=== PATIENT | female | born 1980 | race Hispanic/Latino ===

== ENCOUNTER 2020-05-28 16:22 | Emergency (ER) | payer SELFPAY ==
--- OUTSIDE RECORDS SUMMARY | 2020-05-28 16:25 | XMS REPORT | Continuity of Care Document ---
:1980 Author Organization [facility] t Address [address] [place] [address] Dr. Hugo [address] [place] [address] Care Team Providers Name Role Phone Unavailable Unavailable Unavailable Problems This patient has no known problems. Allergies, Adverse Reactions, Alerts This patient has no known allergies or adverse reactions. Medications This patient has no known medications. Procedures This patient has no known procedures. Results This patient has no known results.
[2020-05-28] MEDS ORDERED: METHYLPREDNISOLONE 125 MG INJ ONE (17:01)
[2020-05-28] MEDS ORDERED: MORPHINE 4 MG/ML SYR ONE (17:02)
[2020-05-28] MEDS ORDERED: ONDANSETRON 4 MG/2 ML VIAL ONE ×2 (17:02→18:42)
[2020-05-28 17:32] LABS: ALT/SGPT 27 U/L (12-78); AST/SGOT 22 U/L (15-37); Albumin 3.1 g/dL (3.4-5.0); Alkaline Phosphatase 95 U/L (45-117); BUN Blood Urea Nitrogen 8 mg/dL (7-18); Bicarbonate 23 mmol/L (21-32); Bilirubin Direct 0.1 mg/dL (0-0.2); Bilirubin Total 0.4 mg/dL (0.2-1.0); Ferritin 96.2 ng/mL (8-388); Glucose Level 246 mg/dL (74-106); Potassium 3.7 mmol/L (3.5-5.1); Protein, Total 7.5 g/dL (6.4-8.2); Sodium Level 137 mmol/L (136-145)
[2020-05-28 17:38] LABS: Absolute Lymphocytes (CBC) 1.6 K/uL (0.7-4.9); Basophils % 0.2 % (0-1.3); Hematocrit 41.3 % (36.0-45.0); Lymphocytes % 25.1 % (15.3-44.8); MPV 7.8 fL (7.6-11.3); RBC Red Blood Cell Count 4.98 M/uL (3.86-4.86)
--- NOTE | 2020-05-28 18:40 | RAD REPORT ---
EXAM DESCRIPTION: Luis Alberto Single View05/28/2020 6:01 pm CLINICAL HISTORY: Cough COMPARISON: 2013 FINDINGS: Mild to moderate right and mild left pulmonary opacities. Chronic elevation right hemidiaphragm IMPRESSION: Mild to moderate right and mild left pulmonary opacities likely pneumonia
--- NOTE | 2020-05-28 18:40 | RAD REPORT ---
EXAM DESCRIPTION: CT - Chest For Pe Angio - 05/28/2020 6:22 pm CLINICAL HISTORY: cough COMPARISON: None. TECHNIQUE: Dynamically enhanced axial 3 mm thick images of the chest were obtained during administra tion of <100> mL Isovue 370 IV contrast. Coronal and oblique reconstruction images were generated and reviewed. Exam utilizes a protocol for optimal evaluation of pulmonary arterial tree. Maximum intensity projections 3D imaging was utilized All CT scans are performed using dose optimization technique as appropriate and may include automated exposure control or mA/KV adjustment according to patient size. FINDINGS: A pulmonary embolus is not seen. A thoracic aortic aneurysm is not noted. A pleural effusion is not seen. A pericardial effusion is not seen. Mild left and mild to moderate right bibasilar opacities within the lungs IMPRESSION: Negative for a pulmonary embolism. Mild left and mild to moderate right bibasilar opacities within the lungs can be seen Covid pneumonia
--- NOTE | 2020-05-28 18:48 | EDPHYS ---
Physician Documentation [facility] Name: Gem Espinoza Age: 40 yrs Sex: Female : 1980 Arrival Date: 05/28/2020 Time: 16:25 Bed 6 Private MD: ED Physician Thomas Avery HPI: 05/28 17:43 This 40 yrs old Female presents to ER via EMS with complaints of Shortness Of rn Breath. 17:43 The patient has shortness of breath at rest, with light activity. Onset: The rn symptoms/episode began/occurred 4 day(s) ago. Duration: The symptoms are continuous, and are steadily getting worse. The patient's shortness of breath is aggravated by coughing, light activity. Associated signs and symptoms: Pertinent positives: productive cough, fever, Pertinent negatives: hemoptysis, vomiting. Severity of symptoms: At their worst the symptoms were moderate in the emergency department the symptoms are unchanged. The patient has not experienced similar symptoms in the past. The patient has not recently seen a physician. Reports got sick 4 days ago, tested + for COVID, steadily getting worse, today called 911 for increased sob, per EMS was breathing 40x/min, O2 94%, given nebulizer and improved, patient feels better, no chronic lung problems. . Historical: - Allergies: 16:30 No Known Allergies; bp - Home Meds: 16:30 None [Active]; bp - PMHx: 16:30 None; bp - Immunization history:: Adult Immunizations up to date. - Social history:: Smoking status: Patient denies any tobacco usage or history of. - Family history:: not pertinent. - Hospitalizations: : No recent hospitalization is reported. ROS: 17:43 Constitutional: + fever and chills Eyes: Negative for injury, pain, redness, and rn tele, Neck: Negative for injury, pain, and swelling, Cardiovascular: Negative for chest pain, palpitations, and edema, Respiratory: + cough and sob Abdomen/GI: Negative for abdominal pain, nausea, vomiting, diarrhea, and constipation, MS/Extremity: Negative for injury and deformity, Skin: Negative for injury, rash, and discoloration, Neuro: Negative for headache, numbness, tingling, and seizure. 17:43 All other systems are negative. rn Exam: 17:43 Constitutional: This is a well developed, well nourished patient who is awake, alert, rn + mild tachypnea Head/Face: Normocephalic, atraumatic. Eyes: Pupils equal round and reactive to light, extra-ocular motions intact. Lids and lashes normal. Conjunctiva and sclera are non-icteric and not injected. Cornea within normal limits. Periorbital areas with no swelling, redness, or edema. ENT: Mucous membranes moist. No stridor Cardiovascular: Tachycardic. No pulse deficits. Respiratory: + mild tachypnea Abdomen/GI: soft, non-tender Skin: Warm, dry with normal turgor. Normal color with no rashes, no lesions, and no evidence of cellulitis. MS/ Extremity: Pulses equal, no cyanosis. Neurovascular intact. Full, normal range of motion. Equal circumference. Neuro: Awake and alert, GCS 15, oriented to person, place, time, and situation. Vital Signs: 17:07 BP 129 / 89; Pulse 121; Resp 25 S; Temp 100.6(O); Pulse Ox 97% on 3 lpm NC; jd3 17:39 BP 120 / 78; Pulse 108; Resp 17; Pulse Ox 97% ; bp 18:15 BP 124 / 73; Pulse 102; Resp 16; Temp 98.9; Pulse Ox 97% ; bp 19:00 BP 120 / 70; Pulse 100; Resp 19; Temp 98.7; Pulse Ox 95% ; ea MDM: 16:28 Patient medically screened. rn 18:46 Differential diagnosis: pneumonia, Pneumothorax pulmonary edema, Pulmonary Embolism. rn Data reviewed: vital signs, nurses notes, lab test result(s), radiologic studies, CT scan, plain films, and as a result, I will discharge patient. Counseling: I had a detailed discussion with the patient and/or guardian regarding: the historical points, exam findings, and any diagnostic results supporting the discharge/admit diagnosis, lab results, radiology results, the need for outpatient follow up, to return to the emergency department if symptoms worsen or persist or if there are any questions or concerns that arise at home. Response to treatment: the patient's symptoms have markedly improved after treatment, and as a result, I will discharge patient. Special discussion: I discussed with the patient/guardian in detail that at this point there is no indication for admission to the hospital. It is understood, however, that if the symptoms persist or worsen the patient needs to return immediately for re-evaluation. Based on the history and exam findings, there is no indication for further emergent testing or inpatient evaluation. I discussed with the patient/guardian the need to see the retirement actuary for further evaluation of the symptoms. ED course: No oxygen requirement, mild to moderate COVID pneumonia, will dc home with steroids and zithromax with prn inhaler.. 05/28 16:29 Order name: Blood Culture Adult (2) rn 05/28 16:29 Order name: BMP rn 05/28 16:29 Order name: C-Reactive Protein rn 05/28 16:29 Order name: CBC with Diff rn 05/28 16:29 Order name: D-Dimer rn 05/28 16:29 Order name: Ferritin rn 05/28 16:29 Order name: Lactate rn 05/28 16:29 Order name: LFT's rn 05/28 16:29 Order name: Procalcitonin rn 05/28 17:25 Order name: Lactate; Complete Time: 17:42 EDMS 05/28 17:33 Order name: Basic Metabolic Panel; Complete Time: 17:42 EDMS 05/28 17:33 Order name: Liver (Hepatic) Function; Complete Time: 17:42 EDMS 05/28 17:33 Order name: C-Reactive Protein; Complete Time: 17:42 EDMS 05/28 17:33 Order name: Ferritin; Complete Time: 17:42 EDMS 05/28 16:29 Order name: CXR XRAY rn 05/28 16:29 Order name: EKG; Complete Time: 16:31 rn 05/28 16:29 Order name: Cardiac monitoring; Complete Time: 16:40 rn 05/28 16:29 Order name: Droplet/Contact Precautions; Complete Time: 16:40 rn 05/28 16:29 Order name: EKG - Nurse/Tech; Complete Time: 16:41 rn 05/28 16:29 Order name: IV Start; Complete Time: 17:06 rn 05/28 17:41 Order name: CBC with Automated Diff; Complete Time: 17:42 EDMS 05/28 17:46 Order name: D-Dimer; Complete Time: 17:54 EDMS 05/28 17:54 Order name: CT Chest For PE Angio rn 05/28 18:10 Order name: Procalcitonin EDPA 05/28 18:41 Order name: CT EDPA 05/28 18:41 Order name: RAD EDPA 05/28 16:29 Order name: Labs collected and sent; Complete Time: 17:06 rn 05/28 16:29 Order name: O2 Per Protocol; Complete Time: 16:41 rn 05/28 16:29 Order name: O2 Sat Monitoring; Complete Time: 16:41 rn Administered Medications: 17:06 Drug: SOLU-Medrol 125 mg Route: IVP; Site: right antecubital; jd3 19:00 Follow up: Response: No adverse reaction ea 17:06 Drug: morphine 4 mg Route: IVP; Site: right antecubital; jd3 18:06 Follow up: Response: No adverse reaction; Pain is decreased bp 17:06 Drug: Zofran (Ondansetron) 4 mg Route: IVP; Site: right antecubital; jd3 18:05 Follow up: Response: No adverse reaction; Pain is decreased bp 18:10 Drug: Zofran (Ondansetron) 4 mg Route: IVP; Site: right antecubital; bp 19:20 Follow up: Response: No adverse reaction bp Disposition: 05/28/20 18:47 Discharged to Home. Impression: Coronavirus infection, unspecified, Viral pneumonia, unspecified. - Condition is Stable. - Discharge Instructions: COVID-19. - Prescriptions for Zithromax Z- Surendra 250 mg Oral Tablet - take 1 tablet by ORAL route as directed for 5 days Day 1 - take two (2) tablets one time. Day 2, 3, 4 , 5 take one (1) tablet once daily.; 6 tablet. Prednisone 20 mg Oral Tablet - take 1 tablet by ORAL route as directed for 14 days Take 2 tablets by mouth daily for 7 days, then 1 tablet by mouth daily for 7 days.; 21 tablet. Albuterol Sulfate 90 mcg/actuation - inhale 1-2 puff by INHALATION route every 4-6 hours; 1 Inhaler. - Medication Reconciliation Form, Thank You Letter, Antibiotic Education, Prescription Opioid Use form. - Follow up: Hermilo Veliz MD; When: 2 - 3 days; Reason: Recheck today's complaints, Re-evaluation by your physician. - Problem is new. - Symptoms have improved. Signatures: Dispatcher [employer] EDThomas Jenkins MD MD rn Antunez, Elena RN RN Michael Dorsey RN RN jVijay Mederos RN RN bp Corrections: (The following items were deleted from the chart) 19:28 18:47 05/28/2020 18:47 Discharged to Home. Impression: Coronavirus infection, ea unspecified; Viral pneumonia, unspecified. Condition is Stable. Forms are Medication Reconciliation Form, Thank You Letter, Antibiotic Education, Prescription Opioid Use. Follow up: Hermilo Veliz; When: 2 - 3 days; Reason: Recheck today's complaints, Re-evaluation by your physician. Problem is new. Symptoms have improved. rn
--- NOTE | 2020-05-28 18:48 | ER ---
Nurse's Notes [facility] Name: Gem Espinoza Age: 40 yrs Sex: Female : 1980 Arrival Date: 05/28/2020 Time: 16:25 Bed 6 Private MD: Diagnosis: Coronavirus infection, unspecified;Viral pneumonia, unspecified Presentation: 05/28 16:30 Chief complaint: EMS states: INCREASE SOB AND FEVER TODAY, DX WITH +COV 4 DAYS AGO. bp Coronavirus screen: Client reports previous positive COVID test result. Date of collection: May 24, 2020. Ebola Screen: No symptoms or risks identified at this time. Initial Sepsis Screen: Does the patient meet any 2 criteria? RR > 20 per min. HR > 90 bpm. Yes Does the patient have a suspected source of infection? Yes: Productive cough/pneumonia. Risk Assessment: Do you want to hurt yourself or someone else? Patient reports no desire to harm self or others. Onset of symptoms was May 28, 2020. 16:30 Method Of Arrival: EMS: [facility] bp 16:30 Acuity: ELIZABETH 2 bp Triage Assessment: 16:30 General: Appears distressed, uncomfortable, obese, Behavior is cooperative, appropriate bp for age, anxious. Pain: Denies pain. EENT: Reports nasal congestion. Neuro: No deficits noted. Cardiovascular: Rhythm is sinus tachycardia. Respiratory: Airway is patent Respiratory effort is labored, Respiratory pattern is symmetrical, tachypnea Breath sounds with crackles bilaterally. GI: No signs and/or symptoms were reported involving the gastrointestinal system. : No signs and/or symptoms were reported regarding the genitourinary system. Derm: No deficits noted. Musculoskeletal: No deficits noted. Historical: - Allergies: 16:30 No Known Allergies; bp - Home Meds: 16:30 None [Active]; bp - PMHx: 16:30 None; bp - Immunization history:: Adult Immunizations up to date. - Social history:: Smoking status: Patient denies any tobacco usage or history of. - Family history:: not pertinent. - Hospitalizations: : No recent hospitalization is reported. Screenin:30 Abuse screen: Denies threats or abuse. Denies injuries from another. Nutritional bp screening: No deficits noted. Tuberculosis screening: No symptoms or risk factors identified. Fall Risk None identified. Assessment: 16:30 General: SEE TRIAGE NOTE. bp 17:39 Reassessment: No changes from previously documented assessment. Patient and/or family bp updated on plan of care and expected duration. Pain level reassessed. Patient is alert, oriented x 3, equal unlabored respirations, skin warm/dry/pink. RESULTS PENDING. 18:15 Reassessment: No changes from previously documented assessment. Patient and/or family bp updated on plan of care and expected duration. Pain level reassessed. PT RETURNED FROM RAD. 19:27 Reassessment: Patient and/or family updated on plan of care and expected duration. Pain ea level reassessed. Patient is alert and oriented x 3. Respirations equal and unlabored at this time. Discharge instruction given to patient verbalized the understanding of instruction. Pt left ED via wheelchair, pt tolerating well. Vital Signs: 17:07 BP 129 / 89; Pulse 121; Resp 25 S; Temp 100.6(O); Pulse Ox 97% on 3 lpm NC; jd3 17:39 BP 120 / 78; Pulse 108; Resp 17; Pulse Ox 97% ; bp 18:15 BP 124 / 73; Pulse 102; Resp 16; Temp 98.9; Pulse Ox 97% ; bp 19:00 BP 120 / 70; Pulse 100; Resp 19; Temp 98.7; Pulse Ox 95% ; ea ED Course: 16:25 Patient arrived in ED. jd3 16:27 Vijay Neves, RN is Primary Nurse. bp 16:28 Thomas Avery MD is Attending Physician. rn 16:39 EKG done, by ED staff, reviewed by Thomas Avery MD. Maintain EMS IV. Dressing intact. jd3 Good blood return noted. Site clean \T\ dry. Gauge \T\ site: 20 G right AC. 16:57 Initial lab(s) drawn, by sc, sent to lab. First set of blood cultures drawn by me. 5 17:04 Inserted saline lock: 20 gauge in left antecubital area, using aseptic technique. Blood 5 collected. 17:05 Patient has correct armband on for positive identification. Bed in low position. Call [facility] light in reach. Side rails up X 1. Pillow given. scanning clerk on. Pulse ox on. NIBP on. 17:06 Blood Culture Adult (2) Sent. 5 17:06 BMP Sent. 5 17:06 C-Reactive Protein Sent. 5 17:06 CBC with Diff Sent. 5 17:06 D-Dimer Sent. [facility] 17:06 Ferritin Sent. [facility] 17:07 Lactate Sent. [facility] 17:07 LFT's Sent. [facility] 17:07 Procalcitonin Sent. [facility] 17:11 Triage completed. bp 18:47 Hermilo Veliz MD is Referral Physician. rn 19:08 Arm band placed on. jd3 19:25 No provider procedures requiring assistance completed. IV discontinued, intact, ea bleeding controlled, No redness/swelling at site. Pressure dressing applied. Administered Medications: 17:06 Drug: SOLU-Medrol 125 mg Route: IVP; Site: right antecubital; jd3 19:00 Follow up: Response: No adverse reaction ea 17:06 Drug: morphine 4 mg Route: IVP; Site: right antecubital; jd3 18:06 Follow up: Response: No adverse reaction; Pain is decreased bp 17:06 Drug: Zofran (Ondansetron) 4 mg Route: IVP; Site: right antecubital; jd3 18:05 Follow up: Response: No adverse reaction; Pain is decreased bp 18:10 Drug: Zofran (Ondansetron) 4 mg Route: IVP; Site: right antecubital; bp 19:20 Follow up: Response: No adverse reaction bp Outcome: 18:47 Discharge ordered by MD. rn 19:26 Discharged to home via wheelchair, with family. ea 19:26 Condition: stable 19:26 Discharge instructions given to patient, Instructed on discharge instructions, follow up and referral plans. medication usage. 19:28 Patient left the ED. ea Signatures: Thomas Avery MD MD rn Martinez, Maria Mabel Esparza RN RN ea Davies, Jonathon, RN RN jd3 Peltier, Brian, RN RN bp
[2020-05-28 23:17] VITALS: BP 120/70; TEMP 98.7; O2SAT 95
--- NOTE | 2020-05-29 05:12 | EKG ---
Test Date: 2020-05-28 Test Time: 16:33:20 Shingle Catcher: JONATHON MEASUREMENT RESULTS: Intervals: Rate: 108 RI: 158 QRSD: 84 QT: 314 QTc: 420 [place]: P: 46 RI: 158 QRS: 59 T: 56 INTERPRETIVE STATEMENTS: Sinus tachycardia Possible Inferior infarct, age undetermined Anterior infarct, age undetermined Abnormal ECG No previous ECG available for comparison Electronically Signed On 05-29-20 05:11:11 CANCER REGISTRY MANAGER by Dov Osborn
== END 2020-05-28 19:28 | disposition home or self-care (01) ==
LOC: ER 16:22
DX: U07.1 COVID-19 (principal); J12.82 Pneumonia due to coronavirus disease 2019
CPT/HCPCS: 36415; 71045; 71275; 80048; 80076; 82728; 83605; 84145; 85025; 85379; 86140; 87040; 93005; 96374; 96375; 99284; J2405; J2930; Q9967

== ENCOUNTER 2020-05-31 14:34 | Inpatient (IN) | payer SELFPAY ==
--- OUTSIDE RECORDS SUMMARY | 2020-05-31 14:37 | XMS REPORT | Continuity of Care Document ---
:1980 Author Organization [facility] t Address [address] [place] [address] Dr. [address] [place] [address] Care Team Providers Name Role Phone Unavailable Unavailable Unavailable Problems This patient has no known problems. Allergies, Adverse Reactions, Alerts This patient has no known allergies or adverse reactions. Medications This patient has no known medications. Procedures This patient has no known procedures. Results This patient has no known results.
[2020-05-31] MEDS ORDERED: METHYLPREDNISOLONE 125 MG INJ ONE (15:29)
[2020-05-31 15:32] LABS: Arterial Blood Carboxyhemoglob 1.9 % (0-1.5); Blood Gas Oxyhemoglobin 88.5 % (94-97); Blood O2 Saturation 91.1 % (92-98.5)
--- NOTE | 2020-05-31 15:41 | RAD REPORT ---
EXAM DESCRIPTION: RAD - Chest Single View - 05/31/2020 3:30 pm CLINICAL HISTORY: Cough;Chest pain Chest pain. COMPARISON: Chest Single View dated 05/28/2020; CHEST PA AND LAT 2 VIEW dated 02/04/2014 FINDINGS: Portable technique limits examination quality. Mild bilateral pulmonary opacities are seen, appearing mildly progressive involving the left lung. Th e heart is normal in size. No displaced fractures. IMPRESSION: Mild worsening in lung aeration since the comparative study.
[2020-05-31] MEDS ORDERED: MORPHINE 2 MG/ML SYR ONE ×2 (15:52→17:01)
[2020-05-31] MEDS ORDERED: ONDANSETRON 4 MG/2 ML VIAL ONE (15:52)
[2020-05-31 15:56] LABS: Absolute Lymphocytes (CBC) 1.4 K/uL (0.7-4.9); Basophils % 0.3 % (0-1.3); Hematocrit 41.3 % (36.0-45.0); Lymphocytes % 8.8 % (15.3-44.8); MPV 7.6 fL (7.6-11.3); RBC Red Blood Cell Count 4.96 M/uL (3.86-4.86)
[2020-05-31 15:59] LABS: Protime INR 1.05
[2020-05-31 16:14] LABS: ALT/SGPT 18 U/L (12-78); AST/SGOT 13 U/L (15-37); Albumin 2.8 g/dL (3.4-5.0); Alkaline Phosphatase 82 U/L (45-117); BUN Blood Urea Nitrogen 12 mg/dL (7-18); Bicarbonate 23 mmol/L (21-32); Bilirubin Direct 0.2 mg/dL (0-0.2); Bilirubin Total 0.5 mg/dL (0.2-1.0); Ferritin 163.9 ng/mL (8-388); Glucose Level 284 mg/dL (74-106); Magnesium 2.3 mg/dL (1.8-2.4); NT PRO-BNP 183 pg/mL (<125); Potassium 3.8 mmol/L (3.5-5.1); Protein, Total 7.5 g/dL (6.4-8.2); Sodium Level 136 mmol/L (136-145); Troponin (Emerg Dept Use Only) < 0.02 ng/mL (0.0-0.045)
--- NOTE | 2020-05-31 17:11 | ER ---
Nurse's Notes [facility] Name: Gem Espinoza Age: 40 yrs Sex: Female : 1980 Arrival Date: 05/31/2020 Time: 14:36 Bed 30 Private MD: Diagnosis: Pneumonia due to other specified infectious organisms;Coronavirus infection, unspecified;Respiratory failure, unspecified with hypoxia Presentation: 05/31 14:50 Onset of symptoms was May 18, 2020. ll1 14:50 Acuity: ELIZABETH 2 ll1 14:54 Chief complaint: Patient states: Covid + for 2 weeks. SOB for 4-5 days. Constant SOB ll1 now. O2 sat. 73-86% RA during triage. Coronavirus screen: Client denies travel out of the [place] in the last 14 days. congestion, cough unrelated to allergies, difficulty breathing, fatigue, shortness of breath, Client presents with at least one sign or symptom that may indicate coronavirus-19. Standard/surgical mask placed on the client. Ebola Screen: Patient denies travel to an Ebola-affected area in the 21 days before illness onset. Initial Sepsis Screen: Does the patient meet any 2 criteria? RR > 20 per min. HR > 90 bpm. Yes Does the patient have a suspected source of infection? Yes: Productive cough/pneumonia. Risk Assessment: Do you want to hurt yourself or someone else? Patient reports no desire to harm self or others. 14:54 Method Of Arrival: Ambulatory ll1 Historical: - Allergies: 14:45 No Known Allergies; ll1 - PMHx: 14:45 Diabetes - NIDDM; Hypertension; ll1 - PSHx: 14:45 ; ll1 - Immunization history:: Flu vaccine is not up to date. - Social history:: Smoking status: Patient denies any tobacco usage or history of. Screenin:40 Abuse screen: Denies threats or abuse. Denies injuries from another. Nutritional hb screening: No deficits noted. Tuberculosis screening: No symptoms or risk factors identified. Fall Risk None identified. Assessment: 15:42 General: Appears distressed, Behavior is cooperative. Pain: Pain currently is 6 out of hb 10 on a pain scale. Neuro: Level of Consciousness is awake, alert, obeys commands, Oriented to. Cardiovascular: Capillary refill < 3 seconds Patient's skin is warm and dry. Respiratory: Airway Respiratory effort is labored, Respiratory pattern is tachypnea. 15:42 GI: Reports nausea. : No signs and/or symptoms were reported regarding the hb genitourinary system. EENT: No signs and/or symptoms were reported regarding the EENT system. Derm: Skin is pink, warm \T\ dry. Musculoskeletal: No signs and/or symptoms reported regarding the musculoskeletal system. 16:26 Reassessment: Dr. Love at bedside. hb 17:10 Reassessment: Patient and/or family updated on plan of care and expected duration. Pain hb level reassessed. Breathing labored, SpO2>92% on HFNC. 17:41 Reassessment: Pt placed on NRB, to CT via stretcher . hb 17:56 Reassessment: Pt returned from CT, placed back on HFNC. Admission ordered, awaiting hb room assignment at this time. 18:35 Reassessment: No changes from previously documented assessment. VSS. hb Vital Signs: 14:54 BP 136 / 88; Pulse 110; Resp 26; Temp 98.0; Pulse Ox 80% ; ll1 14:57 Resp 22; Pulse Ox 91% on 4 lpm NC; ll1 15:43 Pulse Ox 96% 60% ; hb 16:27 BP 138 / 76; Pulse 98; Resp 20; Pulse Ox 94% 60% ; hb 17:30 BP 142 / 78; Pulse 100; Resp 22; Pulse Ox 92% 65% ; hb 15:43 30L HFNC hb 16:27 30L HFNC hb 17:30 25L HFNC hb ED Course: 14:36 Patient arrived in ED. mr 14:45 Arm band placed on Patient placed in an exam room, on a stretcher. ll1 14:50 Triage completed. ll1 14:51 Dayday Villagomez PA is PHCP. cp 14:51 Dung Sarkar MD is Attending Physician. cp 15:10 Yeimi Capellan, RN is Primary Nurse. hb 15:30 XRAY Chest (1 view) In Process Unspecified. EDMS 15:44 Patient has correct armband on for positive identification. Bed in low position. Call hb light in reach. Side rails up X 1. 15:44 Initial lab(s) drawn, by me, sent to lab. EKG done, by ED staff, reviewed by Dayday Villagomez jp3 BUDDY COVPAULA swab sent to lab. Inserted saline lock: 22 gauge in left antecubital area, using aseptic technique. Blood collected. 16:51 Radiology exam delayed due to test not completed at this time. mw3 17:10 Tayo Love is Hospitalizing Provider. cp 17:44 Urine --Ancillary (enter results) Sent. hb 17:44 Urine Dipstick--Ancillary (enter results) Sent. hb 21:22 No provider procedures requiring assistance completed. IV is patent, with fluids rv infusing freely, Patient admitted, IV remains in place. Administered Medications: 15:38 Drug: morphine 2 mg Route: IVP; Site: left antecubital; hb 16:12 Follow up: Response: No adverse reaction hb 15:39 Drug: SOLU-Medrol 125 mg Route: IVP; Site: left antecubital; hb 16:12 Follow up: Response: No adverse reaction hb 15:41 Drug: Zofran (Ondansetron) 4 mg Route: IVP; Site: left antecubital; hb 16:12 Follow up: Response: No adverse reaction hb 16:46 Drug: morphine 2 mg Route: IVP; Site: left antecubital; hb 17:44 Follow up: Response: No adverse reaction hb 17:46 Drug: Rocephin - (cefTRIAXone) 1 grams Route: IVPB; Infused Over: 30 mins; Site: left hb antecubital; 17:46 Follow up: IV Status: Completed infusion; IV Intake: 10ml hb 17:48 Drug: Zithromax (azithromycin) 500 mg Route: IVPB; Infused Over: 1 hrs; Site: left hb antecubital; 20:00 Follow up: IV Status: Completed infusion; IV Intake: 250ml rv Intake: 17:46 IV: 10ml; Total: 10ml. hb 20:00 IV: 250ml; Total: 260ml. rv Outcome: 17:11 Decision to Hospitalize by Provider. cp 21:23 Admitted to ER Hold. [facility]. rv 21:23 Condition: good 21:23 Instructed on the need for admit. 06/01 13:52 Patient left the ED. dm5 Signatures: [facility] Eva Mckay RN RN dm5 Lilli Ragland, Dayday, Yeimi Alexander cp, LINDA RN hb Cleopatra Barrera mw3 Acosta Muir RN RN rv Clement Simms jp3 Edelmira Quevedo RN RN ll1 Corrections: (The following items were deleted from the chart) 05/31 15:44 15:42 Respiratory: Airway hb hb
--- NOTE | 2020-05-31 17:11 | EDPHYS ---
Physician Documentation [facility] Name: Gem Espinoza Age: 40 yrs Sex: Female : 1980 Arrival Date: 05/31/2020 Time: 14:36 Bed 30 Private MD: ED Physician Dung Sarkar HPI: 05/31 15:10 This 40 yrs old Female presents to ER via Ambulatory with complaints of cp Breathing Difficulty, COVID+. 15:10 The patient has shortness of breath at rest. cp 15:10 Onset: The symptoms/episode began/occurred 5 day(s) ago. Duration: The symptoms are cp continuous, and are steadily getting worse. Associated signs and symptoms: Pertinent positives: chest pain, non-productive cough, Pertinent negatives: diaphoresis, fever, hemoptysis, vomiting. Severity of symptoms: in the emergency department the symptoms are unchanged despite home interventions. Patient reports testing positive for COVID-19 approximately 2 weeks ago with symptoms starting several days prior. Patient reports she was seen recently in [facility] ED and sent home with oral steroids and antibiotic. Historical: - Allergies: 14:45 No Known Allergies; ll1 - PMHx: 14:45 Diabetes - NIDDM; Hypertension; ll1 - PSHx: 14:45 ; ll1 - Immunization history:: Flu vaccine is not up to date. - Social history:: Smoking status: Patient denies any tobacco usage or history of. ROS: 15:15 Constitutional: Negative for body aches, chills, fever, poor PO intake. cp 15:15 Eyes: Negative for injury, pain, redness, and discharge. cp 15:15 ENT: Negative for ear pain, sore throat, difficulty swallowing, difficulty handling secretions. 15:15 Cardiovascular: Positive for chest pain, with cough, Negative for edema, palpitations. 15:15 Respiratory: Positive for cough, with no reported sputum, shortness of breath, at rest. Negative for wheezing. 15:15 Abdomen/GI: Negative for abdominal pain, nausea, vomiting, and diarrhea. 15:15 Back: Negative for pain at rest, pain with movement. 15:15 Neuro: Negative for altered mental status, dizziness, headache, syncope, weakness. 15:15 All other systems are negative. Exam: 15:20 Constitutional: The patient appears alert, awake, non-diaphoretic, non-toxic, well cp developed, well nourished, in obvious distress, moderately distressed. 15:20 Head/Face: Normocephalic, atraumatic. cp 15:20 Eyes: Periorbital structures: appear normal, Conjunctiva: normal, no exudate, no injection, Sclera: no appreciated abnormality, Lids and lashes: appear normal, bilaterally. 15:20 ENT: External ear(s): are unremarkable, Nose: is normal, Mouth: Lips: moist, Oral mucosa: moist, Posterior pharynx: Airway: no evidence of obstruction, patent. 15:20 Neck: ROM/movement: is normal, is supple, without pain, no range of motions limitations, no meningismus. 15:20 Chest/axilla: Inspection: normal, Palpation: is normal, no crepitus, no tenderness. 15:20 Cardiovascular: Rate: tachycardic, Rhythm: regular, Edema: is not appreciated, JVD: is not appreciated. 15:20 Respiratory: moderate respiratory distress is noted, Respirations: labored breathing, that is moderate, shallow respirations, that is moderate, Breath sounds: bronchial sounds, that are moderate, are heard diffusely, stridor, is not appreciated, wheezing: is not appreciated. 15:20 Abdomen/GI: Inspection: abdomen appears normal, Palpation: abdomen is soft and non-tender, in all quadrants. 15:20 Back: CVA tenderness, is absent. 15:20 Skin: no rash present. 15:20 Neuro: Orientation: to person, place \T\ time. Mentation: is normal, Cerebellar function: is grossly normal, Motor: moves all fours, strength is normal, Sensation: is normal. 15:35 ECG was reviewed by the Attending Physician. cp Vital Signs: 14:54 BP 136 / 88; Pulse 110; Resp 26; Temp 98.0; Pulse Ox 80% ; ll1 14:57 Resp 22; Pulse Ox 91% on 4 lpm NC; ll1 15:43 Pulse Ox 96% 60% ; hb 16:27 BP 138 / 76; Pulse 98; Resp 20; Pulse Ox 94% 60% ; hb 17:30 BP 142 / 78; Pulse 100; Resp 22; Pulse Ox 92% 65% ; hb 15:43 30L HFNC hb 16:27 30L HFNC hb 17:30 25L HFNC hb MDM: 14:53 Patient medically screened. cp 17:15 Physician consultation: Tayo Love was contacted at 17:10, regarding admission, to cp the medical/surgical unit. patient's condition, and will see patient in ED. 17:15 Counseling: I had a detailed discussion with the patient and/or guardian regarding: the cp historical points, exam findings, and any diagnostic results supporting the discharge/admit diagnosis, lab results, radiology results, the need for further work-up and treatment in the hospital. Response to treatment: the patient's symptoms have markedly improved after treatment. 18:15 Data reviewed: vital signs, nurses notes, lab test result(s), EKG, radiologic studies, cp CT scan, plain films. 18:15 Test interpretation: by ED physician or midlevel provider: ECG, plain radiologic cp studies. 05/31 15:06 Order name: CBC with Diff; Complete Time: 17:38 cp 05/31 16:17 Interpretation: Normal except: WBC 15.40; RBC 4.96; PLT 261; GABBY% 86.7; LYM% 8.8; NEUT cp A 13.4. 05/31 15:06 Order name: LFT's; Complete Time: 16:17 cp 05/31 17:06 Interpretation: Normal except: ALB 2.8; GLOB 4.7; A/G 0.6. cp 05/31 15:06 Order name: Magnesium; Complete Time: 16:17 cp 05/31 15:06 Order name: NT PRO-BNP; Complete Time: 16:17 cp 05/31 15:06 Order name: PT-INR; Complete Time: 16:17 cp 05/31 15:06 Order name: Troponin (emerg Dept Use Only); Complete Time: 16:17 cp 05/31 15:07 Order name: Basic Metabolic Panel; Complete Time: 16:17 EDMS 05/31 16:19 Interpretation: Normal except: GLUC 284. cp 05/31 15:08 Order name: CRP; Complete Time: 16:17 cp 05/31 15:08 Order name: Ferritin; Complete Time: 16:17 cp 05/31 15:09 Order name: ABG; Complete Time: 16:17 cp 05/31 16:17 Interpretation: Normal except: ABGPCO2 29.3; ABGPO2 60.3; ABGHCO3 20.3; ABGSO2 91.1; cp QYIN2WS 88.5; ABGCOHB 1.9. 05/31 15:53 Order name: D-Dimer; Complete Time: 16:17 EDMS 05/31 17:06 Interpretation: Abnormal: D-DIMER 938. 05/31 16:56 Order name: SARS-COV-2 RT PCR; Complete Time: 17:05 EDMS 05/31 17:05 Interpretation: Results reviewed. 05/31 17:17 Order name: CBC Smear Scan; Complete Time: 17:38 EDMS 05/31 17:34 Order name: Urine Dipstick--Ancillary (enter results) nj 05/31 17:34 Order name: Urine --Ancillary (enter results) nj 05/31 17:38 Order name: Urine --Ancillary; Complete Time: 17:38 EDMS 05/31 17:38 Order name: Urine Dipstick-Ancillary; Complete Time: 17:38 EDMS 05/31 22:43 Order name: Glucose, Ancillary Testing EDMN 06/01 00:07 Order name: Blood Culture EDMN 06/01 06:21 Order name: CBC with Automated Diff EDMS 06/01 06:45 Order name: D-Dimer EDMS 06/01 07:12 Order name: Phosphorus EDMS 06/01 07:12 Order name: Lipid Profile EDMS 06/01 07:12 Order name: C-Reactive Protein EDMS 06/01 07:12 Order name: Magnesium EDMS 06/01 07:12 Order name: Ferritin EDMS 06/01 08:45 Order name: Glucose, Ancillary Testing EDMN 05/31 15:06 Order name: XRAY Chest (1 view); Complete Time: 16:17 05/31 15:06 Order name: EKG; Complete Time: 15:07 05/31 15:06 Order name: Cardiac monitoring; Complete Time: 15:39 05/31 15:06 Order name: EKG - Nurse/Tech; Complete Time: 15:39 05/31 15:06 Order name: IV Saline Lock; Complete Time: 15:39 05/31 15:06 Order name: Labs collected and sent; Complete Time: 15:39 05/31 15:06 Order name: O2 Per Protocol; Complete Time: 15:39 03/13 15:06 Order name: O2 Sat Monitoring; Complete Time: 15:39 cp 05/31 15:06 Order name: Urine Dipstick-Ancillary (obtain specimen); Complete Time: 18:10 cp 05/31 15:06 Order name: Urine Test (obtain specimen); Complete Time: 18:10 cp 05/31 16:19 Order name: CT Chest For PE Angio cp 05/31 18:08 Order name: CT; Complete Time: 18:11 EDMS 06/01 12:05 Order name: Creatinine EDMS 06/01 12:05 Order name: AST/SGOT EDMS 06/01 12:05 Order name: ALT/SGPT EDMS 06/01 12:35 Order name: Glucose, Ancillary Testing EDMS EC:35 Rate is 94 beats/min. Rhythm is regular. MA interval is normal. QRS interval is normal. cp QT interval is normal. T waves are Inverted in leads V2, V3. Interpreted by me. Reviewed by me. Administered Medications: 15:38 Drug: morphine 2 mg Route: IVP; Site: left antecubital; hb 16:12 Follow up: Response: No adverse reaction hb 15:39 Drug: SOLU-Medrol 125 mg Route: IVP; Site: left antecubital; hb 16:12 Follow up: Response: No adverse reaction hb 15:41 Drug: Zofran (Ondansetron) 4 mg Route: IVP; Site: left antecubital; hb 16:12 Follow up: Response: No adverse reaction hb 16:46 Drug: morphine 2 mg Route: IVP; Site: left antecubital; hb 17:44 Follow up: Response: No adverse reaction hb 17:46 Drug: Rocephin - (cefTRIAXone) 1 grams Route: IVPB; Infused Over: 30 mins; Site: left hb antecubital; 17:46 Follow up: IV Status: Completed infusion; IV Intake: 10ml hb 17:48 Drug: Zithromax (azithromycin) 500 mg Route: IVPB; Infused Over: 1 hrs; Site: left hb antecubital; 20:00 Follow up: IV Status: Completed infusion; IV Intake: 250ml rv Disposition: 06/02 05:10 Co-signature as Attending Physician, Dung Sarkar MD I agree with the assessment and tw4 plan of care. Disposition: 05/31/20 17:11 Hospitalization ordered by Tayo Lvoe for Inpatient Admission. Preliminary diagnosis are Pneumonia due to other specified infectious organisms, Coronavirus infection, unspecified, Respiratory failure, unspecified with hypoxia. - Bed requested for Telemetry/MedSurg (Inpatient). - Status is Inpatient Admission. dm5 - Condition is Fair. - Problem is new. - Symptoms have improved. Signatures: Dispatcher [employer] EDMN Alise Blas Eva Barron, RN LINDA dm5 Gem Siddiqui RN RN dw Page, Corey, PA PA cp Baxter, Heather, RN RN Dung Sarkar MD MD tw4 Edelmira Quevedo RN RN ll1 Acosta Muir RN rv Corrections: (The following items were deleted from the chart) 05/31 15:49 15:07 BASIC METABOLIC PANEL+C.LAB.BRZ ordered. EDMN EDMS 15:53 15:08 D-DIMER+COAG.LAB.BRZ ordered. EDMN EDMS 19:25 17:11 Hospitalization Ordered by Tayo Love for Inpatient Admission. Preliminary dw diagnosis is Pneumonia due to other specified infectious organisms; Coronavirus infection, unspecified; Respiratory failure, unspecified with hypoxia. Bed requested for Telemetry/MedSurg (Inpatient). Status is Inpatient Admission. Condition is Fair. Problem is new. Symptoms have improved. cp 06/01 12:47 05/31 19:25 05/31/2020 17:11 Hospitalization Ordered by Tayo Love for Inpatient bd Admission. Preliminary diagnosis is Pneumonia due to other specified infectious organisms; Coronavirus infection, unspecified; Respiratory failure, unspecified with hypoxia. Bed requested for [facility] ER HOLD. Status is Inpatient Admission. Condition is Fair. Problem is new. Symptoms have improved. dw 06/01 13:52 12:47 05/31/2020 17:11 Hospitalization Ordered by Tayo Love for Inpatient dm5 Admission. Preliminary diagnosis is Pneumonia due to other specified infectious organisms; Coronavirus infection, unspecified; Respiratory failure, unspecified with hypoxia. Bed requested for Telemetry/MedSurg (Inpatient). Status is Inpatient Admission. Condition is Fair. Problem is new. Symptoms have improved. bd
[2020-05-31 17:17] LABS: Blood Morphology Comment NOT SEEN (NOT SEEN); Platelet Estimate ADEQ; White Blood Cell Scan OK (OK)
--- NOTE | 2020-05-31 17:32 | P.HP ---
Certification for Inpatient Patient admitted to: Inpatient With expected LOS: >2 Midnights Practitioner: I am a practitioner with admitting privileges, knowledge of patient current condition, hospital course, and medical plan of care. Services: Services provided to patient in accordance with Admission requirements found in Title 42 Section 412.3 of the Code of Federal Regulations Patient History Date of Service: 05/31/20 Reason for admission: Shortness of breath History of Present Illness: 40-year-old woman with a history of non insulin dependent diabetes mellitus presented to the emergency department with a complaint of progressive shortness of breath. Patient stated she was diagnosed with COVID 19 two weeks ago. Chest x-ray done in the emergency department demonstrated bilateral pulmonary infiltrates consistent with COVID pneumonia. Patient was on high-flow oxygen when I saw her in the ED. The ED staff report hypoxia with SaO2 was 70-80 on room air on arrival. Her D-dimer is elevated. She has leukocytosis and meet criteria for sepsis. Patient is admitted for further management. Allergies No Known Allergies Allergy (Unverified 09/30/15 21:14) - Past Medical/Surgical History -: Diabetes mellitus type 2 - Family History Mother -: Diabetes - Social History Smoking Status: Never smoker Alcohol use: No CD- Drugs: No Place of Residence: Home Review of Systems Other: Except as documented, all other systems reviewed and negative. Physical Examination - Physical Exam General: Alert, In no apparent distress, Oriented x3, Mild distress HEENT: Atraumatic, PERRLA, Sclerae nonicteric Neck: Supple, JVD not distended Respiratory: Normal air movement, Crackles/rales Cardiovascular: No edema, Normal S1 S2, Other (Tachycardia) Gastrointestinal: Normal bowel sounds, Soft and benign, Non-distended, No tenderness Musculoskeletal: No swelling, No tenderness Integumentary: No rashes, No erythema Neurological: Normal speech, Normal strength at 5/5 x4 extr, Cranial nerves 3-12 intact - Studies Laboratory Data (last 24 hrs) 05/31/20 15:35: PT 12.1, INR 1.05 05/31/20 15:35: WBC 15.40 H D, Hgb 14.1, Hct 41.3, Plt Count 261 D 05/31/20 15:35: Sodium 136, Potassium 3.8, BUN 12, Creatinine 0.59, Glucose 284 H, Magnesium 2.3, Total Bilirubin 0.5, AST 13 L, ALT 18, Alkaline Phosphatase 82 Assessment and Plan - Problems (Diagnosis) (1) Pneumonia due to COVID-19 virus Current Visit: Yes Status: Acute (2) Acute respiratory failure with hypoxia Current Visit: Yes Status: Acute (3) Diabetes mellitus type 2 in obese Current Visit: Yes Status: Acute (4) Sepsis Current Visit: Yes Status: Acute - Plan Admit to the medical floor. Start IV Solu Medrol, vitamin C and D supplementation, zinc supplementation. Give Ivermectin. Thromboembolism prophylaxis with Eliquis. Consult to pulmonary. Titrate oxygen. BiPAP p.r.n. Insulin sliding scale for glucose management. - Advance Directives Does patient have a Living Will: No Does patient have a Durable POA for Healthcare: No
[2020-05-31 17:38] LABS: Urine Blood NEGATIVE (NEG); Urine Glucose 2+ (NEG); Urine Protein 3+ (NEG); Urine pH 5.5 (5.0-7.0)
[2020-05-31] MEDS ORDERED: AZITHROMYCIN 500 MG INJ IVPB ONE (18:05)
[2020-05-31] MEDS ORDERED: NA CHLORIDE 0.9% 250 ML ONE (18:05)
[2020-05-31] MEDS ORDERED: CEFTRIAXONE/SWI 1gm 1 GM/10 ML SYR ONE (18:05)
--- NOTE | 2020-05-31 18:08 | RAD REPORT ---
EXAM DESCRIPTION: CT - Chest For Pe Angio - 05/31/2020 5:47 pm CLINICAL HISTORY: Chest pain. Cough;Chest pain COMPARISON: Chest For Pe Angio dated 05/28/2020 TECHNIQUE: CT angiogram of the pulmonary arteries was performed with MIP. All CT scans are performed using dose optimization technique as appropriate and may include automated exposure control or mA/KV adjustment according to patient size. FINDINGS: No evidence of pulmonary thromboembolism. No acute aortic finding demonstrated. Extensive moderately severe bilateral alveolar lung opacities are present. No significant pericardial or pleural fluid. No concerning bony finding. IMPRESSION: No evidence of pulmonary thromboembolism. Extensive moderately severe alveolar lung infiltrates are present, moderately progressive since prior 05/28/20 study, and compatible with COVID-19 infection.
[2020-05-31] MEDS ORDERED: D50W 25 GM/50 ML SYRINGE IV PRN (19:15)
[2020-05-31] MEDS ORDERED: IVERMECTIN 3 MG TABLET PO ONE (19:15)
[2020-05-31] MEDS ORDERED: GLUCAGON 1 MG/VIAL IM PRN (19:15)
[2020-05-31] MEDS ORDERED: METHYLPREDNISOLONE 40 MG INJ ONE (19:51)
[2020-05-31] MEDS ORDERED: APIXABAN 5 MG TABLET ONE (19:51)
[2020-05-31] MEDS ORDERED: ASCORBIC ACID 500 MG TABLET ONE (19:51)
[2020-05-31] MEDS: INSULIN -REGULAR HUMAN 50 UNIT/0.5 ML ML SQ SCH (21:00)
[2020-05-31] MEDS: ASCORBIC ACID 500 MG TABLET PO SCH (21:00)
[2020-05-31] MEDS: METHYLPREDNISOLONE 40 MG INJ IV SCH (21:00)
[2020-05-31 22:49] VITALS: BMI 29.0
[2020-05-31] MEDS ORDERED: INSULIN -REGULAR HUMAN 50 UNIT/0.5 ML ML ONE (22:56)
[2020-06-01] MEDS: FAMOTIDINE 20 MG/2 ML VIAL IV SCH ×3 (01:00→20:21)
[2020-06-01] MEDS: APIXABAN 5 MG TABLET PO SCH ×3 (01:00→20:21)
[2020-06-01] MEDS ORDERED: APIXABAN 5 MG TABLET ONE ×2 (01:37→09:07)
[2020-06-01] MEDS ORDERED: FAMOTIDINE 20 MG/2 ML VIAL IV ONE ×3 (01:45→09:07)
[2020-06-01 06:15] LABS: Absolute Lymphocytes (CBC) 0.9 K/uL (0.7-4.9); Basophils % 0.1 % (0-1.3); Hematocrit 39.4 % (36.0-45.0); Lymphocytes % 8.2 % (15.3-44.8); MPV 7.5 fL (7.6-11.3)
[2020-06-01 07:11] LABS: Ferritin 182.4 ng/mL (8-388); Magnesium 2.8 mg/dL (1.8-2.4); Phosphorus 4.1 mg/dL (2.5-4.9)
[2020-06-01] MEDS: INSULIN -REGULAR HUMAN 50 UNIT/0.5 ML ML SQ SCH ×4 (07:30→20:27)
[2020-06-01] MEDS: METHYLPREDNISOLONE 40 MG INJ IV SCH ×2 (09:00→20:24)
[2020-06-01] MEDS: ASCORBIC ACID 500 MG TABLET PO SCH ×3 (09:00→20:21)
[2020-06-01] MEDS: ZINC SULFATE 220 MG CAP PO SCH (09:00)
[2020-06-01] MEDS: VITAMIN D 5,000 UNIT CAP PO SCH (09:00)
[2020-06-01] MEDS ORDERED: INSULIN -REGULAR HUMAN 50 UNIT/0.5 ML ML ONE ×2 (09:05→12:51)
[2020-06-01] MEDS ORDERED: METHYLPREDNISOLONE 125 MG INJ ONE (09:06)
[2020-06-01] MEDS ORDERED: ZINC SULFATE 220 MG CAP ONE (09:06)
[2020-06-01] MEDS ORDERED: ASCORBIC ACID 500 MG TABLET ONE (09:07)
[2020-06-01] MEDS ORDERED: VITAMIN D 1000 UNIT TAB ONE (09:07)
--- NOTE | 2020-06-01 10:23 | EKG ---
Test Date: 2020-05-31 Test Time: 15:29:02 Fittings Tightener: HB MEASUREMENT RESULTS: Intervals: Rate: 94 NJ: 156 QRSD: 92 QT: 360 QTc: 450 Anderson: P: 38 NJ: 156 QRS: -6 T: 45 INTERPRETIVE STATEMENTS: Normal sinus rhythm Nonspecific T wave abnormality Abnormal ECG Compared to ECG 05/28/2020 16:33:20 T-wave abnormality now present Sinus tachycardia no longer present Myocardial infarct finding no longer present Electronically Signed On 06-01-20 10:21:57 CDT by Dov Osborn
[2020-06-01 12:04] LABS: ALT/SGPT 18 U/L (12-78); AST/SGOT 12 U/L (15-37)
[2020-06-01] MEDS ORDERED: BENZONATATE 100 MG CAP PO ONE (12:51)
[2020-06-01] MEDS: BENZONATATE 100 MG CAP PO PRN (13:03)
--- NOTE | 2020-06-01 13:21 | P.PN ---
Subjective Date of Service: 06/01/20 Chief Complaint: Shortness of breath Patient maintained on high-flow oxygen. She states she feels better than yesterday. Physical Examination - Vital Signs Temperature: 97.8 F Blood Pressure: 136/83 Pulse: 88 Respirations: 24 Pulse Ox (%): 95 - Physical Exam General: Alert, In no apparent distress, Oriented x3 HEENT: Other (High-flow oxygen) Neck: JVD not distended Respiratory: Other (Nonlabored breathing) Cardiovascular: No edema, Regular rate/rhythm Gastrointestinal: Soft and benign, Non-distended Musculoskeletal: No swelling Integumentary: No rashes Neurological: Normal strength at 5/5 x4 extr - Studies Laboratory Data (last 24 hrs) 05/31/20 15:35: PT 12.1, INR 1.05 05/31/20 15:35: WBC 15.40 H D, Hgb 14.1, Hct 41.3, Plt Count 261 D 05/31/20 15:35: Sodium 136, Potassium 3.8, BUN 12, Creatinine 0.59, Glucose 284 H, Magnesium 2.3, Total Bilirubin 0.5, AST 13 L, ALT 18, Alkaline Phosphatase 82 Assessment And Plan - Current Problems (Diagnosis) (1) Pneumonia due to COVID-19 virus Current Visit: Yes Status: Acute (2) Acute respiratory failure with hypoxia Current Visit: Yes Status: Acute (3) Diabetes mellitus type 2 in obese Current Visit: Yes Status: Acute (4) Sepsis Current Visit: Yes Status: Acute - Plan Continue IV Solu Medrol, vitamin C and D supplementation, zinc supplementation. S/p Ivermectin. Gave convalescent plasma. Thromboembolism prophylaxis with Eliquis. Titrate oxygen. BiPAP p.r.n. Insulin sliding scale for glucose management.
[2020-06-01] MEDS ORDERED: GLUCAGON 1 MG/VIAL IM PRN (13:23)
[2020-06-01] MEDS ORDERED: D50W 25 GM/50 ML SYRINGE IV PRN (13:23)
[2020-06-01] MEDS ORDERED: MORPHINE 2 MG/ML SYR IV ONE (14:38)
[2020-06-01] MEDS ORDERED: MORPHINE 2 MG/ML SYR ONE (15:10)
[2020-06-01] MEDS ORDERED: IVERMECTIN 3 MG TABLET PO ONE (16:00)
[2020-06-01] MEDS: ALBUTEROL 2.5 MG/3 ML NEB SOL NEB PRN (16:38)
[2020-06-01] MEDS: IPRATROPIUM BROM 0.5MG/2.5ML NEB PRN (16:38)
[2020-06-01] MEDS ORDERED: NA CHLORIDE 0.9% 50 ML ONE (20:11)
[2020-06-01] MEDS: INSULIN GLARGINE 100 UNITS/ML SQ SCH (20:21)
[2020-06-01] MEDS: ACETAMINOPHEN 325 MG TABLET PO PRN (21:47)
[2020-06-02 04:04] LABS: Absolute Lymphocytes (CBC) 0.9 K/uL (0.7-4.9); Basophils % 0.2 % (0-1.3); Hematocrit 38.1 % (36.0-45.0); Lymphocytes % 9.1 % (15.3-44.8); MPV 7.6 fL (7.6-11.3); RBC Red Blood Cell Count 4.49 M/uL (3.86-4.86)
[2020-06-02 04:36] LABS: BUN Blood Urea Nitrogen 25 mg/dL (7-18); Bicarbonate 24 mmol/L (21-32); Glucose Level 318 mg/dL (74-106); Potassium 4.1 mmol/L (3.5-5.1); Sodium Level 137 mmol/L (136-145)
[2020-06-02] MEDS: ASCORBIC ACID 500 MG TABLET PO SCH ×3 (08:17→20:47)
[2020-06-02] MEDS: METHYLPREDNISOLONE 40 MG INJ IV SCH (08:17)
[2020-06-02] MEDS: ZINC SULFATE 220 MG CAP PO SCH (08:17)
[2020-06-02] MEDS: BENZONATATE 100 MG CAP PO PRN ×2 (08:17→16:40)
[2020-06-02] MEDS: INSULIN -REGULAR HUMAN 50 UNIT/0.5 ML ML SQ SCH ×4 (08:18→20:48)
[2020-06-02] MEDS: APIXABAN 5 MG TABLET PO SCH ×2 (08:18→20:46)
[2020-06-02] MEDS: VITAMIN D 5,000 UNIT CAP PO SCH (08:24)
[2020-06-02] MEDS: FAMOTIDINE 20 MG/2 ML VIAL IV SCH ×2 (08:24→20:47)
--- NOTE | 2020-06-02 08:28 | P.CNS ---
Date of Consult: 06/02/20 Reason for Consult: Pneumonia from plasencia virus Chief Complaint: Shortness of breath History of Present Illness: Patient is 40 years of age with a history of [id number] diabetes admitted with respiratory failure from coronal wire S he is doing better function requirements have been declining Allergies No Known Allergies Allergy (Unverified 09/30/15 21:14) Home Medications: Glipizide [Glipizide ER] 3 tab PO DAILY 06/01/20 Lisinopril [Zestril] 5 mg PO DAILY 06/01/20 Lovastatin [Altoprev] 40 mg PO BEDTIME 06/01/20 Metformin ER [Glucophage ER*] 1,000 mg PO BID 06/01/20 Sitagliptin Phosphate [Januvia*] 06/01/20 - Past Medical/Surgical History -: Diabetes mellitus type 2 - Family History Mother Medical History: Diabetes - Social History Smoking Status: Never smoker Alcohol use: No CD- Drugs: No Place of Residence: Home Review of Systems General: Weakness Respiratory: Shortness of Breath Physical Examination Temp Pulse Resp BP Pulse Ox 97.0 F 54 20 136/83 98 06/02/20 04:00 06/02/20 04:00 06/02/20 04:00 06/02/20 04:00 06/02/20 04:00 - Problems (1) Pneumonia due to COVID-19 virus Current Visit: Yes Status: Acute Plan: Patient is 40 years of age admitted with pneumonia you to coronal wire she is currently on 70% FiO2 white count is declining continue with steroids patient does not qualify forRmdesmir. Continue with steroid chest x-ray reviewed venous significant progression since May
[2020-06-02] MEDS: METHYLPREDNISOLONE 125 MG INJ IV SCH ×3 (09:00→20:47)
[2020-06-02] MEDS: ACETAMINOPHEN 325 MG TABLET PO PRN ×2 (09:42→16:41)
[2020-06-02] MEDS: ONDANSETRON 4 MG/2 ML VIAL IV PRN ×2 (12:06→20:15)
[2020-06-02] MEDS: IPRATROPIUM BROM 0.5MG/2.5ML NEB PRN (16:32)
[2020-06-02] MEDS: ALBUTEROL 2.5 MG/3 ML NEB SOL NEB PRN (16:32)
--- NOTE | 2020-06-02 17:57 | P.PN ---
Subjective Date of Service: 06/02/20 Chief Complaint: Shortness of breath Patient maintained on high-flow oxygen. Status post convalescent plasma last night. Physical Examination - Vital Signs Temperature: 97.9 F Blood Pressure: 139/83 Pulse: 53 Respirations: 24 Pulse Ox (%): 98 - Physical Exam General: Alert, In no apparent distress Neck: JVD not distended Respiratory: Other (Nonlabored breathing.) Cardiovascular: No edema, Regular rate/rhythm Gastrointestinal: Soft and benign, Non-distended Musculoskeletal: No swelling Integumentary: No rashes Neurological: Normal strength at 5/5 x4 extr Assessment And Plan - Current Problems (Diagnosis) (1) Pneumonia due to COVID-19 virus Current Visit: Yes Status: Acute (2) Acute respiratory failure with hypoxia Current Visit: Yes Status: Acute (3) Diabetes mellitus type 2 in obese Current Visit: Yes Status: Acute (4) Sepsis Current Visit: Yes Status: Acute - Plan Continue IV Solu Medrol, vitamin C and D supplementation, zinc supplementation. S/p Ivermectin. Status post convalescent plasma Patient is out of window for Remdesivir. Thromboembolism prophylaxis with Eliquis. Titrate oxygen. Continue high-flow oxygen and wean as tolerated. BiPAP p.r.n. Insulin sliding scale for glucose management. Resume home dose glipizide and metformin.
[2020-06-02 20:40] LABS: Urine Appearance CLEAR; Urine Bilirubin NEGATIVE (NEG); Urine Blood 3+ (NEG); Urine Color YELLOW; Urine Glucose 3+ (NEG); Urine Protein TRACE (NEG); Urine Specific Gravity >=1.030 (1.005-1.030); Urine Urobilinogen 0.2 mg/dL (0.2-1.0)
[2020-06-02 20:44] LABS: Urine Microscopic Reflex ORDER UMIC
[2020-06-02] MEDS: METFORMIN ER 500 MG TAB PO SCH (20:46)
[2020-06-02] MEDS: ATORVASTATIN 10 MG TAB PO SCH (20:46)
[2020-06-02] MEDS: INSULIN GLARGINE 100 UNITS/ML SQ SCH (20:47)
[2020-06-02] MEDS: HYDROCODONE/APAP 5/325 MG TAB PO PRN (20:49)
[2020-06-02 20:52] LABS: Urine Bacteria <20 /HPF (<20); Urine RBC >50 /HPF (NONE SEEN)
[2020-06-03 04:11] LABS: Absolute Lymphocytes (CBC) 0.9 K/uL (0.7-4.9); Basophils % 0.1 % (0-1.3); Hematocrit 38.7 % (36.0-45.0); Lymphocytes % 11.3 % (15.3-44.8); MPV 7.3 fL (7.6-11.3); RBC Red Blood Cell Count 4.65 M/uL (3.86-4.86)
[2020-06-03] MEDS: HYDROCODONE/APAP 5/325 MG TAB PO PRN ×3 (04:15→16:54)
[2020-06-03] MEDS: ONDANSETRON 4 MG/2 ML VIAL IV PRN ×3 (04:16→18:42)
[2020-06-03 04:42] LABS: BUN Blood Urea Nitrogen 23 mg/dL (7-18); Bicarbonate 27 mmol/L (21-32); Ferritin 214.4 ng/mL (8-388); Glucose Level 320 mg/dL (74-106); Potassium 4.4 mmol/L (3.5-5.1); Sodium Level 138 mmol/L (136-145)
[2020-06-03] MEDS: ACETAMINOPHEN 325 MG TABLET PO PRN (08:41)
[2020-06-03] MEDS: VITAMIN D 5,000 UNIT CAP PO SCH (08:42)
[2020-06-03] MEDS: METFORMIN ER 500 MG TAB PO SCH ×2 (08:42→21:06)
[2020-06-03] MEDS: ASCORBIC ACID 500 MG TABLET PO SCH ×3 (08:42→21:05)
[2020-06-03] MEDS: GLIPIZIDE S.A. 5 MG TAB PO SCH (08:42)
[2020-06-03] MEDS: APIXABAN 5 MG TABLET PO SCH ×2 (08:42→21:06)
[2020-06-03] MEDS: lisinopriL 10 MG TAB PO SCH (08:42)
[2020-06-03] MEDS: ZINC SULFATE 220 MG CAP PO SCH (08:42)
[2020-06-03] MEDS: FAMOTIDINE 20 MG/2 ML VIAL IV SCH ×2 (08:43→21:07)
[2020-06-03] MEDS: METHYLPREDNISOLONE 125 MG INJ IV SCH ×3 (08:43→21:07)
[2020-06-03] MEDS: INSULIN -REGULAR HUMAN 50 UNIT/0.5 ML ML SQ SCH ×4 (08:45→21:05)
[2020-06-03] MEDS ORDERED: INFLUENZA VACCINE (for 3y+) 0.5 ML DOSE IMVAC ONE (09:00)
--- NOTE | 2020-06-03 13:08 | P.PN ---
Subjective Date of Service: 06/03/20 Chief Complaint: Shortness of breath Subjective: Improving (slowly improving. ferritin/CRP downtrending. pt still feels SOB, on HFNC, +headache.) Review of Systems 10-point ROS is otherwise unremarkable Physical Examination - Vital Signs Temperature: 97.3 F Blood Pressure: 138/38 Pulse: 53 Respirations: 18 Pulse Ox (%): 92 Assessment & Plan Physician Review Additional Text: Physical Exam General: Alert, NAD Pulm: non-labored respirations on HFNC CV: No edema, Regular rate/rhythm Abd: Soft and benign, Non-distended Musculoskeletal: No swelling Integumentary: No rashes Problem List: Sepsis secondary to Pneumonia due to COVID-19 virus Acute respiratory failure with hypoxia Diabetes mellitus type 2 in obese, non-insulin dependent Continue IV Solu Medrol, vitamin C and D supplementation, zinc supplementation. S/p Ivermectin, convalescent plasma. Patient is out of window for Remdesivir. Eliquis for VTE prophylaxis Wean O2 as tolerated. Insulin sliding scale for glucose management. Resume home dose glipizide and metformin. Glc remains elevated, increase long-acting insulin VTE: eliquis Code: full dispo: anticipate hospitalization >2 days, dc home with O2 once tolerating 4L NC Time Spent Managing Pts Care (In Minutes): 40
[2020-06-03] MEDS: INSULIN 70/30 100 UNITS/ML SQ SCH (16:49)
[2020-06-03] MEDS: ATORVASTATIN 10 MG TAB PO SCH (21:05)
[2020-06-04 04:24] LABS: BUN Blood Urea Nitrogen 19 mg/dL (7-18); Bicarbonate 28 mmol/L (21-32); Ferritin 176.4 ng/mL (8-388); Glucose Level 270 mg/dL (74-106); Magnesium 2.5 mg/dL (1.8-2.4); Potassium 4.3 mmol/L (3.5-5.1); Sodium Level 138 mmol/L (136-145)
[2020-06-04] MEDS: ONDANSETRON 4 MG/2 ML VIAL IV PRN ×2 (08:31→19:31)
[2020-06-04] MEDS: INSULIN -REGULAR HUMAN 50 UNIT/0.5 ML ML SQ SCH ×4 (08:31→20:00)
[2020-06-04] MEDS: VITAMIN D 5,000 UNIT CAP PO SCH (08:35)
[2020-06-04] MEDS: GLIPIZIDE S.A. 5 MG TAB PO SCH (08:35)
[2020-06-04] MEDS: INSULIN 70/30 100 UNITS/ML SQ SCH ×2 (08:35→16:42)
[2020-06-04] MEDS: lisinopriL 10 MG TAB PO SCH (08:36)
[2020-06-04] MEDS: METFORMIN ER 500 MG TAB PO SCH ×2 (08:36→20:01)
[2020-06-04] MEDS: ASCORBIC ACID 500 MG TABLET PO SCH ×3 (08:36→20:01)
[2020-06-04] MEDS: ZINC SULFATE 220 MG CAP PO SCH (08:37)
[2020-06-04] MEDS: METHYLPREDNISOLONE 125 MG INJ IV SCH ×3 (08:37→20:00)
[2020-06-04] MEDS: FAMOTIDINE 20 MG/2 ML VIAL IV SCH ×2 (08:37→20:01)
[2020-06-04] MEDS: APIXABAN 5 MG TABLET PO SCH (08:46)
[2020-06-04] MEDS ORDERED: ONDANSETRON 4 MG/2 ML VIAL IV ONE (12:17)
[2020-06-04] MEDS ORDERED: D50W 25 GM/50 ML VIAL IV PRN (13:00)
--- NOTE | 2020-06-04 14:35 | P.PN ---
Subjective Date of Service: 06/04/20 Chief Complaint: Shortness of breath Subjective: Improving (breathing improved, reports some nausea, continues with some hematuria as well - started after admission a few days ago. no prior hematuria, denies any history of urological issues) Review of Systems 10-point ROS is otherwise unremarkable Physical Examination - Vital Signs Temperature: 96.5 F Blood Pressure: 132/79 Pulse: 63 Respirations: 20 Pulse Ox (%): 94 Assessment & Plan Physician Review Additional Text: Physical Exam General: Alert, NAD Pulm: non-labored respirations on HFNC 55% CV: No edema, Regular rate/rhythm Abd: Soft and benign, Non-distended Musculoskeletal: No swelling Integumentary: No rashes Problem List: Sepsis secondary to Pneumonia due to COVID-19 virus Acute respiratory failure with hypoxia Diabetes mellitus type 2 in obese, non-insulin dependent Hematuria Continue IV Solu Medrol, vitamin C and D supplementation, zinc supplementation. S/p Ivermectin, convalescent plasma. Patient is out of window for Remdesivir. will discontinue eliquis, switch to lovenox due to hematuria, CT abd/pelvis ordered to eval renal system. pt denies UTI symptoms Wean O2 as tolerated. Insulin sliding scale for glucose management. Resume home dose glipizide and metformin. continue 70/30 as well, adjust as needed VTE: lovenox Code: full dispo: anticipate hospitalization >2 days, dc home with O2 once tolerating 4L NC Time Spent Managing Pts Care (In Minutes): 35
--- NOTE | 2020-06-04 14:59 | RAD REPORT ---
EXAM DESCRIPTION: CT - Abdomen Pelvis W Contrast - 06/04/2020 2:17 pm CLINICAL HISTORY: hematuria COMPARISON: Chest For Pe Angio dated 05/31/2020 TECHNIQUE: Biphasic, helical CT imaging of the abdomen and pelvis was performed following 100 ml non -ionic IV contrast. No oral contrast present. All CT scans are performed using dose optimization technique as appropriate and may include automated exposure control or mA/KV adjustment according to patient size. FINDINGS: Bilateral ground-glass opacities are present in the lung bases. Lung findings were recentl y evaluated on the May 31 CT chest. This COVID-19 pneumonia pattern has improved in the lung base r egion since May 31. No cardiomegaly or pericardial effusion. Elevated right hemidiaphragm again not ed. Liver attenuation supports a mild diffuse fatty infiltration. No focal liver lesions seen. Portal vei n is normal. Pancreas, biliary tree, gallbladder and spleen show no suspicious findings. Symmetric renal function is seen with no hydronephrosis or suspicious renal mass. No obstructing or n onobstructing calculi. No pyelonephritis or acute parenchymal process. No bladder abnormalities. No a drenal abnormalities. Uterus and ovaries show no suspicious findings. There is a 3 centimeter left ov mateusz cyst with no suspicious characteristics. No dilated bowel loops or bowel wall thickening. Moderate stool volume is seen throughout the colon. No appendicitis findings. No active GI process seen. No free air, free fluid or inflammatory stranding. No mass or bulky lymphadenopathy. A cluster of s mall periumbilical fat only hernia is present. No suspicious bony findings. IMPRESSION: No abnormality of the system seen to explain hematuria. Fatty infiltration of the liver. COVID-19 pneumonia findings are evident in the lung bases showing improvement since May 31.
[2020-06-04] MEDS: ATORVASTATIN 10 MG TAB PO SCH (20:01)
[2020-06-05] MEDS: ACETAMINOPHEN 325 MG TABLET PO PRN ×2 (01:08→16:10)
[2020-06-05 05:34] LABS: ALT/SGPT 14 U/L (12-78); AST/SGOT 9 U/L (15-37); Albumin 2.2 g/dL (3.4-5.0); BUN Blood Urea Nitrogen 18 mg/dL (7-18); Bicarbonate 26 mmol/L (21-32); Bilirubin Total 0.4 mg/dL (0.2-1.0); Glucose Level 245 mg/dL (74-106); Magnesium 2.5 mg/dL (1.8-2.4); Potassium 4.6 mmol/L (3.5-5.1); Protein, Total 5.8 g/dL (6.4-8.2); Sodium Level 137 mmol/L (136-145)
[2020-06-05 05:38] LABS: Alkaline Phosphatase ND U/L (45-117)
[2020-06-05 06:49] LABS: Absolute Lymphocytes (CBC) 0.9 K/uL (0.7-4.9); Basophils % 0.2 % (0-1.3); Hematocrit 40.8 % (36.0-45.0); Lymphocytes % 12.5 % (15.3-44.8); MPV 8.5 fL (7.6-11.3); RBC Red Blood Cell Count 4.92 M/uL (3.86-4.86)
[2020-06-05] MEDS: INSULIN 70/30 100 UNITS/ML SQ SCH ×2 (07:30→17:36)
[2020-06-05] MEDS: INSULIN -REGULAR HUMAN 50 UNIT/0.5 ML ML SQ SCH ×4 (07:30→20:28)
[2020-06-05] MEDS: FAMOTIDINE 20 MG/2 ML VIAL IV SCH ×2 (09:00→20:28)
[2020-06-05] MEDS: ENOXAPARIN 40 MG/0.4 ML SQ SCH (09:00)
[2020-06-05] MEDS: METHYLPREDNISOLONE 125 MG INJ IV SCH ×2 (09:00→20:28)
[2020-06-05] MEDS: GLIPIZIDE S.A. 5 MG TAB PO SCH (09:00)
[2020-06-05] MEDS: ZINC SULFATE 220 MG CAP PO SCH (09:00)
[2020-06-05] MEDS: ASCORBIC ACID 500 MG TABLET PO SCH ×3 (09:00→20:27)
[2020-06-05] MEDS: METFORMIN ER 500 MG TAB PO SCH ×2 (09:00→20:27)
[2020-06-05] MEDS: lisinopriL 10 MG TAB PO SCH (09:00)
[2020-06-05] MEDS: VITAMIN D 5,000 UNIT CAP PO SCH (09:00)
[2020-06-05 09:35] LABS: Blood Morphology Comment NOT SEEN (NOT SEEN); Platelet Estimate ADEQ
[2020-06-05] MEDS: ONDANSETRON 4 MG/2 ML VIAL IV PRN ×2 (11:15→19:30)
[2020-06-05] MEDS ORDERED: BISACODYL 10 MG RECTAL SUPP PR ONE (12:12)
--- NOTE | 2020-06-05 12:15 | P.PN ---
Subjective Date of Service: 06/05/20 Chief Complaint: Shortness of breath Subjective: Improving (breathing more comfortably, on 4L NC. with [place]. reports some intermittent [place]/vomiting, not tolerating PO. constipated) Review of Systems 10-point ROS is otherwise unremarkable Physical Examination - Vital Signs Temperature: 96.9 F Blood Pressure: 159/86 Pulse: 63 Respirations: 20 Pulse Ox (%): 98 Assessment & Plan Physician Review Additional Text: Physical Exam General: Alert, NAD Pulm: non-labored respirations on 4L NC CV: Regular rate/rhythm. no edema Abd: Soft, nontender, non-distended Musculoskeletal: No swelling Integumentary: No rashes Problem List: Sepsis secondary to Pneumonia due to COVID-19 virus Acute respiratory failure with hypoxia Diabetes mellitus type 2 in obese, non-insulin dependent Hematuria Continue IV Solu Medrol (decreased to BiD), vitamin C and D supplementation, zinc supplementation. S/p Ivermectin, convalescent plasma. Patient is out of window for Remdesivir. hematuria - dc eliquis, switched to lovenox for DVT prophylaxis, can use aspirin on discharge -CT done on 06/04 - no acute process to eplain hematuria. pt denies UTI symptoms; no clemens / cath used or placed recently. pt to f/u with Urology within 3 weeks of discharge Wean O2 as tolerated. Insulin sliding scale for glucose management. continue home dose glipizide and metformin. continue 70/30 as well, adjust as needed VTE: lovenox Code: full dispo: improving, anticipate dc home in ~24hrs, needs home O2 set up, needs to be tolerating diet Time Spent Managing Pts Care (In Minutes): 40
[2020-06-05] MEDS: ATORVASTATIN 10 MG TAB PO SCH (20:27)
[2020-06-06 05:22] LABS: BUN Blood Urea Nitrogen 12 mg/dL (7-18); Bicarbonate 29 mmol/L (21-32); Ferritin 199.7 ng/mL (8-388); Glucose Level 191 mg/dL (74-106); Magnesium 2.3 mg/dL (1.8-2.4); Potassium 4.1 mmol/L (3.5-5.1); Sodium Level 136 mmol/L (136-145)
[2020-06-06] MEDS: ENOXAPARIN 40 MG/0.4 ML SQ SCH (08:43)
[2020-06-06] MEDS: METHYLPREDNISOLONE 125 MG INJ IV SCH (08:43)
[2020-06-06] MEDS: FAMOTIDINE 20 MG/2 ML VIAL IV SCH (08:44)
[2020-06-06] MEDS: lisinopriL 10 MG TAB PO SCH (08:44)
[2020-06-06] MEDS: VITAMIN D 5,000 UNIT CAP PO SCH (08:44)
[2020-06-06] MEDS: GLIPIZIDE S.A. 5 MG TAB PO SCH (08:44)
[2020-06-06] MEDS: ZINC SULFATE 220 MG CAP PO SCH (08:44)
[2020-06-06] MEDS: ASCORBIC ACID 500 MG TABLET PO SCH (08:44)
[2020-06-06] MEDS: ONDANSETRON 4 MG/2 ML VIAL IV PRN (08:44)
[2020-06-06] MEDS: METFORMIN ER 500 MG TAB PO SCH (08:44)
[2020-06-06] MEDS: INSULIN -REGULAR HUMAN 50 UNIT/0.5 ML ML SQ SCH ×2 (09:18→12:21)
[2020-06-06] MEDS: INSULIN 70/30 100 UNITS/ML SQ SCH (09:20)
[2020-06-06 13:20] VITALS: BP 118/72; TEMP 96.8
[2020-06-06 13:24] VITALS: O2SAT 94
--- NOTE | 2020-06-06 21:41 | P.DS ---
Admission Date: 05/31/20 Discharge Date: 06/06/20 Disposition: ROUTINE DISCHARGE Discharge Condition: GOOD Reason for Admission: Shortness of breath, COVID-19 pneumonia Consultations: Pulm - Dr. Veliz Procedures: CXR (05/31): Mild worsening in lung aeration since the comparative study. CTA chest (05/31): No evidence of pulmonary thromboembolism. Extensive moderately severe alveolar lung infiltrates are present, moderately progressive since prior 05/28/20 study, and compatible with COVID-[address] Abd/pelvis (06/04): No abnormality of the system seen to explain hematuria. Fatty infiltration of the liver. COVID-19 pneumonia findings are evident in the lung bases showing improvement since May 31. Problem List: Sepsis secondary to Pneumonia due to COVID-19 virus Acute respiratory failure with hypoxia Diabetes mellitus type 2 in obese, non-insulin dependent Hematuria Brief History of Present Illness: 40yo F, PMH: NIDDM2, presented to ED due to worsening SOB after diagnosed with COVID-19 2 weeks ago. She was hypoxic to 70s on room air on arrival. Hospital Course: She was treated with high dose steroids, vitamin supplementation, ivermectin, and convalescent plasma. She improved and on day of discharge she was stable without hypoxia on room air for nearly 24 hrs. She is to f/u with Dr. Veliz in 1 week. Hospitalization was complicated by gross hematuria. She denied any prior history or recent instrumentation. She was receiving eliquis for VTE prophylaxis in setting of COVID-19. Eliquis was discontinued and patient was advised to take aspirin instead. She had near resolution of the lightly blood tinged urine on day of discharge. She is to follow up with urology in ~2-3 weeks. Vital Signs/Physical Exam: Physical Exam General: Alert, NAD Pulm: non-labored respirations on RA CV: Regular rate/rhythm. no edema Abd: Soft, nontender, non-distended Musculoskeletal: No swelling Integumentary: No rashes Temp Pulse Resp BP Pulse Ox 96.8 F 76 18 118/72 94 06/06/20 12:00 06/06/20 12:00 06/06/20 12:00 06/06/20 12:00 06/06/20 12:00 Laboratory Data at Discharge: WBC 7.10 K/uL (4.3-10.9) 06/05/20 04:41 Hgb 13.9 g/dL (12.0-15.0) 06/05/20 04:41 Hct 40.8 % (36.0-45.0) 06/05/20 04:41 Plt Count 263 K/uL (152-406) D 06/05/20 04:41 PT 12.1 SECONDS (9.5-12.5) 05/31/20 15:35 INR 1.05 05/31/20 15:35 Sodium 136 mmol/L (136-145) 06/06/20 03:40 Potassium 4.1 mmol/L (3.5-5.1) 06/06/20 03:40 BUN 12 mg/dL (7-18) 06/06/20 03:40 Creatinine 0.44 mg/dL (0.55-1.3) L 06/06/20 03:40 Glucose 191 mg/dL (74-106) H 06/06/20 03:40 Phosphorus 4.1 mg/dL (2.5-4.9) 06/01/20 05:42 Magnesium 2.3 mg/dL (1.8-2.4) 06/06/20 03:40 Total Bilirubin 0.4 mg/dL (0.2-1.0) 06/05/20 04:41 AST 9 U/L (15-37) L 06/05/20 04:41 ALT 14 U/L (12-78) 06/05/20 04:41 Alkaline Phosphatase ND 06/05/20 04:41 Triglycerides 187 mg/dL (<150) H 06/01/20 05:42 Cholesterol 172 mg/dL (<200) 06/01/20 05:42 HDL Cholesterol 34 mg/dL (40-60) L 06/01/20 05:42 Cholesterol/HDL Ratio 5.06 06/01/20 05:42 Home Medications: Glipizide [Glipizide ER] 1 tab PO TID 06/01/20 Lisinopril [Zestril] 10 mg PO DAILY 06/01/20 Lovastatin [Altoprev] 40 mg PO BEDTIME 06/01/20 Metformin ER [Glucophage ER*] 1,000 mg PO BID 06/01/20 Sitagliptin Phosphate [Januvia*] 50 mg PO DAILY 06/01/20 Ascorbic Acid 500 mg PO TID 30 Days #90 tablet 06/06/20 Cholecalciferol (Vitamin D3) [Vitamin D 5,000 IU Cap*] 5,000 unit PO DAILY 30 Days #30 cap 06/06/20 Famotidine [Pepcid] 40 mg PO BID 30 Days #60 tablet 06/06/20 Insulin 70/30 NPH/Reg Human [Novolin 70/30*] 10 unit SQ BIDAC 30 Days #8 ml 06/06/20 Zinc Sulfate [Zinc Sulfate*] 220 mg PO DAILY #30 cap 06/06/20 predniSONE [Deltasone] 20 mg PO SEECOM 14 Days #21 tab 06/06/20 New Medications: Ascorbic Acid 500 mg PO TID 30 Days #90 tablet Insulin 70/30 NPH/Reg Human [Novolin 70/30*] 10 unit SQ BIDAC 30 Days #8 ml Famotidine [Pepcid] 40 mg PO BID 30 Days #60 tablet predniSONE [Deltasone] 20 mg PO SEECOM 14 Days #21 tab Cholecalciferol (Vitamin D3) [Vitamin D 5,000 IU Cap*] 5,000 unit PO DAILY 30 Days #30 cap Zinc Sulfate [Zinc Sulfate*] 220 mg PO DAILY #30 cap Physician Discharge Instructions: You were found to have COVID-19 pneumonia. You improved with steroids and vitamins. You are discharged with prednisone (steroids) and continue vitamins and 81mg aspirin. Please follow up with Dr. Veliz in 1 week. Your glucose will be higher than normal due to the steroids and you are discharged with insulin, please monitor your glucose twice a day. You had some blood in your urine, due to the blood thinner during your hospitalization. This should continue to improve. Follow up with Urology, Dr. Thierno Guardado, in ~2-3 weeks. 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
== END 2020-06-06 13:59 | disposition home or self-care (01) | DRG 871 ==
LOC: ER 14:34 → ERHOLD 17:16 → 4TH 06-01 13:25
PROVIDERS: ADMIT Internal Medicine; ATTEND Hospitalist
PROC: 5A09557 Assistance with Respiratory Ventilation, Greater than 96 Consecutive Hours, Continuous Positive Airway Pressure (ICD-10-PCS; principal; 2020-05-31)
PROC: XW13325 Transfusion of Convalescent Plasma (Nonautologous) into Peripheral Vein, Percutaneous Approach, New Technology Group 5 (ICD-10-PCS; 2020-06-01)
DX: A41.89 Other specified sepsis (principal); U07.1 COVID-19; J12.82 Pneumonia due to coronavirus disease 2019; J96.01 Acute respiratory failure with hypoxia; E11.9 Type 2 diabetes mellitus without complications; I10 Essential (primary) hypertension; E66.9 Obesity, unspecified; R31.9 Hematuria, unspecified; Z68.29 Body mass index [BMI] 29.0-29.9, adult; Z79.899 Other long term (current) drug therapy; Z79.4 Long term (current) use of insulin; Z79.52 Long term (current) use of systemic steroids
CPT/HCPCS: 36415; 71045; 71275; 74177; 80048; 80053; 80061; 80076; 81003; 81015; 81025; 82565; 82728; 82805; 82947; 83036; 83735; 83880; 84100; 84450; 84460; 84484; 85025; 85379; 85610; 86140; 86900; 86901; 86927; 93005; 94002; 94003; 94640; 94760; 96365; 96366; 96375; 99285; J0456; J0696; J1650; J1815; J2270; J2405; J2920; J2930; J7050; Q9967; U0003

== ENCOUNTER 2024-01-31 23:03 | Observation (INO) | payer SELFPAY ==
--- OUTSIDE RECORDS SUMMARY | 2024-01-31 23:10 | XMS REPORT | Continuity of Care Document ---
Author Name Unknown Address [address] [facility]. [address] [place] [address] [facility] thconnect Address [address] [facility] [address] [place] [address] Care Team Providers Care Tariff Compiling Clerk Name Role Phone Lawrence MARSHALL, [facility] Primary Care Physician [phone] VICENTA URBANO Attending Clinician Unavailab VICENTA Mendez Attending Clinician Unavailab Vicenta Mendez DO Attending Clinician [phone] ASHLEY PATEL Attending Clinician Unavailable Doctor Unassigned, [place] Attending Clinician U TONI Fletcher Attending Clinician Unavailable Toni John MD Attending Clinician [phone] Tita Redding Attending Clinician [phone] Tita PEACOCK Attending Clinician Unavailable JAMES AKHTAR Attending Clinician Unavailable JAMES AKHTAR Attending Clinician Unavailable [employer] Attending Clinician Unavailable Es Vargas NP Attending Clinician [phone] ES VARGAS Attending Clinician Unavailable ES VARGAS Admitting Clinician Unavailable TONI JOHN Admitting Clinician Unavailable Payers Payer Name Policy Type Policy Number Effective Date Expirati on Date Source [facility] [id number] 2022 00:00:00 Problems Condition Name Condition Details Condition Category Status Onset Date Resolution Date Last Treatment Date Treating Clinician Comments Source Surveillan ce of previously prescribed contracept lianna pill Surveillan ce of previously prescribed contracept lianna pill Disease Active 2014-03 00:00: 00 [facility] Genital warts Genital warts Disease Active 2014-03 00:00: 00 [facility] Morbid obesity Morbid obesity Disease Active 2014-03 00:00: 00 [facility] Generalize d anxiety disorder Generalize d anxiety disorder Disease Active 2014-03 00:00: 00 [facility] Depression Depression Disease Active 2014-03 00:00: 00 [facility] H/O tubal ligation H/O tubal ligation Disease Active 2014-03 00:00: 00 [facility] Irregular menstrual cycle Irregular menstrual cycle Disease Active 2014-03 00:00: 00 [facility] Papanicola ou smear of cervix with atypical squamous cells of undetermin ed significan ce (ASC-US) Papanicola ou smear of cervix with atypical squamous cells of undetermin ed significan ce (ASC-US) Disease Active 06-28 00:00: 00 [facility] BCP ( control pills) initiation BCP ( control pills) initiation Disease Resolve d 2014-03 00:00: 00 2015-03-19 00:00:00 2015-03-19 13:14:26 [facility] Elevated blood pressure reading without diagnosis of hypertensi on Elevated blood pressure reading without diagnosis of hypertensi on Disease Resolve d 2014-03 00:00: 00 2015-03-19 00:00:00 2015-03-19 13:14:42 [facility] Obesity Obesity Disease Resolve d 07-12 00:00: 00 2015-03-09 00:00:00 2021-10-04 00:24:11 [facility] delivery delivered delivery delivered Disease Resolve d 805 00:00: 00 2015-03-09 00:00:00 2021-10-04 00:15:29 [facility] Allergies, Adverse Reactions, Alerts Allergy Name Allergy Type Status Severity Reaction(s) Onset Date Inactive Date Treating Clinician Comments Source n Propensi ty to adverse reaction to drug Active 2022-0 7-06 00:00: 00 Laurent Garcia zil - Oral Propensi ty to adverse reaction to drug Active 4-20 00:00: 00 Laurent Malhotrabro zil Propensi ty to adverse reaction to drug Inactiv e 5-09 00:00: 00 Laurent Branch NO KNOWN ALLERGIE S Drug Class Active [facility] Social History Social Habit Start Date Stop Date Quantity Comments [facility] 2024-01-31 00:00:00 2024-01-31 00:00:00 [facility] Alcoholic beverage intake 2024-01-31 00:00:00 2024-01-31 00:00:00 Current non-drinker of alcohol (finding) [facility] Exposure to SARS-CoV-2 (event) 2022-04-08 00:00:00 2022-04-18 18:44:00 Unable to assess [facility] Alcohol intake 2015-07-22 00:00:00 2015-07-22 00:00:00 Current non-drinker of alcohol (finding) [facility] Sex assigned at 1980 00:00:00 1980 00:00:00 [facility] Smoking Status Start Date Stop Date Source Never smoked tobacco [facility] Medications Ordered Medication Name Filled Medication Name Start Date Stop Date Current Medication? Ordering Clinician Indication Dosage Frequency Signature (SIG) Comments Components Source ampicillin- sulbactam (UNASYN) 3 g in NaCl 0.9% (NS) 100 mL MINI-BAG 2023-03 16:15: 00 01-30 17:11 :00 No 3g 3 g, IV Piggyback, ONCE, 1 dose, On Tue01/31/24 at 1015, Administer over 30 Minutes, 100 mL, Reason for Anti-Infec tive: Documented Infection, Documented Infection Site: HEENT, Duration of Therapy: Once (ED) [facility] iopamidol (ISOVUE 370-500 mL) injection 90 mL 2023-03 15:28: 00 01-30 15:27 :00 No [id number] 90mL 90 mL, Intravenou s, ONCE, 1 dose, On Tue01/31/24 at 0945, Routine [facility] amoxicillin -clavulanat e 875-125 mg per tablet 2023-03 00:00: 00 02-07 05:59 :00 Yes [id number] 1{tbl} Take 1 tablet by mouth every 12 (twelve) hours for 7 days. [facility] nifedipine ER 30 mg tablet,exte nded release 09-14 00:00: 00 Yes 1mg Laurent Branch lisinopril 20 mg tablet 09-14 00:00: 00 Yes 1mg Laurent Branch Victoza 3-Surendra 0.6 mg/0.1 mL (18 mg/3 mL) subcutaneou s pen injector 07-31 00:00: 00 Yes 3(18 mg/3 mL) Laurent Branch Zestoretic 20 mg-25 mg tablet 07-31 00:00: 00 Yes 1mg Laurent Branch Januvia 100 mg tablet 07-31 00:00: 00 Yes 1mg Laurent Branch venlafaxine ER 37.5 mg tablet,exte nded release 24 hr 07-31 00:00: 00 Yes 1mg Laurent Branch TAKE 1/2 TABLET NIGHTLY 05-29 00:00: 00 Yes 100 Laurent Branch TAKE 1 TABLET BY MOUTH DAILY - 00:00: 00 Yes 100 Laurent Branch INJECT 1.8 MG SUBCUTANEOU SLY EVERY DAY 05-02 00:00: 00 Yes 183 Laurent Branch TAKE 1 TABLET BY MOUTH TWICE DAILY WITH MEALS 05-02 00:00: 00 Yes [id number] Laurent Branch TAKE 1 TABLET BY MOUTH DAILY - 00:00: 00 Yes 10 Laurent Branch TAKE 1/2 TABLET NIGHTLY - 00:00: 00 07-31 00:00 :00 No 100 Laurent Branch TAKE 1 CAPSULE ONCE DAILY WITH FOOD. 2022-03- 00:00: 00 Yes 375 Laurent Branch INJECT 1.8 MG SUBCUTANEOU SLY EVERY DAY 2022-03 00:00: 00 Yes 183 Laurent F Jose Carlos TAKE 1 TABLET BY MOUTH DAILY 2022-03 00:00: 00 07-31 00:00 :00 No 100 Laurent F Jose Carlos TAKE 1 TABLET BY MOUTH TWICE DAILY WITH MEALS 2022-03 00:00: 00 07-31 00:00 :00 No [id number] Laurent F Jose Carlos TAKE 1 TABLET BY MOUTH DAILY 2022-03 00:00: 00 07-31 00:00 :00 No 10 Laurent F Jose Carlos TAKE 1 TABLET BY MOUTH DAILY 2022-03 00:00: 00 07-31 00:00 :00 No 10 Laurent F Jose Carlos TAKE 1 CAPSULE ONCE DAILY WITH FOOD. 11-22 00:00: 00 07-31 00:00 :00 No 375 Laurent F Jose Carlos 0.6 MG ONCE DAILY FOR 1 WEEK, THEN INCREASE TO 1.2 MG ONCE DAILY 11-22 00:00: 00 07-31 00:00 :00 No 183 Laurent F Jose Carlos TAKE 1 CAPSULE ONCE DAILY WITH FOOD. 10-20 00:00: 00 07-31 00:00 :00 No 375 Laurent F Jose Carlos INJECT 0.5 ML SUBCUTANEOU SLY WEEKLY. 10-20 00:00: 00 07-31 00:00 :00 No [id number] Laurent F Jose Carlos TAKE 1 TO 2 TABLETS AT BEDTIME 10-20 00:00: 00 07-31 00:00 :00 No 25 Laurent F Jose Carlos TAKE 1 TABLET DAILY. 10-13 00:00: 00 07-31 00:00 :00 No 100 Laurent F Jose Carlos TAKE 1 TABLET BY MOUTH TWICE DAILY WITH MEALS 10-13 00:00: 00 07-31 00:00 :00 No [id number] Laurent F Jose Carlos APPLY SPARINGLY TO AFFECTED AREA(S) 3 TIMES A DAY 10-13 00:00: 00 07-31 00:00 :00 No 1 Laurent F Jose Carlos TAKE 1 TABLET DAILY. 10-13 00:00: 00 07-31 00:00 :00 No 10 Laurent Branch APPLY TO AFFECTED AREAS EVERY 12 HOURS FOR TEN DAYS. AVOID ON FACE AND GROIN. 07-20 00:00: 00 07-31 00:00 :00 No 1 Laurent Branch APPLY SPARINGLY TO AFFECTED AREA(S) TWICE DAILY 07-20 00:00: 00 07-31 00:00 :00 No 25 Laurent Branch TAKE 1 -2 TABLETS DAILY FOR ITCHING 05-03 00:00: 00 07-31 00:00 :00 No 10 Laurent Branch APPLY SPARINGLY TO AFFECTED AREA(S) 3 TIMES A DAY 05-03 00:00: 00 07-31 00:00 :00 No 1 Laurent Branch TAKE 1 TABLET DAILY. 04-28 00:00: 00 07-31 00:00 :00 No 100 Laurent Branch TAKE 1 TABLET BY MOUTH TWICE DAILY WITH MEALS 04-28 00:00: 00 07-31 00:00 :00 [place] [id number] Laurent Branch TAKE 1 TABLET DAILY. 04-28 00:00: 00 07-31 00:00 :00 No 10 Laurent Branch ketorolac (TORADOL) injection 30 mg 04-19 02:15: 00 04-19 01:23 :00 No 30mg 30 mg, Slow IV Push, ONCE, 1 dose, On 04/18/22 at 2015, SAGE [facility] Dose Unknown 2021-03 00:00: 00 Yes Laurent Branch TAKE 1 TABLET BY MOUTH EVERY 6 HOURS NEEDED FOR PAIN (SCALE 4-6) 2021-03 00:00: 00 Yes Laurent Branch Dose Unknown 2021-03 00:00: 00 Yes Laurent Branch TAKE 1 TABLET DAILY. 2021-03 00:00: 00 07-31 00:00 :00 No Laurent Branch Dose Unknown 2021-03 00:00: 00 07-31 00:00 :00 No Laurent Branch Dose Unknown 2021-03 00:00: 00 07-31 00:00 :00 No Laurent Branch amoxicillin (TRIMOX) capsule 500 mg 2021-03 02:15: 00 02-21 01:14 :00 No 500mg 500 mg, Oral, ONCE, 1 dose, On 02/20/22 at 2015, SAGE
Re ason for Anti-Infec tive: Documented Infection< br>Documen mat Infection Site: HEENT
D uration of Therapy: 10 days [facility] ibuprofen (IBU) tablet 600 mg 2021-03 01:15: 00 02-21 01:14 :00 No 600mg 600 mg, Oral, ONCE, 1 dose, On 02/20/22 at 1915, SAGE [facility] TAKE ONE CAPSULE BY MOUTH IN THE MORNING, ONE CAPSULE AT NOON, AND ONE CAPSULE IN THE EVENING FOR 10 DAYS 2021-03 00:00: 00 Yes Laurent Branch ibuprofen 600 mg tablet 2021-03 00:00: 00 Yes [id number] 600mg Take 1 tablet by mouth every 6 (six) hours as needed for Pain (scale 4-6). [facility] amoxicillin 500 mg capsule 2021-03 00:00: 00 03-03 05:59 :00 No [id number] 500mg Take 1 capsule by mouth in the morning and 1 capsule at noon and 1 capsule in the evening. Do all this for 10 days. [facility] Dose Unknown 10-07 00:00: [address] 1 TABLET ON TONGUE AND ALLOW TO DISSOLVE 3 TIMES DAILY NEEDED. 10-07 00:00: [address] 1 TABLET ON TONGUE AND ALLOW TO DISSOLVE 3 TIMES DAILY NEEDED. 10-07 00:00: [address] 1 TABLET ON TONGUE AND ALLOW TO DISSOLVE 3 TIMES DAILY NEEDED. 10-07 00:00: 00 No 4 INHALE 2 PUFFS BY MOUTH EVERY 4 HOURS NEEDED FOR WHEEZING FOR SHORTNESS OF BREATH 10-05 00:00: 00 Yes Laurent Branch INHALE 2 PUFFS BY MOUTH EVERY 4 HOURS NEEDED FOR WHEEZING FOR SHORTNESS OF BREATH 2021-0 18 00:00: 00 No INHALE 2 PUFFS BY MOUTH EVERY 4 HOURS NEEDED FOR WHEEZING FOR SHORTNESS OF BREATH 2021-0 18 00:00: 00 No INHALE 2 PUFFS BY MOUTH EVERY 4 HOURS NEEDED FOR WHEEZING FOR SHORTNESS OF BREATH 2021-0 18 00:00: 00 No TAKE 2 CAPSULES BY MOUTH THREE TIMES DAILY NEEDED FOR COUGH 2021-0 09-23 00:00: 00 Yes 100 Laurent Branch TAKE 2 CAPSULES BY MOUTH THREE TIMES DAILY NEEDED FOR COUGH 2021-0 09-23 00:00: 00 No 100 TAKE 2 CAPSULES BY MOUTH THREE TIMES DAILY NEEDED FOR COUGH 2021-0 09-23 00:00: 00 No 100 TAKE 2 CAPSULES BY MOUTH THREE TIMES DAILY NEEDED FOR COUGH 2021-0 09-23 00:00: 00 No 100 Dose Unknown 0 -20 00:00: 00 Yes Laurentsmith Branch Dose Unknown 0 -20 00:00: 00 No Dose Unknown 2021-0 -20 00:00: 00 No Dose Unknown 2021-0 -20 00:00: 00 No valacyclovi r 500 mg tablet 0 - 00:00: 00 Yes 1mg Laurent Branch Lidocaine Viscous 2 % mucosal solution 0 - 00:00: 00 Yes % Laurent Branch Dose Unknown 0 - 00:00: 00 No Dose Unknown 0 1-13 00:00: 00 No Dose Unknown 0 -13 00:00: 00 No Dose Unknown 0 -13 00:00: 00 No Dose Unknown 0 -13 00:00: 00 No Dose Unknown 0 1-13 00:00: 00 No albuterol 90 mcg/actuati on inhaler 0 1-03 00:00: 00 Yes [id number] 2{puff} Inhale 2 Puffs every 4 (four) hours as needed for Wheezing or Shortness of Breath. [facility] benzonatate 100 mg capsule 0 1-03 00:00: 00 Yes [id number] 200mg Take 2 capsules by mouth 3 (three) times daily as needed for Cough. [facility] Symbicort 160 mcg-4.5 mcg/actuati on HFA aerosol inhaler 12-08 00:00: 00 Yes 2mcg/ac tuation Laurent Branch Cipro 500 mg tablet 12-08 00:00: 00 Yes 1mg Laurent Branch promethazin e 6.25 mg/5 mL oral syrup 12-08 00:00: 00 Yes 10mg/5 mL Laurent Branch Symbicort 160 mcg-4.5 mcg/actuati on HFA aerosol inhaler 12-08 00:00: 00 No 2mcg/ac tuation Cipro 500 mg tablet 12-08 00:00: 00 No 1mg promethazin e 6.25 mg/5 mL oral syrup 12-08 00:00: 00 No 10mg/5 mL Symbicort 160 mcg-4.5 mcg/actuati on HFA aerosol inhaler 12-08 00:00: 00 No 2mcg/ac tuation Cipro 500 mg tablet 12-08 00:00: 00 No 1mg promethazin e 6.25 mg/5 mL oral syrup 12-08 00:00: 00 No 10mg/5 mL Symbicort 160 mcg-4.5 mcg/actuati on HFA aerosol inhaler 12-08 00:00: 00 No 2mcg/ac tuation Cipro 500 mg tablet 12-08 00:00: 00 No 1mg promethazin e 6.25 mg/5 mL oral syrup 12-08 00:00: 00 No 10mg/5 mL ProAir HFA 90 mcg/actuati on aerosol inhaler 10-06 00:00: 00 Yes 2mcg/ac tuation Laurent Branch cetirizine 10 mg tablet 10-06 00:00: 00 Yes 1mg Laurent Branch fluticasone propionate 50 mcg/actuati on nasal spray,suspe nsion - 00:00: 00 Yes 2mcg/ac tuation Laurent Branch ProAir HFA 90 mcg/actuati on aerosol inhaler 19 00:00: 00 No 2mcg/ac tuation cetirizine 10 mg tablet 0 10-06 00:00: 00 No 1mg fluticasone propionate 50 mcg/actuati on nasal spray,suspe nsion 0 10-06 00:00: 00 No 2mcg/ac tuation ProAir HFA 90 mcg/actuati on aerosol inhaler 0 10-06 00:00: 00 No 2mcg/ac tuation cetirizine 10 mg tablet 0 10-06 00:00: 00 No 1mg fluticasone propionate 50 mcg/actuati on nasal spray,suspe nsion 10-06 00:00: 00 No 2mcg/ac tuation ProAir HFA 90 mcg/actuati on aerosol inhaler 0 10-06 00:00: 00 No 2mcg/ac tuation cetirizine 10 mg tablet 10-06 00:00: 00 No 1mg fluticasone propionate 50 mcg/actuati on nasal spray,suspe nsion 10-06 00:00: 00 No 2mcg/ac tuation glipizide 5 mg tablet 0 - 00:00: 00 Yes 2mg Laurent Branch glipizide 5 mg tablet 0 5-13 00:00: 00 No 2mg glipizide 5 mg tablet 0 5- 00:00: 00 No 2mg glipizide 5 mg tablet 0 - 00:00: 00 No 2mg ProAir HFA 90 mcg/actuati on aerosol inhaler 0 -14 00:00: 00 Yes 2mcg/ac tuation Laurent Rose Mary Branch cetirizine 10 mg tablet 0 -14 00:00: 00 Yes 1mg Laurentsmith Branch Tessalon Perles 100 mg capsule 0 -14 00:00: 00 Yes 1mg Laurent Branch ProAir HFA 90 mcg/actuati on aerosol inhaler 0 -14 00:00: 00 No 2mcg/ac tuation cetirizine 10 mg tablet 0 -14 00:00: 00 No 1mg Tessalon Perles 100 mg capsule 0 4-14 00:00: 00 No 1mg ProAir HFA 90 mcg/actuati on aerosol inhaler 0 4-14 00:00: 00 No 2mcg/ac tuation cetirizine 10 mg tablet 0 4-14 00:00: 00 No 1mg Tessalon Perles 100 mg capsule 0 4-14 00:00: 00 No 1mg ProAir HFA 90 mcg/actuati on aerosol inhaler 0 4-14 00:00: 00 No 2mcg/ac tuation cetirizine 10 mg tablet 0 4-14 00:00: 00 No 1mg Tessalon Perles 100 mg capsule 0 4-14 00:00: 00 No 1mg ProAir HFA 90 mcg/actuati on aerosol inhaler 0 3-05 00:00: 00 Yes 2mcg/ac tuation Laurent Branch ProAir HFA 90 mcg/actuati on aerosol inhaler 0 3-05 00:00: 00 No 2mcg/ac tuation ProAir HFA 90 mcg/actuati on aerosol inhaler 0 3-05 00:00: 00 No 2mcg/ac tuation ProAir HFA 90 mcg/actuati on aerosol inhaler 0 3-05 00:00: 00 No 2mcg/ac tuation metformin ER 1,000 mg 24 hr tablet,exte nded release (gastric) 2019-03 00:00: 00 Yes 1mg Laurentsmith Branch metformin ER 1,000 mg 24 hr tablet,exte nded release (gastric) 2019-03 00:00: 00 No 1mg metformin ER 1,000 mg 24 hr tablet,exte nded release (gastric) 2019-03 00:00: 00 No 1mg metformin ER 1,000 mg 24 hr tablet,exte nded release (gastric) 2019-03 00:00: 00 No 1mg rosuvastati n 40 mg tablet 2019-03 00:00: 00 Yes 1mg Laurent Branch sertraline 50 mg tablet 2019-03 00:00: 00 Yes 1mg Laurent Branch rosuvastati n 40 mg tablet 2019-03 00:00: 00 No 1mg sertraline 50 mg tablet 2019-03 00:00: 00 No 1mg rosuvastati n 40 mg tablet 2019-03 00:00: 00 No 1mg sertraline 50 mg tablet 2019-03 00:00: 00 No 1mg rosuvastati n 40 mg tablet 2019-03 00:00: 00 No 1mg sertraline 50 mg tablet 2019-03 00:00: 00 No 1mg atorvastati n 40 mg tablet 2019-03 00:00: 00 Yes 1mg Laurent Branch atorvastati n 40 mg tablet 2019-03 00:00: 00 No 1mg atorvastati n 40 mg tablet 2019-03 00:00: 00 No 1mg atorvastati n 40 mg tablet 2019-03 00:00: 00 No 1mg metformin ER 1,000 mg 24 hr tablet,exte nded release (gastric) 12-16 00:00: 00 Yes 1mg Laurent Branch glipizide 5 mg tablet 12-16 00:00: 00 Yes 2mg Laurent Branch metformin ER 1,000 mg 24 hr tablet,exte nded release (gastric) 12-16 00:00: 00 No 1mg glipizide 5 mg tablet 12-16 00:00: 00 No 2mg glipizide 5 mg tablet 12-16 00:00: 00 No 1mg metformin ER 1,000 mg 24 hr tablet,exte nded release (gastric) 12-16 00:00: 00 No 1mg glipizide 5 mg tablet 12-16 00:00: 00 No 2mg glipizide 5 mg tablet 12-16 00:00: 00 No 1mg metformin ER 1,000 mg 24 hr tablet,exte nded release (gastric) 12-16 00:00: 00 No 1mg glipizide 5 mg tablet 12-16 00:00: 00 No 2mg glipizide 5 mg tablet 12-16 00:00: 00 No 1mg ibuprofen 800 mg tablet 2019-0 9-15 00:00: 00 Yes 1mg Laurent Branch ibuprofen 800 mg tablet 2019-0 9-15 00:00: 00 No 1mg ibuprofen 800 mg tablet 2019-0 9-15 00:00: 00 No 1mg ibuprofen 800 mg tablet 2019-0 9-15 00:00: 00 No 1mg Januvia 50 mg tablet 2019-0 8-06 00:00: 00 Yes 1mg Laurent Branch atorvastati n 20 mg tablet 2019-0 8-06 00:00: 00 Yes 1mg Laurent Branch Januvia 50 mg tablet 2019-0 8-06 00:00: 00 No 1mg atorvastati n 20 mg tablet 2019-0 8-06 00:00: 00 No 1mg Januvia 50 mg tablet 2019-0 8-06 00:00: 00 No 1mg atorvastati n 20 mg tablet 2019-0 8-06 00:00: 00 No 1mg Januvia 50 mg tablet 2019-0 8-06 00:00: 00 No 1mg atorvastati n 20 mg tablet 2019-0 8-06 00:00: 00 No 1mg lisinopril 10 mg tablet 2019-0 -29 00:00: 00 Yes 1mg Laurent Branch glipizide 5 mg tablet 2019-0 7- 00:00: 00 Yes 1mg Laurent Branch lisinopril 10 mg tablet 2019-0 10-16 00:00: 00 No 1mg glipizide 5 mg tablet 2019-0 7- 00:00: 00 No 1mg lisinopril 10 mg tablet 2019-0 7- 00:00: 00 No 1mg glipizide 5 mg tablet 2019-0 10-16 00:00: 00 No 1mg lisinopril 10 mg tablet 2019-0 29 00:00: 00 No 1mg glipizide 5 mg tablet 2019-0 7-29 00:00: 00 No 1mg glipizide 5 mg tablet 2019-0 4- 00:00: 00 Yes 1mg Laurent Branch glipizide 5 mg tablet 2019-0 4-07 00:00: 00 No 1mg glipizide 5 mg tablet 2019-0 4-07 00:00: 00 No 1mg glipizide 5 mg tablet 06-25 00:00: 00 No 1mg hydroxyzine HCl 25 mg tablet 04-19 00:00: 00 Yes 1mg Laurent Branch hydroxyzine HCl 25 mg tablet 04-19 00:00: 00 No 1mg hydroxyzine HCl 25 mg tablet 04-19 00:00: 00 No 1mg hydroxyzine HCl 25 mg tablet 04-19 00:00: 00 No 1mg hydrocodone 10 mg-acetamin ophen 325 mg tablet 2018-03 00:00: 00 Yes 1mg Laurent Branch ibuprofen 800 mg tablet 2018-03 00:00: 00 Yes 1mg Laurent Branch docusate sodium 250 mg capsule 2018-03 00:00: 00 Yes 1mg Laurent Branch hydrocodone 10 mg-acetamin ophen 325 mg tablet 2018-03 00:00: 00 No 1mg ibuprofen 800 mg tablet 2018-03 00:00: 00 No 1mg docusate sodium 250 mg capsule 2018-03 00:00: 00 No 1mg hydrocodone 10 mg-acetamin ophen 325 mg tablet 2018-03 00:00: 00 No 1mg ibuprofen 800 mg tablet 2018-03 00:00: 00 No 1mg docusate sodium 250 mg capsule 2018-03 00:00: 00 No 1mg hydrocodone 10 mg-acetamin ophen 325 mg tablet 2018-03 00:00: 00 No 1mg ibuprofen 800 mg tablet 2018-03 00:00: 00 No 1mg docusate sodium 250 mg capsule 2018-03 00:00: 00 No 1mg docusate sodium 250 mg capsule 2018-03 00:00: 00 Yes [id number] 250mg Take 1 capsule by mouth daily. [facility] lisinopril 10 mg tablet 10-19 00:00: 00 Yes 1mg Laurent Branch metformin ER 500 mg tablet,exte nded release 24 hr 10-19 00:00: 00 Yes 2mg Laurent Branch glipizide 5 mg tablet 10-19 00:00: 00 Yes 1mg Laurent Branch lovastatin 40 mg tablet 10-19 00:00: 00 Yes 1mg Laurent Branch lisinopril 10 mg tablet 10-19 00:00: 00 No 1mg metformin ER 500 mg tablet,exte nded release 24 hr 10-19 00:00: 00 No 2mg glipizide 5 mg tablet 10-19 00:00: 00 No 1mg lovastatin 40 mg tablet 10-19 00:00: 00 No 1mg lisinopril 10 mg tablet 10-19 00:00: 00 No 1mg metformin ER 500 mg tablet,exte nded release 24 hr 10-19 00:00: 00 No 2mg glipizide 5 mg tablet 10-19 00:00: 00 No 1mg lovastatin 40 mg tablet 10-19 00:00: 00 No 1mg lisinopril 10 mg tablet 10-19 00:00: 00 No 1mg metformin ER 500 mg tablet,exte nded release 24 hr 10-19 00:00: 00 No 2mg glipizide 5 mg tablet 10-19 00:00: 00 No 1mg lovastatin 40 mg tablet 10-19 00:00: 00 No 1mg lisinopril 10 mg tablet 09-11 00:00: 00 Yes 1mg Laurent Branch lisinopril 10 mg tablet 09-11 00:00: 00 No 1mg lisinopril 10 mg tablet 09-11 00:00: 00 No 1mg lisinopril 10 mg tablet 09-11 00:00: 00 No 1mg metronidazo le 500 mg tablet 08-15 00:00: 00 Yes 1mg Laurent Branch metronidazo le 500 mg tablet 08-15 00:00: 00 No 1mg metronidazo le 500 mg tablet 08-15 00:00: 00 No 1mg metronidazo le 500 mg tablet 08-15 00:00: 00 No 1mg metformin ER 500 mg tablet,exte nded release 24 hr 08-10 00:00: 00 No 2mg lovastatin 40 mg tablet 08-10 00:00: 00 No 1mg lisinopril 10 mg tablet 08-10 00:00: 00 No 1mg metformin ER 500 mg tablet,exte nded release 24 hr 08-10 00:00: 00 No 2mg lovastatin 40 mg tablet 08-10 00:00: 00 No 1mg lisinopril 10 mg tablet 08-10 00:00: 00 Yes 1mg Laurent Branch metformin ER 500 mg tablet,exte nded release 24 hr 08-10 00:00: 00 Yes 2mg Laurent Branch lovastatin 40 mg tablet 08-10 00:00: 00 Yes 1mg Laurent Branch lisinopril 10 mg tablet 08-10 00:00: 00 No 1mg metformin ER 500 mg tablet,exte nded release hr 08-10 00:00: 00 No 2mg lovastatin 40 mg tablet 08-10 00:00: 00 No 1mg lisinopril 10 mg tablet 08-10 00:00: 00 No 1mg glipizide 5 mg tablet 07-27 00:00: 00 No 1mg glipizide 5 mg tablet 07-27 00:00: 00 No 1mg glipizide 5 mg tablet 07-27 00:00: 00 No 1mg glipizide 5 mg tablet 07-27 00:00: 00 Yes 1mg Laurent Branch prednisone 20 mg tablet 05-25 00:00: 00 No 3mg lisinopril 10 mg tablet 05-25 00:00: 00 No 1mg lovastatin 40 mg tablet 05-25 00:00: 00 No 1mg prednisone 20 mg tablet 05-25 00:00: 00 No 3mg lisinopril 10 mg tablet 05-25 00:00: 00 No 1mg lovastatin 40 mg tablet 05-25 00:00: 00 No 1mg prednisone 20 mg tablet 05-25 00:00: 00 No 3mg lisinopril 10 mg tablet 05-25 00:00: 00 No 1mg lovastatin 40 mg tablet 05-25 00:00: 00 No 1mg prednisone 20 mg tablet 05-25 00:00: 00 Yes 3mg Laurent Branch lisinopril 10 mg tablet 05-25 00:00: 00 Yes 1mg Laurent Branch lovastatin 40 mg tablet 05-25 00:00: 00 Yes 1mg Laurent Branch gemfibrozil 600 mg tablet 05-13 00:00: 00 No 1mg gemfibrozil 600 mg tablet 05-13 00:00: 00 No 1mg gemfibrozil 600 mg tablet 05-13 00:00: 00 No 1mg gemfibrozil 600 mg tablet 05-13 00:00: 00 Yes 1mg Laurent Branch lisinopril 10 mg tablet 05-11 00:00: 00 No 1mg metformin ER 500 mg tablet,exte nded release 24 hr 05-11 00:00: 00 No 2mg fluconazole 150 mg tablet 05-11 00:00: 00 No 1mg Lidocaine Viscous 2 % mucosal solution 05-11 00:00: 00 No % lisinopril 10 mg tablet 05-11 00:00: 00 No 1mg metformin ER 500 mg tablet,exte nded release 24 hr 05-11 00:00: 00 No 2mg fluconazole 150 mg tablet 05-11 00:00: 00 No 1mg Lidocaine Viscous 2 % mucosal solution 05-11 00:00: 00 No % lisinopril 10 mg tablet 05-11 00:00: 00 No 1mg metformin ER 500 mg tablet,exte nded release 24 hr 05-11 00:00: 00 No 2mg fluconazole 150 mg tablet 05-11 00:00: 00 No 1mg Lidocaine Viscous 2 % mucosal solution 05-11 00:00: 00 No % lisinopril 10 mg tablet 05-11 00:00: 00 Yes 1mg Laurent Branch metformin ER 500 mg tablet,exte nded release 24 hr 05-11 00:00: 00 Yes 2mg Laurent Branch fluconazole 150 mg tablet 05-11 00:00: 00 Yes 1mg Laurent Branch Lidocaine Viscous 2 % mucosal solution 05-11 00:00: 00 Yes % Laurent Branch clotrimazol e 1 % topical cream 05-08 00:00: 00 No 1% acyclovir 400 mg tablet 05-08 00:00: 00 No 1mg Lidocaine Viscous 2 % mucosal solution 05-08 00:00: 00 No % clotrimazol e 1 % topical cream 05-08 00:00: 00 No 1% acyclovir 400 mg tablet 05-08 00:00: 00 No 1mg Lidocaine Viscous 2 % mucosal solution 05-08 00:00: 00 No % clotrimazol e 1 % topical cream 05-08 00:00: 00 No 1% acyclovir 400 mg tablet 05-08 00:00: 00 No 1mg Lidocaine Viscous 2 % mucosal solution 05-08 00:00: 00 No % clotrimazol e 1 % topical cream 05-08 00:00: 00 Yes 1% Laurent Branch acyclovir 400 mg tablet 05-08 00:00: 00 Yes 1mg Laurent Branch Lidocaine Viscous 2 % mucosal solution 05-08 00:00: 00 Yes % Laurent Branch cyclobenzap rine 5 mg tablet 11-11 00:00: 00 No 1mg cyclobenzap rine 5 mg tablet 11-11 00:00: 00 No 1mg cyclobenzap rine 5 mg tablet 11-11 00:00: 00 No 1mg cyclobenzap rine 5 mg tablet 11-11 00:00: 00 Yes 1mg Laurent Branch norgestimat e-ethinyl estradiol (ORTHO TRI-CYCLEN, 28,) 0.18/0.215/ 0.25 mg-35 mcg (28) tablet 07-21 00:00: 00 Yes [id number] 1{tbl} Take 1 tablet by mouth daily. [facility] Immunizations Ordered Immunization Name Filled Immunization Name Date Status Comments Source Tdap 2018-10-19 00:00:00 Completed Tdap 2018-10-19 00:00:00 Completed Tdap 2018-10-19 00:00:00 Completed Tdap 2018-10-19 00:00:00 Completed Tdap 2018-10-19 00:00:00 Completed Tdap Tdap 2018-10-19 00:00:00 Completed Laurent Branch Td 2005-03-21 00:00:00 [address]pleted [facility] Td 2005-03-21 00:00:00 Completed [facility] Td 2005-03-21 00:00:00 Completed [facility] TD, NOS 2005-03-21 00:00:00 Completed [facility] TD, NOS 2005-03-21 00:00:00 Completed [facility] TD, NOS Unknown Completed [facility] TD, NOS Unknown Completed [facility] TD, NOS Unknown Completed [facility] TD, NOS Unknown Completed [facility] Vital Signs Vital Name Observation Time Observation Value Comments S ource Systolic blood pressure 2024-01-31 14:50:00 196 mm[Hg] [facility] Diastolic blood pressure 2024-01-31 14:50:00 111 mm[Hg] [facility] Heart rate 2024-01-31 14:50:00 92 /min [facility] Body temperature 2024-01-31 14:50:00 37.11 [facility] Respiratory rate 2024-01-31 14:50:00 18 /min [facility] Body height 2024-01-31 14:50:00 157.5 cm [facility] Body weight 2024-01-31 14:50:00 97.523 kg [facility] BMI 2024-01-31 14:50:00 39.32 kg/m2 [facility] Oxygen saturation in Arterial blood by Pulse oximetry 2024-01-31 14:50:00 98 /min [facility] Systolic blood pressure 2022-04-19 05:00:00 164 mm[Hg] [facility] Diastolic blood pressure 2022-04-19 05:00:00 97 mm[Hg] [facility] Heart rate 2022-04-19 05:00:00 81 /min [facility] Respiratory rate 2022-04-19 05:00:00 25 /min [facility] Oxygen saturation in Arterial blood by Pulse oximetry 2022-04-19 05:00:00 96 /min [facility] Body temperature 2022-04-19 00:51:00 36.83 [facility] Body height 2022-04-19 00:49:00 157.5 cm [facility] Body weight 2022-04-19 00:49:00 97.523 kg [facility] BMI 2022-04-19 00:49:00 39.32 kg/m2 [facility] Systolic blood pressure 2022-02-21 00:27:00 175 mm[Hg] [facility] Diastolic blood pressure 2022-02-21 00:27:00 106 mm[Hg] [facility] Heart rate 2022-02-21 00:27:00 78 /min [facility] Body temperature 2022-02-21 00:27:00 37.11 [facility] Respiratory rate 2022-02-21 00:27:00 20 /min [facility] Body height 2022-02-21 00:27:00 157.5 cm [facility] Body weight 2022-02-21 00:27:00 99.791 kg [facility] BMI 2022-02-21 00:27:00 40.24 kg/m2 [facility] Oxygen saturation in Arterial blood by Pulse oximetry 2022-02-21 00:27:00 100 /min [facility] Systolic blood pressure 2021-12-03 17:56:00 110 mm[Hg] [facility] Diastolic blood pressure 2021-12-03 17:56:00 88 mm[Hg] [facility] Heart rate 2021-12-03 17:52:00 88 /min [facility] Body temperature 2021-12-03 17:52:00 35.94 [facility] Body height 2021-12-03 17:52:00 157.5 cm [facility] Body weight 2021-12-03 17:52:00 99.156 kg [facility] BMI 2021-12-03 17:52:00 39.98 kg/m2 [facility] BP Systolic 2023-09-15 17:09:00 168 mm[Hg] Step hen F Jose Carlos BP Diastolic 2023-09-15 17:09:00 102 mm[Hg] Aubrey phen F Jose Carlos Weight Measured 2023-09-15 17:09:00 229.60 pounds Laurent F Jose Carlos Height Measured 2023-09-15 17:09:00 68.00 inches Laurent F Jose Carlos Body Temperature 2023-09-15 17:09:00 98.40 degrees Laurent F Jose Carlos Heart Rate 2023-09-15 17:09:00 102.00 /min Step hen F Jose Carlos Respiratory Rate 2023-09-15 17:09:00 17.00 /min Laurent F Jose Carlos BP Systolic 2023-08-01 09:50:00 159 mm[Hg] Step hen F Jose Carlos BP Diastolic 2023-08-01 09:50:00 99 mm[Hg] Aubrey phen F Jose Carlos Weight Measured 2023-08-01 09:50:00 234.00 pounds Laurent F Jose Carlos Height Measured 2023-08-01 09:50:00 68.00 inches Laurent F Jose Carlos Body Temperature 2023-08-01 09:50:00 9.30 degrees Laurent F Jose Carlos Heart Rate 2023-08-01 09:50:00 79.00 /min Carmina en F Jose Carlos Respiratory Rate 2023-08-01 09:50:00 17.00 /min Laurent F Jose Carlos BP Systolic 2023-05-30 09:54:00 151 mm[Hg] Step hen F Jose Carlos BP Diastolic 2023-05-30 09:54:00 92 mm[Hg] Aubrey phen F Jose Carlos Weight Measured 2023-05-30 09:54:00 221.60 pounds Laurent F Jose Carlos Height Measured 2023-05-30 09:54:00 68.00 inches Laurent F Jose Carlos Body Temperature 2023-05-30 09:54:00 98.10 degrees Laurent F Jose Carlos Heart Rate 2023-05-30 09:54:00 76.00 /min Carmina en F Jose Carlos Respiratory Rate 2023-05-30 09:54:00 17.00 /min Laurent F Jose Carlos BP Systolic 2023-05-02 08:08:00 144 mm[Hg] Step hen F Jose Carlos BP Diastolic 2023-05-02 08:08:00 89 mm[Hg] Aubrey phen F Jose Carlos Weight Measured 2023-05-02 08:08:00 228.00 pounds Laurent F Jose Carlos Height Measured 2023-05-02 08:08:00 68.00 inches Laurent F Jose Carlos Body Temperature 2023-05-02 08:08:00 98.40 degrees Laurent F Jose Carlos Heart Rate 2023-05-02 08:08:00 80.00 /min Carmina en F Jose Carlos Respiratory Rate 2023-05-02 08:08:00 18.00 /min Laurent F Jose Carlos BP Systolic 2023-02-28 08:19:00 157 mm[Hg] Step hen F Jose Carlos BP Diastolic 2023-02-28 08:19:00 97 mm[Hg] Aubrey phen F Jose Carlos Weight Measured 2023-02-28 08:19:00 225.60 pounds Laurent F Jose Carlos Height Measured 2023-02-28 08:19:00 68.00 inches Laurent F Jose Carlos Body Temperature 2023-02-28 08:19:00 98.20 degrees Laurent F Jose Carlos Heart Rate 2023-02-28 08:19:00 79.00 /min Carmina en F Jose Carlos Respiratory Rate 2023-02-28 08:19:00 19.00 /min Laurent F Jose Carlos BP Systolic 2023-01-31 08:12:00 146 mm[Hg] Step hen F Jose Carlos BP Diastolic 2023-01-31 08:12:00 90 mm[Hg] Aubrey phen F Jose Carlos Weight Measured 2023-01-31 08:12:00 223.40 pounds Laurent F Jose Carlos Height Measured 2023-01-31 08:12:00 68.00 inches Laurent F Jose Carlos Body Temperature 2023-01-31 08:12:00 98.20 degrees Laurent F Jose Carlos Heart Rate 2023-01-31 08:12:00 82.00 /min Carmina en F Jose Carlos Respiratory Rate 2023-01-31 08:12:00 19.00 /min Laurent F Jose Carlos BP Systolic 2022-11-22 11:10:00 142 mm[Hg] Step hen F Jose Carlos BP Diastolic 2022-11-22 11:10:00 79 mm[Hg] Aubrey phen F Jose Carlos Weight Measured 2022-11-22 11:10:00 230.20 pounds Laurent F Jose Carlos Height Measured 2022-11-22 11:10:00 68.00 inches Laurent F Jose Carlos Body Temperature 2022-11-22 11:10:00 97.90 degrees Laurent F Jose Carlos Heart Rate 2022-11-22 11:10:00 87.00 /min Carmina en F Jose Carlos Respiratory Rate 2022-11-22 11:10:00 19.00 /min Laurent F Jose Carlos BP Systolic 2022-10-20 11:01:00 155 mm[Hg] Step hen F Jose Carlos BP Diastolic 2022-10-20 11:01:00 91 mm[Hg] Aubrey phen F Jose Carlos Weight Measured 2022-10-20 11:01:00 230.80 pounds Laurent F Jose Carlos Height Measured 2022-10-20 11:01:00 68.00 inches Laurent F Jose Carlos Body Temperature 2022-10-20 11:01:00 98.50 degrees Laurent F Jose Carlos Heart Rate 2022-10-20 11:01:00 85.00 /min Carmina en F Jose Carlos Respiratory Rate 2022-10-20 11:01:00 17.00 /min Laurent F Jose Carlos BP Systolic 2022-10-16 10:04:00 145 mm[Hg] Step hen F Jose Carlos BP Diastolic 2022-10-16 10:04:00 81 mm[Hg] Aubrey phen F Jose Carlos Weight Measured 2022-10-16 10:04:00 231.80 pounds Laurent F Jose Carlos Height Measured 2022-10-16 10:04:00 68.00 inches Laurent F Jose Carlos Body Temperature 2022-10-16 10:04:00 98.20 degrees Laurent F Jose Carlos Heart Rate 2022-10-16 10:04:00 79.00 /min Carmina en F Jose Carlos Respiratory Rate 2022-10-16 10:04:00 Laurent F Jose Carlos BP Systolic 2022-10-13 17:04:00 153 mm[Hg] Step hen F Jose Carlos BP Diastolic 2022-10-13 17:04:00 92 mm[Hg] Aubrey phen F Jose Carlos Weight Measured 2022-10-13 17:04:00 237.00 pounds Laurent F Jose Carlos Height Measured 2022-10-13 17:04:00 68.00 inches Laurent F Jose Carlos Body Temperature 2022-10-13 17:04:00 98.10 degrees Laurent Rose Mary Branch Heart Rate 2022-10-13 17:04:00 95.00 /min Carmina en F Jose Carlos Respiratory Rate 2022-10-13 17:04:00 19.00 /min Laurent Rose Mary Branch BP Systolic 2022-04-28 17:00:00 143 mm[Hg] Step hen F Jose Carlos BP Diastolic 2022-04-28 17:00:00 92 mm[Hg] Aubrey phen Rose Mary Branch Weight Measured 2022-04-28 17:00:00 214.20 pounds Laurent Branch Height Measured 2022-04-28 17:00:00 68.00 inches Laurent Branch Body Temperature 2022-04-28 17:00:00 98.20 degrees Laurent Branch Heart Rate 2022-04-28 17:00:00 83.00 /min Carmina en Rose Mary Branch Respiratory Rate 2022-04-28 17:00:00 18.00 /min Laurent Branch BP Systolic 2022-01-07 10:59:00 127 mm[Hg] BP Diastolic 2022-01-07 10:59:00 84 mm[Hg] Weight Measured 2022-01-07 10:59:00 217.60 pounds Height Measured 2022-01-07 10:59:00 68.00 inches Body Temperature 2022-01-07 10:59:00 98.00 degrees Heart Rate 2022-01-07 10:59:00 78.00 /min Respiratory Rate 2022-01-07 10:59:00 BP Systolic 2022-01-05 10:38:00 132 mm[Hg] BP Diastolic 2022-01-05 10:38:00 86 mm[Hg] Weight Measured 2022-01-05 10:38:00 218.80 pounds Height Measured 2022-01-05 10:38:00 68.00 inches Body Temperature 2022-01-05 10:38:00 98.30 degrees Heart Rate 2022-01-05 10:38:00 80.00 /min Respiratory Rate 2022-01-05 10:38:00 18.00 /min BP Systolic 2021-12-16 14:23:00 136 mm[Hg] BP Diastolic 2021-12-16 14:23:00 92 mm[Hg] Weight Measured 2021-12-16 14:23:00 224.00 pounds Height Measured 2021-12-16 14:23:00 68.00 inches Body Temperature 2021-12-16 14:23:00 98.30 degrees Heart Rate 2021-12-16 14:23:00 93.00 /min Respiratory Rate 2021-12-16 14:23:00 16.00 /min BP Systolic 2021-12-07 13:46:00 127 mm[Hg] BP Diastolic 2021-12-07 13:46:00 85 mm[Hg] Weight Measured 2021-12-07 13:46:00 221.00 pounds Height Measured 2021-12-07 13:46:00 68.00 inches Body Temperature 2021-12-07 13:46:00 98.00 degrees Heart Rate 2021-12-07 13:46:00 99.00 /min Respiratory Rate 2021-12-07 13:46:00 17.00 /min BP Systolic 2021-10-07 15:12:00 145 mm[Hg] BP Diastolic 2021-10-07 15:12:00 89 mm[Hg] Weight Measured 2021-10-07 15:12:00 209.80 pounds Height Measured 2021-10-07 15:12:00 68.00 inches Body Temperature 2021-10-07 15:12:00 98.20 degrees Heart Rate 2021-10-07 15:12:00 91.00 /min Respiratory Rate 2021-10-07 15:12:00 18.00 /min BP Systolic 2021-09-23 10:53:00 145 mm[Hg] BP Diastolic 2021-09-23 10:53:00 86 mm[Hg] Weight Measured 2021-09-23 10:53:00 213.60 pounds Height Measured 2021-09-23 10:53:00 68.00 inches Body Temperature 2021-09-23 10:53:00 97.20 degrees Heart Rate 2021-09-23 10:53:00 78.00 /min Respiratory Rate 2021-09-23 10:53:00 16.00 /min BP Systolic 2021-07-08 11:34:00 139 mm[Hg] BP Diastolic 2021-07-08 11:34:00 87 mm[Hg] Weight Measured 2021-07-08 11:34:00 211.20 pounds Height Measured 2021-07-08 11:34:00 68.00 inches Body Temperature 2021-07-08 11:34:00 98.30 degrees Heart Rate 2021-07-08 11:34:00 83.00 /min Respiratory Rate 2021-07-08 11:34:00 BP Systolic 2020-10-21 13:16:00 138 mm[Hg] BP Diastolic 2020-10-21 13:16:00 78 mm[Hg] Weight Measured 2020-10-21 13:16:00 217.20 pounds Height Measured 2020-10-21 13:16:00 68.00 inches Body Temperature 2020-10-21 13:16:00 98.70 degrees Heart Rate 2020-10-21 13:16:00 85.00 /min Respiratory Rate 2020-10-21 13:16:00 BP Systolic 2020-07-31 13:27:00 143 mm[Hg] BP Diastolic 2020-07-31 13:27:00 86 mm[Hg] Weight Measured 2020-07-31 13:27:00 217.60 pounds Height Measured 2020-07-31 13:27:00 68.00 inches Body Temperature 2020-07-31 13:27:00 98.50 degrees Heart Rate 2020-07-31 13:27:00 107.00 /min Respiratory Rate 2020-07-31 13:27:00 17.00 /min BP Systolic 2020-06-30 10:14:00 119 mm[Hg] BP Diastolic 2020-06-30 10:14:00 82 mm[Hg] Weight Measured 2020-06-30 10:14:00 Height Measured 2020-06-30 10:14:00 Body Temperature 2020-06-30 10:14:00 99.10 degrees Heart Rate 2020-06-30 10:14:00 99.00 /min Respiratory Rate 2020-06-30 10:14:00 18.00 /min BP Systolic 2020-06-30 10:03:00 119 mm[Hg] BP Diastolic 2020-06-30 10:03:00 81 mm[Hg] Weight Measured 2020-06-30 10:03:00 Height Measured 2020-06-30 10:03:00 Body Temperature 2020-06-30 10:03:00 98.40 degrees Heart Rate 2020-06-30 10:03:00 89.00 /min Respiratory Rate 2020-06-30 10:03:00 18.00 /min BP Systolic 2020-06-30 09:53:00 122 mm[Hg] BP Diastolic 2020-06-30 09:53:00 82 mm[Hg] Weight Measured 2020-06-30 09:53:00 215.00 pounds Height Measured 2020-06-30 09:53:00 68.00 inches Body Temperature 2020-06-30 09:53:00 98.20 degrees Heart Rate 2020-06-30 09:53:00 92.00 /min Respiratory Rate 2020-06-30 09:53:00 24.00 /min BP Systolic 2020-02-11 13:29:00 116 mm[Hg] BP Diastolic 2020-02-11 13:29:00 79 mm[Hg] Weight Measured 2020-02-11 13:29:00 226.60 pounds Height Measured 2020-02-11 13:29:00 68.00 inches Body Temperature 2020-02-11 13:29:00 98.90 degrees Heart Rate 2020-02-11 13:29:00 78.00 /min Respiratory Rate 2020-02-11 13:29:00 17.00 /min BP Systolic 2019-12-17 14:04:00 128 mm[Hg] BP Diastolic 2019-12-17 14:04:00 83 mm[Hg] Weight Measured 2019-12-17 14:04:00 220.60 pounds Height Measured 2019-12-17 14:04:00 68.00 inches Body Temperature 2019-12-17 14:04:00 98.10 degrees Heart Rate 2019-12-17 14:04:00 79.00 /min Respiratory Rate 2019-12-17 14:04:00 17.00 /min BP Systolic 2019-12-04 14:46:00 124 mm[Hg] BP Diastolic 2019-12-04 14:46:00 79 mm[Hg] Weight Measured 2019-12-04 14:46:00 222.20 pounds Height Measured 2019-12-04 14:46:00 68.00 inches Body Temperature 2019-12-04 14:46:00 98.10 degrees Heart Rate 2019-12-04 14:46:00 98.00 /min Respiratory Rate 2019-12-04 14:46:00 17.00 /min Procedures Procedure Date / Time Performed Performing Clinician Source CT MAXILLOFACIAL/MANDIBLE W CONTRAST 2024-01-31 15:34:00 Vicenta Urbano [facility] POCT TEST 2024-01-31 15:22:00 Sirena Urbano ra [facility] COMP. METABOLIC PANEL (22045) 2024-01-31 15:04:00 Vicenta Urbano [facility] CBC WITH DIFF 2024-01-31 15:04:00 [facility] 2022-04-19 03:28:00 [facility] URINE DRUG (IMMUNOASSAY) - COMPREHENSIVE DRUG SCREEN 2022-04-19 01:26:00 Toni John [facility] URINALYSIS 2022-04-19 01:26:00 [facility] POCT TEST 2022-04-19 01:26:00 Kraig John [facility] LIPASE 2022-04-19 01:10:00 [facility] TROPONIN I 2022-04-19 01:10:00 [facility] COMP. METABOLIC PANEL (12418) 2022-04-19 01:10:00 Toni John [facility] CBC WITH DIFF 2022-04-19 01:10:00 Toni John [facility] GLYCOSYLATED HEMOGLOBIN (A1C) 2022-04-19 01:10:00 Toni John [facility] PROTHROMBIN TIME / INR 2022-04-19 01:10:00 Casey John [facility] D-DIMER 2022-04-19 01:10:00 [facility] ACTIVATED PARTIAL THRMPLAS LAZ 2022-04-19 01:10:00 Toni John [facility] NOTICE OF PRIVACY PRACTICES 2022-04-19 00:45:20 Doctor Unassigned, [place] [facility] CONSENT/REFUSAL FOR DIAGNOSIS AND TREATMENT 2022-04-19 00:44:36 Doctor Unassigned, [place] [facility] CONSENT/REFUSAL FOR DIAGNOSIS AND TREATMENT 2022-02-21 00:24:53 Doctor Unassigned, [place] [facility] PROLACTIN 2021-12-03 19:03:00 Niyah Troncoso [facility] THYROID STIMULATING HORMONE 2021-12-03 19:03:00 Niyah Troncoso [facility] TESTOSTERONE 2021-12-03 19:03:00 Niyah Troncoso [facility] FOLLICLE STIMULATING HORMONE 2021-12-03 19:03:00 Niyah Troncoso [facility] POCT TEST 2021-12-03 18:43:00 James Akhtar [facility] DISCLOSURE AND CONSENT, MEDICAL AND SURGICAL PROCEDURES 2021-12-03 05:01:00 Doctor Unassigned, [place] Plan of Care Planned Activity Planned Date Details Comments Source Goal Plan of Care Note [code = 38602-5] Goal Plan of Care Note [code = 58347-0] Goal Plan of Care Note [code = 22442-4] Goal Plan of Care Note [code = 35795-5] Goal Plan of Care Note [code = 11245-6] Goal Plan of Care Note [code = 39605-1] Goal Plan of Care Note [code = 93613-3] Goal Plan of Care Note [code = 10747-0] Goal Plan of Care Note [code = 73191-3] Goal Plan of Care Note [code = 80341-5] Goal Plan of Care Note [code = 01273-7] Goal Plan of Care Note [code = 50015-3] Goal Plan of Care Note [code = 02891-9] Goal Plan of Care Note [code = 14169-2] Goal Plan of Care Note [code = 97267-3] Goal Plan of Care Note [code = 49638-8] Goal Plan of Care Note [code = 59599-6] Goal Plan of Care Note [code = 45455-8] Goal Plan of Care Note [code = 52233-3] Goal Plan of Care Note [code = 84689-3] Goal Plan of Care Note [code = 49482-4] Goal Plan of Care Note [code = 43099-3] Goal Plan of Care Note [code = 29733-2] Goal Plan of Care Note [code = 70783-4] Goal Plan of Care Note [code = 73008-5] Goal Plan of Care Note [code = 43325-4] Goal Plan of Care Note [code = 80256-3] Goal Plan of Care Note [code = 74909-1] Goal Plan of Care Note [code = 21028-8] Goal Plan of Care Note [code = 60773-6] Goal Plan of Care Note [code = 05742-6] Goal Plan of Care Note [code = 91179-5] Goal Plan of Care Note [code = 37809-7] Goal Plan of Care Note [code = 88867-1] Goal Plan of Care Note [code = 99925-8] Goal Plan of Care Note [code = 65859-0] Goal Plan of Care Note [code = 33725-4] Goal Plan of Care Note [code = 77891-4] Goal Plan of Care Note [code = 08294-6] Goal Plan of Care Note [code = 67539-1] Goal Plan of Care Note [code = 62129-0] Goal Plan of Care Note [code = 95633-3] Goal Plan of Care Note [code = 70002-6] Goal Plan of Care Note [code = 37341-0] Goal Plan of Care Note [code = 68260-8] Goal Plan of Care Note [code = 02838-3] Goal Plan of Care Note [code = 94215-1] Goal Plan of Care Note [code = 94445-2] Goal Plan of Care Note [code = 92456-7] Goal Plan of Care Note [code = 18922-8] Goal Plan of Care Note [code = 34097-1] Goal Plan of Care Note [code = 06043-2] Goal Plan of Care Note [code = 40743-1] Goal Plan of Care Note [code = 97884-5] Goal Plan of Care Note [code = 71961-8] Goal Plan of Care Note [code = 83190-0] Goal Plan of Care Note [code = 09127-2] Goal Plan of Care Note [code = 32616-4] Goal Plan of Care Note [code = 57550-6] Goal Plan of Care Note [code = 02018-6] Goal Plan of Care Note [code = 22788-1] Goal Plan of Care Note [code = 71244-8] Goal Plan of Care Note [code = 23385-7] Goal Plan of Care Note [code = 17423-1] Goal Plan of Care Note [code = 17869-3] Goal Plan of Care Note [code = 37701-2] Goal Plan of Care Note [code = 76811-4] Goal Plan of Care Note [code = 88418-5] Goal Plan of Care Note [code = 10573-9] Goal Plan of Care Note [code = 82638-0] Goal Plan of Care Note [code = 66427-9] Goal Plan of Care Note [code = 76425-8] Goal Plan of Care Note [code = 37607-3] Goal Plan of Care Note [code = 41227-0] Goal Plan of Care Note [code = 50845-6] Goal Plan of Care Note [code = 47708-0] Goal Plan of Care Note [code = 41911-2] Goal Plan of Care Note [code = 34591-2] Goal Plan of Care Note [code = 58389-7] Goal Plan of Care Note [code = 59234-6] Goal Plan of Care Note [code = 96153-5] Goal Plan of Care Note [code = 44754-7] Goal Plan of Care Note [code = 59089-1] Goal Plan of Care Note [code = 86986-4] Goal Plan of Care Note [code = 93686-5] Goal Plan of Care Note [code = 86161-5] Goal Plan of Care Note [code = 94202-7] Goal Plan of Care Note [code = 36996-4] Goal Plan of Care Note [code = 44244-9] Goal Plan of Care Note [code = 39092-8] Goal Plan of Care Note [code = 31698-2] Goal Plan of Care Note [code = 23979-6] Goal Plan of Care Note [code = 97315-4] Goal Plan of Care Note [code = 75639-7] Goal Plan of Care Note [code = 55410-8] Goal Plan of Care Note [code = 39662-1] Goal Plan of Care Note [code = 91663-3] Goal Plan of Care Note [code = 34322-7] Goal Plan of Care Note [code = 78593-7] Goal Plan of Care Note [code = 95544-5] Goal Plan of Care Note [code = 49461-5] Goal Plan of Care Note [code = 90771-5] Goal Plan of Care Note [code = 03826-3] Goal Plan of Care Note [code = 40340-8] Goal Plan of Care Note [code = 82066-3] Goal Plan of Care Note [code = 72376-6] Goal Plan of Care Note [code = 25417-1] Goal Plan of Care Note [code = 49628-6] Goal Plan of Care Note [code = 65804-7] Goal Plan of Care Note [code = 02769-4] Goal Plan of Care Note [code = 01555-4] Goal Plan of Care Note [code = 00074-8] Goal Plan of Care Note [code = 07779-8] Goal Plan of Care Note [code = 27626-8] Goal Plan of Care Note [code = 86368-5] Goal Plan of Care Note [code = 37987-7] Goal Plan of Care Note [code = 71602-6] Goal Plan of Care Note [code = 29391-3] Goal Plan of Care Note [code = 78834-8] Goal Plan of Care Note [code = 88822-6] Goal Plan of Care Note [code = 37349-3] Goal Plan of Care Note [code = 23086-9] Goal Plan of Care Note [code = 41697-7] Goal Plan of Care Note [code = 73335-7] Goal Plan of Care Note [code = 62374-6] Goal Plan of Care Note [code = 83332-0] Goal Plan of Care Note [code = 02389-8] Goal Plan of Care Note [code = 34159-7] Goal Plan of Care Note [code = 85662-5] Goal Plan of Care Note [code = 50453-1] Goal Plan of Care Note [code = 48343-3] Goal Plan of Care Note [code = 95219-0] Goal Plan of Care Note [code = 51612-4] Goal Plan of Care Note [code = 56703-1] Goal Plan of Care Note [code = 67887-7] Goal Plan of Care Note [code = 30990-9] Goal Plan of Care Note [code = 58628-9] Goal Plan of Care Note [code = 64480-2] Goal Plan of Care Note [code = 32626-8] Goal Plan of Care Note [code = 32236-0] Goal Plan of Care Note [code = 88676-6] Goal Plan of Care Note [code = 59007-4] Goal Plan of Care Note [code = 45079-0] Goal Plan of Care Note [code = 92811-1] Goal Plan of Care Note [code = 96209-8] Goal Plan of Care Note [code = 34231-3] Goal Plan of Care Note [code = 36031-9] Goal Plan of Care Note [code = 15820-4] Goal Plan of Care Note [code = 89516-0] Goal Plan of Care Note [code = 15527-0] Goal Plan of Care Note [code = 93302-3] Goal Plan of Care Note [code = 96074-3] Goal Plan of Care Note [code = 70588-5] Goal Plan of Care Note [code = 09498-5] Goal Plan of Care Note [code = 22893-4] Goal Plan of Care Note [code = 74611-0] Goal Plan of Care Note [code = 37989-6] Goal Plan of Care Note [code = 99051-2] Encounters Start Date/Time End Date/Time Encounter Type Admission Type Attending [facility] Care Department Encounter ID Source 2024-01-31 08:54:00 2024-01-31 11:27:00 Emergency X VICENTA URBANO [facility] ERT [id number] [facility] 2024-01-31 08:54:00 2024-01-31 11:27:00 Emergency Vicenta Urbano [facility] [id number] [facility] 2023-11-29 13:29:11 2023-11-29 13:29:11 Outpatient [facility] [id number] 2023-09-15 17:05:07 2023-09-15 17:05:07 Outpatient [facility] 0627 [address] 2023-09-15 00:00:00 2023-09-15 00:00:00 Outpatient Visit [facility] [id number] [id number] [id number] Laurent Branch 2023-08-01 00:00:00 2023-08-01 00:00:00 Outpatient Visit SFA [id number] Laurent Branch 2023-05-30 09:45:39 2023-05-30 09:45:39 Outpatient SFA SFA 1 Laurent Branch 2023-05-02 08:04:26 2023-05-02 08:04:26 Outpatient SFA SFA 211 Laurent Branch 2023-02-28 08:10:27 2023-02-28 08:10:27 Outpatient SFA SFA 1211 Laurent Branch 2023-01-31 08:05:53 2023-01-31 08:05:53 Outpatient SFA SFA [id number] 1113 Laurent Branch 2022-11-22 10:55:31 2022-11-22 10:55:31 Outpatient SFA SFA 0904 Laurnet Branch 2022-10-20 10:52:16 2022-10-20 10:52:16 Outpatient SFA SFA 0802 Laurent Branch 2022-10-16 09:59:55 2022-10-16 09:59:55 Outpatient SFA SFA 0729 Laurent Branch 2022-10-13 17:01:41 2022-10-13 17:01:41 Outpatient SFA SFA 0726 Laurent Branch 2022-07-06 10:00:00 2022-07-06 10:00:00 Outpatient ASHLEY NAYAK [facility] [id number] [facility] 2022-07-01 00:00:00 2022-07-01 00:00:00 Patient Secure Msg Doctor Unassigned, Madeira [facility] 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 [facility] 1.2.840.114 350.1.13.10 4.2.7.2.686 [id number] [facility] 2022-07-01 00:00:00 2022-07-01 00:00:00 Patient Secure Msg Doctor Unassigned, Madeira [facility] 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 [facility] 1.2.840.114 350.1.13.10 4.2.7.2.686 [id number] [facility] 2022-04-28 16:53:35 2022-04-28 16:53:35 Outpatient SFA [facility] 0208 Laurent Branch 2022-04-18 18:54:00 2022-04-18 23:33:00 Emergency X TONI JOHN [facility] ERT [id number] [facility] 2022-04-18 18:54:00 2022-04-18 23:33:00 Emergency Toni John [facility] 1.2.840.114 350.1.13.10 4.2.7.2.686 [id number] [facility] 2022-02-20 18:29:00 2022-02-20 19:19:00 Emergency Tita Peacock [facility] 1.2.840.114 350.1.13.10 4.2.7.2.686 [id number] [facility] 2022-02-20 18:29:00 2022-02-20 19:19:00 Emergency X Tita PEACOCK [facility] ERT [id number] [facility] 2022-01-07 10:51:44 2022-01-07 10:51:44 Outpatient SFA [facility] 1020 Laurent Branch 2022-01-07 00:00:00 2022-01-07 00:00:00 Outpatient Visit [id number] bede19 2022-01-05 10:30:05 2022-01-05 10:30:05 Outpatient SFA [facility] [id number] 1018 Laurent Branch 2022-01-05 00:00:00 2022-01-05 00:00:00 Outpatient Visit [id number] -[id number]-[id number]-a [id number] 7200-09-19 00:00:00 2021-12-07 00:00:00 Outpatient Visit [id number] -[id number]-a [id number] 2021-12-03 13:00:00 2021-12-03 14:25:09 Outpatient JAMES VENTURA KARREN [facility] [id number] [facility] 2021-12-03 13:00:00 2021-12-03 14:25:09 Outpatient JAMES VENTURA KARREN [facility] [id number] [facility] 2021-12-03 13:00:00 2021-12-03 14:25:09 Outpatient JAMES VENTURA KARREN [facility] [id number] [facility] 2021-12-03 13:00:00 2021-12-03 14:25:09 Office Visit Pgy3 James Akhtar [facility] 1..840.114 350.1.13.10 4.2.7.2.686 [id number] [facility] 2021-12-03 13:00:00 2021-12-03 13:00:00 Outpatient JAMES VENTURA KARREN [facility] [id number] [facility] 2021-12-03 00:00:00 2021-12-03 00:00:00 Orders Only Doctor Unassigned, Madeira [facility] 1..840.114 350.1.13.10 4.2.7.2.686 [id number] [facility] 2021-10-13 00:00:00 2021-10-13 00:00:00 Patient Secure Msg Doctor Unassigned, Madeira [facility] .0.114 350.1.13.10 4.2.7.2.686 [id number] [facility] 2021-10-09 00:00:00 2021-10-09 00:00:00 Orders Only Doctor Unassigned, Madeira [facility] ..114 350.1.13.10 4.2.7.2.686 [id number] [facility] 2021-10-07 00:00:00 2021-10-07 00:00:00 Outpatient Visit [id number] -[id number]-[id number] 39d-403d-9 d4b-vp70nr 8ec0ed 2021-09-23 00:00:00 2021-09-23 00:00:00 Outpatient Visit [id number]- abfb-4c5b -[id number]-k97 [id number] bfb-4c5b-8 [id number] [id number] 2021-03-23 00:54:00 2021-03-23 01:49:00 Emergency Es Vargas G [facility] .840.114 350.1.13.10 4.2.7.2.686 [id number] [facility] 2021-03-23 00:54:00 2021-03-23 01:49:00 Emergency X ES VARGAS [facility] ERT [id number] [facility] 2021-03-23 00:00:00 2021-03-23 00:00:00 Patient Secure Msg Doctor Unassigned, Madeira [facility] 1.84.114 350.1.13.10 4.2.7.2.686 [id number] [facility] 2019-03-11 15:29:09 2019-03-11 18:51:00 Emergency X TONI JOHN [facility] ERT [id number] [facility] Results Test Description Test Time Test Comments Results Result Comments Source CT MAXILLOFACIAL/MA NDIBLE W CONTRAST 15:54:28 FULL RESULT: Examination: CT MAXILLOFACIAL/MANDIBLE W CONTRAST on 01/31/2024 9:14 AM Clinical Indication: Diabetic with recent onset of right facial swellingand dysphagia Comparison: None. Technique: Postcontrast axial images were obtained from lateral ventriclesthrough the thyroid level. Findings: Visualized aspects of the brain, orbits and paranasal sinuses were withoutworrisome finding. From superior to inferior, starting at about the level of the tonsil thereis submucosal edema and fullness that suggests smoldering infection. In theinferior tonsillar region there is a small abscess annotated on image 36 ofseries 8. There is not much peripheral enhancement, perhaps if the patientis immunocompromised and cannot mount an inflammatory response. Extendinginferiorly from here, there is considerable submucosal fullness that I taketo represent infection-related edema extending to the submucosa of thehypopharynx and supraglottic. Several additional pockets of liquefactionare identified, one of these annotated on image 29 of series 8. The airwayis slightly narrowed but not compromised. With respect to the reported facial swelling, I do not see evidence of thison CT. Incidental note is made of apical lucency related to tooth #31 withassociated at least thinning is not loss of the left cortex of themandible, annotated on series 2 images 37 and 38. I do not see obvious softtissue infection medial to this location but that would be at risk. There is little if any reactive adenopathy in the right neck. [facility] WITH [id number] 15:38:28* Test Item Value Reference Range Interpretation Comme nts WBC (test code = 6690-2) 9.55 4.30-11.10 RBC (test code = 789-8) 4.01 3.93-5.25 HGB (test code = 718-7) 11.8 g/dL 11.6-15.0 HCT (test code = 4544-3) 33.2 % 35.7-45.2 L MCV (test code = 787-2) 82.8 fL 80.6-95.5 MCH (test code = 785-6) 29.4 pg 25.9-32.8 MCHC (test code = 786-4) 35.5 g/dL 31.6-35.1 H RDW-SD (test code = 34085-4) 38.5 fL 39.0-49.9 L RDW-CV (test code = 788-0) 12.7 % 12.0-15.5 PLT (test code = 777-3) 361 166-358 H MPV (test code = 55327-2) 9.1 fL 9.5-12.9 L NRBC/100 WBC (test code = 1166988962) 0.0 0.0-10.0 NRBC x10^3 (test code = 1722681466) See_Comment [Automated messa ge] The system which generated this result transmitted reference range: 10*3/?L. The reference range was not used to interpret this result as normal/abnormal. GRAN MAT (NEUT) % (test code = 770-8) 67.3 % IMM GRAN % (test code = 0315970869) 0.90 % LYMPH % (test code = 736-9) 22.0 % MONO % (test code = 5905-5) 8.2 % EOS % (test code = 713-8) 1.0 % BASO % (test code = 706-2) 0.6 % GRAN MAT x10^3(ANC) (test code = 7632769318) 6.42 10*3/uL 1.88-7.09 IMM GRAN x10^3 (test code = 6859540956) 0.09 10*3/uL 0.00-0.06 H LYMPH x10^3 (test code = 731-0) 2.10 10*3/uL 1.32-3.29 MONO x10^3 (test code = 742-7) 0.78 10*3/uL 0.33-0.92 EOS x10^3 (test code = 711-2) 0.10 10*3/uL 0.03-0.39 BASO x10^3 (test code = 704-7) 0.06 10*3/uL 0.01-0.07 Lab Interpretation (test code = 03848-7) [id number] 15:22:00* Test Item Value Reference Range Interpretation Comme nts POCT PREG (test code = 1605) Negative On board controls acceptable with C Line (test code = 3574) Yes Lab Interpretation (test cod e = 08968-7) Normal [facility] [id number] 02:29:32* Test Item Value Reference Range Interpretation Comme [facility] HEMOGLOBIN A1c (test code = 14811) 8.9 % 4.2-5.6 H [employer] GUIDELINES FOR HGB A1C: PREDIABETES/INCREASED RISK . . . . . . . 5.7-6.4% DIAGNOSIS OF DIABETES . . . . . . . . . >=6.5% WITH CONFIRMATION OR APPROPRIATE SYMPTOMS NOTE: ASSAY MAY BE AFFECTED BY HEMOGLOBINOPATHIES (SICKLE CELL ANEMIA, S-C DISEASE, OTHERS) OR ARTIFICIALLY LOWERED BY DECREASED RED CELL SURVIVAL (HEMOLYTIC ANEMIAS, BLOOD LOSS, ETC.). CONSIDER ALTERNATE TESTING OR LABORATORY CONSULTATION. UNLESS OTHERWISE INDICATED, ALL TESTING PERFORMED AT [facility] [address] [place] [address] CLERK OF SCALES: BENY GARCIAS M.D. [place] NUMBER [id number] [place]. [id number] HEMOGLOBIN [id number] 00:00:00* Test Item Value Reference Range Interpretation Comme [facility] HEMOGLOBIN A1c (test code = 98725) 8.9 % Laurent BranchHEMOGLOBIN [id number] 01:53:26* Test Item Value Reference Range Interpretation Comme nts HEMOGLOBIN A1c (test code = 00893) 8.7 % 4.2-5.6 H [employer] GUIDELINES FOR HGB A1C: PREDIABETES/INCREASED RISK . . . . . . . 5.7-6.4% DIAGNOSIS OF DIABETES . . . . . . . . . >=6.5% WITH CONFIRMATION OR APPROPRIATE SYMPTOMS NOTE: ASSAY MAY BE AFFECTED BY HEMOGLOBINOPATHIES (SICKLE CELL ANEMIA, S-C DISEASE, OTHERS) OR ARTIFICIALLY LOWERED BY DECREASED RED CELL SURVIVAL (HEMOLYTIC ANEMIAS, BLOOD LOSS, ETC.). CONSIDER ALTERNATE TESTING OR LABORATORY CONSULTATION. UNLESS OTHERWISE INDICATED, ALL TESTING PERFORMED AT [facility] [address] [place] [address] CLERK OF SCALES: Vivek MCKINNONIA NUMBER [id number] [place]. [id number] HEMOGLOBIN [id number] 00:00:00* Test Item Value Reference Range Interpretation Comme nts HEMOGLOBIN A1c (test code = 58706) 8.7 % Laurent BranchHEMOGLOBIN [id number] 00:00:00* Test Item Value Reference Range Interpretation Comme nts HEMOGLOBIN A1c (test code = 50775) 8.7 % Laurent BranchALBUMIN/CREATININE RATIO, URINE, [id number] 06:54:45* Test Item Value Reference Range Interpretation Comme nts CREATININE, URINE, CONC. (test code = 2072) 113.4 MG/DL NOT ESTAB ALBUMIN, URINE, RANDOM (test code = 00162) 327.7 MG/DL NOT ESTAB CALC ALBUMIN/CREAT, RND (test code = 01702) 2890 MG/G <30 H Note: Albumin/Cr eatinine ratio reference interval reflects ADA and NKF guidelines. UNLESS OTHERWISE INDICATED, ALL TESTING PERFORMED AT [facility] [address] [place] [address] CLERK OF SCALES: Vivek MCKINNONIA NUMBER [id number] [place]. [id number] HEMOGLOBIN [id number] 03:32:55* Test Item Value Reference Range Interpretation Comme nts HEMOGLOBIN A1c (test code = 34889) 7.3 % 4.2-5.6 H [employer] GUIDELINES FOR HGB A1C: PREDIABETES/INCREASED RISK . . . . . . . 5.7-6.4% DIAGNOSIS OF DIABETES . . . . . . . . . >=6.5% WITH CONFIRMATION OR APPROPRIATE SYMPTOMS NOTE: ASSAY MAY BE AFFECTED BY HEMOGLOBINOPATHIES (SICKLE CELL ANEMIA, S-C DISEASE, OTHERS) OR ARTIFICIALLY LOWERED BY DECREASED RED CELL SURVIVAL (HEMOLYTIC ANEMIAS, BLOOD LOSS, ETC.). CONSIDER ALTERNATE TESTING OR LABORATORY CONSULTATION. ALBUMIN/CREATININE RATIO, RANDOM [id number] 00:00:00* Test Item Value Reference Range Interpretation Comme nts CREATININE, URINE, CONC. (te st code = 2072) 113.4 MG/DL ALBUMIN, URINE, RANDOM (test code = 32758) 327.7 MG/DL CALC ALBUMIN/CREAT, RND (phyllis t code = 99967) 2890 MG/G Laurent BranchHEMOGLOBIN [id number] 00:00:00* Test Item Value Reference Range Interpretation Comme nts HEMOGLOBIN A1c (test code = 50139) 7.3 % Laurent BranchALBUMIN/CREATININE RATIO, RANDOM [id number] 00:00:00* Test Item Value Reference Range Interpretation Comme nts CREATININE, URINE, CONC. (te st code = 207) 113.4 MG/DL ALBUMIN, URINE, RANDOM (test code = 45494) 327.7 MG/DL CALC ALBUMIN/CREAT, RND (phyllis t code = 88814) 2890 MG/G Laurent BranchHEMOGLOBIN [id number] 00:00:00* Test Item Value Reference Range Interpretation Comme nts HEMOGLOBIN A1c (test code = 28952) 7.3 % Laurent BranchPROLACTIN [ADDED]2022-10-18 00:00:00* Test Item Value Reference Range Interpretation Comme nts PROLACTIN (test code = 2800) 14.7 NG/ML Laurent BranchTESTOSTERONE [ADDED]2022-10-18 00:00:00* Test Item Value Reference Range Interpretation Comme nts TESTOSTERONE (test code = 2830) 15 NG/DL Laurent BranchFSH + LH PROFILE [ADDED]2022-10-18 00:00:00* Test Item Value Reference Range Interpretation Comme nts FOLLICLE STIM HORMONE (test code = 2700) 5.8 IU/L LUTEINIZING HORMONE (test co de = 2776) 11.8 IU/L Laurent BranchESTRADIOL [ADDED]2022-10-18 00:00:00* Test Item Value Reference Range Interpretation Comme nts ESTRADIOL (test code = 2505) 124.0 PG/ML Laurent BranchTSH, THIRD GENERATION [ADDED]2022-10-18 00:00:00* Test Item Value Reference Range Interpretation Comme nts TSH, THIRD GENERATION (test code = 2821) 2.290 UIU/ML Laurent BranchPROGESTERONE [ADDED]2022-10-18 00:00:00* Test Item Value Reference Range Interpretation Comme nts PROGESTERONE (test code = 2790) 13.60 NG/ML Laurent Bazzi AustinPROLACTIN [ADDED]2022-10-18 00:00:00* Test Item Value Reference Range Interpretation Comme nts PROLACTIN (test code = 2800) 14.7 NG/ML Laurent Bazzi AustinTESTOSTERONE [ADDED]2022-10-18 00:00:00* Test Item Value Reference Range Interpretation Comme nts TESTOSTERONE (test code = 2830) 15 NG/DL Laurent BranchFSH + LH PROFILE [ADDED]2022-10-18 00:00:00* Test Item Value Reference Range Interpretation Comme nts FOLLICLE STIM HORMONE (test code = 2700) 5.8 IU/L LUTEINIZING HORMONE (test co de = 2776) 11.8 IU/L Laurent BranchESTRADIOL [ADDED]2022-10-18 00:00:00* Test Item Value Reference Range Interpretation Comme nts ESTRADIOL (test code = 2505) 124.0 PG/ML Laurent BranchTSH, THIRD GENERATION [ADDED]2022-10-18 00:00:00* Test Item Value Reference Range Interpretation Comme nts TSH, THIRD GENERATION (test code = 2821) 2.290 UIU/ML Laurent BranchPROGESTERONE [ADDED]2022-10-18 00:00:00* Test Item Value Reference Range Interpretation Comme nts PROGESTERONE (test code = 2790) 13.60 NG/ML Laurent BranchHEMOGLOBIN A1c [ADDED]2022-10-17 00:00:00* Test Item Value Reference Range Interpretation Comme nts HEMOGLOBIN A1c (test code = 37990) 10.5 % Laurent Bazzi AustinHEMOGLOBIN A1c [ADDED]2022-10-17 00:00:00* Test Item Value Reference Range Interpretation Comme nts HEMOGLOBIN A1c (test code = 02655) 10.5 % Laurent BranchGLYCOSYLATED HEMOGLOBIN (A1C)2022-04-19 04:58:13* Test Item Value Reference Range Interpretation Comme [facility] HGB A1C (test code = 4548-4) 9.9 % 4.0-5.7 H BRADEN (test code = BRADEN) Reference RangesNormal: <5.7%Prediabetes: 5.7 - 6.4%Diabetes: > 6.5% Lab Interpretation (test code = 71462-2) Abnormal [facility] CenterD-[id number] 03:41:23* Test Item Value Reference Range Interpretation Comments D-DIMER (test code = 7230641971) See_Comment [Automated message] The system which generated this result transmitted reference range: <0.41 ?g/mL (FEU). The reference range was not used to interpret this result as normal/abnormal. BRADEN (test code = BRADEN) This test may be used in conjunction with a clinical pretest probability (PTP) assessment model to exclude venous thromboembolism (VTE) in patients suspected of deep venous thrombosis (DVT) and pulmonary embolism (PE) A D-Dimer value less than 0.50 ?g/ml (FEU) has a negative predicative value of 96 to 100% (95% CI)and 97 to 100% (95% CI) as an aid in the diagnosis of deep vein thrombosis (DVT) and pulmonary embolism when there is low or moderate pretest probability of PE or DVT. D-Dimer values are expressed in initial fibrinogen equivalent units (FEU)" The assay results should be used with other information, including the clinical context, in forming a diagnosis. Lab Interpretation (test code = 63091-8) Normal [facility] CenterTROPONIN [id number] 02:49:04* Test Item Value Reference Range Interpretation Comments TROPONIN I (test code = 2768487176) 0.012 ng/mL See_Comment [Automated message] The system which generated this result transmitted reference range: <=0.034. The reference range was not used to interpret this result as normal/abnormal. BRADEN (test code = BRADEN) Reference (Normal) Range (defined by the 99th percentile reference limit): <= 0.034 ng/mL Note: Cardiac troponin begins to rise 3-4 hours after the onset of ischemia. Repeat in 4-6 hours if the sample was drawn within 3-4 hours of the onset of the symptom and found normal. Diagnosis of myocardial injury is made with acute changes in cTn concentrations with at least one serial sample above the 99th percentile upper reference limit (URL), taken together with the patient's clinical presentation. Biotin has been reported to cause a negative bias, interpret results relative to patient's use of biotin. Lab Interpretation (test code = 28626-9) Normal [facility] CenterCOMP. METABOLIC PANEL (13542)2022-04-19 02:32:42* Test Item Value Reference Range Interpretation Comme nts NA (test code = 7451664429) 130 mmol/L 135-145 L K (test code = 8825515686) 5.1 mmol/L 3.5-5.0 H CL (test code = 9279890369) 101 mmol/L 98-108 CO2 TOTAL (test code = 1184611435) 22 mmol/L 23-31 L AGAP (test code = 9083208611) 2-16 BUN (test code = 7130260001) 17 mg/dL 7-23 GLUCOSE (test code = 7739327041) 382 mg/dL 70-110 H CREATININE (test code = 1398028064) 0.75 mg/dL 0.50-1.04 TOTAL BILI (test code = 6415028848) 0.7 mg/dL 0.1-1.1 CALCIUM (test code = 0367156089) 8.6 mg/dL 8.6-10.6 T PROTEIN (test code = 0018740932) 7.0 g/dL 6.3-8.2 ALBUMIN (test code = 3157435265) 4.0 g/dL 3.5-5.0 ALK PHOS (test code = 9487626505) 157 U/L 34-122 H ALTv (test code = 1742-6) 26 U/L 5-35 AST(SGOT) (test code = 3563446327) 43 U/L 13-40 H eGFR (test code = 6153152975) mL/min/1.73m2 BRADEN (test code = BRADEN) Association of Glomerular Filtration Rate (GFR) and Staging of Kidney Disease* + --+ --+ ------+| GFR (mL/min/1.73 m2) ?| With Kidney Damage ?| ?Without Kidney Damage+ --------+ --------+ +| ?>90 ?| ?Stage one ?| ? Normal ?+ ---+ ---+ -------+| ?60-89 ?| ?Stage two ?| ? Decreased GFR ? + --+ --+ ------+| ?30-59 ?| ?Stage three ?| ? Stage three ? + --+ --+ ------+| ?15-29 ?| ?Stage four ? | ? Stage four ?+ ---+ ---+ -------+| ?<15 (or dialysis) ? ?| ?Stage five ? | ? Stage five ?+ ---+ ---+ -------+ *Each stage assumes the associated GFR level has been in effect for at least three months. ?Stages 1 to 5, with or without kidney disease, indicate chronic kidney disease. Notes: Determination of stages one and two (with eGFR >59mL/min/1.73 m2) requires estimation of kidney damage for at least three months as defined by structural or functional abnormalities of the kidney, manifested by either:Pathological abnormalities or Markers of kidney damage (including abnormalities in the composition of the blood or urine or abnormalities in imaging tests). Lab Interpretation (test code = 40799-0) Abnormal [facility] CenterLIPASE2023-01-30 02:32:22* Test Item Value Reference Range Interpretation Comme [facility] LIPASE (test code = 1195883271) 193 U/L 0-220 Lab Interpretation (test cod e = 14243-6) Normal [facility] CenterACTIVATED PARTIAL THRMPLAS [id number] 02:01:22* Test Item Value Reference Range Interpretation Comme [facility] APTT Patient (test code = 3173-2) See_Comment L [Automated message] The system which generated this result transmitted reference range: 23 - 38 Seconds. The reference range was not used to interpret this result as normal/abnormal. BRADEN (test code = BRADEN) The [facility] patient population mean normal value for aPTT is 30 seconds. Lab Interpretation (test code = 60503-8) Abnormal [facility] CenterPROTHROMBIN TIME / [id number] 01:59:21* Test Item Value Reference Range Interpretation Comme [facility] PROTIME PATIENT (test code = 5964-2) See_Comment L [Automated Surgery Partnersa ge] The system which generated this result transmitted reference range: 12.0 - 14.7 Seconds. The reference range was not used to interpret this result as normal/abnormal. INR (test code = 6301-6) Normal INR <1.1; Warfarin Therapeutic range 2.0 to 3.0 or 2.5 to 3.5, depending upon the indications. Lab Interpretation (test code = 10046-4) Abnormal [facility] WITH [id number] 01:52:25* Test Item Value Reference Range Interpretation Comme nts WBC (test code = 6690-2) See_Comment [Automated messa ge] The system which generated this result transmitted reference range: 4.30 - 11.10 10*3/?L. The reference range was not used to interpret this result as normal/abnormal. RBC (test code = 789-8) See_Comment [Automated messa ge] The system which generated this result transmitted reference range: 3.93 - 5.25 10*6/?L. The reference range was not used to interpret this result as normal/abnormal. HGB (test code = 718-7) 14.2 g/dL 11.6-15.0 HCT (test code = 4544-3) 40.0 % 35.7-45.2 MCV (test code = 787-2) 82.3 fL 80.6-95.5 MCH (test code = 785-6) 29.2 pg 25.9-32.8 MCHC (test code = 786-4) 35.5 g/dL 31.6-35.1 H RDW-SD (test code = 90635-5) 39.2 fL 39.0-49.9 RDW-CV (test code = 788-0) 13.2 % 12.0-15.5 PLT (test code = 777-3) See_Comment [Automated messa ge] The system which generated this result transmitted reference range: 166 - 358 10*3/?L. The reference range was not used to interpret this result as normal/abnormal. MPV (test code = 10370-9) 10.7 fL 9.5-12.9 NRBC/100 WBC (test code = 5417583648) See_Comment [Automated [employer] ssage] The system which generated this result transmitted reference range: 0.0 - 10.0 /100 WBCs. The reference range was not used to interpret this result as normal/abnormal. NRBC x10^3 (test code = 8864076343) See_Comment [Automated messa ge] The system which generated this result transmitted reference range: 10*3/?L. The reference range was not used to interpret this result as normal/abnormal. GRAN MAT (NEUT) % (test code = 770-8) 59.5 % IMM GRAN % (test code = 8620908008) 0.80 % LYMPH % (test code = 736-9) 31.7 % MONO % (test code = 5905-5) 6.7 % EOS % (test code = 713-8) 0.7 % BASO % (test code = 706-2) 0.6 % GRAN MAT x10^3(ANC) (test code = 2201301181) 5.21 10*3/uL 1.88-7.09 IMM GRAN x10^3 (test code = [id number]) 0.07 10*3/uL 0.00-0.06 H LYMPH x10^3 (test code = 731-0) 2.78 10*3/uL 1.32-3.29 MONO x10^3 (test code = 742-7) 0.59 10*3/uL 0.33-0.92 EOS x10^3 (test code = 711-2) 0.06 10*3/uL 0.03-0.39 BASO x10^3 (test code = 704-7) 0.05 10*3/uL 0.01-0.07 Lab Interpretation (test code = 25217-0) [id number]* Test Item Value Reference Range Interpretation Comme nts POCT PREG (test code = 1605) Negative On board controls acceptable with C Line (test code = 3574) Present POCT PREG LOT # (test code = 3575) [id number] POCT PREG TEST DATE ( test code = 3576) 06-19-2023 Lab Interpretation (test cod e = 63242-0) [facility] [id number] 10:06:59Name: Gem : 1980 Sex: F - SCR MAMM BILATERAL PRICE CAD DIGITALBILATERAL FIRST EVER DIGITAL SCREENING MAMMOGRAM 3D/2D WITH CAD: 03/26/2022LINICAL: Asymptomatic. Digital breast tomosynthesis was performed in addition to routine CC and MLO views. Current mammographic images were evaluated by [employer] CAD (computer-aided detection) software. No prior exams were available for comparison. The tissue of both breasts is heterogeneously dense. This may lower the sensitivity of mammography. There are benign calcifications in the right breast. No suspicious mass, architectural distortion, malignant type calcification, or lymph node abnormality detected. IMPRESSION: BENIGNThere is no mammographic evidence of malignancy. Resume annual screening mammography inone year. (03/27/2023) Kamari Jarrett M.D. et/penrad:03/29/2022 10:06:59 Stone Rigger: Ivy Shell MM, [facility] Mammographyletter sent: BIRADS 1-2 Normal Mammogram BI-RADS: 2 Benign HEMOGLOBIN [id number] 07:13:48* Test Item Value Reference Range Interpretation Comme nts HEMOGLOBIN A1c (test code = 98549) 10.4 % 4.2-5.6 H [employer]ATION GUIDELINES FOR HGB A1C: PREDIABETES/INCREASED RISK . . . . . . . 5.7-6.4% DIAGNOSIS OF DIABETES . . . . . . . . . >=6.5% WITH CONFIRMATION OR APPROPRIATE SYMPTOMS NOTE: ASSAY MAY BE AFFECTED BY HEMOGLOBINOPATHIES (SICKLE CELL ANEMIA, S-C DISEASE, OTHERS) OR ARTIFICIALLY LOWERED BY DECREASED RED CELL SURVIVAL (HEMOLYTIC ANEMIAS, BLOOD LOSS, ETC.). CONSIDER ALTERNATE TESTING OR LABORATORY CONSULTATION. ALBUMIN/CREATININE RATIO, URINE, [id number] 04:55:11* Test Item Value Reference Range Interpretation Comme nts CREATININE, URINE, CONC. (test code = 2072) 157.3 MG/DL NOT ESTAB ALBUMIN, URINE, RANDOM (test code = 95137) 256.4 MG/DL NOT ESTAB CALC ALBUMIN/CREAT, RND (test code = 53699) 1630 MG/G <30 H Note: Albumin/Cr eatinine ratio reference interval reflects ADA and NKF guidelines. UNLESS OTHERWISE INDICATED, ALL TESTING PERFORMED [facility] [employer] [address] [place] [address] CLERK OF SCALES: ARNIE KRISHNA M.D. CLIA NUMBER [id number] [place] [id number] LIPID [id number] 03:42:46* Test Item Value Reference Range Interpretation Comme nts CHOLESTEROL (test code = 2210) 277 MG/DL <200 H TRIGLYCERIDES (test code = 2232) 584 MG/DL <150 H HDL CHOLESTEROL (test code = 2220) 39 MG/DL >39 L CALC LDL CHOL (test code = 2237) (NOTE) MG/DL <100 UNABLE TO CALCUL ATE A VALID LDL CHOLESTEROL WHEN THE TRIGLYCERIDEVALUE IS GREATER THAN 400 MG/DL.UNABLE TO CALCULATE A VALID LDL CHOLESTEROL WHEN THE TRIGLYCERIDEVALUE IS GREATER THAN 400 MG/DL. NOTE: CALCULATED LDL IS BASED ON OZ-ANNE METHOD WHICHINCLUDES ADJUSTABLE TRIGLYCERIDE:VLDL CHOLESTEROL RATIO.THIS FACTOR VARIES BY MEASURED TRIGLYCERIDE AND NON-HDLCHOLESTEROL CONCENTRATIONS WITH INCREASED CALCULATED LDL SEENIN HIGHER TRIGLYCERIDE OR LOWER NON-HDL SPECIMENS. FOR MOREINFORMATION, SEE CLIENT ANNOUNCEMENT AT [email or web address] CalcLDL-C RISK RATIO LDL/HDL (test code = 2238) (NOTE) RATIO <3.22 UNABLE TO MANFRED CULATE COMPREHENSIVE METABOLIC [id number] 03:42:46* Test Item Value Reference Range Interpretation Comme nts GLUCOSE (test code = 2217) 165 MG/DL 70-99 H BUN (test code = 2208) 13 MG/DL 6-20 CREATININE (test code = 2214) 0.52 MG/DL 0.60-1.30 L eGFR (2020 CKD-EPI) (test code = 84592) 120 ML/MIN/1.73 >60 CALC BUN/CREAT (test code = 2235) 25 RATIO 6-28 SODIUM (test code = 223) 137 MEQ/L 133-146 POTASSIUM (test code = 2228) 4.4 MEQ/L 3.5-5.4 CHLORIDE (test code = 2215) 101 MEQ/L 95-107 CARBON DIOXIDE (test code = 2206) 22 MEQ/L 19-31 CALCIUM (test code = 2209) 9.5 MG/DL 8.5-10.5 PROTEIN, TOTAL (test code = 2229) 6.7 G/DL 6.1-8.3 ALBUMIN (test code = 2201) 4.1 G/DL 3.5-5.2 CALC GLOBULIN (test code = 2240) 2.6 G/DL 1.9-3.7 CALC A/G RATIO (test code = 2234) 1.6 RATIO 1.0-2.6 BILIRUBIN, TOTAL (test code = 2207) 0.3 MG/DL See_Comment [Automated me ssage] The system which generated this result transmitted reference range: <=1.2. The reference range was not used to interpret this result as normal/abnormal. ALKALINE PHOSPHATASE (test code = 2203) 117 U/L 40-112 H AST (test code = 2218) 23 U/L 9-40 ALT (test code = 2219) 22 U/L 5-40 HEMOGLOBIN [id number] 00:00:00* Test Item Value Reference Range Interpretation Comme [facility] HEMOGLOBIN A1c (test code = 79684) 10.4 % Laurent BranchLIPID [id number] 00:00:00* Test Item Value Reference Range Interpretation Comme nts CHOLESTEROL (test code = 2210) 277 MG/DL TRIGLYCERIDES (test code = 2232) 584 MG/DL HDL CHOLESTEROL (test code = 2220) 39 MG/DL CALC LDL CHOL (test code = 2237) (NOTE) MG/DL RISK RATIO LDL/HDL (test cod e = 2238) (NOTE) RATIO Laurent Bazzi Jose CarlosALBUMIN/CREATININE RATIO, RANDOM [id number] 00:00:00* Test Item Value Reference Range Interpretation Comme nts CREATININE, URINE, CONC. (te st code = 2072) 157.3 MG/DL ALBUMIN, URINE, RANDOM (test code = 67895) 256.4 MG/DL CALC ALBUMIN/CREAT, RND (phyllis t code = 75141) 1630 MG/G Laurent Bazzi Jose CarlosCOMPREHENSIVE METABOLIC [id number] 00:00:00* Test Item Value Reference Range Interpretation Comme nts GLUCOSE (test code = 2217) 165 MG/DL BUN (test code = 8) 13 MG/DL CREATININE (test code = 2214) 0.52 MG/DL eGFR (2020 CKD-EPI) (test code = 10433) 120 ML/MIN/1.73 CALC BUN/CREAT (test code = 2235) 25 RATIO SODIUM (test code = 2231) 137 MEQ/L POTASSIUM (test code = 2228) 4.4 MEQ/L CHLORIDE (test code = 2215) 101 MEQ/L CARBON DIOXIDE (test code = 2206) 22 MEQ/L CALCIUM (test code = 2209) 9.5 MG/DL PROTEIN, TOTAL (test code = 2229) 6.7 G/DL ALBUMIN (test code = 2201) 4.1 G/DL CALC GLOBULIN (test code = 2240) 2.6 G/DL CALC A/G RATIO (test code = 2234) 1.6 RATIO BILIRUBIN, TOTAL (test code = 2207) 0.3 MG/DL ALKALINE PHOSPHATASE (test code = 2204) 117 U/L AST (test code = 2218) 23 U/L ALT (test code = 2219) 22 U/L Laurent BranchHEMOGLOBIN [id number] 00:00:00* Test Item Value Reference Range Interpretation Comme nts HEMOGLOBIN A1c (test code = 38099) 10.4 % Laurent BranchLIPID [id number] 00:00:00* Test Item Value Reference Range Interpretation Comme nts CHOLESTEROL (test code = 2210) 277 MG/DL TRIGLYCERIDES (test code = 2232) 584 MG/DL HDL CHOLESTEROL (test code = 2220) 39 MG/DL CALC LDL CHOL (test code = 2237) (NOTE) MG/DL RISK RATIO LDL/HDL (test cod e = 2238) (NOTE) RATIO Laurent BranchALBUMIN/CREATININE RATIO, RANDOM [id number] 00:00:00* Test Item Value Reference Range Interpretation Comme nts CREATININE, URINE, CONC. (te st code = 207) 157.3 MG/DL ALBUMIN, URINE, RANDOM (test code = 52800) 256.4 MG/DL CALC ALBUMIN/CREAT, RND (phyllis t code = 96771) 1630 MG/G Laurent BranchCOMPREHENSIVE METABOLIC [id number] 00:00:00* Test Item Value Reference Range Interpretation Comme nts GLUCOSE (test code = 2217) 165 MG/DL BUN (test code = 2208) 13 MG/DL CREATININE (test code = 2214) 0.52 MG/DL eGFR (2020 CKD-EPI) (test code = 09387) 120 ML/MIN/1.73 CALC BUN/CREAT (test code = 2235) 25 RATIO SODIUM (test code = 2231) 137 MEQ/L POTASSIUM (test code = 2228) 4.4 MEQ/L CHLORIDE (test code = 2215) 101 MEQ/L CARBON DIOXIDE (test code = 2206) 22 MEQ/L CALCIUM (test code = 2209) 9.5 MG/DL PROTEIN, TOTAL (test code = 2229) 6.7 G/DL ALBUMIN (test code = 2201) 4.1 G/DL CALC GLOBULIN (test code = 2240) 2.6 G/DL CALC A/G RATIO (test code = 2234) 1.6 RATIO BILIRUBIN, TOTAL (test code = 2207) 0.3 MG/DL ALKALINE PHOSPHATASE (test code = 2204) 117 U/L AST (test code = 2218) 23 U/L ALT (test code = 2219) 22 U/L HEMOGLOBIN [id number] 00:00:00* Test Item Value Reference Range Interpretation Comme nts HEMOGLOBIN A1c (test code = 90557) 10.4 % LIPID [id number] 00:00:00* Test Item Value Reference Range Interpretation Comme nts CHOLESTEROL (test code = 2210) 277 MG/DL TRIGLYCERIDES (test code = 2232) 584 MG/DL HDL CHOLESTEROL (test code = 2220) 39 MG/DL CALC LDL CHOL (test code = 2237) (NOTE) MG/DL RISK RATIO LDL/HDL (test cod e = 2238) (NOTE) RATIO ALBUMIN/CREATININE RATIO, RANDOM [id number] 00:00:00* Test Item Value Reference Range Interpretation Comme nts CREATININE, URINE, CONC. (te st code = 207) 157.3 MG/DL ALBUMIN, URINE, RANDOM (test code = 23764) 256.4 MG/DL CALC ALBUMIN/CREAT, RND (phyllis t code = 67137) 1630 MG/G COMPREHENSIVE METABOLIC [id number] 00:00:00* Test Item Value Reference Range Interpretation Comme nts GLUCOSE (test code = 2217) 165 MG/DL BUN (test code = 2208) 13 MG/DL CREATININE (test code = 2214) 0.52 MG/DL eGFR (2020 CKD-EPI) (test code = 68037) 120 ML/MIN/1.73 CALC BUN/CREAT (test code = 2235) 25 RATIO SODIUM (test code = 2231) 137 MEQ/L POTASSIUM (test code = 2228) 4.4 MEQ/L CHLORIDE (test code = 2215) 101 MEQ/L CARBON DIOXIDE (test code = 2206) 22 MEQ/L CALCIUM (test code = 2209) 9.5 MG/DL PROTEIN, TOTAL (test code = 2229) 6.7 G/DL ALBUMIN (test code = 2201) 4.1 G/DL CALC GLOBULIN (test code = 2240) 2.6 G/DL CALC A/G RATIO (test code = 2234) 1.6 RATIO BILIRUBIN, TOTAL (test code = 2207) 0.3 MG/DL ALKALINE PHOSPHATASE (test code = 2204) 117 U/L AST (test code = 2218) 23 U/L ALT (test code = 2219) 22 U/L HEMOGLOBIN [id number] 00:00:00* Test Item Value Reference Range Interpretation Comme nts HEMOGLOBIN A1c (test code = 51777) 10.4 % LIPID [id number] 00:00:00* Test Item Value Reference Range Interpretation Comme nts CHOLESTEROL (test code = 2210) 277 MG/DL TRIGLYCERIDES (test code = 2232) 584 MG/DL HDL CHOLESTEROL (test code = 2220) 39 MG/DL CALC LDL CHOL (test code = 2237) (NOTE) MG/DL RISK RATIO LDL/HDL (test cod e = 2238) (NOTE) RATIO ALBUMIN/CREATININE RATIO, RANDOM [id number] 00:00:00* Test Item Value Reference Range Interpretation Comme nts CREATININE, URINE, CONC. (te st code = 207) 157.3 MG/DL ALBUMIN, URINE, RANDOM (test code = 83392) 256.4 MG/DL CALC ALBUMIN/CREAT, RND (phyllis t code = 06440) 1630 MG/G COMPREHENSIVE METABOLIC [id number] 00:00:00* Test Item Value Reference Range Interpretation Comme nts GLUCOSE (test code = 2217) 165 MG/DL BUN (test code = 2208) 13 MG/DL CREATININE (test code = 2214) 0.52 MG/DL eGFR (2020 CKD-EPI) (test code = 50638) 120 ML/MIN/1.73 CALC BUN/CREAT (test code = 2235) 25 RATIO SODIUM (test code = 2231) 137 MEQ/L POTASSIUM (test code = 2228) 4.4 MEQ/L CHLORIDE (test code = 2215) 101 MEQ/L CARBON DIOXIDE (test code = 2206) 22 MEQ/L CALCIUM (test code = 2209) 9.5 MG/DL PROTEIN, TOTAL (test code = 2229) 6.7 G/DL ALBUMIN (test code = 2201) 4.1 G/DL CALC GLOBULIN (test code = 2240) 2.6 G/DL CALC A/G RATIO (test code = 2234) 1.6 RATIO BILIRUBIN, TOTAL (test code = 2207) 0.3 MG/DL ALKALINE PHOSPHATASE (test code = 4) 117 U/L AST (test code = 2218) 23 U/L ALT (test code = 2219) 22 U/L Laurent Bazzi AustinPOCT [id number] 18:43:00* Test Item Value Reference Range Interpretation Comme [facility] POCT PREG (test code = 1605) Negative On board controls acceptable with C Line (test code = 3574) Yes POCT PREG LOT # (test code = 3575) POCT PREG TEST DATE ( test code = 3576) Lab Interpretation (test cod e = 52064-4) [facility] [id number] 06:00:05* Test Item Value Reference Range Interpretation Comme nts HCG, QUANTITATIVE (test code = 2506) <5 MIU/ML SEE BELOW EXPEC MAT VALUES FOR HCG GST.AGE UNITS RANGE GST. AGE UNITS RANGE3 WEEKS MIU/ML 6-71 10 WEEKS MIU/ML 46,509-186,9774 WEEKS MIU/ML 10-750 12 WEEKS MIU/ML 27,832-210,6125 WEEKS MIU/ML 217-7,138 14 WEEKS MIU/ML 13,950-62,5306 WEEKS MIU/ML 158-31,795 15 WEEKS MIU/ML 12,039-70,9717 WEEKS MIU/ML 3,697-163,563 16 WEEKS MIU/ML 9,040-56,4518 WEEKS MIU/ML 32,065-149,571 17 WEEKS MIU/ML 8,175-55,8689 WEEKS MIU/ML 63,803-151,410 18 WEEKS MIU/ML 8,099-58,176MALES and NON- FEMALES . . . . . . . . MIU/ML 6-5UPPR-OMDJXBGOVO FEMALES . . . . . . . . . . . . MIU/ML <=7 UNLESS OTHERWISE INDICATED, ALL TESTING PERFORMED [facility] [employer] [address] [place] [address] CLERK OF SCALES: ARNIE KRISHNA M.D. CLIA NUMBER [id number] [place] [id number] HCG, [id number] 00:00:00* Test Item Value Reference Range Interpretation Comme nts HCG, QUANTITATIVE (test code = 2506) <5 MIU/ML Laurent WallerG, [id number] 00:00:00* Test Item Value Reference Range Interpretation Comme nts HCG, QUANTITATIVE (test code = 2506) <5 MIU/ML HCG, [id number] 00:00:00* Test Item Value Reference Range Interpretation Comme nts HCG, QUANTITATIVE (test code = 2506) <5 MIU/ML HCG, [id number] 00:00:00* Test Item Value Reference Range Interpretation Comme nts HCG, QUANTITATIVE (test code = 2506) <5 MIU/ML HCG, [id number] 00:00:00* Test Item Value Reference Range Interpretation Comme nts HCG, QUANTITATIVE (test code = 2506) <5 MIU/ML HCG, [id number] 00:00:00* Test Item Value Reference Range Interpretation Comme nts HCG, QUANTITATIVE (test code = 2506) <5 MIU/ML HCG, [id number] 00:00:00* Test Item Value Reference Range Interpretation Comme nts HCG, QUANTITATIVE (test code = 2506) <5 MIU/ML Laurent Kam, THIRD [id number] 03:43:01* Test Item Value Reference Range Interpretation Comme nts TSH, THIRD GENERATION (test code = 2821) 1.260 UIU/ML 0.400-4.100 FSH + LH [id number] 03:43:01* Test Item Value Reference Range Interpretation Comme [facility] FOLLICLE STIM HORMONE (test code = 2700) 5.1 IU/L SEE BELOW EXPEC MAT VALUES FOR FSH FOR FEMALES >17 YEARS MALES FEMALES >=18 YEARS 1.5-12.4 IU/L FOLLICULAR 3.5-12.5 IU/L MID-CYCLE PEAK 4.7-21.5 IU/L LUTEAL PHASE 1.7-7.7 IU/L POSTMENOPAUSAL 25.8-134.8 IU/L LUTEINIZING HORMONE (test code = 2776) 11.6 IU/L SEE BELOW EXPEC MAT VALUES FOR LH FOR FEMALES >17 YEARS MALES FEMALES >=18 YEARS 1.8-8.6 IU/L FOLLICULAR 2.4-12.6 IU/L MID-CYCLE PEAK 14.0-95.6 IU/L LUTEAL PHASE 1.0-11.4 IU/L POSTMENOPAUSAL 7.7-58.5 IU/L [id number] 03:43:01* Test Item Value Reference Range [facility] (test code = 2505) 203.0 PG/ML SEE BELOW EXPECTED VALUES FOR ESTRADIOL FOR FEMALES >=18 YEARS FOLLICULAR . . . . . . . . . . . . . PG/ML 12.4-233.0 OVULATION. . . . . . . . . . . . . . PG/ML 41.0-398.0 LUTEAL PHASE . . . . . . . . . . . . PG/ML 22.3-341.0 POSTMENOPAUSAL SUPPLEMENTED/NON-SUPP . PG/ML <138.0/<20.0 NOTE: TO DETERMINE NORMAL VS. SUBNORMAL ESTRADIOL IN POSTMENOPAUSAL FEMALES, CONSIDER ULTRASENSITIVE ESTRADIOL ([facility] ORDER CODE 5678). METHODOLOGY IS [facility] JESSICA ELECTROCHEMILUMINESCENT IMMUNOASSAY WITH A LIMIT OF DETECTION OF 17 PG/ML. [id number] 03:43:01* Test Item Value Reference Range Interpretation [facility] PROLACTIN (test code = 2800) 32.9 NG/ML 5.0-37.0 NOTE: Methodolog y is Aries Jessica Electrochemiluminescence Immunoassay (ECLIA). Values obtained with different assays/manufacturers cannot be used interchangeably. Results should not be used as sole basis to establish the presence or absence of malignancy. [id number] 03:42:28* Test Item Value Reference Range Interpretation Comme nts TESTOSTERONE (test code = 2830) 13 NG/DL See_Comment NOTE: TOTAL TESTOSTERONE ASSAY SENSITIVITY IS 12 NG/DL. TO DETERMINE NORMAL VS. SUBNORMAL TESTOSTERONE IN CHILDREN AND WOMEN, CONSIDER TESTING WITH ULTRASENSITIVE TESTOSTERONE. UNLESS OTHERWISE INDICATED, ALL TESTING PERFORMED [facility] [employer] [address] [place] [address] CLERK OF SCALES: ARNIE KRISHNA M.D. [place] NUMBER [id number] [place]. [id number] [Automated message] The system which generated this result transmitted reference range: <=55. The reference range was not used to interpret this result as normal/abnormal. FSH + LH [id number] 00:00:00* Test Item Value Reference Range Interpretation Comme [facility] FOLLICLE STIM HORMONE (test code = 2700) 5.1 IU/L LUTEINIZING HORMONE (test co de = 2776) 11.6 IU/L Laurent Bazzi [id number] 00:00:00* Test Item Value Reference Range Interpretation Comme [facility] ESTRADIOL (test code = 2505) 203.0 PG/ML Laurent [id number] 00:00:00* Test Item Value Reference Range Interpretation Comme [facility] PROLACTIN (test code = 2800) 32.9 NG/ML Laurent Bazzi [id number] 00:00:00* Test Item Value Reference Range Interpretation Comme nts TESTOSTERONE (test code = 2830) 13 NG/DL Laurent Bazzi [id number] 00:00:00* Test Item Value Reference Range Interpretation Comme [facility] TSH, THIRD GENERATION (test code = 2821) 1.260 UIU/ML Laurent BranchFSH + LH [id number] 00:00:00* Test Item Value Reference Range Interpretation Comme nts FOLLICLE STIM HORMONE (test code = 2700) 5.1 IU/L LUTEINIZING HORMONE (test co de = 2776) 11.6 IU/L Laurent Bazzi [id number] 00:00:00* Test Item Value Reference Range Interpretation Comme nts ESTRADIOL (test code = 2505) 203.0 PG/ML Laurent Bazzi [id number] 00:00:00* Test Item Value Reference Range Interpretation Comme nts ESTRADIOL (test code = 2505) 203.0 PG/ML [id number] 00:00:00* Test Item Value Reference Range Interpretation Comme nts PROLACTIN (test code = 2800) 32.9 NG/ML [id number] 00:00:00* Test Item Value Reference Range Interpretation Comme nts TESTOSTERONE (test code = 2830) 13 NG/DL [id number] 00:00:00* Test Item Value Reference Range Interpretation Comme nts TSH, THIRD GENERATION (test code = 2821) 1.260 UIU/ML [id number] 00:00:00* Test Item Value Reference Range Interpretation Comme nts PROLACTIN (test code = 2800) 32.9 NG/ML Laurent BranchFSH + LH [id number] 00:00:00* Test Item Value Reference Range Interpretation Comme nts FOLLICLE STIM HORMONE (test code = 2700) 5.1 IU/L LUTEINIZING HORMONE (test co de = 2776) 11.6 IU/L [id number] 00:00:00* Test Item Value Reference Range Interpretation Comme nts ESTRADIOL (test code = 2505) 203.0 PG/ML [id number] 00:00:00* Test Item Value Reference Range Interpretation Comme nts PROLACTIN (test code = 2800) 32.9 NG/ML [id number] 00:00:00* Test Item Value Reference Range Interpretation Comme nts TESTOSTERONE (test code = 2830) 13 NG/DL [id number] 00:00:00* Test Item Value Reference Range Interpretation Comme nts TSH, THIRD GENERATION (test code = 2821) 1.260 UIU/ML [id number] 00:00:00* Test Item Value Reference Range Interpretation Comme nts TESTOSTERONE (test code = 2830) 13 NG/DL Laurent BranchFSH + LH [id number] 00:00:00* Test Item Value Reference Range Interpretation Comme nts FOLLICLE STIM HORMONE (test code = 2700) 5.1 IU/L LUTEINIZING HORMONE (test co de = 2776) 11.6 IU/L [id number] 00:00:00* Test Item Value Reference Range Interpretation Comme nts ESTRADIOL (test code = 2505) 203.0 PG/ML [id number] 00:00:00* Test Item Value Reference Range Interpretation Comme nts PROLACTIN (test code = 2800) 32.9 NG/ML [id number] 00:00:00* Test Item Value Reference Range Interpretation Comme nts TESTOSTERONE (test code = 2830) 13 NG/DL [id number] 00:00:00* Test Item Value Reference Range Interpretation Comme nts TSH, THIRD GENERATION (test code = 2821) 1.260 UIU/ML FSH + LH [id number] 00:00:00* Test Item Value Reference Range Interpretation Comme nts FOLLICLE STIM HORMONE (test code = 2700) 5.1 IU/L LUTEINIZING HORMONE (test co de = 2776) 11.6 IU/L [id number] 00:00:00* Test Item Value Reference Range Interpretation Comme nts ESTRADIOL (test code = 2505) 203.0 PG/ML [id number] 00:00:00* Test Item Value Reference Range Interpretation Comme nts TSH, THIRD GENERATION (test code = 2821) 1.260 UIU/ML [id number] 00:00:00* Test Item Value Reference Range Interpretation Comme nts PROLACTIN (test code = 2800) 32.9 NG/ML [id number] 00:00:00* Test Item Value Reference Range Interpretation Comme nts TESTOSTERONE (test code = 2830) 13 NG/DL [id number] 00:00:00* Test Item Value Reference Range Interpretation Comme nts TSH, THIRD GENERATION (test code = 2821) 1.260 UIU/ML FSH + LH [id number] 00:00:00* Test Item Value Reference Range Interpretation Comme nts FOLLICLE STIM HORMONE (test code = 2700) 5.1 IU/L LUTEINIZING HORMONE (test co de = 2776) 11.6 IU/L FSH + LH [id number] 00:00:00* Test Item Value Reference Range Interpretation Comme nts FOLLICLE STIM HORMONE (test code = 2700) 5.1 IU/L LUTEINIZING HORMONE (test co de = 2776) 11.6 IU/L [id number] 00:00:00* Test Item Value Reference Range Interpretation Comme nts ESTRADIOL (test code = 3565) 203.0 PG/ML [id number] 00:00:00* Test Item Value Reference Range Interpretation Comme nts PROLACTIN (test code = 2800) 32.9 NG/ML [id number] 00:00:00* Test Item Value Reference Range Interpretation Comme nts TESTOSTERONE (test code = 2830) 13 NG/DL [id number] 00:00:00* Test Item Value Reference Range Interpretation Comme nts TSH, THIRD GENERATION (test code = 2821) 1.260 UIU/ML Laurent DamonRS-CoV-2 (COVID-19), RT-PCR/[id number] 15:38:42* Test Item Value Reference Range Interpretation Comments SARS-CoV-2 INTERPRETATION (test code = 41052) PRESUMPTIVE POSITIVE SEE NOTE A NOTE: PRESUMPTIVE POSITIVE RESULTS ARE MOST CONSISTENT WITH [id number]-LAB-[id number] THE LIMIT OF DETECTION OF THE ASSAY. OTHER UNCOMMON POSSIBLECAUSES ARE A MUTATION IN ONE OF THE TARGET REGIONS, INFECTION WITHANOTHER SARBECOVIRUS OR LABORATORY ISSUES. CORRELATE WITH CLINICALHISTORY AND EPIDEMIOLOGIC FINDINGS. SOURCE (test code = 08754) NASOPHARYNGEAL Note: Methodolog y is Aries Jessica Real-Time RT-PCR. The expected result or reference range is NEGATIVE (Not Detected). For more information regarding COVID-19 testing to include clinicalinformation , methodology detail, intended use, FDA authorization andrecommended fact sheets for patients or healthcare providers, see [employer] Announcement: SARS-CoV-2 (COVID-19) by NAAT at URL below (note,fact sheets are provided by method given in report:[email or web address] [email or web address] Alternatively, see downloadable PDF fact sheet at:[email or web address] UNLESS OTHERWISE INDICATED, ALL TESTING PERFORMED [facility] [employer] [address] [place] [id number] CLERK OF SCALES: ARNIE KRISHNA M.D. [place] NUMBER [id number] [place]. [id number] SARS-CoV-2 (COVID-19) by RT-PCR (HIGH RISK)2021-04-09 00:00:00* Test Item Value Reference Range Interpretation Comme nts SARS-CoV-2 INTERPRETATION (test code = 79998) PRESUMPTIVE POSITIVE SOURCE (test code = 01678) NASOPHARYNGEAL Laurent F [id number] (COVID-19) by RT-PCR (HIGH RISK)2021-04-09 00:00:00* Test Item Value Reference Range Interpretation Comme nts SARS-CoV-2 INTERPRETATION (test code = 27443) PRESUMPTIVE POSITIVE SOURCE (test code = 39062) NASOPHARYNGEAL SARS-CoV-2 (COVID-19) by RT-PCR (HIGH RISK)2021-04-09 00:00:00* Test Item Value Reference Range Interpretation Comme nts SARS-CoV-2 INTERPRETATION (test code = 20991) PRESUMPTIVE POSITIVE SOURCE (test code = 10357) NASOPHARYNGEAL SARS-CoV-2 (COVID-19) by RT-PCR (HIGH RISK)2021-04-09 00:00:00* Test Item Value Reference Range Interpretation Comme nts SARS-CoV-2 INTERPRETATION (test code = 63703) PRESUMPTIVE POSITIVE SOURCE (test code = 31220) NASOPHARYNGEAL SARS-CoV-2 (COVID-19) by RT-PCR (HIGH RISK)2021-04-09 00:00:00* Test Item Value Reference Range Interpretation Comme nts SARS-CoV-2 INTERPRETATION (test code = 08148) PRESUMPTIVE POSITIVE SOURCE (test code = 58366) NASOPHARYNGEAL SARS-CoV-2 (COVID-19) by RT-PCR (HIGH RISK)2021-04-09 00:00:00* Test Item Value Reference Range Interpretation Comme nts SARS-CoV-2 INTERPRETATION (test code = 37240) PRESUMPTIVE POSITIVE SOURCE (test code = 21134) NASOPHARYNGEAL SARS-CoV-2 (COVID-19) by RT-PCR (HIGH RISK)2021-04-09 00:00:00* Test Item Value Reference Range Interpretation Comme nts SARS-CoV-2 INTERPRETATION (test code = 95314) PRESUMPTIVE POSITIVE SOURCE (test code = 68927) NASOPHARYNGEAL Laurent F [id number] 00:00:00* Test Item Value Reference Range Interpretation Comme nts PROLACTIN (test code = 2800) 15.6 NG/ML Laurent Bazzi [id number] 00:00:00* Test Item Value Reference Range Interpretation Comme nts PROLACTIN (test code = 2800) 15.6 NG/ML Laurent F [id number] 00:00:00* Test Item Value Reference Range Interpretation Comme nts PROLACTIN (test code = 2800) 15.6 NG/ML [id number] 00:00:00* Test Item Value Reference Range Interpretation Comme nts PROLACTIN (test code = 2800) 15.6 NG/ML [id number] 00:00:00* Test Item Value Reference Range Interpretation Comme nts PROLACTIN (test code = 2800) 15.6 NG/ML [id number] 00:00:00* Test Item Value Reference Range Interpretation Comme nts PROLACTIN (test code = 2800) 15.6 NG/ML [id number] 00:00:00* Test Item Value Reference Range Interpretation Comme nts PROLACTIN (test code = 2800) 15.6 NG/ML [id number] 00:00:00* Test Item Value Reference Range Interpretation Comme nts TSH, THIRD GENERATION (test code = 2821) 1.750 UIU/ML Laurent BranchHCG, [id number] 00:00:00* Test Item Value Reference Range Interpretation Comme nts HCG, QUANTITATIVE (test code = 2506) <5 MIU/ML Laurent [id number] 00:00:00* Test Item Value Reference Range Interpretation Comme nts TSH, THIRD GENERATION (test code = 2821) 1.750 UIU/ML Laurent Bazzi AustinHCG, [id number] 00:00:00* Test Item Value Reference Range Interpretation Comme nts HCG, QUANTITATIVE (test code = 2506) <5 MIU/ML Laurent Bazzi AustinHCG, [id number] 00:00:00* Test Item Value Reference Range Interpretation Comme nts HCG, QUANTITATIVE (test code = 2506) <5 MIU/ML [id number] 00:00:00* Test Item Value Reference Range Interpretation Comme nts TSH, THIRD GENERATION (test code = 2821) 1.750 UIU/ML HCG, [id number] 00:00:00* Test Item Value Reference Range Interpretation Comme nts HCG, QUANTITATIVE (test code = 2506) <5 MIU/ML [id number] 00:00:00* Test Item Value Reference Range Interpretation Comme nts TSH, THIRD GENERATION (test code = 2821) 1.750 UIU/ML HCG, [id number] 00:00:00* Test Item Value Reference Range Interpretation Comme nts HCG, QUANTITATIVE (test code = 2506) <5 MIU/ML [id number] 00:00:00* Test Item Value Reference Range Interpretation Comme nts TSH, THIRD GENERATION (test code = 2821) 1.750 UIU/ML [id number] 00:00:00* Test Item Value Reference Range Interpretation Comme nts TSH, THIRD GENERATION (test code = 2821) 1.750 UIU/ML HCG, [id number] 00:00:00* Test Item Value Reference Range Interpretation Comme nts HCG, QUANTITATIVE (test code = 2506) <5 MIU/ML [id number] 00:00:00* Test Item Value Reference Range Interpretation Comme nts TSH, THIRD GENERATION (test code = 2821) 1.750 UIU/ML HCG, [id number] 00:00:00* Test Item Value Reference Range Interpretation Comme nts HCG, QUANTITATIVE (test code = 2506) <5 MIU/ML HIV AB/AG COMBO RFLX [id number] 00:00:00* Test Item Value Reference Range Interpretation Comme nts HIV 1/2 4TH GEN, RFLX CONF ( test code = 3514) NON-REACTIVE Laurent [id number] 00:00:00* Test Item Value Reference Range Interpretation Comme nts RPR RESULT (test code = 3501) NON-REACTIVE RPR TITER (test code = 3500) NOT INDIC. TITER Laurent BranchHEMOGLOBIN [id number] 00:00:00* Test Item Value Reference Range Interpretation Comme nts HEMOGLOBIN A1c (test code = 27511) 9.6 % Laurent BranchGC AND CHLAMYDIA, AMPLIFIED, [id number] 00:00:00* Test Item Value Reference Range Interpretation Comme nts GONORRHEA, NAAT (test code = 21342) NEGATIVE CHLAMYDIA, NAAT (test code = 38328) NEGATIVE Laurent BranchHIV AB/AG COMBO RFLX [id number] 00:00:00* Test Item Value Reference Range Interpretation Comme nts HIV 1/2 4TH GEN, RFLX CONF ( test code = 3514) NON-REACTIVE Laurent Bazzi [id number] 00:00:00* Test Item Value Reference Range Interpretation Comme nts RPR RESULT (test code = 3501) NON-REACTIVE RPR TITER (test code = 3500) NOT INDIC. TITER Laurent Bazzi [id number] 00:00:00* Test Item Value Reference Range Interpretation Comme nts RPR RESULT (test code = 3501) NON-REACTIVE RPR TITER (test code = 3500) NOT INDIC. TITER HEMOGLOBIN [id number] 00:00:00* Test Item Value Reference Range Interpretation Comme nts HEMOGLOBIN A1c (test code = 72034) 9.6 % GC AND CHLAMYDIA, AMPLIFIED, [id number] 00:00:00* Test Item Value Reference Range Interpretation Comme nts GONORRHEA, NAAT (test code = 41393) NEGATIVE CHLAMYDIA, NAAT (test code = 41822) NEGATIVE HIV AB/AG COMBO RFLX [id number] 00:00:00* Test Item Value Reference Range Interpretation Comme nts HIV 1/2 4TH GEN, RFLX CONF ( test code = 3514) NON-REACTIVE HEMOGLOBIN [id number] 00:00:00* Test Item Value Reference Range Interpretation Comme nts HEMOGLOBIN A1c (test code = 78447) 9.6 % Laurent Bazzi [id number] 00:00:00* Test Item Value Reference Range Interpretation Comme nts RPR RESULT (test code = 3501) NON-REACTIVE RPR TITER (test code = 3500) NOT INDIC. TITER HEMOGLOBIN [id number] 00:00:00* Test Item Value Reference Range Interpretation Comme nts HEMOGLOBIN A1c (test code = 79633) 9.6 % GC AND CHLAMYDIA, AMPLIFIED, [id number] 00:00:00* Test Item Value Reference Range Interpretation Comme nts GONORRHEA, NAAT (test code = 07445) NEGATIVE CHLAMYDIA, NAAT (test code = 84339) NEGATIVE HIV AB/AG COMBO RFLX [id number] 00:00:00* Test Item Value Reference Range Interpretation Comme nts HIV 1/2 4TH GEN, RFLX CONF ( test code = 3514) NON-REACTIVE [id number] 00:00:00* Test Item Value Reference Range Interpretation Comme nts RPR RESULT (test code = 3501) NON-REACTIVE RPR TITER (test code = 3500) NOT INDIC. TITER HEMOGLOBIN [id number] 00:00:00* Test Item Value Reference Range Interpretation Comme nts HEMOGLOBIN A1c (test code = 91996) 9.6 % GC AND CHLAMYDIA, AMPLIFIED, [id number] 00:00:00* Test Item Value Reference Range Interpretation Comme nts GONORRHEA, NAAT (test code = 51824) NEGATIVE CHLAMYDIA, NAAT (test code = 00798) NEGATIVE HIV AB/AG COMBO RFLX [id number] 00:00:00* Test Item Value Reference Range Interpretation Comme nts HIV 1/2 4TH GEN, RFLX CONF ( test code = 3514) NON-REACTIVE [id number] 00:00:00* Test Item Value Reference Range Interpretation Comme nts RPR RESULT (test code = 3501) NON-REACTIVE RPR TITER (test code = 3500) NOT INDIC. TITER HEMOGLOBIN [id number] 00:00:00* Test Item Value Reference Range Interpretation Comme nts HEMOGLOBIN A1c (test code = 81466) 9.6 % GC AND CHLAMYDIA, AMPLIFIED, [id number] 00:00:00* Test Item Value Reference Range Interpretation Comme nts GONORRHEA, NAAT (test code = 36466) NEGATIVE CHLAMYDIA, NAAT (test code = 96249) NEGATIVE GC AND CHLAMYDIA, AMPLIFIED, [id number] 00:00:00* Test Item Value Reference Range Interpretation Comme nts GONORRHEA, NAAT (test code = 08025) NEGATIVE CHLAMYDIA, NAAT (test code = 72626) NEGATIVE Laurent F AustinGC AND CHLAMYDIA, AMPLIFIED, [id number] 00:00:00* Test Item Value Reference Range Interpretation Comme nts GONORRHEA, NAAT (test code = 16204) NEGATIVE CHLAMYDIA, NAAT (test code = 04539) NEGATIVE HIV AB/AG COMBO RFLX [id number] 00:00:00* Test Item Value Reference Range Interpretation Comme nts HIV 1/2 4TH GEN, RFLX CONF ( test code = 3514) NON-REACTIVE [id number] 00:00:00* Test Item Value Reference Range Interpretation Comme nts RPR RESULT (test code = 3501) NON-REACTIVE RPR TITER (test code = 3500) NOT INDIC. TITER HIV AB/AG COMBO RFLX [id number] 00:00:00* Test Item Value Reference Range Interpretation Comme nts HIV 1/2 4TH GEN, RFLX CONF ( test code = 3514) NON-REACTIVE HEMOGLOBIN [id number] 00:00:00* Test Item Value Reference Range Interpretation Comme nts HEMOGLOBIN A1c (test code = 05050) 9.6 % HEMOGLOBIN [id number] 00:00:00* Test Item Value Reference Range Interpretation Comme nts HEMOGLOBIN A1c (test code = 53810) 8.9 % Laurent F AustinHEMOGLOBIN [id number] 00:00:00* Test Item Value Reference Range Interpretation Comme nts HEMOGLOBIN A1c (test code = 55122) 8.9 % HEMOGLOBIN [id number] 00:00:00* Test Item Value Reference Range Interpretation Comme nts HEMOGLOBIN A1c (test code = 51569) 8.9 % HEMOGLOBIN [id number] 00:00:00* Test Item Value Reference Range Interpretation Comme nts HEMOGLOBIN A1c (test code = 57597) 8.9 % HEMOGLOBIN [id number] 00:00:00* Test Item Value Reference Range Interpretation Comme nts HEMOGLOBIN A1c (test code = 40093) 8.9 % HEMOGLOBIN [id number] 00:00:00* Test Item Value Reference Range Interpretation Comme nts HEMOGLOBIN A1c (test code = 37473) 8.9 % HEMOGLOBIN [id number] 00:00:00* Test Item Value Reference Range Interpretation Comme nts HEMOGLOBIN A1c (test code = 53382) 8.9 % Laurent F AustinLIPID [id number] 00:00:00* Test Item Value Reference Range Interpretation Comme nts CHOLESTEROL (test code = 2210) 250 MG/DL TRIGLYCERIDES (test code = 2232) 204 MG/DL HDL CHOLESTEROL (test code = 2220) 47 MG/DL CALC LDL CHOL (test code = 2237) 167 MG/DL RISK RATIO LDL/HDL (test cod e = 2238) 3.55 RATIO Laurent BranchCOMPREHENSIVE METABOLIC [id number] 00:00:00* Test Item Value Reference Range Interpretation Comme nts GLUCOSE (test code = 2217) 245 MG/DL BUN (test code = 2208) 13 MG/DL CREATININE (test code = 2214) 0.66 MG/DL eGFR AMER. (test cod e = 92566) 130 ML/MIN/1.73 eGFR NON- AMER. (test code = 74780) 112 ML/MIN/1.73 CALC BUN/CREAT (test code = 2235) 20 RATIO SODIUM (test code = 2231) 133 MEQ/L POTASSIUM (test code = 2228) 4.3 MEQ/L CHLORIDE (test code = 2215) 98 MEQ/L CARBON DIOXIDE (test code = 2206) 24 MEQ/L CALCIUM (test code = 2209) 9.8 MG/DL PROTEIN, TOTAL (test code = 2229) 7.2 G/DL ALBUMIN (test code = 2201) 4.2 G/DL CALC GLOBULIN (test code = 2240) 3.0 G/DL CALC A/G RATIO (test code = 2234) 1.4 RATIO BILIRUBIN, TOTAL (test code = 2207) 0.4 MG/DL ALKALINE PHOSPHATASE (test code = 2204) 95 U/L AST (test code = 2218) 18 U/L ALT (test code = 2219) 23 U/L Laurent BranchHEMOGLOBIN [id number] 00:00:00* Test Item Value Reference Range Interpretation Comme nts HEMOGLOBIN A1c (test code = 21545) 9.4 % Laurent BranchLIPID [id number] 00:00:00* Test Item Value Reference Range Interpretation Comme nts CHOLESTEROL (test code = 2210) 250 MG/DL TRIGLYCERIDES (test code = 2232) 204 MG/DL HDL CHOLESTEROL (test code = 2220) 47 MG/DL CALC LDL CHOL (test code = 2237) 167 MG/DL RISK RATIO LDL/HDL (test cod e = 2238) 3.55 RATIO Laurent BranchCOMPREHENSIVE METABOLIC [id number] 00:00:00* Test Item Value Reference Range Interpretation Comme nts GLUCOSE (test code = 2217) 245 MG/DL BUN (test code = 2208) 13 MG/DL CREATININE (test code = 2214) 0.66 MG/DL eGFR AMER. (test cod e = 32960) 130 ML/MIN/1.73 eGFR NON- AMER. (test code = 37447) 112 ML/MIN/1.73 CALC BUN/CREAT (test code = 2235) 20 RATIO SODIUM (test code = 2231) 133 MEQ/L POTASSIUM (test code = 2228) 4.3 MEQ/L CHLORIDE (test code = 2215) 98 MEQ/L CARBON DIOXIDE (test code = 2206) 24 MEQ/L CALCIUM (test code = 2209) 9.8 MG/DL PROTEIN, TOTAL (test code = 2229) 7.2 G/DL ALBUMIN (test code = 2201) 4.2 G/DL CALC GLOBULIN (test code = 2240) 3.0 G/DL CALC A/G RATIO (test code = 2234) 1.4 RATIO BILIRUBIN, TOTAL (test code = 2207) 0.4 MG/DL ALKALINE PHOSPHATASE (test code = 2204) 95 U/L AST (test code = 2218) 18 U/L ALT (test code = 2219) 23 U/L Laurent BranchCOMPREHENSIVE METABOLIC [id number] 00:00:00* Test Item Value Reference Range Interpretation Comme nts GLUCOSE (test code = 2217) 245 MG/DL BUN (test code = 2208) 13 MG/DL CREATININE (test code = 2214) 0.66 MG/DL eGFR AMER. (test cod e = 53534) 130 ML/MIN/1.73 eGFR NON- AMER. (test code = 03053) 112 ML/MIN/1.73 CALC BUN/CREAT (test code = 2235) 20 RATIO SODIUM (test code = 2231) 133 MEQ/L POTASSIUM (test code = 2228) 4.3 MEQ/L CHLORIDE (test code = 2215) 98 MEQ/L CARBON DIOXIDE (test code = 2206) 24 MEQ/L CALCIUM (test code = 2209) 9.8 MG/DL PROTEIN, TOTAL (test code = 2229) 7.2 G/DL ALBUMIN (test code = 2201) 4.2 G/DL CALC GLOBULIN (test code = 2240) 3.0 G/DL CALC A/G RATIO (test code = 2234) 1.4 RATIO BILIRUBIN, TOTAL (test code = 2207) 0.4 MG/DL ALKALINE PHOSPHATASE (test code = 2204) 95 U/L AST (test code = 2218) 18 U/L ALT (test code = 2219) 23 U/L HEMOGLOBIN [id number] 00:00:00* Test Item Value Reference Range Interpretation Comme nts HEMOGLOBIN A1c (test code = 05210) 9.4 % LIPID [id number] 00:00:00* Test Item Value Reference Range Interpretation Comme nts CHOLESTEROL (test code = 2210) 250 MG/DL TRIGLYCERIDES (test code = 2232) 204 MG/DL HDL CHOLESTEROL (test code = 2220) 47 MG/DL CALC LDL CHOL (test code = 2237) 167 MG/DL RISK RATIO LDL/HDL (test cod e = 2238) 3.55 RATIO COMPREHENSIVE METABOLIC [id number] 00:00:00* Test Item Value Reference Range Interpretation Comme nts GLUCOSE (test code = 2217) 245 MG/DL BUN (test code = 2208) 13 MG/DL CREATININE (test code = 2214) 0.66 MG/DL eGFR AMER. (test cod e = 10913) 130 ML/MIN/1.73 eGFR NON- AMER. (test code = 09100) 112 ML/MIN/1.73 CALC BUN/CREAT (test code = 2235) 20 RATIO SODIUM (test code = 2231) 133 MEQ/L POTASSIUM (test code = 2228) 4.3 MEQ/L CHLORIDE (test code = 2215) 98 MEQ/L CARBON DIOXIDE (test code = 2206) 24 MEQ/L CALCIUM (test code = 2209) 9.8 MG/DL PROTEIN, TOTAL (test code = 2229) 7.2 G/DL ALBUMIN (test code = 2201) 4.2 G/DL CALC GLOBULIN (test code = 2240) 3.0 G/DL CALC A/G RATIO (test code = 2234) 1.4 RATIO BILIRUBIN, TOTAL (test code = 2207) 0.4 MG/DL ALKALINE PHOSPHATASE (test code = 2204) 95 U/L AST (test code = 2218) 18 U/L ALT (test code = 2219) 23 U/L HEMOGLOBIN [id number] 00:00:00* Test Item Value Reference Range Interpretation Comme nts HEMOGLOBIN A1c (test code = 23380) 9.4 % LIPID [id number] 00:00:00* Test Item Value Reference Range Interpretation Comme nts CHOLESTEROL (test code = 2210) 250 MG/DL TRIGLYCERIDES (test code = 2232) 204 MG/DL HDL CHOLESTEROL (test code = 2220) 47 MG/DL CALC LDL CHOL (test code = 2237) 167 MG/DL RISK RATIO LDL/HDL (test cod e = 2238) 3.55 RATIO COMPREHENSIVE METABOLIC [id number] 00:00:00* Test Item Value Reference Range Interpretation Comme nts GLUCOSE (test code = 2217) 245 MG/DL BUN (test code = 2208) 13 MG/DL CREATININE (test code = 2214) 0.66 MG/DL eGFR AMER. (test cod e = 39708) 130 ML/MIN/1.73 eGFR NON- AMER. (test code = 89387) 112 ML/MIN/1.73 CALC BUN/CREAT (test code = 2235) 20 RATIO SODIUM (test code = 2231) 133 MEQ/L POTASSIUM (test code = 2228) 4.3 MEQ/L CHLORIDE (test code = 2215) 98 MEQ/L CARBON DIOXIDE (test code = 2206) 24 MEQ/L CALCIUM (test code = 2209) 9.8 MG/DL PROTEIN, TOTAL (test code = 2229) 7.2 G/DL ALBUMIN (test code = 2201) 4.2 G/DL CALC GLOBULIN (test code = 2240) 3.0 G/DL CALC A/G RATIO (test code = 2234) 1.4 RATIO BILIRUBIN, TOTAL (test code = 2207) 0.4 MG/DL ALKALINE PHOSPHATASE (test code = 2204) 95 U/L AST (test code = 2218) 18 U/L ALT (test code = 2219) 23 U/L HEMOGLOBIN [id number] 00:00:00* Test Item Value Reference Range Interpretation Comme nts HEMOGLOBIN A1c (test code = 79939) 9.4 % HEMOGLOBIN [id number] 00:00:00* Test Item Value Reference Range Interpretation Comme nts HEMOGLOBIN A1c (test code = 66724) 9.4 % Laurent Bazzi AustinLIPID [id number] 00:00:00* Test Item Value Reference Range Interpretation Comme nts CHOLESTEROL (test code = 2210) 250 MG/DL TRIGLYCERIDES (test code = 2232) 204 MG/DL HDL CHOLESTEROL (test code = 2220) 47 MG/DL CALC LDL CHOL (test code = 2237) 167 MG/DL RISK RATIO LDL/HDL (test cod e = 2238) 3.55 RATIO COMPREHENSIVE METABOLIC [id number] 00:00:00* Test Item Value Reference Range Interpretation Comme nts GLUCOSE (test code = 2217) 245 MG/DL BUN (test code = 2208) 13 MG/DL CREATININE (test code = 2214) 0.66 MG/DL eGFR AMER. (test cod e = 14713) 130 ML/MIN/1.73 eGFR NON- AMER. (test code = 68716) 112 ML/MIN/1.73 CALC BUN/CREAT (test code = 2235) 20 RATIO SODIUM (test code = 2231) 133 MEQ/L POTASSIUM (test code = 2228) 4.3 MEQ/L CHLORIDE (test code = 2215) 98 MEQ/L CARBON DIOXIDE (test code = 2206) 24 MEQ/L CALCIUM (test code = 2209) 9.8 MG/DL PROTEIN, TOTAL (test code = 2229) 7.2 G/DL ALBUMIN (test code = 2201) 4.2 G/DL CALC GLOBULIN (test code = 2240) 3.0 G/DL CALC A/G RATIO (test code = 2234) 1.4 RATIO BILIRUBIN, TOTAL (test code = 2207) 0.4 MG/DL ALKALINE PHOSPHATASE (test code = 2204) 95 U/L AST (test code = 2218) 18 U/L ALT (test code = 2219) 23 U/L HEMOGLOBIN [id number] 00:00:00* Test Item Value Reference Range Interpretation Comme nts HEMOGLOBIN A1c (test code = 33689) 9.4 % HEMOGLOBIN [id number] 00:00:00* Test Item Value Reference Range Interpretation Comme nts HEMOGLOBIN A1c (test code = 22466) 9.4 % LIPID [id number] 00:00:00* Test Item Value Reference Range Interpretation Comme nts CHOLESTEROL (test code = 2210) 250 MG/DL TRIGLYCERIDES (test code = 2232) 204 MG/DL HDL CHOLESTEROL (test code = 2220) 47 MG/DL CALC LDL CHOL (test code = 2237) 167 MG/DL RISK RATIO LDL/HDL (test cod e = 2238) 3.55 RATIO LIPID [id number] 00:00:00* Test Item Value Reference Range Interpretation Comme nts CHOLESTEROL (test code = 2210) 250 MG/DL TRIGLYCERIDES (test code = 2232) 204 MG/DL HDL CHOLESTEROL (test code = 2220) 47 MG/DL CALC LDL CHOL (test code = 2237) 167 MG/DL RISK RATIO LDL/HDL (test cod e = 2238) 3.55 RATIO COMPREHENSIVE METABOLIC [id number] 00:00:00* Test Item Value Reference Range Interpretation Comme nts GLUCOSE (test code = 2217) 245 MG/DL BUN (test code = 2208) 13 MG/DL CREATININE (test code = 2214) 0.66 MG/DL eGFR AMER. (test cod e = 03897) 130 ML/MIN/1.73 eGFR NON- AMER. (test code = 35436) 112 ML/MIN/1.73 CALC BUN/CREAT (test code = 2235) 20 RATIO SODIUM (test code = 2231) 133 MEQ/L POTASSIUM (test code = 2228) 4.3 MEQ/L CHLORIDE (test code = 2215) 98 MEQ/L CARBON DIOXIDE (test code = 2206) 24 MEQ/L CALCIUM (test code = 2209) 9.8 MG/DL PROTEIN, TOTAL (test code = 2229) 7.2 G/DL ALBUMIN (test code = 2201) 4.2 G/DL CALC GLOBULIN (test code = 2240) 3.0 G/DL CALC A/G RATIO (test code = 2234) 1.4 RATIO BILIRUBIN, TOTAL (test code = 2207) 0.4 MG/DL ALKALINE PHOSPHATASE (test code = 2204) 95 U/L AST (test code = 2218) 18 U/L ALT (test code = 2219) 23 U/L LIPID [id number] 00:00:00* Test Item Value Reference Range Interpretation Comme nts CHOLESTEROL (test code = 2210) 206 MG/DL TRIGLYCERIDES (test code = 2232) 271 MG/DL HDL CHOLESTEROL (test code = 2220) 41 MG/DL CALC LDL CHOL (test code = 2237) 123 MG/DL RISK RATIO LDL/HDL (test cod e = 2238) 3.00 RATIO Laurent BranchCOMPREHENSIVE METABOLIC [id number] 00:00:00* Test Item Value Reference Range Interpretation Comme nts GLUCOSE (test code = 2217) 203 MG/DL BUN (test code = 2208) 10 MG/DL CREATININE (test code = 2214) 0.39 MG/DL eGFR AMER. (test cod e = 97050) 154 ML/MIN/1.73 eGFR NON- AMER. (test code = 81805) 133 ML/MIN/1.73 CALC BUN/CREAT (test code = 2235) 26 RATIO SODIUM (test code = 2231) 137 MEQ/L POTASSIUM (test code = 2228) 4.2 MEQ/L CHLORIDE (test code = 2215) 103 MEQ/L CARBON DIOXIDE (test code = 2206) 20 MEQ/L CALCIUM (test code = 2209) 9.1 MG/DL PROTEIN, TOTAL (test code = 2229) 6.5 G/DL ALBUMIN (test code = 2201) 4.2 G/DL CALC GLOBULIN (test code = 2240) 2.3 G/DL CALC A/G RATIO (test code = 2234) 1.8 RATIO BILIRUBIN, TOTAL (test code = 2207) 0.5 MG/DL ALKALINE PHOSPHATASE (test code = 2204) 83 U/L AST (test code = 2218) 18 U/L ALT (test code = 2219) 17 U/L Laurent BranchHEMOGLOBIN [id number] 00:00:00* Test Item Value Reference Range Interpretation Comme nts HEMOGLOBIN A1c (test code = 67439) 8.8 % Laurent BranchLIPID [id number] 00:00:00* Test Item Value Reference Range Interpretation Comme nts CHOLESTEROL (test code = 2210) 206 MG/DL TRIGLYCERIDES (test code = 2232) 271 MG/DL HDL CHOLESTEROL (test code = 2220) 41 MG/DL CALC LDL CHOL (test code = 2237) 123 MG/DL RISK RATIO LDL/HDL (test cod e = 2238) 3.00 RATIO Laurent BranchCOMPREHENSIVE METABOLIC [id number] 00:00:00* Test Item Value Reference Range Interpretation Comme nts GLUCOSE (test code = 2217) 203 MG/DL BUN (test code = 2208) 10 MG/DL CREATININE (test code = 2214) 0.39 MG/DL eGFR AMER. (test cod e = 87306) 154 ML/MIN/1.73 eGFR NON- AMER. (test code = 70220) 133 ML/MIN/1.73 CALC BUN/CREAT (test code = 2235) 26 RATIO SODIUM (test code = 2231) 137 MEQ/L POTASSIUM (test code = 2228) 4.2 MEQ/L CHLORIDE (test code = 2215) 103 MEQ/L CARBON DIOXIDE (test code = 2206) 20 MEQ/L CALCIUM (test code = 2209) 9.1 MG/DL PROTEIN, TOTAL (test code = 2229) 6.5 G/DL ALBUMIN (test code = 2201) 4.2 G/DL CALC GLOBULIN (test code = 2240) 2.3 G/DL CALC A/G RATIO (test code = 2234) 1.8 RATIO BILIRUBIN, TOTAL (test code = 2207) 0.5 MG/DL ALKALINE PHOSPHATASE (test code = 2204) 83 U/L AST (test code = 2218) 18 U/L ALT (test code = 2219) 17 U/L Laurent BranchHEMOGLOBIN [id number] 00:00:00* Test Item Value Reference Range Interpretation Comme nts HEMOGLOBIN A1c (test code = 03927) 8.8 % LIPID [id number] 00:00:00* Test Item Value Reference Range Interpretation Comme nts CHOLESTEROL (test code = 2210) 206 MG/DL TRIGLYCERIDES (test code = 2232) 271 MG/DL HDL CHOLESTEROL (test code = 2220) 41 MG/DL CALC LDL CHOL (test code = 2237) 123 MG/DL RISK RATIO LDL/HDL (test cod e = 2238) 3.00 RATIO COMPREHENSIVE METABOLIC [id number] 00:00:00* Test Item Value Reference Range Interpretation Comme nts GLUCOSE (test code = 2217) 203 MG/DL BUN (test code = 2208) 10 MG/DL CREATININE (test code = 2214) 0.39 MG/DL eGFR AMER. (test cod e = 08174) 154 ML/MIN/1.73 eGFR NON- AMER. (test code = 42455) 133 ML/MIN/1.73 CALC BUN/CREAT (test code = 2235) 26 RATIO SODIUM (test code = 2231) 137 MEQ/L POTASSIUM (test code = 2228) 4.2 MEQ/L CHLORIDE (test code = 2215) 103 MEQ/L CARBON DIOXIDE (test code = 2206) 20 MEQ/L CALCIUM (test code = 2209) 9.1 MG/DL PROTEIN, TOTAL (test code = 2229) 6.5 G/DL ALBUMIN (test code = 2201) 4.2 G/DL CALC GLOBULIN (test code = 2240) 2.3 G/DL CALC A/G RATIO (test code = 2234) 1.8 RATIO BILIRUBIN, TOTAL (test code = 2207) 0.5 MG/DL ALKALINE PHOSPHATASE (test code = 2204) 83 U/L AST (test code = 2218) 18 U/L ALT (test code = 2219) 17 U/L HEMOGLOBIN [id number] 00:00:00* Test Item Value Reference Range Interpretation Comme nts HEMOGLOBIN A1c (test code = 18678) 8.8 % LIPID [id number] 00:00:00* Test Item Value Reference Range Interpretation Comme nts CHOLESTEROL (test code = 2210) 206 MG/DL TRIGLYCERIDES (test code = 2232) 271 MG/DL HDL CHOLESTEROL (test code = 2220) 41 MG/DL CALC LDL CHOL (test code = 2237) 123 MG/DL RISK RATIO LDL/HDL (test cod e = 2238) 3.00 RATIO COMPREHENSIVE METABOLIC [id number] 00:00:00* Test Item Value Reference Range Interpretation Comme nts GLUCOSE (test code = 2217) 203 MG/DL BUN (test code = 2208) 10 MG/DL CREATININE (test code = 2214) 0.39 MG/DL eGFR AMER. (test cod e = 44423) 154 ML/MIN/1.73 eGFR NON- AMER. (test code = 73800) 133 ML/MIN/1.73 CALC BUN/CREAT (test code = 2235) 26 RATIO SODIUM (test code = 2231) 137 MEQ/L POTASSIUM (test code = 2228) 4.2 MEQ/L CHLORIDE (test code = 2215) 103 MEQ/L CARBON DIOXIDE (test code = 220) 20 MEQ/L CALCIUM (test code = 2209) 9.1 MG/DL PROTEIN, TOTAL (test code = 2229) 6.5 G/DL ALBUMIN (test code = 2201) 4.2 G/DL CALC GLOBULIN (test code = 2240) 2.3 G/DL CALC A/G RATIO (test code = 2234) 1.8 RATIO BILIRUBIN, TOTAL (test code = 2207) 0.5 MG/DL ALKALINE PHOSPHATASE (test code = 2204) 83 U/L AST (test code = 2218) 18 U/L ALT (test code = 2219) 17 U/L HEMOGLOBIN [id number] 00:00:00* Test Item Value Reference Range Interpretation Comme nts HEMOGLOBIN A1c (test code = 96129) 8.8 % HEMOGLOBIN [id number] 00:00:00* Test Item Value Reference Range Interpretation Comme nts HEMOGLOBIN A1c (test code = 88127) 8.8 % LIPID [id number] 00:00:00* Test Item Value Reference Range Interpretation Comme nts CHOLESTEROL (test code = 2210) 206 MG/DL TRIGLYCERIDES (test code = 2232) 271 MG/DL HDL CHOLESTEROL (test code = 2220) 41 MG/DL CALC LDL CHOL (test code = 2237) 123 MG/DL RISK RATIO LDL/HDL (test cod e = 2238) 3.00 RATIO COMPREHENSIVE METABOLIC [id number] 00:00:00* Test Item Value Reference Range Interpretation Comme nts GLUCOSE (test code = 2217) 203 MG/DL BUN (test code = 8) 10 MG/DL CREATININE (test code = 2214) 0.39 MG/DL eGFR AMER. (test cod e = 19029) 154 ML/MIN/1.73 eGFR NON- AMER. (test code = 83269) 133 ML/MIN/1.73 CALC BUN/CREAT (test code = 2235) 26 RATIO SODIUM (test code = 2231) 137 MEQ/L POTASSIUM (test code = 2228) 4.2 MEQ/L CHLORIDE (test code = 2215) 103 MEQ/L CARBON DIOXIDE (test code = 2206) 20 MEQ/L CALCIUM (test code = 2209) 9.1 MG/DL PROTEIN, TOTAL (test code = 2229) 6.5 G/DL ALBUMIN (test code = 2201) 4.2 G/DL CALC GLOBULIN (test code = 2240) 2.3 G/DL CALC A/G RATIO (test code = 2234) 1.8 RATIO BILIRUBIN, TOTAL (test code = 2207) 0.5 MG/DL ALKALINE PHOSPHATASE (test code = 2204) 83 U/L AST (test code = 2218) 18 U/L ALT (test code = 2219) 17 U/L HEMOGLOBIN [id number] 00:00:00* Test Item Value Reference Range Interpretation Comme nts HEMOGLOBIN A1c (test code = 69321) 8.8 % LIPID [id number] 00:00:00* Test Item Value Reference Range Interpretation Comme nts CHOLESTEROL (test code = 2210) 206 MG/DL TRIGLYCERIDES (test code = 2232) 271 MG/DL HDL CHOLESTEROL (test code = 2220) 41 MG/DL CALC LDL CHOL (test code = 2237) 123 MG/DL RISK RATIO LDL/HDL (test cod e = 2238) 3.00 RATIO HEMOGLOBIN [id number] 00:00:00* Test Item Value Reference Range Interpretation Comme nts HEMOGLOBIN A1c (test code = 49325) 8.8 % Laurent F AustinLIPID [id number] 00:00:00* Test Item Value Reference Range Interpretation Comme nts CHOLESTEROL (test code = 2210) 206 MG/DL TRIGLYCERIDES (test code = 2232) 271 MG/DL HDL CHOLESTEROL (test code = 2220) 41 MG/DL CALC LDL CHOL (test code = 2237) 123 MG/DL RISK RATIO LDL/HDL (test cod e = 2238) 3.00 RATIO COMPREHENSIVE METABOLIC [id number] 00:00:00* Test Item Value Reference Range Interpretation Comme nts GLUCOSE (test code = 2217) 203 MG/DL BUN (test code = 2208) 10 MG/DL CREATININE (test code = 2214) 0.39 MG/DL eGFR AMER. (test cod e = 37793) 154 ML/MIN/1.73 eGFR NON- AMER. (test code = 45754) 133 ML/MIN/1.73 CALC BUN/CREAT (test code = 2235) 26 RATIO SODIUM (test code = 2231) 137 MEQ/L POTASSIUM (test code = 2228) 4.2 MEQ/L CHLORIDE (test code = 2215) 103 MEQ/L CARBON DIOXIDE (test code = 2206) 20 MEQ/L CALCIUM (test code = 2209) 9.1 MG/DL PROTEIN, TOTAL (test code = 2229) 6.5 G/DL ALBUMIN (test code = 2201) 4.2 G/DL CALC GLOBULIN (test code = 2240) 2.3 G/DL CALC A/G RATIO (test code = 2234) 1.8 RATIO BILIRUBIN, TOTAL (test code = 2207) 0.5 MG/DL ALKALINE PHOSPHATASE (test code = 2204) 83 U/L AST (test code = 2218) 18 U/L ALT (test code = 2219) 17 U/L COMPREHENSIVE METABOLIC [id number] 00:00:00* Test Item Value Reference Range Interpretation Comme nts GLUCOSE (test code = 2217) 203 MG/DL BUN (test code = 2208) 10 MG/DL CREATININE (test code = 2214) 0.39 MG/DL eGFR AMER. (test cod e = 92265) 154 ML/MIN/1.73 eGFR NON- AMER. (test code = 95509) 133 ML/MIN/1.73 CALC BUN/CREAT (test code = 2235) 26 RATIO SODIUM (test code = 2231) 137 MEQ/L POTASSIUM (test code = 2228) 4.2 MEQ/L CHLORIDE (test code = 2215) 103 MEQ/L CARBON DIOXIDE (test code = 2206) 20 MEQ/L CALCIUM (test code = 2209) 9.1 MG/DL PROTEIN, TOTAL (test code = 2229) 6.5 G/DL ALBUMIN (test code = 2201) 4.2 G/DL CALC GLOBULIN (test code = 2240) 2.3 G/DL CALC A/G RATIO (test code = 2234) 1.8 RATIO BILIRUBIN, TOTAL (test code = 2207) 0.5 MG/DL ALKALINE PHOSPHATASE (test code = 2204) 83 U/L AST (test code = 2218) 18 U/L ALT (test code = 2219) 17 U/L COMPREHENSIVE METABOLIC [id number] 00:00:00* Test Item Value Reference Range Interpretation Comme nts GLUCOSE (test code = 2217) 234 MG/DL BUN (test code = 2208) 9 MG/DL CREATININE (test code = 2214) 0.43 MG/DL eGFR AMER. (test cod e = 36658) 150 ML/MIN/1.73 eGFR NON- AMER. (test code = 31121) 129 ML/MIN/1.73 CALC BUN/CREAT (test code = 2235) 21 RATIO SODIUM (test code = 2231) 138 MEQ/L POTASSIUM (test code = 2228) 4.5 MEQ/L CHLORIDE (test code = 2215) 100 MEQ/L CARBON DIOXIDE (test code = 2206) 22 MEQ/L CALCIUM (test code = 2209) 9.3 MG/DL PROTEIN, TOTAL (test code = 2229) 7.0 G/DL ALBUMIN (test code = 2201) 4.3 G/DL CALC GLOBULIN (test code = 2240) 2.7 G/DL CALC A/G RATIO (test code = 2234) 1.6 RATIO BILIRUBIN, TOTAL (test code = 2207) 0.5 MG/DL ALKALINE PHOSPHATASE (test code = 2204) 86 U/L AST (test code = 2218) 19 U/L ALT (test code = 2219) 16 U/L Laurent BranchLIPID [id number] 00:00:00* Test Item Value Reference Range Interpretation Comme nts CHOLESTEROL (test code = 2210) 260 MG/DL TRIGLYCERIDES (test code = 2232) 308 MG/DL HDL CHOLESTEROL (test code = 2220) 47 MG/DL CALC LDL CHOL (test code = 2237) 151 MG/DL RISK RATIO LDL/HDL (test cod e = 2238) 3.22 RATIO Laurent BranchHEMOGLOBIN [id number] 00:00:00* Test Item Value Reference Range Interpretation Comme nts HEMOGLOBIN A1c (test code = 57760) 8.7 % Laurent Bazzi Jose CarlosCOMPREHENSIVE METABOLIC [id number] 00:00:00* Test Item Value Reference Range Interpretation Comme nts GLUCOSE (test code = 7) 234 MG/DL BUN (test code = 2208) 9 MG/DL CREATININE (test code = 2214) 0.43 MG/DL eGFR AMER. (test cod e = 21732) 150 ML/MIN/1.73 eGFR NON- AMER. (test code = 92682) 129 ML/MIN/1.73 CALC BUN/CREAT (test code = 2235) 21 RATIO SODIUM (test code = 2231) 138 MEQ/L POTASSIUM (test code = 2228) 4.5 MEQ/L CHLORIDE (test code = 2215) 100 MEQ/L CARBON DIOXIDE (test code = 2206) 22 MEQ/L CALCIUM (test code = 2209) 9.3 MG/DL PROTEIN, TOTAL (test code = 2229) 7.0 G/DL ALBUMIN (test code = 2201) 4.3 G/DL CALC GLOBULIN (test code = 2240) 2.7 G/DL CALC A/G RATIO (test code = 2234) 1.6 RATIO BILIRUBIN, TOTAL (test code = 2207) 0.5 MG/DL ALKALINE PHOSPHATASE (test code = 2204) 86 U/L AST (test code = 2218) 19 U/L ALT (test code = 2219) 16 U/L Laurent Bazzi AustinLIPID [id number] 00:00:00* Test Item Value Reference Range Interpretation Comme nts CHOLESTEROL (test code = 2210) 260 MG/DL TRIGLYCERIDES (test code = 2232) 308 MG/DL HDL CHOLESTEROL (test code = 2220) 47 MG/DL CALC LDL CHOL (test code = 2237) 151 MG/DL RISK RATIO LDL/HDL (test cod e = 2238) 3.22 RATIO Laurent Bazzi AustinHEMOGLOBIN [id number] 00:00:00* Test Item Value Reference Range Interpretation Comme nts HEMOGLOBIN A1c (test code = 55437) 8.7 % Laurent Bazzi AustinHEMOGLOBIN [id number] 00:00:00* Test Item Value Reference Range Interpretation Comme nts HEMOGLOBIN A1c (test code = 00249) 8.7 % COMPREHENSIVE METABOLIC [id number] 00:00:00* Test Item Value Reference Range Interpretation Comme nts GLUCOSE (test code = 2217) 234 MG/DL BUN (test code = 2208) 9 MG/DL CREATININE (test code = 2214) 0.43 MG/DL eGFR AMER. (test cod e = 06396) 150 ML/MIN/1.73 eGFR NON- AMER. (test code = 15506) 129 ML/MIN/1.73 CALC BUN/CREAT (test code = 2235) 21 RATIO SODIUM (test code = 2231) 138 MEQ/L POTASSIUM (test code = 2228) 4.5 MEQ/L CHLORIDE (test code = 2215) 100 MEQ/L CARBON DIOXIDE (test code = 2206) 22 MEQ/L CALCIUM (test code = 2209) 9.3 MG/DL PROTEIN, TOTAL (test code = 2229) 7.0 G/DL ALBUMIN (test code = 2201) 4.3 G/DL CALC GLOBULIN (test code = 2240) 2.7 G/DL CALC A/G RATIO (test code = 2234) 1.6 RATIO BILIRUBIN, TOTAL (test code = 2207) 0.5 MG/DL ALKALINE PHOSPHATASE (test code = 220) 86 U/L AST (test code = 221) 19 U/L ALT (test code = 2219) 16 U/L LIPID [id number] 00:00:00* Test Item Value Reference Range Interpretation Comme nts CHOLESTEROL (test code = 2210) 260 MG/DL TRIGLYCERIDES (test code = 2232) 308 MG/DL HDL CHOLESTEROL (test code = 2220) 47 MG/DL CALC LDL CHOL (test code = 2237) 151 MG/DL RISK RATIO LDL/HDL (test cod e = 2238) 3.22 RATIO HEMOGLOBIN [id number] 00:00:00* Test Item Value Reference Range Interpretation Comme nts HEMOGLOBIN A1c (test code = 16241) 8.7 % COMPREHENSIVE METABOLIC [id number] 00:00:00* Test Item Value Reference Range Interpretation Comme nts GLUCOSE (test code = 2217) 234 MG/DL BUN (test code = 8) 9 MG/DL CREATININE (test code = 2214) 0.43 MG/DL eGFR AMER. (test cod e = 86217) 150 ML/MIN/1.73 eGFR NON- AMER. (test code = 25347) 129 ML/MIN/1.73 CALC BUN/CREAT (test code = 2235) 21 RATIO SODIUM (test code = 2231) 138 MEQ/L POTASSIUM (test code = 2228) 4.5 MEQ/L CHLORIDE (test code = 2215) 100 MEQ/L CARBON DIOXIDE (test code = 2206) 22 MEQ/L CALCIUM (test code = 2209) 9.3 MG/DL PROTEIN, TOTAL (test code = 2229) 7.0 G/DL ALBUMIN (test code = 2201) 4.3 G/DL CALC GLOBULIN (test code = 2240) 2.7 G/DL CALC A/G RATIO (test code = 2234) 1.6 RATIO BILIRUBIN, TOTAL (test code = 2207) 0.5 MG/DL ALKALINE PHOSPHATASE (test code = 2204) 86 U/L AST (test code = 2218) 19 U/L ALT (test code = 2219) 16 U/L LIPID [id number] 00:00:00* Test Item Value Reference Range Interpretation Comme nts CHOLESTEROL (test code = 2210) 260 MG/DL TRIGLYCERIDES (test code = 2232) 308 MG/DL HDL CHOLESTEROL (test code = 2220) 47 MG/DL CALC LDL CHOL (test code = 223) 151 MG/DL RISK RATIO LDL/HDL (test cod e = 2238) 3.22 RATIO HEMOGLOBIN [id number] 00:00:00* Test Item Value Reference Range Interpretation Comme nts HEMOGLOBIN A1c (test code = 08753) 8.7 % COMPREHENSIVE METABOLIC [id number] 00:00:00* Test Item Value Reference Range Interpretation Comme nts GLUCOSE (test code = 7) 234 MG/DL BUN (test code = 8) 9 MG/DL CREATININE (test code = 2214) 0.43 MG/DL eGFR AMER. (test cod e = 77711) 150 ML/MIN/1.73 eGFR NON- AMER. (test code = 37381) 129 ML/MIN/1.73 CALC BUN/CREAT (test code = 2235) 21 RATIO SODIUM (test code = 2231) 138 MEQ/L POTASSIUM (test code = 2228) 4.5 MEQ/L CHLORIDE (test code = 2215) 100 MEQ/L CARBON DIOXIDE (test code = 2206) 22 MEQ/L CALCIUM (test code = 2209) 9.3 MG/DL PROTEIN, TOTAL (test code = 2229) 7.0 G/DL ALBUMIN (test code = 2201) 4.3 G/DL CALC GLOBULIN (test code = 2240) 2.7 G/DL CALC A/G RATIO (test code = 2234) 1.6 RATIO BILIRUBIN, TOTAL (test code = 2207) 0.5 MG/DL ALKALINE PHOSPHATASE (test code = 2204) 86 U/L AST (test code = 2218) 19 U/L ALT (test code = 2219) 16 U/L LIPID [id number] 00:00:00* Test Item Value Reference Range Interpretation Comme nts CHOLESTEROL (test code = 2210) 260 MG/DL TRIGLYCERIDES (test code = 2232) 308 MG/DL HDL CHOLESTEROL (test code = 2220) 47 MG/DL CALC LDL CHOL (test code = 2237) 151 MG/DL RISK RATIO LDL/HDL (test cod e = 2238) 3.22 RATIO HEMOGLOBIN [id number] 00:00:00* Test Item Value Reference Range Interpretation Comme nts HEMOGLOBIN A1c (test code = 71940) 8.7 % COMPREHENSIVE METABOLIC [id number] 00:00:00* Test Item Value Reference Range Interpretation Comme nts GLUCOSE (test code = 2216) 234 MG/DL BUN (test code = 2208) 9 MG/DL CREATININE (test code = 2214) 0.43 MG/DL eGFR AMER. (test cod e = 77075) 150 ML/MIN/1.73 eGFR NON- AMER. (test code = 07187) 129 ML/MIN/1.73 CALC BUN/CREAT (test code = 2235) 21 RATIO SODIUM (test code = 2231) 138 MEQ/L POTASSIUM (test code = 2228) 4.5 MEQ/L CHLORIDE (test code = 2215) 100 MEQ/L CARBON DIOXIDE (test code = 2206) 22 MEQ/L CALCIUM (test code = 2209) 9.3 MG/DL PROTEIN, TOTAL (test code = 2229) 7.0 G/DL ALBUMIN (test code = 2201) 4.3 G/DL CALC GLOBULIN (test code = 2240) 2.7 G/DL CALC A/G RATIO (test code = 2234) 1.6 RATIO BILIRUBIN, TOTAL (test code = 2207) 0.5 MG/DL ALKALINE PHOSPHATASE (test code = 2204) 86 U/L AST (test code = 2218) 19 U/L ALT (test code = 2219) 16 U/L COMPREHENSIVE METABOLIC [id number] 00:00:00* Test Item Value Reference Range Interpretation Comme nts GLUCOSE (test code = 2217) 234 MG/DL BUN (test code = 2208) 9 MG/DL CREATININE (test code = 2214) 0.43 MG/DL eGFR AMER. (test cod e = 24264) 150 ML/MIN/1.73 eGFR NON- AMER. (test code = 46022) 129 ML/MIN/1.73 CALC BUN/CREAT (test code = 2235) 21 RATIO SODIUM (test code = 2231) 138 MEQ/L POTASSIUM (test code = 2228) 4.5 MEQ/L CHLORIDE (test code = 2215) 100 MEQ/L CARBON DIOXIDE (test code = 2206) 22 MEQ/L CALCIUM (test code = 2209) 9.3 MG/DL PROTEIN, TOTAL (test code = 222) 7.0 G/DL ALBUMIN (test code = 2201) 4.3 G/DL CALC GLOBULIN (test code = 2240) 2.7 G/DL CALC A/G RATIO (test code = 2234) 1.6 RATIO BILIRUBIN, TOTAL (test code = 2207) 0.5 MG/DL ALKALINE PHOSPHATASE (test code = 2204) 86 U/L AST (test code = 2218) 19 U/L ALT (test code = 2219) 16 U/L LIPID [id number] 00:00:00* Test Item Value Reference Range Interpretation Comme nts CHOLESTEROL (test code = 2210) 260 MG/DL TRIGLYCERIDES (test code = 2232) 308 MG/DL HDL CHOLESTEROL (test code = 2220) 47 MG/DL CALC LDL CHOL (test code = 2237) 151 MG/DL RISK RATIO LDL/HDL (test cod e = 2238) 3.22 RATIO LIPID [id number] 00:00:00* Test Item Value Reference Range Interpretation Comme nts CHOLESTEROL (test code = 2210) 260 MG/DL TRIGLYCERIDES (test code = 2232) 308 MG/DL HDL CHOLESTEROL (test code = 2220) 47 MG/DL CALC LDL CHOL (test code = 2237) 151 MG/DL RISK RATIO LDL/HDL (test cod e = 2238) 3.22 RATIO HEMOGLOBIN [id number] 00:00:00* Test Item Value Reference Range Interpretation Comme nts HEMOGLOBIN A1c (test code = 15327) 8.7 % HEMOGLOBIN [id number] 00:00:00* Test Item Value Reference Range Interpretation Comme nts HEMOGLOBIN A1c (test code = 27005) 7.3 % Laurent Bazzi AustinLIPID [id number] 00:00:00* Test Item Value Reference Range Interpretation Comme nts CHOLESTEROL (test code = 2210) 174 MG/DL TRIGLYCERIDES (test code = 2232) 195 MG/DL HDL CHOLESTEROL (test code = 2220) 41 MG/DL CALC LDL CHOL (test code = 2237) 94 MG/DL RISK RATIO LDL/HDL (test cod e = 2238) 2.29 RATIO Laurent BranchCOMPREHENSIVE METABOLIC [id number] 00:00:00* Test Item Value Reference Range Interpretation Comme nts GLUCOSE (test code = 2217) 115 MG/DL BUN (test code = 2208) 7 MG/DL CREATININE (test code = 2214) 0.37 MG/DL eGFR AMER. (test cod e = 99438) 158 ML/MIN/1.73 eGFR NON- AMER. (test code = 41385) 137 ML/MIN/1.73 CALC BUN/CREAT (test code = 2235) 19 RATIO SODIUM (test code = 2231) 140 MEQ/L POTASSIUM (test code = 2228) 3.9 MEQ/L CHLORIDE (test code = 2215) 100 MEQ/L CARBON DIOXIDE (test code = 2206) 24 MEQ/L CALCIUM (test code = 2209) 9.5 MG/DL PROTEIN, TOTAL (test code = 2229) 6.7 G/DL ALBUMIN (test code = 2201) 4.1 G/DL CALC GLOBULIN (test code = 2240) 2.6 G/DL CALC A/G RATIO (test code = 2234) 1.6 RATIO BILIRUBIN, TOTAL (test code = 2207) 0.5 MG/DL ALKALINE PHOSPHATASE (test code = 2204) 68 U/L AST (test code = 2218) 13 U/L ALT (test code = 2219) 17 U/L Laurent BranchHEMOGLOBIN [id number] 00:00:00* Test Item Value Reference Range Interpretation Comme nts HEMOGLOBIN A1c (test code = 82952) 7.3 % Laurent Bazzi AustinLIPID [id number] 00:00:00* Test Item Value Reference Range Interpretation Comme nts CHOLESTEROL (test code = 2210) 174 MG/DL TRIGLYCERIDES (test code = 2232) 195 MG/DL HDL CHOLESTEROL (test code = 2220) 41 MG/DL CALC LDL CHOL (test code = 2237) 94 MG/DL RISK RATIO LDL/HDL (test cod e = 2238) 2.29 RATIO Laurent BranchCOMPREHENSIVE METABOLIC [id number] 00:00:00* Test Item Value Reference Range Interpretation Comme nts GLUCOSE (test code = 2217) 115 MG/DL BUN (test code = 2208) 7 MG/DL CREATININE (test code = 2214) 0.37 MG/DL eGFR AMER. (test cod e = 07793) 158 ML/MIN/1.73 eGFR NON- AMER. (test code = 65944) 137 ML/MIN/1.73 CALC BUN/CREAT (test code = 2235) 19 RATIO SODIUM (test code = 2231) 140 MEQ/L POTASSIUM (test code = 2228) 3.9 MEQ/L CHLORIDE (test code = 2215) 100 MEQ/L CARBON DIOXIDE (test code = 2206) 24 MEQ/L CALCIUM (test code = 2209) 9.5 MG/DL PROTEIN, TOTAL (test code = 2229) 6.7 G/DL ALBUMIN (test code = 2201) 4.1 G/DL CALC GLOBULIN (test code = 2240) 2.6 G/DL CALC A/G RATIO (test code = 2234) 1.6 RATIO BILIRUBIN, TOTAL (test code = 2207) 0.5 MG/DL ALKALINE PHOSPHATASE (test code = 2204) 68 U/L AST (test code = 2218) 13 U/L ALT (test code = 2219) 17 U/L Laurent BranchHEMOGLOBIN [id number] 00:00:00* Test Item Value Reference Range Interpretation Comme nts HEMOGLOBIN A1c (test code = 33946) 7.3 % LIPID [id number] 00:00:00* Test Item Value Reference Range Interpretation Comme nts CHOLESTEROL (test code = 2210) 174 MG/DL TRIGLYCERIDES (test code = 2232) 195 MG/DL HDL CHOLESTEROL (test code = 2220) 41 MG/DL CALC LDL CHOL (test code = 2237) 94 MG/DL RISK RATIO LDL/HDL (test cod e = 2238) 2.29 RATIO COMPREHENSIVE METABOLIC [id number] 00:00:00* Test Item Value Reference Range Interpretation Comme nts GLUCOSE (test code = 2217) 115 MG/DL BUN (test code = 2208) 7 MG/DL CREATININE (test code = 2214) 0.37 MG/DL eGFR AMER. (test cod e = 24696) 158 ML/MIN/1.73 eGFR NON- AMER. (test code = 10005) 137 ML/MIN/1.73 CALC BUN/CREAT (test code = 2235) 19 RATIO SODIUM (test code = 2231) 140 MEQ/L POTASSIUM (test code = 2228) 3.9 MEQ/L CHLORIDE (test code = 2215) 100 MEQ/L CARBON DIOXIDE (test code = 2206) 24 MEQ/L CALCIUM (test code = 2209) 9.5 MG/DL PROTEIN, TOTAL (test code = 2229) 6.7 G/DL ALBUMIN (test code = 2201) 4.1 G/DL CALC GLOBULIN (test code = 2240) 2.6 G/DL CALC A/G RATIO (test code = 2234) 1.6 RATIO BILIRUBIN, TOTAL (test code = 2207) 0.5 MG/DL ALKALINE PHOSPHATASE (test code = 2204) 68 U/L AST (test code = 2218) 13 U/L ALT (test code = 2219) 17 U/L HEMOGLOBIN [id number] 00:00:00* Test Item Value Reference Range Interpretation Comme nts HEMOGLOBIN A1c (test code = 64443) 7.3 % LIPID [id number] 00:00:00* Test Item Value Reference Range Interpretation Comme nts CHOLESTEROL (test code = 2210) 174 MG/DL TRIGLYCERIDES (test code = 2232) 195 MG/DL HDL CHOLESTEROL (test code = 2220) 41 MG/DL CALC LDL CHOL (test code = 2237) 94 MG/DL RISK RATIO LDL/HDL (test cod e = 2238) 2.29 RATIO COMPREHENSIVE METABOLIC [id number] 00:00:00* Test Item Value Reference Range Interpretation Comme nts GLUCOSE (test code = 2217) 115 MG/DL BUN (test code = 2208) 7 MG/DL CREATININE (test code = 2214) 0.37 MG/DL eGFR AMER. (test cod e = 72039) 158 ML/MIN/1.73 eGFR NON- AMER. (test code = 40221) 137 ML/MIN/1.73 CALC BUN/CREAT (test code = 2235) 19 RATIO SODIUM (test code = 2231) 140 MEQ/L POTASSIUM (test code = 2228) 3.9 MEQ/L CHLORIDE (test code = 2215) 100 MEQ/L CARBON DIOXIDE (test code = 2206) 24 MEQ/L CALCIUM (test code = 2209) 9.5 MG/DL PROTEIN, TOTAL (test code = 2229) 6.7 G/DL ALBUMIN (test code = 2201) 4.1 G/DL CALC GLOBULIN (test code = 2240) 2.6 G/DL CALC A/G RATIO (test code = 2234) 1.6 RATIO BILIRUBIN, TOTAL (test code = 2207) 0.5 MG/DL ALKALINE PHOSPHATASE (test code = 2204) 68 U/L AST (test code = 2218) 13 U/L ALT (test code = 2219) 17 U/L HEMOGLOBIN [id number] 00:00:00* Test Item Value Reference Range Interpretation Comme nts HEMOGLOBIN A1c (test code = 82793) 7.3 % LIPID [id number] 00:00:00* Test Item Value Reference Range Interpretation Comme nts CHOLESTEROL (test code = 2210) 174 MG/DL TRIGLYCERIDES (test code = 2232) 195 MG/DL HDL CHOLESTEROL (test code = 2220) 41 MG/DL CALC LDL CHOL (test code = 2237) 94 MG/DL RISK RATIO LDL/HDL (test cod e = 2238) 2.29 RATIO HEMOGLOBIN [id number] 00:00:00* Test Item Value Reference Range Interpretation Comme nts HEMOGLOBIN A1c (test code = 30708) 7.3 % COMPREHENSIVE METABOLIC [id number] 00:00:00* Test Item Value Reference Range Interpretation Comme nts GLUCOSE (test code = 2217) 115 MG/DL BUN (test code = 2208) 7 MG/DL CREATININE (test code = 2214) 0.37 MG/DL eGFR AMER. (test cod e = 31590) 158 ML/MIN/1.73 eGFR NON- AMER. (test code = 60043) 137 ML/MIN/1.73 CALC BUN/CREAT (test code = 2235) 19 RATIO SODIUM (test code = 2231) 140 MEQ/L POTASSIUM (test code = 2228) 3.9 MEQ/L CHLORIDE (test code = 2215) 100 MEQ/L CARBON DIOXIDE (test code = 2206) 24 MEQ/L CALCIUM (test code = 2209) 9.5 MG/DL PROTEIN, TOTAL (test code = 2229) 6.7 G/DL ALBUMIN (test code = 2201) 4.1 G/DL CALC GLOBULIN (test code = 2240) 2.6 G/DL CALC A/G RATIO (test code = 2234) 1.6 RATIO BILIRUBIN, TOTAL (test code = 2207) 0.5 MG/DL ALKALINE PHOSPHATASE (test code = 2204) 68 U/L AST (test code = 2218) 13 U/L ALT (test code = 2219) 17 U/L HEMOGLOBIN [id number] 00:00:00* Test Item Value Reference Range Interpretation Comme nts HEMOGLOBIN A1c (test code = 69164) 7.3 % LIPID [id number] 00:00:00* Test Item Value Reference Range Interpretation Comme nts CHOLESTEROL (test code = 2210) 174 MG/DL TRIGLYCERIDES (test code = 2232) 195 MG/DL HDL CHOLESTEROL (test code = 2220) 41 MG/DL CALC LDL CHOL (test code = 2237) 94 MG/DL RISK RATIO LDL/HDL (test cod e = 2238) 2.29 RATIO LIPID [id number] 00:00:00* Test Item Value Reference Range Interpretation Comme nts CHOLESTEROL (test code = 2210) 174 MG/DL TRIGLYCERIDES (test code = 2232) 195 MG/DL HDL CHOLESTEROL (test code = 2220) 41 MG/DL CALC LDL CHOL (test code = 2237) 94 MG/DL RISK RATIO LDL/HDL (test cod e = 2238) 2.29 RATIO COMPREHENSIVE METABOLIC [id number] 00:00:00* Test Item Value Reference Range Interpretation Comme nts GLUCOSE (test code = 2217) 115 MG/DL BUN (test code = 2208) 7 MG/DL CREATININE (test code = 2214) 0.37 MG/DL eGFR AMER. (test cod e = 57989) 158 ML/MIN/1.73 eGFR NON- AMER. (test code = 06752) 137 ML/MIN/1.73 CALC BUN/CREAT (test code = 2235) 19 RATIO SODIUM (test code = 2231) 140 MEQ/L POTASSIUM (test code = 2228) 3.9 MEQ/L CHLORIDE (test code = 2215) 100 MEQ/L CARBON DIOXIDE (test code = 2206) 24 MEQ/L CALCIUM (test code = 2209) 9.5 MG/DL PROTEIN, TOTAL (test code = 2229) 6.7 G/DL ALBUMIN (test code = 2201) 4.1 G/DL CALC GLOBULIN (test code = 2240) 2.6 G/DL CALC A/G RATIO (test code = 2234) 1.6 RATIO BILIRUBIN, TOTAL (test code = 2207) 0.5 MG/DL ALKALINE PHOSPHATASE (test code = 2204) 68 U/L AST (test code = 2218) 13 U/L ALT (test code = 2219) 17 U/L COMPREHENSIVE METABOLIC [id number] 00:00:00* Test Item Value Reference Range Interpretation Comme nts GLUCOSE (test code = 2217) 115 MG/DL BUN (test code = 2208) 7 MG/DL CREATININE (test code = 2214) 0.37 MG/DL eGFR AMER. (test cod e = 08931) 158 ML/MIN/1.73 eGFR NON- AMER. (test code = 70307) 137 ML/MIN/1.73 CALC BUN/CREAT (test code = 2235) 19 RATIO SODIUM (test code = 2231) 140 MEQ/L POTASSIUM (test code = 2228) 3.9 MEQ/L CHLORIDE (test code = 2215) 100 MEQ/L CARBON DIOXIDE (test code = 2206) 24 MEQ/L CALCIUM (test code = 2209) 9.5 MG/DL PROTEIN, TOTAL (test code = 2229) 6.7 G/DL ALBUMIN (test code = 2201) 4.1 G/DL CALC GLOBULIN (test code = 2240) 2.6 G/DL CALC A/G RATIO (test code = 2234) 1.6 RATIO BILIRUBIN, TOTAL (test code = 2207) 0.5 MG/DL ALKALINE PHOSPHATASE (test code = 2204) 68 U/L AST (test code = 2218) 13 U/L ALT (test code = 2219) 17 U/L PAP TEST, THINPREP, [id number] 00:00:00* Test Item Value Reference Range Interpretation Comme nts SOURCE: (test code = 8001) Cervical/Endocervical SLIDES: (test code = 8011) 1 LMP: (test code = 8021) 07/14/2018 SPECIMEN ADEQUACY: (test code = 02903) (NOTE) INTERPRETATION: (test code = 77517) NILM/NO EPITH. ABNORMALITY;SEE BELOW OTHER COMMENTS: (test code = 8081) (NOTE) CLOUD ADMINISTRATOR: (test code = 8101) CHELA Tinoco(ASCP) [facility] QC TECHNOLOG[facility]: (test code = 8111) NANDINI Pelletier(ASCP)IAC LOCATION: (test code = 13486) (NOTE) CPT: (test code = 8140) (NOTE) Laurent BertrandP TEST, THINPREP, [id number] 00:00:00* Test Item Value Reference Range Interpretation Comme nts SOURCE: (test code = 8001) Cervical/Endocervical SLIDES: (test code = 8011) 1 LMP: (test code = 8021) 07/14/2018 SPECIMEN ADEQUACY: (test code = 99867) (NOTE) INTERPRETATION: (test code = 87335) NILM/NO EPITH. ABNORMALITY;SEE BELOW OTHER COMMENTS: (test code = 8081) (NOTE) CLOUD ADMINISTRATOR: (test code = 8101) CHELA Tinoco(ASCP) [facility] QC TECHNOLOG[facility]: (test code = 8111) NANDINI Pelletier(ASCP)IAC LOCATION: (test code = 84146) (NOTE) CPT: (test code = 8140) (NOTE) Laurent BranchPAP TEST, THINPREP, [id number] 00:00:00* Test Item Value Reference Range Interpretation Comme nts SOURCE: (test code = 8001) Cervical/Endocervical SLIDES: (test code = 8011) 1 LMP: (test code = 8021) 07/14/2018 SPECIMEN ADEQUACY: (test code = 43042) (NOTE) INTERPRETATION: (test code = 25995) NILM/NO EPITH. ABNORMALITY;SEE BELOW OTHER COMMENTS: (test code = 8081) (NOTE) CLOUD ADMINISTRATOR: (test code = 8101) CHELA Tinoco(ASCP) [facility] QC TECHNOLOGIST: (test code = 8111) NANDINI Pelletier(ASCP)IAC LOCATION: (test code = 07981) (NOTE) CPT: (test code = 8140) (NOTE) PAP TEST, THINPREP, [id number] 00:00:00* Test Item Value Reference Range Interpretation Comme nts SOURCE: (test code = 8001) Cervical/Endocervical SLIDES: (test code = 8011) 1 LMP: (test code = 8021) 07/14/2018 SPECIMEN ADEQUACY: (test code = 96001) (NOTE) INTERPRETATION: (test code = 19342) NILM/NO EPITH. ABNORMALITY;SEE BELOW OTHER COMMENTS: (test code = 8081) (NOTE) CLOUD ADMINISTRATOR: (test code = 8101) CHELA Tinoco(ASCP) [facility] QC TECHNOLOGIST: (test code = 8111) NANDINI Pelletier(ASCP)IAC LOCATION: (test code = 24582) (NOTE) CPT: (test code = 8140) (NOTE) PAP TEST, THINPREP, [id number] 00:00:00* Test Item Value Reference Range Interpretation Comme nts SOURCE: (test code = 8001) Cervical/Endocervical SLIDES: (test code = 8011) 1 LMP: (test code = 8021) 07/14/2018 SPECIMEN ADEQUACY: (test code = 60320) (NOTE) INTERPRETATION: (test code = 82379) NILM/NO EPITH. ABNORMALITY;SEE BELOW OTHER COMMENTS: (test code = 8081) (NOTE) CLOUD ADMINISTRATOR: (test code = 8101) CHELA Tinoco(ASCP) [facility] QC TECHNOLOGIST: (test code = 8111) NANDINI Pelletier(ASCP)IAC LOCATION: (test code = 37395) (NOTE) CPT: (test code = 8140) (NOTE) PAP TEST, THINPREP, [id number] 00:00:00* Test Item Value Reference Range Interpretation Comme nts SOURCE: (test code = 8001) Cervical/Endocervical SLIDES: (test code = 8011) 1 LMP: (test code = 8021) 07/14/2018 SPECIMEN ADEQUACY: (test code = 21422) (NOTE) INTERPRETATION: (test code = 84187) NILM/NO EPITH. ABNORMALITY;SEE BELOW OTHER COMMENTS: (test code = 8081) (NOTE) CLOUD ADMINISTRATOR: (test code = 8101) CHELA Tinoco(ASCP) [facility] QC TECHNOLOGIST: (test code = 8111) NANDINI Pelletier(ASCP)IAC LOCATION: (test code = 58207) (NOTE) CPT: (test code = 8140) (NOTE) PAP TEST, THINPREP, [id number] 00:00:00* Test Item Value Reference Range Interpretation Comme nts SOURCE: (test code = 8001) Cervical/Endocervical SLIDES: (test code = 8011) 1 LMP: (test code = 8021) 07/14/2018 SPECIMEN ADEQUACY: (test code = 51833) (NOTE) INTERPRETATION: (test code = 20604) NILM/NO EPITH. ABNORMALITY;SEE BELOW OTHER COMMENTS: (test code = 8081) (NOTE) CLOUD ADMINISTRATOR: (test code = 8101) CHELA Tinoco(ASCP) [facility] QC TECHNOLOGIST: (test code = 8111) [facility](AS[facility])IAC LOCATION: (test code = 38775) (NOTE) CPT: (test code = 8140) (NOTE) [id number] 00:00:00* Test Item Value Reference Range Interpretation Comme nts RPR RESULT (test code = 3501) NON-REACTIVE RPR TITER (test code = 3500) NOT INDIC. TITER Laurent Bazzi [id number] 00:00:00* Test Item Value Reference Range Interpretation Comme nts RPR RESULT (test code = 3501) NON-REACTIVE RPR TITER (test code = 3500) NOT INDIC. TITER Laurent F [id number] 00:00:00* Test Item Value Reference Range Interpretation Comme nts RPR RESULT (test code = 3501) NON-REACTIVE RPR TITER (test code = 3500) NOT INDIC. TITER [id number] 00:00:00* Test Item Value Reference Range Interpretation Comme nts RPR RESULT (test code = 3501) NON-REACTIVE RPR TITER (test code = 3500) NOT INDIC. TITER [id number] 00:00:00* Test Item Value Reference Range Interpretation Comme nts RPR RESULT (test code = 3501) NON-REACTIVE RPR TITER (test code = 3500) NOT INDIC. TITER [id number] 00:00:00* Test Item Value Reference Range Interpretation Comme nts RPR RESULT (test code = 3501) NON-REACTIVE RPR TITER (test code = 3500) NOT INDIC. TITER [id number] 00:00:00* Test Item Value Reference Range Interpretation Comme nts RPR RESULT (test code = 3501) NON-REACTIVE RPR TITER (test code = 3500) NOT INDIC. TITER GC AND CHLAMYDIA AMPLIFIED, [id number] 00:00:00* Test Item Value Reference Range Interpretation Comme nts GONORRHEA, TMA (test code = 75809) NEGATIVE CHLAMYDIA, TMA (test code = 84029) NEGATIVE Laurent Bazzi AustinHIV AB/AG COMBO RFLX [id number] 00:00:00* Test Item Value Reference Range Interpretation Comme [facility] HIV 1/2 4TH GEN, RFLX CONF ( test code = 3514) NON-REACTIVE Laurent F AustinHPV HIGH RISK WITH GENOTYPE, [id number] 00:00:00* Test Item Value Reference Range Interpretation Comme [facility] HPV HIGH RISK INTERP (test c ode = 01036) NEGATIVE HPV 16 (test code = 38310) NEGATIVE HPV 18 (test code = 09965) NEGATIVE HPV, HR, OTHER GENOTYPES (te st code = 20935) NEGATIVE Laurent F AustinGC AND CHLAMYDIA AMPLIFIED, [id number] 00:00:00* Test Item Value Reference Range Interpretation Comme nts GONORRHEA, TMA (test code = 68804) NEGATIVE CHLAMYDIA, TMA (test code = 68803) NEGATIVE Laurent F AustinACUTE HEPATITIS [id number] 00:00:00* Test Item Value Reference Range Interpretation Comme nts HEPATITIS A IgM (test code = 63264) NON-REACTIVE HEPATITIS B CORE IgM (test c ode = 6044) NON-REACTIVE HEPATITIS B SURF AG (test co de = 9359) NON-REACTIVE HEPATITIS C ANTIBODY (test c ode = 4958) NON-REACTIVE HCV INDEX (test code = 99917) 0.08 INTERPRETATION HEPATITIS A: (test code = 2552) (NOTE) INTERPRETATION HEPATITIS B: (test code = 18331) (NOTE) INTERPRETATION HEPATITIS C: (test code = 89394) (NOTE) Laurent BranchHPV HIGH RISK WITH GENOTYPE, [id number] 00:00:00* Test Item Value Reference Range Interpretation Comme nts HPV HIGH RISK INTERP (test c ode = 24277) NEGATIVE HPV 16 (test code = 66867) NEGATIVE HPV 18 (test code = 05262) NEGATIVE HPV, HR, OTHER GENOTYPES (te st code = 19119) NEGATIVE Laurent BranchHIV AB/AG COMBO RFLX [id number] 00:00:00* Test Item Value Reference Range Interpretation Comme nts HIV 1/2 4TH GEN, RFLX CONF ( test code = 3514) NON-REACTIVE Laurent BranchGC AND CHLAMYDIA AMPLIFIED, [id number] 00:00:00* Test Item Value Reference Range Interpretation Comme nts GONORRHEA, TMA (test code = 93806) NEGATIVE CHLAMYDIA, TMA (test code = 78750) NEGATIVE ACUTE HEPATITIS [id number] 00:00:00* Test Item Value Reference Range Interpretation Comme nts HEPATITIS A IgM (test code = 58692) NON-REACTIVE HEPATITIS B CORE IgM (test c ode = 4644) NON-REACTIVE HEPATITIS B SURF AG (test co de = 2739) NON-REACTIVE HEPATITIS C ANTIBODY (test c ode = 4675) NON-REACTIVE HCV INDEX (test code = 85369) 0.08 INTERPRETATION HEPATITIS A: (test code = 2552) (NOTE) INTERPRETATION HEPATITIS B: (test code = 68336) (NOTE) INTERPRETATION HEPATITIS C: (test code = 29466) (NOTE) HIV AB/AG COMBO RFLX [id number] 00:00:00* Test Item Value Reference Range Interpretation Comme nts HIV 1/2 4TH GEN, RFLX CONF ( test code = 3514) NON-REACTIVE HPV HIGH RISK WITH GENOTYPE, [id number] 00:00:00* Test Item Value Reference Range Interpretation Comme nts HPV HIGH RISK INTERP (test c ode = 41623) NEGATIVE HPV 16 (test code = 32736) NEGATIVE HPV 18 (test code = 95628) NEGATIVE HPV, HR, OTHER GENOTYPES (te st code = 56202) NEGATIVE ACUTE HEPATITIS [id number] 00:00:00* Test Item Value Reference Range Interpretation Comme nts HEPATITIS A IgM (test code = 83160) NON-REACTIVE HEPATITIS B CORE IgM (test c ode = 4644) NON-REACTIVE HEPATITIS B SURF AG (test co de = 2739) NON-REACTIVE HEPATITIS C ANTIBODY (test c ode = 4675) NON-REACTIVE HCV INDEX (test code = 03623) 0.08 INTERPRETATION HEPATITIS A: (test code = 2552) (NOTE) INTERPRETATION HEPATITIS B: (test code = 11061) (NOTE) INTERPRETATION HEPATITIS C: (test code = 43262) (NOTE) GC AND CHLAMYDIA AMPLIFIED, [id number] 00:00:00* Test Item Value Reference Range Interpretation Comme nts GONORRHEA, TMA (test code = 37724) NEGATIVE CHLAMYDIA, TMA (test code = 92341) NEGATIVE HPV HIGH RISK WITH GENOTYPE, [id number] 00:00:00* Test Item Value Reference Range Interpretation Comme [facility] HPV HIGH RISK INTERP (test c ode = 00628) NEGATIVE HPV 16 (test code = 66412) NEGATIVE HPV 18 (test code = 25184) NEGATIVE HPV, HR, OTHER GENOTYPES (te st code = 58792) NEGATIVE HIV AB/AG COMBO RFLX [id number] 00:00:00* Test Item Value Reference Range Interpretation Comme [facility] HIV 1/2 4TH GEN, RFLX CONF ( test code = 3514) NON-REACTIVE ACUTE HEPATITIS [id number] 00:00:00* Test Item Value Reference Range Interpretation Comme nts HEPATITIS A IgM (test code = 16944) NON-REACTIVE HEPATITIS B CORE IgM (test c ode = 4644) NON-REACTIVE HEPATITIS B SURF AG (test co de = 2739) NON-REACTIVE HEPATITIS C ANTIBODY (test c ode = 4675) NON-REACTIVE HCV INDEX (test code = 84798) 0.08 INTERPRETATION HEPATITIS A: (test code = 2552) (NOTE) INTERPRETATION HEPATITIS B: (test code = 47091) (NOTE) INTERPRETATION HEPATITIS C: (test code = 95299) (NOTE) GC AND CHLAMYDIA AMPLIFIED, [id number] 00:00:00* Test Item Value Reference Range Interpretation Comme nts GONORRHEA, TMA (test code = 75178) NEGATIVE CHLAMYDIA, TMA (test code = 34002) NEGATIVE GC AND CHLAMYDIA AMPLIFIED, [id number] 00:00:00* Test Item Value Reference Range Interpretation Comme nts GONORRHEA, TMA (test code = 66448) NEGATIVE CHLAMYDIA, TMA (test code = 80099) NEGATIVE HIV AB/AG COMBO RFLX [id number] 00:00:00* Test Item Value Reference Range Interpretation Comme nts HIV 1/2 4TH GEN, RFLX CONF ( test code = 3514) NON-REACTIVE HPV HIGH RISK WITH GENOTYPE, [id number] 00:00:00* Test Item Value Reference Range Interpretation Comme nts HPV HIGH RISK INTERP (test c ode = 52626) NEGATIVE HPV 16 (test code = 35963) NEGATIVE HPV 18 (test code = 31667) NEGATIVE HPV, HR, OTHER GENOTYPES (te st code = 71372) NEGATIVE ACUTE HEPATITIS [id number] 00:00:00* Test Item Value Reference Range Interpretation Comme nts HEPATITIS A IgM (test code = 25863) NON-REACTIVE HEPATITIS B CORE IgM (test c ode = 4644) NON-REACTIVE HEPATITIS B SURF AG (test co de = 2739) NON-REACTIVE HEPATITIS C ANTIBODY (test c ode = 4675) NON-REACTIVE HCV INDEX (test code = 00865) 0.08 INTERPRETATION HEPATITIS A: (test code = 2552) (NOTE) INTERPRETATION HEPATITIS B: (test code = 15503) (NOTE) INTERPRETATION HEPATITIS C: (test code = 75445) (NOTE) ACUTE HEPATITIS [id number] 00:00:00* Test Item Value Reference Range Interpretation Comme nts HEPATITIS A IgM (test code = 53947) NON-REACTIVE HEPATITIS B CORE IgM (test c ode = 4644) NON-REACTIVE HEPATITIS B SURF AG (test co de = 2739) NON-REACTIVE HEPATITIS C ANTIBODY (test c ode = 4675) NON-REACTIVE HCV INDEX (test code = 52497) 0.08 INTERPRETATION HEPATITIS A: (test code = 2552) (NOTE) INTERPRETATION HEPATITIS B: (test code = 80206) (NOTE) INTERPRETATION HEPATITIS C: (test code = 40862) (NOTE) Laurent BranchACUTE HEPATITIS [id number] 00:00:00* Test Item Value Reference Range Interpretation Comme nts HEPATITIS A IgM (test code = 72445) NON-REACTIVE HEPATITIS B CORE IgM (test c ode = 4644) NON-REACTIVE HEPATITIS B SURF AG (test co de = 2739) NON-REACTIVE HEPATITIS C ANTIBODY (test c ode = 4675) NON-REACTIVE HCV INDEX (test code = 06112) 0.08 INTERPRETATION HEPATITIS A: (test code = 2552) (NOTE) INTERPRETATION HEPATITIS B: (test code = 70870) (NOTE) INTERPRETATION HEPATITIS C: (test code = 59929) (NOTE) GC AND CHLAMYDIA AMPLIFIED, [id number] 00:00:00* Test Item Value Reference Range Interpretation Comme nts GONORRHEA, TMA (test code = 08661) NEGATIVE CHLAMYDIA, TMA (test code = 95291) NEGATIVE HIV AB/AG COMBO RFLX [id number] 00:00:00* Test Item Value Reference Range Interpretation Comme [facility] HIV 1/2 4TH GEN, RFLX CONF ( test code = 3514) NON-REACTIVE HPV HIGH RISK WITH GENOTYPE, [id number] 00:00:00* Test Item Value Reference Range Interpretation Comme nts HPV HIGH RISK INTERP (test c ode = 82003) NEGATIVE HPV 16 (test code = 32449) NEGATIVE HPV 18 (test code = 93599) NEGATIVE HPV, HR, OTHER GENOTYPES (te st code = 77558) NEGATIVE HIV AB/AG COMBO RFLX [id number] 00:00:00* Test Item Value Reference Range Interpretation Comme [facility] HIV 1/2 4TH GEN, RFLX CONF ( test code = 3514) NON-REACTIVE HPV HIGH RISK WITH GENOTYPE, [id number] 00:00:00* Test Item Value Reference Range Interpretation Comme nts HPV HIGH RISK INTERP (test c ode = 12101) NEGATIVE HPV 16 (test code = 24222) NEGATIVE HPV 18 (test code = 86149) NEGATIVE HPV, HR, OTHER GENOTYPES (te st code = 87252) NEGATIVE LIPID [id number] 00:00:00* Test Item Value Reference Range Interpretation Comme nts CHOLESTEROL (test code = 2210) 217 MG/DL TRIGLYCERIDES (test code = 2232) 511 MG/DL HDL CHOLESTEROL (test code = 2220) 33 MG/DL CALC LDL CHOL (test code = 2237) NOTE MG/DL RISK RATIO LDL/HDL (test cod e = 2238) (NOTE) RATIO Laurent BranchHEMOGLOBIN [id number] 00:00:00* Test Item Value Reference Range Interpretation Comme nts HEMOGLOBIN A1c (test code = 09062) 11.2 % Laurent BranchMICROALBUMIN/CREATININE, RANDOM AND [id number] 00:00:00* Test Item Value Reference Range Interpretation Comme nts CREATININE, URINE, CONC. (te st code = 2072) 56.6 MG/DL ALBUMIN, URINE, RANDOM (test code = 73079) 10.6 MG/DL CALC ALBUMIN/CREAT, RND (phyllis t code = 93318) 187 MG/G Laurent BranchCOMPREHENSIVE METABOLIC [id number] 00:00:00* Test Item Value Reference Range Interpretation Comme nts GLUCOSE (test code = 2217) 299 MG/DL BUN (test code = 2208) 5 MG/DL CREATININE (test code = 2214) 0.46 MG/DL eGFR AMER. (test cod e = 07558) 147 ML/MIN/1.73 eGFR NON- AMER. (test code = 49031) 127 ML/MIN/1.73 CALC BUN/CREAT (test code = 2235) 11 RATIO SODIUM (test code = 2231) 137 MEQ/L POTASSIUM (test code = 2228) 4.1 MEQ/L CHLORIDE (test code = 2215) 98 MEQ/L CARBON DIOXIDE (test code = 2206) 27 MEQ/L CALCIUM (test code = 2209) 8.6 MG/DL PROTEIN, TOTAL (test code = 2229) 6.8 G/DL ALBUMIN (test code = 2201) 3.9 G/DL CALC GLOBULIN (test code = 2240) 2.9 G/DL CALC A/G RATIO (test code = 2234) 1.3 RATIO BILIRUBIN, TOTAL (test code = 2207) 0.5 MG/DL ALKALINE PHOSPHATASE (test code = 2204) 111 U/L AST (test code = 2218) 27 U/L ALT (test code = 2219) 25 U/L Laurent BranchLIPID [id number] 00:00:00* Test Item Value Reference Range Interpretation Comme nts CHOLESTEROL (test code = 2210) 217 MG/DL TRIGLYCERIDES (test code = 2232) 511 MG/DL HDL CHOLESTEROL (test code = 2220) 33 MG/DL CALC LDL CHOL (test code = 2237) NOTE MG/DL RISK RATIO LDL/HDL (test cod e = 2238) (NOTE) RATIO Laurent Bazzi AustinHEMOGLOBIN [id number] 00:00:00* Test Item Value Reference Range Interpretation Comme nts HEMOGLOBIN A1c (test code = 00561) 11.2 % Laurent Bazzi AustinHEMOGLOBIN [id number] 00:00:00* Test Item Value Reference Range Interpretation Comme nts HEMOGLOBIN A1c (test code = 69027) 11.2 % MICROALBUMIN/CREATININE, RANDOM AND [id number] 00:00:00* Test Item Value Reference Range Interpretation Comme nts CREATININE, URINE, CONC. (te st code = 207) 56.6 MG/DL ALBUMIN, URINE, RANDOM (test code = 02162) 10.6 MG/DL CALC ALBUMIN/CREAT, RND (phyllis t code = 64588) 187 MG/G Laurent Bazzi AustinMICROALBUMIN/CREATININE, RANDOM AND [id number] 00:00:00* Test Item Value Reference Range Interpretation Comme nts CREATININE, URINE, CONC. (te st code = 207) 56.6 MG/DL ALBUMIN, URINE, RANDOM (test code = 70770) 10.6 MG/DL CALC ALBUMIN/CREAT, RND (phyllis t code = 85664) 187 MG/G COMPREHENSIVE METABOLIC [id number] 00:00:00* Test Item Value Reference Range Interpretation Comme nts GLUCOSE (test code = 2217) 299 MG/DL BUN (test code = 2208) 5 MG/DL CREATININE (test code = 2214) 0.46 MG/DL eGFR AMER. (test cod e = 37454) 147 ML/MIN/1.73 eGFR NON- AMER. (test code = 97774) 127 ML/MIN/1.73 CALC BUN/CREAT (test code = 2235) 11 RATIO SODIUM (test code = 2231) 137 MEQ/L POTASSIUM (test code = 2228) 4.1 MEQ/L CHLORIDE (test code = 2215) 98 MEQ/L CARBON DIOXIDE (test code = 2206) 27 MEQ/L CALCIUM (test code = 2209) 8.6 MG/DL PROTEIN, TOTAL (test code = 2229) 6.8 G/DL ALBUMIN (test code = 2201) 3.9 G/DL CALC GLOBULIN (test code = 2240) 2.9 G/DL CALC A/G RATIO (test code = 2234) 1.3 RATIO BILIRUBIN, TOTAL (test code = 2207) 0.5 MG/DL ALKALINE PHOSPHATASE (test code = 2204) 111 U/L AST (test code = 2218) 27 U/L ALT (test code = 2219) 25 U/L LIPID [id number] 00:00:00* Test Item Value Reference Range Interpretation Comme nts CHOLESTEROL (test code = 0) 217 MG/DL TRIGLYCERIDES (test code = 2232) 511 MG/DL HDL CHOLESTEROL (test code = 2220) 33 MG/DL CALC LDL CHOL (test code = 2237) NOTE MG/DL RISK RATIO LDL/HDL (test cod e = 2238) (NOTE) RATIO HEMOGLOBIN [id number] 00:00:00* Test Item Value Reference Range Interpretation Comme nts HEMOGLOBIN A1c (test code = 86617) 11.2 % MICROALBUMIN/CREATININE, RANDOM AND [id number] 00:00:00* Test Item Value Reference Range Interpretation Comme nts CREATININE, URINE, CONC. (te st code = 2072) 56.6 MG/DL ALBUMIN, URINE, RANDOM (test code = 69723) 10.6 MG/DL CALC ALBUMIN/CREAT, RND (phyllis t code = 34179) 187 MG/G COMPREHENSIVE METABOLIC [id number] 00:00:00* Test Item Value Reference Range Interpretation Comme nts GLUCOSE (test code = 2217) 299 MG/DL BUN (test code = 2208) 5 MG/DL CREATININE (test code = 2214) 0.46 MG/DL eGFR AMER. (test cod e = 00825) 147 ML/MIN/1.73 eGFR NON- AMER. (test code = 61537) 127 ML/MIN/1.73 CALC BUN/CREAT (test code = 2235) 11 RATIO SODIUM (test code = 2231) 137 MEQ/L POTASSIUM (test code = 2228) 4.1 MEQ/L CHLORIDE (test code = 2215) 98 MEQ/L CARBON DIOXIDE (test code = 2206) 27 MEQ/L CALCIUM (test code = 2209) 8.6 MG/DL PROTEIN, TOTAL (test code = 2229) 6.8 G/DL ALBUMIN (test code = 2201) 3.9 G/DL CALC GLOBULIN (test code = 2240) 2.9 G/DL CALC A/G RATIO (test code = 2234) 1.3 RATIO BILIRUBIN, TOTAL (test code = 2207) 0.5 MG/DL ALKALINE PHOSPHATASE (test code = 2204) 111 U/L AST (test code = 2218) 27 U/L ALT (test code = 2219) 25 U/L LIPID [id number] 00:00:00* Test Item Value Reference Range Interpretation Comme nts CHOLESTEROL (test code = 2210) 217 MG/DL TRIGLYCERIDES (test code = 2232) 511 MG/DL HDL CHOLESTEROL (test code = 2220) 33 MG/DL CALC LDL CHOL (test code = 2237) NOTE MG/DL RISK RATIO LDL/HDL (test cod e = 2238) (NOTE) RATIO HEMOGLOBIN [id number] 00:00:00* Test Item Value Reference Range Interpretation Comme nts HEMOGLOBIN A1c (test code = 77794) 11.2 % MICROALBUMIN/CREATININE, RANDOM AND [id number] 00:00:00* Test Item Value Reference Range Interpretation Comme nts CREATININE, URINE, CONC. (te st code = 2072) 56.6 MG/DL ALBUMIN, URINE, RANDOM (test code = 15202) 10.6 MG/DL CALC ALBUMIN/CREAT, RND (phyllis t code = 58984) 187 MG/G COMPREHENSIVE METABOLIC [id number] 00:00:00* Test Item Value Reference Range Interpretation Comme nts GLUCOSE (test code = 2217) 299 MG/DL BUN (test code = 2208) 5 MG/DL CREATININE (test code = 2214) 0.46 MG/DL eGFR AMER. (test cod e = 68316) 147 ML/MIN/1.73 eGFR NON- AMER. (test code = 96295) 127 ML/MIN/1.73 CALC BUN/CREAT (test code = 2235) 11 RATIO SODIUM (test code = 2231) 137 MEQ/L POTASSIUM (test code = 2228) 4.1 MEQ/L CHLORIDE (test code = 2215) 98 MEQ/L CARBON DIOXIDE (test code = 2206) 27 MEQ/L CALCIUM (test code = 2209) 8.6 MG/DL PROTEIN, TOTAL (test code = 2229) 6.8 G/DL ALBUMIN (test code = 2201) 3.9 G/DL CALC GLOBULIN (test code = 2240) 2.9 G/DL CALC A/G RATIO (test code = 2234) 1.3 RATIO BILIRUBIN, TOTAL (test code = 2207) 0.5 MG/DL ALKALINE PHOSPHATASE (test code = 2204) 111 U/L AST (test code = 2218) 27 U/L ALT (test code = 2219) 25 U/L LIPID [id number] 00:00:00* Test Item Value Reference Range Interpretation Comme nts CHOLESTEROL (test code = 2210) 217 MG/DL TRIGLYCERIDES (test code = 2232) 511 MG/DL HDL CHOLESTEROL (test code = 2220) 33 MG/DL CALC LDL CHOL (test code = 2237) NOTE MG/DL RISK RATIO LDL/HDL (test cod e = 2238) (NOTE) RATIO HEMOGLOBIN [id number] 00:00:00* Test Item Value Reference Range Interpretation Comme nts HEMOGLOBIN A1c (test code = 22524) 11.2 % MICROALBUMIN/CREATININE, RANDOM AND [id number] 00:00:00* Test Item Value Reference Range Interpretation Comme nts CREATININE, URINE, CONC. (te st code = 2072) 56.6 MG/DL ALBUMIN, URINE, RANDOM (test code = 48467) 10.6 MG/DL CALC ALBUMIN/CREAT, RND (phyllis t code = 12816) 187 MG/G COMPREHENSIVE METABOLIC [id number] 00:00:00* Test Item Value Reference Range Interpretation Comme nts GLUCOSE (test code = 7) 299 MG/DL BUN (test code = 2208) 5 MG/DL CREATININE (test code = 2214) 0.46 MG/DL eGFR AMER. (test cod e = 38642) 147 ML/MIN/1.73 eGFR NON- AMER. (test code = 99119) 127 ML/MIN/1.73 CALC BUN/CREAT (test code = 2235) 11 RATIO SODIUM (test code = 2231) 137 MEQ/L POTASSIUM (test code = 2228) 4.1 MEQ/L CHLORIDE (test code = 2215) 98 MEQ/L CARBON DIOXIDE (test code = 2206) 27 MEQ/L CALCIUM (test code = 2209) 8.6 MG/DL PROTEIN, TOTAL (test code = 2229) 6.8 G/DL ALBUMIN (test code = 2201) 3.9 G/DL CALC GLOBULIN (test code = 2240) 2.9 G/DL CALC A/G RATIO (test code = 2234) 1.3 RATIO BILIRUBIN, TOTAL (test code = 2207) 0.5 MG/DL ALKALINE PHOSPHATASE (test code = 2204) 111 U/L AST (test code = 2218) 27 U/L ALT (test code = 2219) 25 U/L COMPREHENSIVE METABOLIC [id number] 00:00:00* Test Item Value Reference Range Interpretation Comme nts GLUCOSE (test code = 2217) 299 MG/DL BUN (test code = 2208) 5 MG/DL CREATININE (test code = 2214) 0.46 MG/DL eGFR AMER. (test cod e = 24240) 147 ML/MIN/1.73 eGFR NON- AMER. (test code = 40322) 127 ML/MIN/1.73 CALC BUN/CREAT (test code = 2235) 11 RATIO SODIUM (test code = 2231) 137 MEQ/L POTASSIUM (test code = 2228) 4.1 MEQ/L CHLORIDE (test code = 2215) 98 MEQ/L CARBON DIOXIDE (test code = 2206) 27 MEQ/L CALCIUM (test code = 2209) 8.6 MG/DL PROTEIN, TOTAL (test code = 2229) 6.8 G/DL ALBUMIN (test code = 2201) 3.9 G/DL CALC GLOBULIN (test code = 2240) 2.9 G/DL CALC A/G RATIO (test code = 2234) 1.3 RATIO BILIRUBIN, TOTAL (test code = 2207) 0.5 MG/DL ALKALINE PHOSPHATASE (test code = 2204) 111 U/L AST (test code = 2218) 27 U/L ALT (test code = 2219) 25 U/L LIPID [id number] 00:00:00* Test Item Value Reference Range Interpretation Comme nts CHOLESTEROL (test code = 2210) 217 MG/DL TRIGLYCERIDES (test code = 2232) 511 MG/DL HDL CHOLESTEROL (test code = 2220) 33 MG/DL CALC LDL CHOL (test code = 2237) NOTE MG/DL RISK RATIO LDL/HDL (test cod e = 2238) (NOTE) RATIO LIPID [id number] 00:00:00* Test Item Value Reference Range Interpretation Comme nts CHOLESTEROL (test code = 2210) 217 MG/DL TRIGLYCERIDES (test code = 2232) 511 MG/DL HDL CHOLESTEROL (test code = 2220) 33 MG/DL CALC LDL CHOL (test code = 2237) NOTE MG/DL RISK RATIO LDL/HDL (test cod e = 2238) (NOTE) RATIO HEMOGLOBIN [id number] 00:00:00* Test Item Value Reference Range Interpretation Comme nts HEMOGLOBIN A1c (test code = 72083) 11.2 % MICROALBUMIN/CREATININE, RANDOM AND [id number] 00:00:00* Test Item Value Reference Range Interpretation Comme nts CREATININE, URINE, CONC. (te st code = 2072) 56.6 MG/DL ALBUMIN, URINE, RANDOM (test code = 42478) 10.6 MG/DL CALC ALBUMIN/CREAT, RND (phyllis t code = 89534) 187 MG/G COMPREHENSIVE METABOLIC [id number] 00:00:00* Test Item Value Reference Range Interpretation Comme nts GLUCOSE (test code = 2217) 299 MG/DL BUN (test code = 2208) 5 MG/DL CREATININE (test code = 2214) 0.46 MG/DL eGFR AMER. (test cod e = 45187) 147 ML/MIN/1.73 eGFR NON- AMER. (test code = 65151) 127 ML/MIN/1.73 CALC BUN/CREAT (test code = 2235) 11 RATIO SODIUM (test code = 2231) 137 MEQ/L POTASSIUM (test code = 2228) 4.1 MEQ/L CHLORIDE (test code = 2215) 98 MEQ/L CARBON DIOXIDE (test code = 2206) 27 MEQ/L CALCIUM (test code = 2209) 8.6 MG/DL PROTEIN, TOTAL (test code = 2229) 6.8 G/DL ALBUMIN (test code = 2201) 3.9 G/DL CALC GLOBULIN (test code = 2240) 2.9 G/DL CALC A/G RATIO (test code = 2234) 1.3 RATIO BILIRUBIN, TOTAL (test code = 2207) 0.5 MG/DL ALKALINE PHOSPHATASE (test code = 2204) 111 U/L AST (test code = 2218) 27 U/L ALT (test code = 2219) 25 U/L [place] [facility] Notes Date/Time Note Provider Source 2024-01-31 11:27:14 PT D/C home. GCS15, VS stable, no ataxia noted. Given one prescription and D/C paperwork. Pt ambulatory at time of discharge. Pt educated on facial swelling, dental abscess, med usage, follow up care, s/s worsening condition. Pt verbalized understanding. [facility] 2024-01-31 08:50:25 Woke up yesterday with right facial swelling. Painful when swallowing. 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 LUIS Roberson RN [facility] 2024-01-31 08:45:00 [facility] Emergency Department Note Patient Name: Gem Espinoza Date of : 1980 43 year old female Treatment Room: [place] [address] Primary Care Physician: [facility] Patient Escorted by: Family [5] Mode of Arrival: Personal means [1] EMS Treatment Prior to ED Arrival: Travel and Exposure Screening: Symptoms Does patient have any of these symptoms?: (not recorded) Exposure Screening Has patient had contact with someone with a communicable disease in the last month?: (not recorded) Diseases exposed to:: (not recorded) Is Patient ?: (not recorded) Exposure Date: (not recorded) Chief Complaint: Chief Complaint Patient presents with FACIAL SWELLING History of Present Illness: The patient presents from home for evaluation for swelling of the right side her face that she noted yesterday and has gotten worse today. No fevers or chills. No throat pain. No ear pain. No dental pain. No medications taken for symptoms. She does have a history of diabetes and takes oral medications for this. She does not check her sugar often. She does not smoke. Here for evaluation. 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 Drug Use No. Sexual Activity Not currently sexually active; Partners: Male; Control/Protection: Surgical. Past Surgical History: Past Surgical History: Procedure Laterality Date TUBAL LIGATION 2008 Review of Systems: Review of Systems Constitutional: Negative for chills and fever. HENT: Positive for facial swelling. Respiratory: Negative for cough and shortness of breath. Cardiovascular: Negative for chest pain. Gastrointestinal: Negative for abdominal pain and vomiting. Genitourinary: Negative for dysuria. Musculoskeletal: Negative for arthralgias, neck pain and neck stiffness. Skin: Negative for wound. Neurological: Negative for dizziness. Psychiatric/Behavioral: Negative for agitation. Endocrine: Negative for goiter. Physical Exam: ED Triage Vitals [01/31/24 0850] Weight 97.5 kg (215 lb) Actual or estimated Estimated by patient/family report Height 1.575 m (5' 2") BP (!) 196/111 Pulse 92 Resp 18 Temp 37.1 ?C (98.8 ?F) Temp source Oral SpO2 98 % Measured on Room air Physical Exam Vitals and nursing note reviewed. Constitutional: Appearance: Normal appearance. She is obese. HENT: Head: Normocephalic and atraumatic. Right Ear: Tympanic membrane and ear canal normal. Left Ear: Tympanic membrane and ear canal normal. Nose: Nose normal. Mouth/Throat: Mouth: Mucous membranes are moist. Pharynx: Oropharynx is clear. No oropharyngeal exudate or posterior oropharyngeal erythema. Comments: Poor dentition throughout. No tenderness with percussion of her teeth. Her gums are not swollen or erythematous. Cardiovascular: Rate and Rhythm: Normal rate and regular rhythm. Pulses: Normal pulses. Pulmonary: Effort: Pulmonary effort is normal. No respiratory distress. Abdominal: General: There is no distension. Tenderness: There is no abdominal tenderness. Musculoskeletal: General: Normal range of motion. Cervical back: Normal range of motion and neck supple. Skin: General: Skin is warm. Neurological: General: No focal deficit present. Mental Status: She is alert and oriented to person, place, and time. Radiology: CT MAXILLOFACIAL/MANDIBLE W CONTRAST Final Result FULL RESULT: Examination: CT MAXILLOFACIAL/MANDIBLE W CONTRAST on 01/31/2024 9:14 AM Clinical Indication: Diabetic with recent onset of right facial swelling and dysphagia Comparison: None. Technique: Postcontrast axial images were obtained from lateral ventricles through the thyroid level. Findings: Visualized aspects of the brain, orbits and paranasal sinuses were without worrisome finding. From superior to inferior, starting at about the level of the tonsil there is submucosal edema and fullness that suggests smoldering infection. In the inferior tonsillar region there is a small abscess annotated on image 36 of series 8. There is not much peripheral enhancement, perhaps if the patient is immunocompromised and cannot mount an inflammatory response. Extending inferiorly from here, there is considerable submucosal fullness that I take to represent infection-related edema extending to the submucosa of the hypopharynx and supraglottic. Several additional pockets of liquefaction are identified, one of these annotated on image 29 of series 8. The airway is slightly narrowed but not compromised. With respect to the reported facial swelling, I do not see evidence of this on CT. Incidental note is made of apical lucency related to tooth #31 with associated at least thinning is not loss of the left cortex of the mandible, annotated on series 2 images 37 and 38. I do not see obvious soft tissue infection medial to this location but that would be at risk. There is little if any reactive adenopathy in the right neck. IMPRESSION The imaging suggests right-sided oropharyngeal infection with a considerable submucosal edema and several small pockets of pus, with the process extending inferiorly to the submucosa of the hypopharynx and supraglottic larynx. Lab Results: Lab Results CBC WITH DIFF - Abnormal Result Value Ref Range WBC 9.55 4.30 - 11.10 10*3/?L RBC 4.01 3.93 - 5.25 10*6/?L HGB 11.8 11.6 - 15.0 g/dL HCT 33.2 (*) 35.7 - 45.2 % MCV 82.8 80.6 - 95.5 fL MCH 29.4 25.9 - 32.8 pg MCHC 35.5 (*) 31.6 - 35.1 g/dL RDW-SD 38.5 (*) 39.0 - 49.9 fL RDW-CV 12.7 12.0 - 15.5 % PLT 361 (*) 166 - 358 10*3/?L MPV 9.1 (*) 9.5 - 12.9 fL NRBC/100 WBC 0.0 0.0 - 10.0 /100 WBCs NRBC x10 3 <0.01 10*3/?L GRAN MAT (NEUT) % 67.3 % IMM GRAN % 0.90 % LYMPH % 22.0 % MONO % 8.2 % EOS % 1.0 % BASO % 0.6 % GRAN MAT x10 3 (ANC) 6.42 1.88 - 7.09 10*3/uL IMM GRAN x10 3 0.09 (*) 0.00 - 0.06 10*3/uL LYMPH x10 3 2.10 1.32 - 3.29 10*3/uL MONO x10 3 0.78 0.33 - 0.92 10*3/uL EOS x10 3 0.10 0.03 - 0.39 10*3/uL BASO x10 3 0.06 0.01 - 0.07 10*3/uL COMP. METABOLIC PANEL (99585) - Abnormal NA 131 (*) 135 - 145 mmol/L K 3.5 3.5 - 5.0 mmol/L CL 101 98 - 108 mmol/L CO2 TOTAL 28 23 - 31 mmol/L AGAP 2 2 - 16 BUN 21 7 - 23 mg/dL GLUCOSE 171 (*) 70 - 110 mg/dL CREATININE 0.82 0.50 - 1.04 mg/dL TOTAL BILI 0.2 0.1 - 1.1 mg/dL CALCIUM 9.0 8.6 - 10.6 mg/dL T PROTEIN 6.6 6.3 - 8.2 g/dL ALBUMIN 3.2 (*) 3.5 - 5.0 g/dL ALK PHOS 113 34 - 122 U/L ALTv 19 5 - 35 U/L AST(SGOT) 20 13 - 40 U/L eGFR 91.7 mL/min/1.73m2 POCT TEST - Normal POCT PREG Negative On board controls acceptable with C Line Yes EKG: If EKG completed, see Procedure Note. Orders and Treatments: Orders Placed This Encounter Procedures CT MAXILLOFACIAL/MANDIBLE W CONTRAST CBC WITH DIFF COMP. METABOLIC PANEL (95821) POCT TEST Orders Placed This Encounter Medications iopamidol (ISOVUE 370-500 mL) injection 90 mL ampicillin-sulbactam (UNASYN) 3 g in NaCl 0.9% (NS) 100 mL MINI-BAG amoxicillin-clavulanate 875-125 mg per tablet First Provider Eval: ED Events Date/Time Event User Comments 01/31/24847 Medical Screening Begins VICENTA URBANO DO -- 01/31/2448 First Provider Evaluation VICENTA URBANO DO -- ED COURSE Diagnosis/Impression as of 01/31/24 1112 Swelling of right side of face Dental abscess Procedures: Procedures MDM: Medical Decision Making The patient presents from home for evaluation for swelling of the right side her face that she noted yesterday and has gotten worse today. No fevers or chills. No throat pain. No ear pain. No dental pain. No medications taken for symptoms. She does have a history of diabetes and takes oral medications for this. She does not check her sugar often. She does not smoke. Vital signs are stable in the ER. Patient is obese. There is mild swelling and tenderness noted to the right angle of her jaw. She has poor dentition but no swelling or erythema of her gums are noted and no dental tenderness with percussion. Her pharynx is pink and without exudates erythema. Her tympanic members are pearly sawyer. Will check laboratory studies and obtain a CT of her face to eval for possible facial cellulitis versus abscess. Final disposition pending. 1111 -the patient is doing well here in the ER. Her laboratory studies are unremarkable. The CT of her face is as noted above. Spoke with Dr. Gomez with the ENT service at [facility] who recommends antibiotics and outpatient dental follow-up for likely extraction of her tooth. Therefore she was given a dose of Unasyn IV here in the ER. Will discharge patient home in stable condition with antibiotics as well as instructions to follow-up with a dentist in 1 week. She remained stable here in the ER and is okay for discharge home. Problems Addressed: Dental abscess: acute illness or injury Swelling of right side of face: acute illness or injury Amount and/or Complexity of Data Reviewed Labs: ordered. Decision-making details documented in ED Course. Radiology: ordered and independent interpretation performed. Decision-making details documented in ED Course. Risk OTC drugs. Prescription drug management. Flowsheet Documentation: Scoring Tools: No data recorded Disposition/Condition: ED Disposition ED Disposition Discharge Condition Stable Comment -- Discharge Medications: Patient's Medications START taking these medications AMOXICILLIN-CLAVULANATE 875-125 MG PER TABLET Take 1 tablet by mouth every 12 (twelve) hours for 7 days. CONTINUE taking these medications which have NOT CHANGED ALBUTEROL 90 MCG/ACTUATION INHALER Inhale 2 Puffs every 4 (four) hours as needed for Wheezing or Shortness of Breath. ALBUTEROL 90 MCG/ACTUATION INHALER Inhale 2 Puffs every 4 (four) hours as needed for Wheezing or Shortness of Breath. BENZONATATE 100 MG CAPSULE Take 2 capsules by mouth 3 (three) times daily as needed for Cough. BENZONATATE 100 MG CAPSULE Take 2 capsules by mouth 3 (three) times daily as needed for Cough. DOCUSATE SODIUM 250 MG CAPSULE Take 1 capsule by mouth daily. IBUPROFEN 600 MG TABLET Take 1 tablet by mouth every 6 (six) hours as needed for Pain (scale 4-6). NORGESTIMATE-ETHINYL ESTRADIOL (ORTHO TRI-CYCLEN, 28,) 0.18/0.215/0.25 MG-35 MCG (28) TABLET Take 1 tablet by mouth daily. START taking Modified Medications as Prescribed No medications on file STOP taking these medications No medications on file Follow-up: Electronically signed by: Vicenta Urbano DO 01/31/24 1112 [facility]2024-05-13 00:00:00 [facility]
[2024-01-31] MEDS ORDERED: DIPHENHYDRAMINE 50 MG/ML VIAL ONE (23:20)
[2024-01-31] MEDS ORDERED: FAMOTIDINE 20 MG/2 ML VIAL IV ONE (23:20)
[2024-01-31] MEDS ORDERED: METHYLPREDNISOLONE 125 MG INJ ONE (23:20)
[2024-01-31] MEDS ORDERED: NA CHLORIDE 0.9% 1,000 ML ONE (23:20)
[2024-02-01] MEDS ORDERED: NA CHLORIDE 0.9% 100 ML ONE ×2 (01:07→08:10)
[2024-02-01] MEDS ORDERED: CEFEPIME 2 GM VIAL ONE ×2 (01:07→08:09)
[2024-02-01] MEDS ORDERED: CLINDAMYCIN 900MG/D5W 900 MG/50 ML IVPB IV ONE ×2 (01:07→08:09)
[2024-02-01 01:58] LABS: PT Prothrombin Time 11.2 SECONDS (9.4-12.5)
[2024-02-01 02:04] LABS: Absolute Basophils 0.1 K/uL (0-0.5); Absolute Lymphocytes (CBC) 0.9 K/uL (0.7-4.9); Absolute Monocytes 0.4 K/uL (0.1-1.3); Absolute Neutrophil 12.6 K/uL (1.8-8.0); Basophils % 0.7 % (0-1.3); Eosinophils % 0.1 % (0-4.4); Hematocrit 31.9 % (36.0-45.0); Hemoglobin 11.1 g/dL (12.0-15.0); Lymphocytes % 6.3 % (15.3-44.8); MCH 29.3 pg (27.0-35.0); MCHC 34.7 g/dL (32.0-36.0); MCV 84.6 fL (80-100); MPV 7.2 fL (7.6-11.3); Monocytes % 2.6 % (3.3-12.3); Neutrophils % 90.3 % (41.7-73.7); Platelets 313 thou/uL (152-406); RBC Red Blood Cell Count 3.77 M/uL (3.86-4.86); Red Cell Distribution Width 13.6 % (12.1-15.2)
[2024-02-01 02:10] LABS: Albumin/Globulin Ratio 0.5 (1.1-1.8); Bilirubin Total 0.4 mg/dL (0.2-1.0); Globulin 4.3 g/dL (2.3-3.5); Protein, Total 6.3 g/dL (6.4-8.2)
--- NOTE | 2024-02-01 02:12 | RAD REPORT ---
CT NECK WITH IV CONTRAST CLINICAL INDICATION: Pain and swelling. COMPARISON: None TECHNIQUE: CT images of the neck were obtained following administration of intravenous contrast. Mult iplanar reformats were provided. Dose lowering techniques such as automated exposure control, iterative reconstruction, and mA and/or kV adjustment for patient size was utilized for this examinat ion. FINDINGS: SOFT TISSUES: Asymmetric thickening and enhancement of the right palatine tonsil, in keeping with ton sillitis. A 0.5 x 0.8 x 2.0 cm (TV x AP x CC) fluid attenuation area in the peritonsillar region with incomplete rim enhancement may represent phlegmon or early abscess. There is mild retropharyngea l edema without collection. LYMPH NODES: Shotty cervical lymph nodes, likely reactive. AERODIGESTIVE TRACT: Patent. THYROID/SALIVARY GLANDS: Unremarkable. PARANASAL SINUSES: Clear. MASTOIDS: Well aerated. VESSELS: Unremarkable. BONES: No acute bony abnormality. No evidence of pathologic lytic or blastic osseous lesions. VISUALIZED BRAIN/ORBITS: Unremarkable. LUNG APICES: Mild streaky opacity at right lung apex, likely subsegmental atelectasis. OTHER: None. IMPRESSION: 1. Right palatine tonsilitis. 2. Small 2.0 cm peritonsillar fluid attenuation area with incomplete rim enhancement may represent phlegmon or early abscess. Electronically signed by: Melinda Gallagher MD 02/01/2024 02:04 AM [facility] Due to temporary technical issues with the PACS/[facility] reporting system, reports are being natalee d by the in-house radiologist without review as a courtesy to ensure prompt reporting the interpreting radiologist is fully responsible for the content of the report. Transcribed Date/Time: 02/01/2024 2:12 AM
[2024-02-01] MEDS ORDERED: KETOROLAC 30 MG/ML INJ ONE (03:23)
[2024-02-01] MEDS ORDERED: ONDANSETRON 4 MG/2 ML VIAL ONE ×3 (03:23→13:01)
[2024-02-01] MEDS ORDERED: MORPHINE 4 MG/ML SYR ONE (03:24)
[2024-02-01] MEDS ORDERED: NA CHLORIDE 0.9% 1,000 ML ONE ×2 (03:25→08:09)
[2024-02-01] MEDS ORDERED: MORPHINE 2 MG/ML SYR ONE ×2 (03:25→08:09)
[2024-02-01 03:55] LABS: Band Neutrophils 9 % (0-1); Blood Morphology Comment NOT SEEN (NOT SEEN); Differential Total Cells Count 100; Lymphocytes 5 % (15-42); Monocytes 0 % (0-10); Platelet Estimate ADEQ; Reactive Lymphocytes 1 %; Segmented Neutrophils 85 % (40-80)
[2024-02-01] MEDS ORDERED: INSULIN REGULAR (HUMAN) 100 UNIT/ML ONE ×4 (04:01→12:41)
--- NOTE | 2024-02-01 07:20 | ER ---
Nurse's Notes [facility] Name: Gem Espinoza Age: 43 yrs Sex: Female : 1980 Arrival Date: 01/31/2024 Time: 23:03 Bed 15 Private MD: Diagnosis: Right paratonsillar abscess Presentation: 01/30 23:05 Chief complaint: Patient states: I started having shortness of breathing and difficulty rg5 swallowing around 6 pm, I was recently discharged from ER for dental abscess and was given antibiotics. 23:05 Coronavirus screen: Client denies travel out of the [place] in the last 14 days. Ebola rg5 Screen: Patient negative for fever greater than or equal to 101.5 degrees Fahrenheit, and additional compatible Ebola Virus Disease symptoms. Initial Sepsis Screen: Does the patient meet any 2 criteria? No. Patient's initial sepsis screen is negative. Does the patient have a suspected source of infection? No. Patient's initial sepsis screen is negative. Risk Assessment: Do you want to hurt yourself or someone else? Patient reports no desire to harm self or others. Onset of symptoms was January 31, 2024. 23:05 Method Of Arrival: Wheelchair rg5 23:05 Acuity: ELIZABETH 3 rg5 Triage Assessment: 23:05 General: Appears in no apparent distress. Behavior is calm, cooperative, appropriate rg5 for age. Pain: Complains of pain in right jaw Pain currently is 9 out of 10 on a pain scale. Quality of pain is described as aching, Pain began 4 hours ago. EENT: Reports pain when swallowing. Neuro: Level of Consciousness is awake, alert, obeys commands, Oriented to person, place, time. Cardiovascular: Heart tones S1 S2 Patient's skin is warm and dry. Respiratory: Airway is patent Trachea midline Respiratory effort is even, Respiratory pattern is regular, symmetrical. GI: Abdomen is round non-distended, Abd is soft and non tender. : No signs and/or symptoms were reported regarding the genitourinary system. Derm: Skin is intact, Skin is dry, Skin is normal, Skin temperature is warm. Musculoskeletal: Circulation, motion, and sensation intact. Range of motion: intact in all extremities. 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 - Infectious Disease History:: Denies. - Social history:: Smoking status: Patient denies any tobacco usage or history of. Screenin:05 [facility] ED Fall Risk Assessment (Adult) History of falling in the last 3 months, rg5 including since admission No falls in past 3 months (0 pts) Confusion or Disorientation No (0 pts) Intoxicated or Sedated No (0 pts) Impaired Gait No (0 pts) Mobility Assist Device Used No (0 pt) Altered Elimination No (0 pt) Score/Fall Risk Level 0 - 2 = Low Risk Oriented to surroundings, Maintained a safe environment, Hourly rounding (assess needs \T\ fall precautionary measures) done. Abuse screen: Denies threats or abuse. Nutritional screening: No deficits noted. Tuberculosis screening: No symptoms or risk factors identified. Assessment: 23:05 Reassessment: see triage assessment. rg5 01/31 00:00 Reassessment: Patient and/or family updated on plan of care and expected duration. Pain rg5 level reassessed. Patient is alert, oriented x 3, equal unlabored respirations, skin warm/dry/pink. 01:00 Reassessment: Patient and/or family updated on plan of care and expected duration. Pain rg5 level reassessed. Patient is alert, oriented x 3, equal unlabored respirations, skin warm/dry/pink. 02:03 Reassessment: Patient and/or family updated on plan of care and expected duration. Pain rg5 level reassessed. Patient is alert, oriented x 3, equal unlabored respirations, skin warm/dry/pink. 03:00 Reassessment: Patient and/or family updated on plan of care and expected duration. Pain rg5 level reassessed. Patient is alert, oriented x 3, equal unlabored respirations, skin warm/dry/pink. Patient states feeling better. 04:06 Reassessment: Patient and/or family updated on plan of care and expected duration. Pain rg5 level reassessed. Patient is alert, oriented x 3, equal unlabored respirations, skin warm/dry/pink. Patient states symptoms have improved. 05:00 Reassessment: Patient and/or family updated on plan of care and expected duration. Pain rg5 level reassessed. Patient is alert, oriented x 3, equal unlabored respirations, skin warm/dry/pink. Patient states symptoms have improved. 06:00 Reassessment: Patient and/or family updated on plan of care and expected duration. Pain rg5 level reassessed. Patient is alert, oriented x 3, equal unlabored respirations, skin warm/dry/pink. Patient states feeling better. Vital Signs: 01/30 23:05 BP 157 / 97; Pulse 93; Resp 19; Temp 98.3(O); Pulse Ox 99% on R/A; Weight 99.79 kg; rg5 Height 5 ft. 2 in. ; Pain 9; 23:05 BP 157 / 97; Pulse 93; Resp 19; Pulse Ox 99% on R/A; Pain 910; rg5 01/31 01:00 BP 166 / 84; Pulse 83; Resp 19; Pulse Ox 96% on R/A; rg5 02:05 BP 154 / 85; Pulse 83; Resp 19 S; Pulse Ox 98% on R/A; rg5 03:46 BP 166 / 81; Pulse 89; Resp 19; Pulse Ox 97% on R/A; rg5 05:05 BP 147 / 74; Pulse 87; Resp 17; Pulse Ox 94% on R/A; rg5 06:30 BP 148 / 78; Pulse 88; Resp 17; Temp 98; Pulse Ox 95% ; Pain 0/10; rg5 01/30 23:05 Body Mass Index 40.24 (99.79 kg, 157.48 cm) [facility] 01/30 23:05 Pain Scale: Adult rg5 23:05 Pain Scale: Adult rg5 06:30 Pain Scale: Adult rg5 Bhavik Coma Score: 07:18 Eye Response: spontaneous(4). Motor Response: obeys commands(6). Verbal Response: sp4 oriented(5). Total: 15. ED Course: 01/30 23:04 Patient arrived in ED. vc1 23:05 No provider procedures requiring assistance completed. rg5 23:05 Arm band placed on left wrist. rg5 23:05 Patient has correct armband on for positive identification. Bed in low position. Call rg5 light in reach. Side rails up X 1. Door closed. Noise minimized. 23:06 [facility] Alcocer [facility]-C [facility]. kb 23:06 Francis Quintanilla MD is Attending Physician. kb 23:18 Jaiden Galo RN is Primary Nurse. rg5 23:23 Inserted saline lock: 20 gauge in left antecubital area, using aseptic technique. vk Flushed with 10 mL NS. 23:53 Triage completed. rg5 01/31 01:07 CT Soft Tissue Neck W/contr In Process Unspecified. EDMS 07:19 Tayo Love is Hospitalizing Provider. sp4 08:36 Urinalysis w/ reflexes Sent. ko1 08:36 Test, Urine Sent. ko1 10:22 Patient admitted, IV remains in place. tm6 10:23 Provided Education on: need for admit. tm6 Administered Medications: 01/30 23:18 Drug: diphenhydrAMINE IVP 25 mg IVP once Route: IVP; Site: left antecubital; vc1 01/31 00:55 Follow up: Response: No adverse reaction [facility] 01/30 23:18 Drug: MethylPrednisoLONE IVP 125 mg IVP once Route: IVP; Site: left antecubital; vc1 01/31 00:55 Follow up: Response: No adverse reaction [facility] 01/30 23:18 Drug: Famotidine IVP 20 mg IVP once; dilute with 10 mL 0.9% NaCl; give over 2 minutes vc1 Route: IVP; Site: left antecubital; 01/31 00:55 Follow up: Response: No adverse reaction [facility] 01/30 23:35 Drug: NS 0.9% IV 1000 ml IV at 1000 ml once; to be given as a bolus over 60 minutes rg5 Route: IV; Rate: 1000 ml; Site: left antecubital; 01/31 11:17 Follow up: Response: No adverse reaction; IV Status: Completed infusion; IV Intake: tm6 1000ml 01:00 Drug: Clindamycin IVPB 900 mg IVPB once over 30 mins; (mix in 50 mL) Route: IVPB; rg5 Infused Over: 30 mins; Site: left antecubital; 01:44 Drug: Cefepime IVPB 2 grams IVPB at 200 ml/hr once over 30 mins; (mix in NS 100 mL) rg5 Route: IVPB; Rate: 200 ml/hr; Infused Over: 30 mins; Site: left antecubital; 03:30 Drug: morphine IVP or IV 6 mg IVP once over 4 mins Route: IVP; Infused Over: 4 mins; rg5 Site: left antecubital; 04:05 Follow up: Response: No adverse reaction; Pain is decreased rg5 03:30 Drug: Ketorolac IVP 30 mg IVP once Route: IVP; Site: left antecubital; rg5 04:05 Follow up: Response: No adverse reaction; Pain is decreased rg5 03:30 Drug: Ondansetron IVP 4 mg IVP once; over 2 minutes Route: IVP; Site: left antecubital; rg5 04:05 Follow up: Response: No adverse reaction rg5 03:40 Drug: NS 0.9% IV 1000 ml IV at 125 ml/hr continuous Route: IV; Rate: 125 ml/hr; Site: rg5 left antecubital; 04:00 Drug: Insulin Regular Human IVP 5 units IVP once {Co-Signature: cp4 (rhea Grubbs).} Route: IVP; Site: left antecubital; 04:22 Follow up: Response: No adverse reaction; Blood sugar is lowered rg5 Medication: 01/30 23:05 VIS not applicable for this client. rg5 Intake: 01/31 11:17 IV: 1000ml; Total: 1000ml. tm6 Outcome: 07:20 Decision to Hospitalize by Provider. sp4 10:22 Admitted to ER Hold. Please see [facility] for further documentation. tm6 10:22 Condition: stable 10:22 Instructed on the need for admit, 12:02 Patient left the ED. bd Signatures: Dispatcher [employer] EDMS Jyoti Alcocer, HOUSE MANAGER-C HOUSE MANAGER-CkAlise Mcdonough bd [place] Estrella RN RN 1 Jane Abraham RN RN Francis Tadeo MD MD sp4 Kd Bennett RN RN tm6 Marylin Polanco Rommel, RN RN rg5 Riri Grubbs cp4
--- NOTE | 2024-02-01 07:21 | EDPHYS ---
Physician Documentation [facility] Name: Gem Espinoza Age: 43 yrs Sex: Female : 1980 Arrival Date: 01/31/2024 Time: 23:03 Bed 15 Private MD: ED Physician Francis Quintanilla HPI: 01/31 00:30 This 43 yrs old Female presents to ER via Wheelchair with complaints of throat kb swelling. 00:30 Pt is a 43 year old female who presents for pain and swelling to throat. States she was kb seen at [place] this morning, diagnosed with dental abscess and given a shot of antibiotics. States she went home, took a nap and when she woke up she had swelling across neck with difficulty breathing. Denies fever. . 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 - Infectious Disease History:: Denies. - Social history:: Smoking status: Patient denies any tobacco usage or history of. ROS: 01/31 00:29 Constitutional: As per HPI kb 07:18 All other systems are negative, sp4 Exam: 00:29 Constitutional: This is a well developed, well nourished patient who is awake, alert, kb and in no acute distress. Head/Face: Normocephalic, atraumatic. ENT: Moist Mucous membranes Cardiovascular: Regular rate Abdomen/GI: Soft, non-tender. No distention Skin: Warm, dry with normal turgor. Normal color. MS/ Extremity: Pulses equal, no cyanosis. Neurovascular intact. Full, normal range of motion. Neuro: Awake and alert, GCS 15, oriented to person, place, time, and situation. 00:29 Respiratory: the patient does not display signs of respiratory distress, Respirations: normal, Breath sounds: audible coarse sounds; lungs clear to auscultation. , 07:18 Eyes: Pupils equal round and reactive to light, extra-ocular motions intact. Lids and sp4 lashes normal. Conjunctiva and sclera are not injected. Cornea within normal limits. Periorbital areas with no swelling, redness, or edema. Neck: Trachea midline, no thyromegaly or masses palpated, and no cervical lymphadenopathy. Supple, full range of motion without nuchal rigidity, or vertebral point tenderness. Chest/axilla: Normal chest wall appearance and motion. Nontender with no deformity. No lesions are appreciated. Respiratory: Lungs have equal breath sounds bilaterally, clear to auscultation and percussion. No rales, rhonchi or wheezes noted. No increased work of breathing, no retractions or nasal flaring. Back: No spinal tenderness. No costovertebral tenderness. Psych: Awake, alert, with orientation to person, place and time. Behavior, mood, and affect are within normal limits Vital Signs: 01/30 23:05 BP 157 / 97; Pulse 93; Resp 19; Temp 98.3(O); Pulse Ox 99% on R/A; Weight 99.79 kg; 5 Height 5 ft. 2 in. ; Pain 9/10; 23:05 BP 157 / 97; Pulse 93; Resp 19; Pulse Ox 99% on R/A; Pain 9/10; rg5 01/31 01:00 BP 166 / 84; Pulse 83; Resp 19; Pulse Ox 96% on R/A; 5 02:05 BP 154 / 85; Pulse 83; Resp 19 S; Pulse Ox 98% on R/A; 5 03:46 BP 166 / 81; Pulse 89; Resp 19; Pulse Ox 97% on R/A; 5 05:05 BP 147 / 74; Pulse 87; Resp 17; Pulse Ox 94% on R/A; 5 06:30 BP 148 / 78; Pulse 88; Resp 17; Temp 98; Pulse Ox 95% ; Pain 0/10; rg5 01/30 23:05 Body Mass Index 40.24 (99.79 kg, 157.48 cm) [facility] 01/30 23:05 Pain Scale: Adult rg5 23:05 Pain Scale: Adult rg5 06:30 Pain Scale: Adult rg5 Bhavik Coma Score: 07:18 Eye Response: spontaneous(4). Motor Response: obeys commands(6). Verbal Response: sp4 oriented(5). Total: 15. MDM: 01/30 23:06 Medical Screening Exam initiated kb 01/31 00:30 Data reviewed: vital signs, nurses notes. kb 00:53 Transition of care: After a detail discussion of the patient's case, care is kb transferred to Francis Quintanilla MD. 07:04 Differential diagnosis: angioedema, Arrhythmias dental caries, gingivitis, dental sp4 abscess, pericoronitis. Consideration of Admission/Observation Patient was admitted/placed on observation. Escalation of care including admission/observation considered. Management of patient was discussed with the following: Hospitalist: Kate MARSHALL. Manager Employee Benefits: Enriqueta MAHARAJ. ED course: Stable for admission for ENT to attempt aspiration on operating room later this afternoon. 07:20 ED course: CT NECK WITH IV CONTRAST CLINICAL INDICATION: Pain and swelling. COMPARISON: sp4 None TECHNIQUE: CT images of the neck were obtained following administration of intravenous contrast. Multiplanar reformats were provided. Dose lowering techniques such as automated exposure control, iterative reconstruction, and mA and/or kV adjustment for patient size was utilized for this examination. FINDINGS: SOFT TISSUES: Asymmetric thickening and enhancement of the right palatine tonsil, in keeping with tonsillitis. A 0.5 x 0.8 x 2.0 cm (TV xAP x CC) fluid attenuation area in the peritonsillar region with incomplete rim enhancement may represent phlegmon or early abscess. There is mild retropharyngeal edema without collection. LYMPH NODES: Shotty cervical lymph nodes, likely reactive. AERODIGESTIVE TRACT: Patent. THYROID/SALIVARYGLANDS: Unremarkable. PARANASAL SINUSES: Clear. MASTOIDS: Well aerated. VESSELS: Unremarkable. BONES: No acute bony abnormality. No evidence of pathologic lytic or blastic osseous lesions. VISUALIZED BRAIN/ORBITS: Unremarkable. LUNG APICES: Mild streaky opacity at right lung apex, likely subsegmental atelectasis. OTHER: None. IMPRESSION: 1. Right palatine tonsilitis. 2. Small 2.0 cm peritonsillar fluid attenuation area with incomplete rim enhancement may represent phlegmon or early abscess. . 07:20 ED course: Patient discussed with ENT Dr. Robison who plans to take patient to the OR sp4 later today for drainage of abscess . 01/31 00:51 Order name: CBC with Diff sp4 01/31 00:51 Order name: CMP; Complete Time: 03:21 sp4 01/31 00:51 Order name: PT-INR; Complete Time: 03:21 sp4 01/31 02:11 Order name: Manual Differential EDMS 01/31 04:37 Order name: Glucose, Ancillary Testing EDMS 01/31 07:29 Order name: Basic Metabolic Panel EDMS 01/31 07:29 Order name: Basic Metabolic Panel EDMS 01/31 07:29 Order name: CBC with Automated Diff EDMS 01/31 07:29 Order name: CBC with Automated Diff EDMS 01/31 07:29 Order name: Magnesium EDMS 01/31 07:29 Order name: Magnesium EDMS 01/31 07:29 Order name: Phosphorus EDMS 01/31 07:29 Order name: Phosphorus EDMS 01/31 07:30 Order name: Test, Urine EDMS 01/31 07:30 Order name: Urinalysis w/ reflexes EDMS 01/31 08:32 Order name: Glucose, Ancillary Testing EDMS 01/31 08:59 Order name: Test, Urine EDMS 01/31 09:00 Order name: Urinalysis w/ reflexes EDMS 01/31 11:53 Order name: Glucose, Ancillary Testing EDMS 01/30 23:11 Order name: CT Soft Tissue Neck W/contr kb 01/31 07:29 Order name: CONS Physician Consult EDVT 01/30 23:11 Order name: IV Start; Complete Time: 23:35 kb 01/31 00:51 Order name: IV Saline Lock; Complete Time: 00:55 sp4 01/31 00:51 Order name: Labs collected and sent; Complete Time: 00:55 sp4 01/31 01:15 Order name: Misc. Order: RECOLLECT ALL LABS; Complete Time: 01:44 rv1 01/31 03:20 Order name: NPO; Complete Time: 03:45 sp4 Administered Medications: 01/30 23:18 Drug: diphenhydrAMINE IVP 25 mg IVP once Route: IVP; Site: left antecubital; 01/31 00:55 Follow up: Response: No adverse reaction [facility] 01/30 23:18 Drug: MethylPrednisoLONE IVP 125 mg IVP once Route: IVP; Site: left antecubital; 1 01/31 00:55 Follow up: Response: No adverse reaction [facility] 01/30 23:18 Drug: Famotidine IVP 20 mg IVP once; dilute with 10 mL 0.9% NaCl; give over 2 minutes vc1 Route: IVP; Site: left antecubital; 01/31 00:55 Follow up: Response: No adverse reaction rg5 01/30 23:35 Drug: NS 0.9% IV 1000 ml IV at 1000 ml once; to be given as a bolus over 60 minutes rg5 Route: IV; Rate: 1000 ml; Site: left antecubital; 01/31 11:17 Follow up: Response: No adverse reaction; IV Status: Completed infusion; IV Intake: tm6 1000ml 01:00 Drug: Clindamycin IVPB 900 mg IVPB once over 30 mins; (mix in 50 mL) Route: IVPB; rg5 Infused Over: 30 mins; Site: left antecubital; 01:44 Drug: Cefepime IVPB 2 grams IVPB at 200 ml/hr once over 30 mins; (mix in NS 100 mL) rg5 Route: IVPB; Rate: 200 ml/hr; Infused Over: 30 mins; Site: left antecubital; 03:30 Drug: morphine IVP or IV 6 mg IVP once over 4 mins Route: IVP; Infused Over: 4 mins; rg5 Site: left antecubital; 04:05 Follow up: Response: No adverse reaction; Pain is decreased rg5 03:30 Drug: Ketorolac IVP 30 mg IVP once Route: IVP; Site: left antecubital; rg5 04:05 Follow up: Response: No adverse reaction; Pain is decreased rg5 03:30 Drug: Ondansetron IVP 4 mg IVP once; over 2 minutes Route: IVP; Site: left antecubital; rg5 04:05 Follow up: Response: No adverse reaction rg5 03:40 Drug: NS 0.9% IV 1000 ml IV at 125 ml/hr continuous Route: IV; Rate: 125 ml/hr; Site: rg5 left antecubital; 04:00 Drug: Insulin Regular Human IVP 5 units IVP once {Co-Signature: rhea Srivastava).} Route: IVP; Site: left antecubital; 04:22 Follow up: Response: No adverse reaction; Blood sugar is lowered rg5 Disposition: 07:19 Co-signature as Attending Physician, Francis Quintanilla MD I agree with the assessment sp4 and plan of care. I reviewed the patient's care provided by Advanced Practice Provider \T\ agree w/ the diagnosis \T\ care plan. I personally saw the pt \T\ performed a substantive portion of the visit, incldng all aspects of the (History/Exam/Medical Decision Making). Disposition Summary: 02/01/24 07:20 Hospitalization Ordered Notes: Hospitalization Status: Inpatient Admission sp4 Provider: Tayo Love [facility] sp4 Condition: Fair sp4 Problem: new sp4 Symptoms: have improved sp4 Bed/Room Type: Standard sp4 Room Assignment: 228(02/01/24 11:12) bd Diagnosis - Right paratonsillar abscess sp4 Discharge Instructions: - Discharge Summary Sheet ane Forms: - Medication Reconciliation Form sp4 - SBAR form sp4 - Leadership Thank You Letter sp4 Signatures: Dispatcher [employer] EDJyoti Rodríguez, AYAKAC BLACK OFF WORKER-Alise Haywood bd Little Estrella RN RN vc1 Phuong Denise Sergey, MD MD sp4 Jaiden Galo RN RN rg5 Kd Bennett RN 6 Riri Grubbs 4 Corrections: (The following items were deleted from the chart) 11:12 07:20 sp4 bd
[2024-02-01] MEDS: INSULIN REGULAR (HUMAN) 100 UNIT/ML SQ SCH (07:30)
--- NOTE | 2024-02-01 07:39 | P.HP ---
Certification for Inpatient Patient admitted to: Observation With expected LOS: <2 Midnights Patient will require the following post-hospital care: None Practitioner: I am a practitioner with admitting privileges, knowledge of patient current condition, hospital course, and medical plan of care. Services: Services provided to patient in accordance with Admission requirements found in Title 42 Section 412.3 of the Code of Federal Regulations Patient History Date of Service: 02/01/24 Reason for admission: right peritonsillar abscess History of Present Illness: Gem Espinoza is a 43 year old female with Pmhx HTN and DM who presents to the ED with chief complaint of Right jaw pain. She reports going to the ED in [place] and discharged with antibiotics. She fell asleep but was woken at 4 am with increased swelling across her neck causing difficulty breathing and swallowing. She came to the ED this morning, CT soft tissue neck revealed "Right palatine tonsilitis, Small 2.0 cm peritonsillar fluid attenuation area with incomplete rim enhancement may represent phlegmon or early abscess. Laboratory evaluation significant for WBC 14, serum glucose 317, UA and urine pending. While in the ED she was given steroids, cefepime, cleocin, benadryl, and 2 L NS. Gem will be admitted to hospitalist service for further treatment of Acute right peritonsillar abscess, Dr. Robison consulted. Allergies No Known Allergies Allergy (Unverified 09/30/15 21:14) Home Medications: Glipizide [Glipizide ER] 1 tab PO TID 06/01/20 Lisinopril [Zestril] 10 mg PO DAILY 06/01/20 Lovastatin [Altoprev] 40 mg PO BEDTIME 06/01/20 Metformin ER [Glucophage ER*] 1,000 mg PO BID 06/01/20 Sitagliptin Phosphate [Januvia*] 50 mg PO DAILY 06/01/20 Ascorbic Acid 500 mg PO TID 30 Days #90 tablet 06/06/20 Cholecalciferol (Vitamin D3) [Vitamin D 5,000 IU Cap*] 5,000 unit PO DAILY 30 Days #30 cap 06/06/20 Famotidine [Pepcid] 40 mg PO BID 30 Days #60 tablet 06/06/20 Insulin 70/30 NPH/Reg Human [Novolin 70/30*] 10 unit SQ BIDAC 30 Days #8 ml 06/06/20 Zinc Sulfate [Zinc Sulfate*] 220 mg PO DAILY #30 cap 06/06/20 predniSONE [Deltasone] 20 mg PO SEECOM 14 Days #21 tab 06/06/20 - Past Medical/Surgical History -: Diabetes mellitus type 2 -: HTN -: root canal - Family History Mother -: Diabetes - Social History Smoking Status: Never smoker Alcohol use: No CD- Drugs: No Review of Systems ENT: Throat Pain, Throat Swelling, Other (difficulty swallowing and breathing from swelling) Physical Examination - Physical Exam General: Alert, In no apparent distress, Oriented x3 HEENT: Atraumatic, Normocephalic, PERRLA Neck: Supple, Other (swelling and tenderness to right ) Respiratory: Clear to auscultation bilaterally, Normal air movement Cardiovascular: No edema, Normal pulses, Regular rate/rhythm, Normal S1 S2 Capillary refill: <2 Seconds Gastrointestinal: Normal bowel sounds, Soft and benign, No tenderness, Distended (obese ) Musculoskeletal: No clubbing Integumentary: No rashes Neurological: Normal speech, Normal tone - Studies Laboratory Data (last 24 hrs) 02/01/24 02/01/24 02/01/24 01:44 01:44 01:44 WBC 14.00 H Hgb 11.1 L Hct 31.9 L Plt Count 313 PT 11.2 INR 1.00 Sodium 133 L Potassium 4.0 BUN 17 Creatinine 0.92 Glucose 317 H Total Bilirubin 0.4 AST 16 ALT 20 Alkaline Phosphatase 94 Assessment and Plan - Plan Assessment and Plan Aute Right peritonsillar abscess Leukocytosis -CT soft tissue neck revealed "Right palatine tonsilitis, Small 2.0 cm peritonsillar fluid attenuation area with incomplete rim enhancement may represent phlegmon or early abscess. -WBC 14 -consulted Dr. Robison, plan for OR around 1230 -cefepime and cleocin -IVF -pain control -Solumedrol and benadryl given in the ED -NPO for surgery this afternoon -aspiration precaution HTN -hydralazine PRn -continue home medications DM -accucheck with SSI -Serum glucose 332 DVT ppx SCD full code LOS 24 hour OBS Discharge Plan: Home Plan to discharge in: 24 Hours - Advance Directives Does patient have a Living Will: No Does patient have a Durable POA for Healthcare: No
[2024-02-01] MEDS ORDERED: HYDRALAZINE HCL 20 MG/ML VIAL IV PRN (07:52)
[2024-02-01] MEDS: NA CHLORIDE 0.9% 1,000 ML IV SCH (08:00)
[2024-02-01] MEDS: CEFEPIME 2 GM in NA CHLORIDE 0.9% 100 ML IV SCH (08:32)
[2024-02-01] MEDS: MORPHINE 2 MG/ML SYR IV PRN (08:32)
[2024-02-01] MEDS: ONDANSETRON 4 MG/2 ML VIAL IV PRN (08:33)
[2024-02-01 08:59] LABS: Specific Gravity > 1.030 (1.005-1.030)
[2024-02-01 09:00] LABS: Specific Gravity > 1.030 (1.005-1.030); Sqamous Epithelial <5 /HPF (None Seen); Urine Bacteria <20 /HPF (<20); Urine Bilirubin NEGATIVE (Negative); Urine Blood 1+ (Negative); Urine Clarity Clear (Clear); Urine Color Yellow (Yellow); Urine Culture Reflex Order NOT NEEDED; Urine Glucose 4+ (Over) (Negative); Urine Ketones TRACE (Negative); Urine Microscopic Reflex YN ORDER UMIC; Urine Mucus Slight /HPF (None Seen); Urine Nitrite NEGATIVE (Negative); Urine Protein 3+ (Negative); Urine Urobilinogen Normal (Normal); Urine WBC <5 /HPF (<5); Urine Yeast (Budding) Trace /HPF (None Seen)
[2024-02-01] MEDS: CLINDAMYCIN 900MG/D5W 900 MG/50 ML IVPB IV SCH (09:00)
--- NOTE | 2024-02-01 09:13 | P.PN ---
Date of Service: 02/01/24 ENT Consultation Please see dictated H&P. Impression: 1. Acute right peritonsillar abscess, refractory to outpatient antibiotics. Plan: 1. Due to trismus, we will take to OR for incision and drainage of the abscess, with plan to d/c home same day, if able. Keep NPO. 2. Continue current recommendations per IM service.
[2024-02-01 09:45] VITALS: BMI 40.0
[2024-02-01] MEDS ORDERED: SUCCINYLCHOLINE 20 MG/ML (10 ML) IV ONE (12:54)
[2024-02-01] MEDS ORDERED: propofoL 200 MG/20 ML VIAL IV ONE (13:01)
[2024-02-01] MEDS ORDERED: FENTANYL CITR 100 MCG/2 ML ONE (13:01)
[2024-02-01] MEDS ORDERED: MIDAZOLAM HCL 2 MG/2 ML INJ ONE (13:02)
[2024-02-01] MEDS ORDERED: LIDOCAINE 2% MPF 5 ML VIAL ONE (13:03)
[2024-02-01] MEDS ORDERED: ROCURONIUM 50 MG/5 ML VIAL IV ONE (13:07)
[2024-02-01] MEDS: LIDOCAINE HCL/EPINEPHRINE 20 ML MDV ONE (13:40)
[2024-02-01] MEDS: HYDROMORPHONE HCL 1 MG/ML INJ ONE (14:24)
[2024-02-01 15:40] VITALS: BP 140/77; TEMP 98.7; O2SAT 98
[2024-02-01] MEDS: ACETAMINOPHEN 160 MG/5 ML UCUP ONE (15:46)
--- NOTE | 2024-02-01 19:37 | CON ---
Date of Consultation: 02/01/2024 Chief Complaint: Severe right-sided sore throat. History Of Present Illness: The patient is a pleasant 43-year-old female with past medical history o f hypertension, diabetes, who presented to the emergency department with chief complaint of right jaw pain extending into the neck and right side of the throat. She went to the emergency room in [facility] on and was discharged with antibiotics yesterday and she attempted to take the antibiotics but was ca using issues with the pills getting stuck in her throat and she notes that the swelling was increasin g across her neck causing difficulty breathing and swallowing. She presented to the emergency room t his morning and a CT soft tissue neck revealed right palatine tonsillitis with 2.0 cm peritonsillar f luid collection with rim enhancement. I was consulted for further evaluation. [facility] arrival to [facility], the patient is in no acute distress, but definitely has a muffled voice and inability to distract the jaw at least 2 cm. She does have trismus associated with jaw distraction and she believes that the right side of her neck is swollen and she is unable to swallow her secretions. No other ENT comp laints today. This is the first time she has had an abscess and she did not have recurrent tonsillit is as a child. Past Medical History: Diabetes mellitus, hyperlipidemia, gastroesophageal reflux disease. Past Surgical History: Root canal. Home Medications: Include glipizide, lisinopril, lovastatin, metformin ER, sitagliptin, ascorbic aci d, cholecalciferol, famotidine, insulin, zinc sulfate, and prednisone. Allergies: NO KNOWN DRUG ALLERGIES. Social History: Denies tobacco, alcohol, illicit drugs. Review of Systems: Constitutional: Positive for fatigue. Head: Negative for headache, trauma. Ears: Negative for otalgia, otorrhea, hearing loss. Nose: Negative for nasal congestion, rhinorrhea, postnasal drip. Throat: Positive for significant painful swallowing and difficulty swallowing. Positive for trismus and positive for inability to distract the jaw. Neck: Positive for right neck swelling. Physical Examination: Vital Signs: Stable. General: The patient is awake, alert, and oriented, in no acute distress. Head: Atraumatic, normocephalic. Eyes: PERRLA/EOMI. Ears: Deferred. Nose: Moist intranasal mucosa. Midline septum. Throat: The patient actually is able to distract about 2 cm, but she starts to have significant pain upon further distraction. The patient has large physiologic tongue which is enlarged posteriorly wi th redundant soft palate, Esquivel type 4. I do not detect any palatal deviation or uvular deviation to the left. She does have inflammation involving the right palatine tonsil. No exudate seen. Lef t tonsil is normal. Neck: Supple. Trachea midline with level 2 enlarged lymph nodes palpated. Lab Studies: Reveal 14.0 white blood cell count. I reviewed the CT scan of the soft tissue neck and the tonsil abscess is actually at the mid pole of the right tonsil which cannot be seen on bedside exam. Diagnosis: Acute right peritonsillar abscess with leukocytosis. Recommendations: Continue cefepime and Cleocin IV. The patient is currently n.p.o. and we will set her up for incision and drainage for the right peritonsillar abscess with hopes of discharging the pa tient home to restart her oral antibiotics and to finish them and then we would like her to follow up in 2 weeks or so after she has completed antibiotic treatment. ZEUS/VEL Voice ID: [id number] Report ID: [id number]
--- NOTE | 2024-02-02 01:45 | OP ---
Date of Procedure: 02/01/2024 Surgeon: HANNAH WILLSON Preoperative Diagnosis: Acute right peritonsillar abscess, refractory to outpatient therapy. Postoperative Diagnosis: Acute right peritonsillar abscess, refractory to outpatient therapy. Procedure: Incision and drainage of right peritonsillar abscess under general sedation. Anesthesia: General endotracheal anesthesia was administered. I also infiltrated approximately 3 to 5 mL of 1% lidocaine with 1:100,000 epinephrine at the area of incision. Specimens: None. Estimated Blood Loss: Less than 5 mL. Findings: Yellow mucopurulence approximately 2 mL was expressed from the right peritonsillar abscess . Complications: None. Disposition: Stable. The patient tolerated procedure well. Indication For Procedure: The patient is a pleasant 43-year-old female who developed an acute right peritonsillar abscess after being placed on oral antibiotics for tonsillitis, which did not respond t o the antibiotics. These were indications to bring the patient to operative suite for the above-ment ioned procedure. She understood. All questions were answered. Risks versus benefits and complicati ons were explained in detail and a consent form was signed, which was placed on the chart. Description Of Procedure: The patient was transferred from the preoperative holding area to the oper ative suite by Department of Anesthesia, placed on the operative table supine, sedated and intubated in normal fashion. Table was rotated 90 degrees and a shoulder roll was not needed. Head and eyes w ere covered with sterile blue towels, and moist Ray-Felix was placed over the upper lip for protection. The McIvor retractor was introduced into the left oral commissure and directed along the endotrache al tube and suspended from the Suazo stand. A straight Allis clamps was used to pull the superior jannet e of the right tonsil midline, and I dissected through the superior pole down to approximately the mi d pole of the right tonsil. The patient had significant amount of yellow mucopurulence, which was apple ctioned. I also needle aspirated some of the mucopurulence with an 18-gauge needle. Hemostasis was achieved with suction Bovie on the setting of 25 of coagulation. Saline irrigation was introduced. Oral cavity was removed with suction Bovie. I infiltrated approximately 3 to 5 mL of 1% lidocaine wi th 1:100,000 epinephrine around the incision site. A flexible orogastric tube was inserted to the ophagus, and all fluid contents were removed. The patient was then de-suspended from the Linden stand. The McIvor retractor was removed. The patient's jaw was checked and found to be in proper alignmen t. Head and eyes were uncovered, and she was transferred back to Department of Anesthesia in stable condition. The plan is to discharge her home to restart oral antibiotics and to use ibuprofen and Ty lenol for pain. She will follow up in 2 weeks for outpatient re-examination of the surgical area. ZEUS/VEL Voice ID: [id number] Report ID: [id number]
--- NOTE | 2024-02-02 06:35 | P.SSS ---
Patient History Date of Service: 02/01/24 Reason for admission: right peritonsillar abscess History of Present Illness: Diagnosis Aute Right peritonsillar abscess Leukocytosis HTN DM Gem Espinoza is a 43 year old female with Pmhx HTN and DM who presents to the ED with chief complaint of Right jaw pain. She reports going to the ED in [place] and discharged with antibiotics. She fell asleep but was woken at 4 am with increased swelling across her neck causing difficulty breathing and swallowing. She came to the ED this morning, CT soft tissue neck revealed "Right palatine tonsilitis, Small 2.0 cm peritonsillar fluid attenuation area with incomplete rim enhancement may represent phlegmon or early abscess. Laboratory evaluation significant for WBC 14, serum glucose 317, UA and urine pending. While in the ED she was given steroids, cefepime, cleocin, benadryl, and 2 L NS. Gem was admitted to hospitalist service for further treatment of Acute right peritonsillar abscess, Dr. Robison consulted. Gem went to surgery with Dr. Robison who successfully aspirated 2 ml of yellow mucopurulent fluid from the right peritonsillar abscess. Gem has tolerated the procedure without complication. She will be discharged from the PACU to continue antibiotics outpatient, Augmentin 875mg BID x10 days and follow up with Dr. Robison in one to two weeks and PCP in 3-5 days. Continue with regular diet and no activity restrictions after recovery from anesthesia. Allergies No Known Allergies Allergy (Unverified 09/30/15 21:14) Home Medications: Glipizide [Glipizide ER] 10 tab PO DAILY 06/01/20 Lisinopril [Zestril] 15 mg PO DAILY 06/01/20 Metformin ER [Glucophage ER*] 500 mg PO BID 06/01/20 Amox/Clavulanate [Augmentin 875-125 Tab] 875 mg PO BID 10 Days #20 tab 02/01/24 - Past Medical/Surgical History Has patient received pneumonia vaccine in the past: No Diabetic: Yes -: Diabetes mellitus type 2 -: HTN -: root canal - Family History Mother -: Diabetes - Social History Smoking Status: Never smoker Alcohol use: No CD- Drugs: No Place of Residence: Home Physical Examination - Vital Signs Temperature: 98.7 F Blood Pressure: 140/77 Pulse: 93 Respirations: 18 Pulse Ox (%): 95 Treatment Summary: Physical Exam General: Alert, In no apparent distress, Oriented x3 HEENT: Atraumatic, Normocephalic, PERRLA Neck: Supple, Other (swelling and tenderness to right ) Respiratory: Clear to auscultation bilaterally, Normal air movement Cardiovascular: No edema, Normal pulses, Regular rate/rhythm, Normal S1 S2 Capillary refill: <2 Seconds Gastrointestinal: Normal bowel sounds, Soft and benign, No tenderness, Distended (obese ) Musculoskeletal: No clubbing Integumentary: No rashes Neurological: Normal speech, Normal tone Plan this admission Aute Right peritonsillar abscess Leukocytosis -CT soft tissue neck revealed "Right palatine tonsilitis, Small 2.0 cm peritonsillar fluid attenuation area with incomplete rim enhancement may represent phlegmon or early abscess. -WBC 14 -consulted Dr. Robison, plan for OR around 1230 -cefepime and cleocin IV given in the ED and ordered while admitted -IVF -pain control -Solumedrol and benadryl given in the ED -NPO for surgery this afternoon -aspiration precaution HTN -hydralazine PRN -continue home medications DM -accucheck with SSI -insulin given in the ED -Serum glucose 332 DVT ppx SCD full code LOS 24 hour OBS - Disposition Discharge Date: 02/01/24 Disposition: ROUTINE DISCHARGE Condition: GOOD Activity: Ad sultana
== END 2024-02-01 16:00 | disposition home or self-care (01) ==
LOC: ER 23:03 → ERHOLD 02-01 07:37 → 2ND 02-01 13:47 → ERHOLD 02-01 14:31
PROVIDERS: ADMIT Internal Medicine; ATTEND Internal Medicine
PROC: 0C9PXZZ Drainage of Tonsils, External Approach (ICD-10-PCS; principal; 2024-02-01 12:30)
DX: J36 Peritonsillar abscess (principal); I10 Essential (primary) hypertension; E11.9 Type 2 diabetes mellitus without complications; D72.829 Elevated white blood cell count, unspecified; R25.2 Cramp and spasm; K21.9 Gastro-esophageal reflux disease without esophagitis; E78.5 Hyperlipidemia, unspecified
CPT/HCPCS: 36415; 70491; 80053; 81001; 81025; 82947; 85025; 85610; 96361; 96374; 96375; 99285; G0378; J0692; J1171; J1200; J2003; J2250; J2270; J2405; J2704; J2919; J3010; J7030; Q9967

== ENCOUNTER 2024-08-14 12:43 | Emergency (ER) | payer SELFPAY ==
--- OUTSIDE RECORDS SUMMARY | 2024-08-14 13:00 | XMS REPORT | Continuity of Care Document ---
Author Name Unknown Address [address] [facility] [address] [place] [address] Organization [facility] [place] Address [address] [facility] [address] [place] [address] Care Team Providers Care Extracorporeal Circulation Specialist Name Role Phone [facility] Primary Care Physici an Unavailable VICENTA URBANO Attending Clinician Unavailab VICENTA Menedz Attending Clinician Unavailab Vicenta Mendez DO Attending Clinician [phone] ASHLEY PATEL Attending Clinician Unavailable Doctor Unassigned, [place] Attending Clinician U TONI Fletcher Attending Clinician Unavailable Toni John MD Attending Clinician [phone] Tita PEACOCK Attending Clinician Unavailable Tita Redding Attending Clinician [phone] JAMES AKHTAR Attending Clinician Unavailable JAMES AKHTAR Attending Clinician Unavailable Pgy3 Attending Clinician Unavailable Es Vargas NP Attending Clinician [phone] ES VARGAS Attending Clinician Unavailable VICENTA URBANO Admitting Clinician Unavailab ES Nogueira Admitting Clinician Unavailable TONI JOHN Admitting Clinician Unavailable Payers Payer Name Policy Type Policy Number Effective Date Expirati on Date Source [facility] [id number] 2022 00:00:00 Problems Condition Name Condition Details Condition Category Status Onset Date Resolution Date Last Treatment Date Treating Clinician Comments Source Surveillan ce of previously prescribed contracept lianna pill Surveillan ce of previously prescribed contracept lianna pill Disease Active 2014-03 00:00: 00 [facility] Genital warts Genital warts Disease Active 2014-03 00:00: 00 [facility] Morbid obesity Morbid obesity Disease Active 2014-03 00:00: 00 [facility] Generalize d anxiety disorder Generalize d anxiety disorder Disease Active 2014-03 00:00: 00 [facility] Depression Depression Disease Active 2014-03 00:00: 00 [facility] H/O tubal ligation H/O tubal ligation Disease Active 2014-03 00:00: 00 [facility] Irregular menstrual cycle Irregular menstrual cycle Disease Active 2014-03 00:00: 00 [facility] Papanicola ou smear of cervix with atypical squamous cells of undetermin ed significan ce (ASC-US) Papanicola ou smear of cervix with atypical squamous cells of undetermin ed significan ce (ASC-US) Disease Active 06-28 00:00: 00 [facility] BCP ( control pills) initiation BCP ( control pills) initiation Disease Resolve d 2014-03 00:00: 00 2015-03-19 00:00:00 2015-03-19 13:14:26 [facility] Elevated blood pressure reading without diagnosis of hypertensi on Elevated blood pressure reading without diagnosis of hypertensi on Disease Resolve d 2014-03 00:00: 00 2015-03-19 00:00:00 2015-03-19 13:14:42 [facility] Obesity Obesity Disease Resolve d 07-12 00:00: 00 2015-03-09 00:00:00 2021-10-04 00:24:11 [facility] delivery delivered delivery delivered Disease Resolve d 805 00:00: 00 2015-03-09 00:00:00 2021-10-04 00:15:29 [facility] Allergies, Adverse Reactions, Alerts Allergy Name Allergy Type Status Severity Reaction(s) Onset Date Inactive Date Treating Clinician Comments Source n Propensi ty to adverse reaction to drug Active 7-06 00:00: 00 Laurent Branch Gemfibro zil - Oral Propensi ty to adverse reaction to drug Active -20 00:00: 00 Laurent Branch Gemfibro zil Propensi ty to adverse reaction to drug Inactiv e 5- 00:00: 00 Laurent Branch NO KNOWN ALLERGIE S Drug Class Active [facility] Social History Social Habit Start Date Stop Date Quantity Comments Source [facility] function 2024-01-31 00:00:00 2024-01-31 00:00:00 [facility] Alcoholic beverage intake 2024-01-31 00:00:00 2024-01-31 00:00:00 Current non-drinker of alcohol (finding) [facility] Exposure to SARS-CoV-2 (event) 2022-04-08 00:00:00 2022-04-18 18:44:00 Unable to assess [facility] Alcohol intake 2015-07-22 00:00:00 2015-07-22 00:00:00 Current non-drinker of alcohol (finding) [facility] Sex assigned at 1980 00:00:00 1980 00:00:00 [facility] Smoking Status Start Date Stop Date Source Never smoked tobacco [facility] Medications Ordered Medication Name Filled Medication Name Start Date Stop Date Current Medication? Ordering Clinician Indication Dosage Frequency Signature (SIG) Comments Components Source Zestoretic 20 mg-25 mg tablet 06-05 00:00: 00 Yes 1mg Laurent Branch nifedipine ER 30 mg tablet,exte nded release 06-05 00:00: 00 Yes 1mg Laurent Branch amlodipine 5 mg tablet 06-05 00:00: 00 Yes 1mg Laurent Branch Januvia 100 mg tablet 06-05 00:00: 00 Yes 1mg Laurent Branch venlafaxine ER 37.5 mg tablet,exte nded release 24 hr 06-05 00:00: 00 Yes 1mg Laurent Branch metformin 500 mg tablet 06-05 00:00: 00 Yes 1mg Laurent Branch atorvastati n 40 mg tablet 318 00:00: 00 Yes 1mg Laurent Branch amlodipine 5 mg tablet 2023-03 00:00: 00 Yes 1mg Laurent Branch glipizide 2.5 mg-metformi n 500 mg tablet 2023-03 00:00: 00 Yes 1mg Laurent Branch albuterol sulfate HFA 90 mcg/actuati on aerosol inhaler 2023-03 00:00: 00 Yes 12mcg/a ctuatio n Laurent Branch Zestoretic 20 mg-25 mg tablet 2023-03 00:00: 00 Yes 1mg Laurent Branch Januvia 100 mg tablet 2023-03 00:00: 00 Yes 1mg Laurent Branch venlafaxine ER 37.5 mg tablet,exte nded release 24 hr 2023-03 00:00: 00 Yes 1mg Laurent Branch ampicillin- sulbactam (UNASYN) 3 g in NaCl 0.9% (NS) 100 mL MINI-BAG 2023-03 16:15: 00 01-30 17:11 :00 No 3g 3 g, IV Piggyback, ONCE, 1 dose, On Tue01/31/24 at 1015, Administer over 30 Minutes, 100 mL, Reason for Anti-Infec tive: Documented Infection, Documented Infection Site: HEENT, Duration of Therapy: Once (ED) [facility] iopamidol (ISOVUE 370-500 mL) injection 90 mL 2023-03 15:28: 00 01-30 15:27 :00 No [id number] 90mL 90 mL, Intravenou s, ONCE, 1 dose, On Tue01/31/24 at 0945, Routine [facility] amoxicillin -clavulanat e 875-125 mg per tablet 2023-03 00:00: 00 02-07 05:59 :00 No [id number] 1{tbl} Take 1 tablet by mouth every 12 (twelve) hours for 7 days. [facility] Victoza 3-Surendra 0.6 mg/0.1 mL (18 mg/3 mL) subcutaneou s pen injector 0 11-28 00:00: 00 Yes 3(18 mg/3 mL) Laurent Branch mupirocin 2 % topical ointment 11-28 00:00: 00 Yes 1% Laurent Branch Zestoretic 20 mg-25 mg tablet 11-28 00:00: 00 Yes 1mg Laurent Branch nifedipine ER 30 mg tablet,exte nded release 11-28 00:00: 00 Yes 1mg Laurent Branch Januvia 100 mg tablet 11-28 00:00: 00 Yes 1mg Laurent Branch venlafaxine ER 37.5 mg tablet,exte nded release 24 hr 11-28 00:00: 00 Yes 1mg Laurent Branch nifedipine ER 30 mg tablet,exte nded release [...] 1mg Laurent Branch TAKE 1/2 TABLET NIGHTLY 3-11 00:00: 00 Yes 100 Laurent Branch TAKE 1 TABLET BY MOUTH DAILY 2-12 00:00: 00 Yes 100 Laurent Branch INJECT 1.8 MG SUBCUTANEOU SLY EVERY DAY 2-12 00:00: 00 Yes 183 Laurent Branch TAKE 1 TABLET BY MOUTH TWICE DAILY WITH MEALS 2-12 00:00: 00 Yes [id number] Laurent Branch TAKE 1 TABLET BY MOUTH DAILY 2-12 00:00: 00 Yes 10 Laurent F Jose Carlos TAKE 1/2 TABLET NIGHTLY 2- 00:00: 00 07-31 00:00 :00 No 100 Laurent F Jose Carlos TAKE 1 CAPSULE ONCE DAILY WITH FOOD. 2022-03 2-11 00:00: 00 Yes 375 Laurent F Jose Carlos INJECT 1.8 MG SUBCUTANEOU SLY EVERY DAY 2022-03 00:00: 00 Yes 183 Laurent F Jose Carlos TAKE 1 TABLET BY MOUTH DAILY 2022-03 00:00: 00 07-31 00:00 :00 No 100 Laurent F Jose Carlos TAKE 1 TABLET BY MOUTH TWICE DAILY WITH MEALS 2022-03 00:00: 00 07-31 00:00 :00 No [id number] Laurent F Jose Carlos TAKE 1 TABLET BY MOUTH DAILY 2022-03 00:00: 00 07-31 00:00 :00 No 10 Laurent F Jose Carlos TAKE 1 TABLET BY MOUTH DAILY 2022-03 0 00:00: 00 07-31 00:00 :00 No 10 Laurent F Jose Carlos TAKE 1 CAPSULE ONCE DAILY WITH FOOD. 11-22 00:00: 00 07-31 00:00 :00 No 375 Laurent F Jose Carlos 0.6 MG ONCE DAILY FOR 1 WEEK, THEN INCREASE TO 1.2 MG ONCE DAILY 11-22 00:00: 00 07-31 00:00 :00 No 183 Laurent F Jose Carlos TAKE 1 CAPSULE ONCE DAILY WITH FOOD. - 00:00: 00 07-31 00:00 :00 No 375 Laurent F Jose Carlos INJECT 0.5 ML SUBCUTANEOU SLY WEEKLY. - 00:00: 00 07-31 00:00 :00 No [id number] Laurent F Jose Carlos TAKE 1 TO 2 TABLETS AT BEDTIME 8- 00:00: 00 07-31 00:00 :00 No 25 Laurent F Jose Carlos TAKE 1 TABLET DAILY. 7-26 00:00: 00 07-31 00:00 :00 No 100 Laurent F Jose Carlos TAKE 1 TABLET BY MOUTH TWICE DAILY WITH MEALS 10-13 00:00: 00 07-31 00:00 :00 No [id number] Laurent Branch APPLY SPARINGLY TO AFFECTED AREA(S) 3 TIMES A DAY 10-13 00:00: 00 07-31 00:00 :00 No 1 Laurent Branch TAKE 1 TABLET DAILY. 10-13 00:00: 00 [...] 04-28 00:00: 00 07-31 00:00 :00 No [id number] Laurent Branch TAKE 1 TABLET DAILY. - 00:00: 00 07-31 00:00 :00 No 10 Laurent Bracnh ketorolac (TORADOL) injection 30 mg 30 02:15: 00 04-19 01:23 :00 No 30mg 30 mg, Slow IV Push, ONCE, 1 dose, On 04/18/22 at 2015, SAGE [facility] Dose Unknown 2021-03 00:00: 00 Yes Laurent [...] HEENT
D uration of Therapy: 10 days [facility] ibuprofen (IBU) tablet 600 mg 2021-03 01:15: 00 02-21 01:14 :00 No 600mg 600 mg, Oral, ONCE, 1 dose, On 02/20/22 at 1915, SAGE [facility] ibuprofen 600 mg tablet 2021-03 00:00: 00 Yes [id number] 600mg Take 1 tablet by mouth every 6 (six) hours as needed for Pain (scale 4-6). [facility] TAKE ONE CAPSULE BY MOUTH IN THE MORNING, ONE CAPSULE AT NOON, AND ONE CAPSULE IN THE EVENING FOR 10 DAYS 2021-03 00:00: 00 Yes Laurent Branch amoxicillin 500 mg capsule 2021-03 00:00: 00 03-03 05:59 :00 No [id number] 500mg Take 1 capsule by mouth in the morning and 1 capsule at noon and 1 capsule in the evening. Do all this for [address]. [facility] PLACE 1 TABLET ON TONGUE AND ALLOW TO DISSOLVE 3 TIMES DAILY NEEDED. 10-07 00:00: [address] 1 TABLET ON TONGUE AND ALLOW TO DISSOLVE 3 TIMES DAILY NEEDED. 2022-0 7-20 00:00: [address] 1 TABLET ON TONGUE AND ALLOW TO DISSOLVE 3 TIMES DAILY NEEDED. 2022-0 7-20 00:00: 00 No 4 Dose Unknown 2022-0 7-20 00:00: 00 Yes Laurent Branch INHALE 2 PUFFS BY MOUTH EVERY 4 HOURS NEEDED FOR WHEEZING FOR SHORTNESS OF BREATH 2022-0 7-18 00:00: 00 No INHALE 2 PUFFS BY MOUTH EVERY 4 HOURS NEEDED FOR WHEEZING FOR SHORTNESS OF BREATH 2022-0 7-18 00:00: 00 No INHALE 2 PUFFS BY MOUTH EVERY 4 HOURS NEEDED FOR WHEEZING FOR SHORTNESS OF BREATH 2022-0 18 00:00: 00 No INHALE 2 PUFFS BY MOUTH EVERY 4 HOURS NEEDED FOR WHEEZING FOR SHORTNESS OF BREATH 2-0 18 00:00: 00 Yes Laurent Branch TAKE 2 CAPSULES BY MOUTH THREE TIMES DAILY NEEDED FOR COUGH 2022-0 7- 00:00: 00 No 100 TAKE 2 CAPSULES BY MOUTH THREE TIMES DAILY NEEDED FOR COUGH 2-0 06 00:00: 00 No 100 TAKE 2 CAPSULES BY MOUTH THREE TIMES DAILY NEEDED FOR COUGH 2-0 -06 00:00: 00 No 100 TAKE 2 CAPSULES BY MOUTH THREE TIMES DAILY NEEDED FOR COUGH 2022-0 -06 00:00: 00 Yes 100 Laurent Branch Dose Unknown 2021-0 4-20 00:00: 00 No Dose Unknown 2022-0 4-20 00:00: 00 No Dose Unknown 2-0 4-20 00:00: 00 No Dose Unknown 2-0 4-20 00:00: 00 Yes Laurent Branch Dose Unknown 2021-0 1-13 00:00: 00 No Dose Unknown 2021-0 1-13 00:00: 00 No Dose Unknown 2021-0 1-13 00:00: 00 No Dose Unknown 2021-0 1-13 00:00: 00 No Dose Unknown 2021-0 1-13 00:00: 00 No Dose Unknown 2021-0 1-13 00:00: 00 No valacyclovi r 500 mg tablet 2021-0 1-13 00:00: 00 Yes 1mg Laurent Branch Lidocaine Viscous 2 % mucosal solution 2021-0 1-13 00:00: 00 Yes % Laurent Branch albuterol 90 mcg/actuati on inhaler 03-23 00:00: 00 Yes [id number] 2{puff} Inhale 2 Puffs every 4 (four) hours as needed for Wheezing or Shortness of Breath. [facility] benzonatate 100 mg capsule - 00:00: 00 Yes [id number] 200mg Take 2 capsules by mouth 3 (three) times daily as needed for Cough. [facility] Symbicort 160 mcg-4.5 mcg/actuati on HFA aerosol [...] 12-08 00:00: 00 Yes 2mcg/ac tuation Laurent F Jose Carlos Cipro 500 mg tablet 12-08 00:00: 00 Yes 1mg Laurent F Jose Carlos promethazin e 6.25 mg/5 mL oral syrup 12-08 00:00: 00 Yes 10mg/5 mL Laurent F Jose Carlos ProAir HFA 90 mcg/actuati on aerosol inhaler 10-06 00:00: 00 No 2mcg/ac tuation cetirizine [...] mcg/actuati on aerosol inhaler 10-06 00:00: 00 No 2mcg/ac tuation cetirizine [...] on nasal spray,suspe nsion 10-06 00:00: 00 Yes 2mcg/ac tuation Laurent Branch glipizide 5 mg tablet 0 - 00:00: 00 No 2mg glipizide 5 mg tablet 0 - 00:00: 00 No 2mg glipizide 5 mg tablet 0 5-13 00:00: 00 No 2mg glipizide 5 mg tablet 0 5-13 00:00: 00 Yes 2mg Laurent Branch ProAir HFA 90 mcg/actuati on aerosol inhaler 0 -14 00:00: 00 No 2mcg/ac tuation cetirizine 10 mg tablet 0 4-14 00:00: 00 No 1mg Tessalon Perles 100 mg capsule 0 4-14 00:00: 00 No 1mg ProAir HFA 90 mcg/actuati on aerosol inhaler 0 14 00:00: 00 No 2mcg/ac tuation cetirizine 10 mg tablet 0 414 00:00: 00 No 1mg Tessalon Perles 100 mg capsule 0 414 00:00: 00 No 1mg ProAir HFA 90 mcg/actuati on aerosol inhaler 0 14 00:00: 00 No 2mcg/ac tuation cetirizine 10 mg tablet 0 14 00:00: 00 No 1mg Tessalon Perles 100 mg capsule 0 14 00:00: 00 No 1mg ProAir HFA 90 mcg/actuati on aerosol inhaler 0 07-02 00:00: 00 Yes 2mcg/ac tuation Laurent Branch cetirizine 10 mg tablet 0 -14 00:00: 00 Yes 1mg Laurent Branch Tessalon Perles 100 mg capsule 0 14 00:00: 00 Yes 1mg Laurent Branch ProAir [...] 00:00: 00 Yes 2mcg/ac tuation Laurent Branch metformin ER 1,000 mg 24 hr tablet,exte nded release (gastric) 2019-03 00:00: 00 No 1mg metformin ER 1,000 mg 24 hr tablet,exte nded release (gastric) 2019-03 00:00: 00 No 1mg metformin ER 1,000 mg 24 hr tablet,exte nded release (gastric) 2019-03 00:00: 00 No 1mg metformin ER 1,000 mg 24 hr tablet,exte nded release (gastric) 2019-03 00:00: 00 Yes 1mg Laurent Branch [...] 2019-03 00:00: 00 Yes 1mg Laurent Branch metformin ER 1,000 mg 24 [...] 12-16 00:00: 00 Yes 2mg Laurent Branch ibuprofen 800 mg tablet 12-03 00:00: 00 No 1mg ibuprofen 800 mg tablet 12-03 00:00: 00 No 1mg ibuprofen 800 mg tablet 12-03 00:00: 00 No 1mg ibuprofen 800 mg tablet 12-03 00:00: 00 Yes 1mg Laurent Branch Januvia 50 mg tablet 10-24 00:00: 00 No 1mg atorvastati n 20 mg tablet 10-24 00:00: 00 No 1mg Januvia 50 mg tablet 10-24 00:00: 00 No 1mg atorvastati n 20 mg tablet 10-24 00:00: 00 No 1mg Januvia 50 mg tablet 10-24 00:00: 00 No 1mg atorvastati n 20 mg tablet 10-24 00:00: 00 No 1mg Januvia 50 mg tablet 10-24 00:00: 00 Yes 1mg Laurent Branch atorvastati n 20 mg tablet 10-24 00:00: 00 Yes 1mg Laurent Branch lisinopril 10 mg tablet 10-16 00:00: 00 No 1mg glipizide 5 mg tablet 10-16 00:00: 00 No 1mg lisinopril 10 mg tablet 10-16 00:00: 00 No 1mg glipizide 5 mg tablet 10-16 00:00: 00 No 1mg lisinopril 10 mg tablet 10-16 00:00: 00 No 1mg glipizide 5 mg tablet 10-16 00:00: 00 No 1mg lisinopril 10 mg tablet 10-16 00:00: 00 Yes 1mg Laurent Branch glipizide 5 mg tablet 10-16 00:00: 00 Yes 1mg Laurent Branch glipizide 5 mg tablet 06-25 00:00: 00 No 1mg glipizide 5 mg tablet 06-25 00:00: 00 No 1mg glipizide 5 mg tablet 06-25 00:00: 00 No 1mg glipizide 5 mg tablet 06-25 00:00: 00 Yes 1mg Laurent Branch hydroxyzine HCl 25 mg tablet 04-19 00:00: 00 No 1mg hydroxyzine HCl 25 mg tablet 04-19 00:00: 00 No 1mg hydroxyzine HCl 25 mg tablet 04-19 00:00: 00 No 1mg hydroxyzine HCl 25 mg tablet 04-19 00:00: 00 Yes 1mg Laurent Branch hydrocodone [...] 250 mg capsule 2018-03 00:00: 00 Yes [id number] 250mg Take 1 capsule by mouth daily. [facility] lisinopril 10 mg tablet 10-19 00:00: 00 [...] 09-11 00:00: 00 Yes 1mg Laurent Branch metronidazo le 500 mg tablet 08-15 00:00: 00 No 1mg metronidazo le 500 mg tablet 08-15 00:00: 00 No 1mg metronidazo le 500 mg tablet 08-15 00:00: 00 No 1mg metronidazo le 500 mg tablet 08-15 00:00: 00 Yes 1mg Laurent Branch lisinopril [...] tablet,exte nded release hr 08-10 00:00: 00 Yes 2mg Laurent Branch lovastatin 40 mg tablet 08-10 00:00: 00 Yes 1mg Laurent Branch glipizide 5 mg tablet 07-27 00:00: 00 [...] 00 No 2mg fluconazole 150 mg tablet 2 00:00: 00 No 1mg Lidocaine Viscous 2 [...] mcg (28) tablet 07-21 00:00: 00 Yes [id number] 1{tbl} Take 1 tablet by mouth daily. [facility] Immunizations Ordered Immunization Name Filled Immunization Name Date Status Comments Source Tdap Tdap 2018-10-19 00:00:00 Completed [facility] Tdap 2018-10-19 00:00:00 Completed Tdap 2018-10-19 00:00:00 Completed Tdap 2018-10-19 00:00:00 Completed Tdap 2018-10-19 00:00:00 Completed Tdap 2018-10-19 00:00:00 Completed Td 2005-03-21 00:00:00 Completed [facility] Td 2005-03-21 00:00:00 Completed [facility] Td 2005-03-21 00:00:00 Completed [facility] TD, NOS 2005-03-21 00:00:00 Completed [facility] TD, NOS 2005-03-21 00:00:00 Completed [facility] TD, NOS Unknown Completed [facility] TD, NOS Unknown Completed [facility] TD, NOS Unknown Completed [facility] TD, NOS Unknown Completed [facility] Vital Signs Vital Name Observation Time Observation Value Comments S ource Systolic blood pressure 2024-01-31 14:50:00 196 mm[Hg] [facility] Diastolic blood pressure 2024-01-31 14:50:00 111 mm[Hg] [facility] Heart rate 2024-01-31 14:50:00 92 /min [facility] Body temperature 2024-01-31 14:50:00 37.11 [place] [facility] Respiratory rate 2024-01-31 14:50:00 18 /min [facility] Body height 2024-01-31 14:50:00 157.5 cm [facility] Body weight 2024-01-31 14:50:00 97.523 kg [facility] BMI 2024-01-31 14:50:00 39.32 kg/m2 [facility] Oxygen saturation in Arterial blood by Pulse oximetry 2024-01-31 14:50:00 98 /min [facility] Systolic blood pressure 2022-04-19 05:00:00 164 mm[Hg] [facility] Diastolic blood pressure 2022-04-19 05:00:00 97 mm[Hg] [facility] Heart rate 2022-04-19 05:00:00 81 /min [facility] Respiratory rate 2022-04-19 05:00:00 25 /min [facility] Oxygen saturation in Arterial blood by Pulse oximetry 2022-04-19 05:00:00 96 /min [facility] Body temperature 2022-04-19 00:51:00 36.83 [place] [facility] Body height 2022-04-19 00:49:00 157.5 cm [facility] Body weight 2022-04-19 00:49:00 97.523 kg [facility] BMI 2022-04-19 00:49:00 39.32 kg/m2 [facility] Systolic blood pressure 2022-02-21 00:27:00 175 mm[Hg] [facility] Diastolic blood pressure 2022-02-21 00:27:00 106 mm[Hg] [facility] Heart rate 2022-02-21 00:27:00 78 /min [facility] Body temperature 2022-02-21 00:27:00 37.11 [place] [facility] Respiratory rate 2022-02-21 00:27:00 20 /min [facility] Body height 2022-02-21 00:27:00 157.5 cm [facility] Body weight 2022-02-21 00:27:00 99.791 kg [facility] BMI 2022-02-21 00:27:00 40.24 kg/m2 [facility] Oxygen saturation in Arterial blood by Pulse oximetry 2022-02-21 00:27:00 100 /min [facility] Systolic blood pressure 2021-12-03 17:56:00 110 mm[Hg] [facility] Diastolic blood pressure 2021-12-03 17:56:00 88 mm[Hg] [facility] Heart rate 2021-12-03 17:52:00 88 /min [facility] Body temperature 2021-12-03 17:52:00 35.94 [place] [facility] Body height 2021-12-03 17:52:00 157.5 cm [facility] Body weight 2021-12-03 17:52:00 99.156 kg [facility] BMI 2021-12-03 17:52:00 39.98 kg/m2 [facility] BP Systolic 2024-06-05 13:37:00 160 mm[Hg] Step hen F Jose Carlos BP Diastolic 2024-06-05 13:37:00 92 mm[Hg] Aubrey phen F Jose Carlos Weight Measured 2024-06-05 13:37:00 220.80 pounds Laurent F Jose Carlos Height Measured 2024-06-05 13:37:00 68.00 inches Laurent F Jose Carlos Body Temperature 2024-06-05 13:37:00 98.20 degrees Laurent F Jose Carlos Heart Rate 2024-06-05 13:37:00 100.00 /min Step hen F Jose Carlos Respiratory Rate 2024-06-05 13:37:00 18.00 /min Laurent F Jose Carlos BP Systolic 2024-03-20 15:02:00 144 mm[Hg] Step hen F Jose Carlos BP Diastolic 2024-03-20 15:02:00 89 mm[Hg] Aubrey phen F Jose Carlos Weight Measured 2024-03-20 15:02:00 215.80 pounds Laurent F Jose Carlos Height Measured 2024-03-20 15:02:00 68.00 inches Laurent F Jose Carlos Body Temperature 2024-03-20 15:02:00 98.10 degrees Laurent F Jose Carlos Heart Rate 2024-03-20 15:02:00 107.00 /min Step hen F Jose Carlos Respiratory Rate 2024-03-20 15:02:00 18.00 /min Laurent F Jose Carlos BP Systolic 2024-02-21 09:53:00 192 mm[Hg] Step hen F Jose Carlos BP Diastolic 2024-02-21 09:53:00 96 mm[Hg] Aubrey phen F Jose Carlos Weight Measured 2024-02-21 09:53:00 236.00 pounds Laurent F Jos Ecarlos Height Measured 2024-02-21 09:53:00 68.00 inches Laurent F Jose Carlos Body Temperature 2024-02-21 09:53:00 98.30 degrees Laurent F Jose Carlos Heart Rate 2024-02-21 09:53:00 90.00 /min Carmina en F Jose Carlos Respiratory Rate 2024-02-21 09:53:00 16.00 /min Laurent F Jose Carlos BP Systolic 2023-11-29 14:18:00 166 mm[Hg] Step hen F Jose Carlos BP Diastolic 2023-11-29 14:18:00 107 mm[Hg] Aubrey phen F Jose Carlos Weight Measured 2023-11-29 14:18:00 236.60 pounds Laurent F Jose Carlos Height Measured 2023-11-29 14:18:00 68.00 inches Laurent F Jose Carlos Body Temperature 2023-11-29 14:18:00 97.50 degrees Laurent F Jose Carlos Heart Rate 2023-11-29 14:18:00 85.00 /min Carmina en F Jose Carlos Respiratory Rate 2023-11-29 14:18:00 17.00 /min Laurent F Jose Carlos BP Systolic 2023-11-29 13:33:00 166 mm[Hg] Step hen F Jose Carlos BP Diastolic 2023-11-29 13:33:00 107 mm[Hg] Aubrey phen F Jose Carlos Weight Measured 2023-11-29 13:33:00 236.60 pounds Laurent F Jose Carlos Height Measured 2023-11-29 13:33:00 68.00 inches Laurent F Jose Carlos Body Temperature 2023-11-29 13:33:00 97.50 degrees Laurent F Jose Carlos Heart Rate 2023-11-29 13:33:00 77.00 /min Carmina en F Jose Carlos Respiratory Rate 2023-11-29 13:33:00 17.00 /min Laurent F Jose Carlos BP Systolic 2023-09-15 17:09:00 168 mm[Hg] Step [...] Body Temperature 2022-10-13 17:04:00 98.10 degrees Laurent F Jose Carlos Heart Rate 2022-10-13 17:04:00 95.00 /min Carmina en F Jose Carlos Respiratory Rate 2022-10-13 17:04:00 19.00 /min Laurent F Jose Carlos BP Systolic 2022-04-28 17:00:00 143 mm[Hg] Step hen F Jose Carlos BP Diastolic 2022-04-28 17:00:00 92 mm[Hg] Aubrey phen F Jose Carlos Weight Measured 2022-04-28 17:00:00 214.20 pounds Laurent F Jose Carlos Height Measured 2022-04-28 17:00:00 68.00 inches Laurent Branch Body Temperature 2022-04-28 17:00:00 98.20 degrees Laurent F Jose Carlos Heart Rate 2022-04-28 17:00:00 83.00 /min Carmina Branch Respiratory Rate 2022-04-28 17:00:00 18.00 /min Laurent Bazzi Jose Carlos BP Systolic 2022-01-07 10:59:00 127 mm[Hg] BP [...] Source CT MAXILLOFACIAL/MANDIBLE W CONTRAST 2024-01-31 15:34:00 iVcenta Urbano [facility] POCT TEST 2024-01-31 15:22:00 Sirena Urbano ra [facility] COMP. METABOLIC PANEL ([id number]) 2024-01-31 15:04:00 Vicenta Urbano [facility] CBC WITH DIFF 2024-01-31 15:04:00 Vicenta Urbano U [facility] TROPONIN I 2022-04-19 03:28:00 Toni John [facility] [facility] URINE DRUG (IMMUNOASSAY) - COMPREHENSIVE DRUG SCREEN 2022-04-19 01:26:00 Toni Jonh [facility] URINALYSIS 2022-04-19 01:26:00 Toni John [facility] POCT TEST 2022-04-19 01:26:00 Kraig John [facility] LIPASE 2022-04-19 01:10:00 [facility] TROPONIN I 2022-04-19 01:10:00 [facility] COMP. METABOLIC PANEL (82576) 2022-04-19 01:10:00 Toni John [facility] CBC WITH DIFF 2022-04-19 01:10:00 Toni John [facility] GLYCOSYLATED HEMOGLOBIN (A1C) 2022-04-19 01:10:00 Toni John [facility] PROTHROMBIN TIME / INR 2022-04-19 01:10:00 Casey John [facility] D-DIMER 2022-04-19 01:10:00 [facility] ACTIVATED PARTIAL THRMPLAS LAZ 2022-04-19 01:10:00 Toni John [facility] NOTICE OF PRIVACY PRACTICES 2022-04-19 00:45:20 Doctor Unassigned, [place] [facility] CONSENT/REFUSAL FOR DIAGNOSIS AND TREATMENT 2022-04-19 00:44:36 Doctor Unassigned, [place] [facility] CONSENT/REFUSAL FOR DIAGNOSIS AND TREATMENT 2022-02-21 00:24:53 Doctor Unassigned, [place] [facility] PROLACTIN 2021-12-03 19:03:00 Niyah Troncoso [facility] THYROID STIMULATING HORMONE 2021-12-03 19:03:00 Niyah Troncoso [facility] TESTOSTERONE 2021-12-03 19:03:00 Chaljub, Niyah [facility] FOLLICLE STIMULATING HORMONE 2021-12-03 19:03:00 Niyah Troncoso [facility] POCT TEST 2021-12-03 18:43:00 James Akhtar [facility] DISCLOSURE AND CONSENT, MEDICAL AND SURGICAL PROCEDURES 2021-12-03 05:01:00 Doctor Unassigned, [place] [facility] Plan of Care Planned Activity Planned Date Details Comments Source Goal Plan of Care Note [code = 63468-8] Goal Plan of Care Note [code = 51241-0] Goal Plan of Care Note [code = 60829-3] Goal Plan of Care Note [code = 14003-3] Goal Plan of Care Note [code = 33992-6] Goal Plan of Care Note [code = 77575-0] Goal Plan of Care Note [code = 08595-6] Goal Plan of Care Note [code = 48884-6] Goal Plan of Care Note [code = 36685-6] Goal Plan of Care Note [code = 90387-8] Goal Plan of Care Note [code = 40137-1] Goal Plan of Care Note [code = 15857-9] Goal Plan of Care Note [code = 34981-1] Goal Plan of Care Note [code = 03327-2] Goal Plan of Care Note [code = 57499-5] Goal Plan of Care Note [code = 61635-2] Goal Plan of Care Note [code = 02045-8] Goal Plan of Care Note [code = 31318-4] Goal Plan of Care Note [code = 83032-2] Goal Plan of Care Note [code = 30872-0] Goal Plan of Care Note [code = 27718-8] Goal Plan of Care Note [code = 65227-9] Goal Plan of Care Note [code = 72857-7] Goal Plan of Care Note [code = 81329-3] Goal Plan of Care Note [code = 71422-2] Goal Plan of Care Note [code = 28224-4] Goal Plan of Care Note [code = 57520-7] Goal Plan of Care Note [code = 33015-3] Goal Plan of Care Note [code = 19862-5] Goal Plan of Care Note [code = 32557-4] Goal Plan of Care Note [code = 68749-4] Goal Plan of Care Note [code = 03920-9] Goal Plan of Care Note [code = 59147-2] Goal Plan of Care Note [code = 72701-9] Goal Plan of Care Note [code = 10723-7] Goal Plan of Care Note [code = 07782-2] Goal Plan of Care Note [code = 52579-8] Goal Plan of Care Note [code = 55863-8] Goal Plan of Care Note [code = 37667-9] Goal Plan of Care Note [code = 85256-1] Goal Plan of Care Note [code = 03496-3] Goal Plan of Care Note [code = 35210-7] Goal Plan of Care Note [code = 14916-2] Goal Plan of Care Note [code = 57093-7] Goal Plan of Care Note [code = 55725-4] Goal Plan of Care Note [code = 24626-8] Goal Plan of Care Note [code = 38255-1] Goal Plan of Care Note [code = 73577-8] Goal Plan of Care Note [code = 92909-2] Goal Plan of Care Note [code = 92309-4] Goal Plan of Care Note [code = 80565-3] Goal Plan of Care Note [code = 76059-5] Goal Plan of Care Note [code = 58179-3] Goal Plan of Care Note [code = 03909-6] Goal Plan of Care Note [code = 86127-2] Goal Plan of Care Note [code = 95470-3] Goal Plan of Care Note [code = 92695-1] Goal Plan of Care Note [code = 05108-3] Goal Plan of Care Note [code = 23019-2] Goal Plan of Care Note [code = 74895-5] Goal Plan of Care Note [code = 52376-9] Goal Plan of Care Note [code = 16147-7] Goal Plan of Care Note [code = 96090-3] Goal Plan of Care Note [code = 12543-1] Goal Plan of Care Note [code = 35561-8] Goal Plan of Care Note [code = 56148-9] Goal Plan of Care Note [code = 61048-4] Goal Plan of Care Note [code = 89307-7] Goal Plan of Care Note [code = 28548-9] Goal Plan of Care Note [code = 62039-4] Goal Plan of Care Note [code = 86169-7] Goal Plan of Care Note [code = 03841-5] Goal Plan of Care Note [code = 29979-4] Goal Plan of Care Note [code = 11386-4] Goal Plan of Care Note [code = 72855-2] Goal Plan of Care Note [code = 81127-7] Goal Plan of Care Note [code = 20810-2] Goal Plan of Care Note [code = 45450-6] Goal Plan of Care Note [code = 93217-7] Goal Plan of Care Note [code = 12023-0] Goal Plan of Care Note [code = 27827-9] Goal Plan of Care Note [code = 46646-7] Goal Plan of Care Note [code = 64732-2] Goal Plan of Care Note [code = 43048-9] Goal Plan of Care Note [code = 93319-1] Goal Plan of Care Note [code = 76793-5] Goal Plan of Care Note [code = 88560-5] Goal Plan of Care Note [code = 92708-9] Goal Plan of Care Note [code = 14584-0] Goal Plan of Care Note [code = 26727-4] Goal Plan of Care Note [code = 20589-9] Goal Plan of Care Note [code = 41558-3] Goal Plan of Care Note [code = 72109-8] Goal Plan of Care Note [code = 76334-8] Goal Plan of Care Note [code = 01372-1] Goal Plan of Care Note [code = 41757-0] Goal Plan of Care Note [code = 90130-5] Goal Plan of Care Note [code = 32511-5] Goal Plan of Care Note [code = 30898-6] Goal Plan of Care Note [code = 86589-6] Goal Plan of Care Note [code = 64937-6] Goal Plan of Care Note [code = 19547-8] Goal Plan of Care Note [code = 41809-5] Goal Plan of Care Note [code = 96229-9] Goal Plan of Care Note [code = 05320-0] Goal Plan of Care Note [code = 34546-4] Goal Plan of Care Note [code = 24790-0] Goal Plan of Care Note [code = 77040-3] Goal Plan of Care Note [code = 32313-6] Goal Plan of Care Note [code = 69898-0] Goal Plan of Care Note [code = 00442-3] Goal Plan of Care Note [code = 98089-0] Goal Plan of Care Note [code = 70514-0] Goal Plan of Care Note [code = 26201-6] Goal Plan of Care Note [code = 75583-3] Goal Plan of Care Note [code = 88951-2] Goal Plan of Care Note [code = 03783-2] Goal Plan of Care Note [code = 64224-9] Goal Plan of Care Note [code = 47932-0] Goal Plan of Care Note [code = 19429-9] Goal Plan of Care Note [code = 25379-1] Goal Plan of Care Note [code = 08582-8] Goal Plan of Care Note [code = 61316-0] Goal Plan of Care Note [code = 74644-1] Goal Plan of Care Note [code = 30386-3] Goal Plan of Care Note [code = 30730-8] Goal Plan of Care Note [code = 90587-5] Goal Plan of Care Note [code = 91055-3] Goal Plan of Care Note [code = 36704-7] Goal Plan of Care Note [code = 42457-8] Goal Plan of Care Note [code = 48513-7] Goal Plan of Care Note [code = 83302-3] Goal Plan of Care Note [code = 07932-2] Goal Plan of Care Note [code = 36878-9] Goal Plan of Care Note [code = 57919-5] Goal Plan of Care Note [code = 80714-6] Goal Plan of Care Note [code = 50308-8] Goal Plan of Care Note [code = 58629-2] Goal Plan of Care Note [code = 11442-0] Goal Plan of Care Note [code = 75576-6] Goal Plan of Care Note [code = 62983-3] Goal Plan of Care Note [code = 99379-7] Goal Plan of Care Note [code = 72324-6] Goal Plan of Care Note [code = 79159-0] Goal Plan of Care Note [code = 49474-5] Goal Plan of Care Note [code = 27171-4] Goal Plan of Care Note [code = 00741-1] Goal Plan of Care Note [code = 96841-9] Goal Plan of Care Note [code = 23967-1] Goal Plan of Care Note [code = 70357-0] Goal Plan of Care Note [code = 61080-0] Goal Plan of Care Note [code = 12598-6] Goal Plan of Care Note [code = 04818-8] Goal Plan of Care Note [code = 81346-9] Goal Plan of Care Note [code = 73124-9] Goal Plan of Care Note [code = 97802-5] Goal Plan of Care Note [code = 10337-3] Goal Plan of Care Note [code = 06902-1] Encounters Start Date/Time End Date/Time Encounter Type Admission Type Attending Clinicians [facility] Facility Care Department Encounter ID Source 2024-06-05 13:27:48 2024-06-05 13:27:48 Outpatient SFA [facility] [id number] 0318 [facility] 2024-06-05 00:00:00 2024-06-05 00:00:00 Outpatient Visit [facility] [id number] [facility] 2024-03-20 14:57:56 2024-03-20 14:57:56 Outpatient [facility] [id number] 1231 Laurent Branch 2024-03-20 00:00:00 2024-03-20 00:00:00 Outpatient Visit [facility] [id number] 3bd-47b5-b [id number] [id number] [facility] 2024-02-21 09:43:18 2024-02-21 09:43:18 Outpatient [facility] [id number] 1203 Laurent Branch 2024-02-21 00:00:00 2024-02-21 00:00:00 Outpatient Visit [facility] [id number] [id number] Laurent [facility] 2024-01-31 08:54:00 2024-01-31 11:27:00 Emergency X SUNDEEP, VICENTA [facility]A [facility] [id number] [facility] 2024-01-31 08:54:00 2024-01-31 11:27:00 Emergency Vicenta Urbano [facility] 1.2.840.114 350.1.13.10 4.2.7.2.686 [id number] [facility] 2023-11-29 13:29:11 2023-11-29 13:29:11 Outpatient SFA [facility] 0910 [place] [facility] 2023-11-29 00:00:00 2023-11-29 00:00:00 Outpatient Visit [facility] [id number] 1ba-4f7b-a [id number] [facility] 2023-09-15 17:05:07 2023-09-15 17:05:07 Outpatient SFA [facility] 27 [place] [facility] 2023-09-15 00:00:00 2023-09-15 00:00:00 Outpatient Visit [facility] [id number] [id number] [facility] 2023-08-01 00:00:00 2023-08-01 00:00:00 Outpatient Visit [facility] [id number] 8bb-4469-b [id number] [facility] 2023-05-30 09:45:39 2023-05-30 09:45:39 Outpatient [facility]FA [facility] 1 [place] [facility] 2023-05-02 08:04:26 2023-05-02 08:04:26 Outpatient [facility]FA [facility] 2 [place] [facility] 2023-02-28 08:10:27 2023-02-28 08:10:27 Outpatient [facility] 1211 [place] [facility] 2023-01-31 08:05:53 2023-01-31 08:05:53 Outpatient SFA [facility] 1113 [place] [facility] 2022-11-22 10:55:31 2022-11-22 10:55:31 Outpatient SFA [facility] 0904 [place] [facility] 2022-10-20 10:52:16 2022-10-20 10:52:16 Outpatient [facility] 0802 Laurent Branch 2022-10-16 09:59:55 2022-10-16 09:59:55 Outpatient [facility] 0729 [place] Branch 2022-10-13 17:01:41 2022-10-13 17:01:41 Outpatient [facility] 0726 [place] [facility] 2022-07-06 10:00:00 2022-07-06 10:00:00 Outpatient Gallito CONTRERASAde [facility] [id number] [facility] 2022-07-01 00:00:00 2022-07-01 00:00:00 Patient Secure Msg Doctor Unassigned, [place] [facility] [employer] [facility] MATERNAL & CHILD [facility] 1..840.114 350.1.13.10 4.2.7.2.686 [id number] [facility] 2022-07-01 00:00:00 2022-07-01 00:00:00 Patient Secure Msg Doctor Unassigned, [place] [facility] [employer] [facility] & CHILD [facility] 1..840.114 350.1.13.10 4.2.7.2.686 [id number] [facility] 2022-04-28 16:53:35 2022-04-28 16:53:35 Outpatient [facility] 0208 [place] 2022-04-18 18:54:00 2022-04-18 23:33:00 Emergency X TONI JOHN [facility] ERT [id number] [facility] 2022-04-18 18:54:00 2022-04-18 23:33:00 Emergency Toni John [facility] 1..840.114 350.1.13.10 4.2.7.2.686 [id number] [facility] 2022-02-20 18:29:00 2022-02-20 19:19:00 Emergency X MADONNA, K [facility] ERT [id number] [facility] 2022-02-20 18:29:00 2022-02-20 19:19:00 Emergency Tita Peacock [facility] 1.2.840.114 350.1.13.10 4.2.7.2.686 [id number] [facility] 2022-01-07 10:51:44 2022-01-07 10:51:44 Outpatient SFA [facility] 1020 [place] [facility] 2022-01-07 00:00:00 2022-01-07 00:00:00 Outpatient Visit [id number] bede19 2022-01-05 10:30:05 2022-01-05 10:30:05 Outpatient SFA [facility] 1018 [place] 2022-01-05 00:00:00 2022-01-05 00:00:00 Outpatient Visit [id number] [id number] -m1ih-[id number] [id number] 3bc-4b6b-a [id number] 1800-09-19 00:00:00 2021-12-07 00:00:00 Outpatient Visit [id number] -aac1-[id number] 618-44de-a [id number] [id number] 2021-12-03 13:00:00 2021-12-03 14:25:09 Outpatient JAMES VENTURA [facility] [id number] [facility] 2021-12-03 13:00:00 2021-12-03 14:25:09 Outpatient JAMES VENTURA [facility] [id number] [facility] 2021-12-03 13:00:00 2021-12-03 14:25:09 Outpatient JAMES VENTURA [facility] [id number] [facility] 2021-12-03 13:00:00 2021-12-03 14:25:09 Office Visit Pgy3 James Akhtar [facility] 1.2.840.114 350.1.13.10 4.2.7.2.686 [id number] [facility] 2021-12-03 13:00:00 2021-12-03 13:00:00 Outpatient JAMES VENTURA [facility] [id number] [facility] 2021-12-03 00:00:00 2021-12-03 00:00:00 Orders Only Doctor Unassigned, [place] [facility] 1.2.840.114 350.1.13.10 4.2.7.2.686 [id number] [facility] 2021-10-13 00:00:00 2021-10-13 00:00:00 Patient Secure Msg Doctor Unassigned, [place] [facility] 1.2.840.114 350.1.13.10 4.2.7.2.686 [id number] [facility] 2021-10-09 00:00:00 2021-10-09 00:00:00 Orders Only Doctor Unassigned, [place] [facility] 1.2840.114 350.1.13.10 4.2.7.2.686 [id number] [facility] 2021-10-07 00:00:00 2021-10-07 00:00:00 Outpatient Visit [id number]-[id number] -2v4z-nm5 [id number] 39d-403d-9 n2a-da21yw 8ec0ed 2021-09-23 00:00:00 2021-09-23 00:00:00 Outpatient Visit [id number]- abfb-4c5b -68s3-n05 [id number] bfb-4c5b-8 [id number]-u54x52 9b31f4 2021-03-23 00:54:00 2021-03-23 01:49:00 Emergency Es Vargas [facility] 1..840.114 350.1.13.10 4.2.7.2.686 [id number] [facility] 2021-03-23 00:54:00 2021-03-23 01:49:00 Emergency X ES VARGAS [facility] ERT [id number] [facility] 2021-03-23 00:00:00 2021-03-23 00:00:00 Patient Secure Msg Doctor Unassigned, [place] [facility] 1..840.114 350.1.13.10 4.2.7.2.686 [id number] [facility] 2019-03-11 15:29:09 2019-03-11 18:51:00 Emergency X TONI JOHN [facility] ERT [id number] [facility] Results Test Description Test Time Test Comments Results Result Co mments Source Laurent BranchHEMOGLOBIN [id number] 03:15:02* Test Item Value Reference Range Interpretation Comme nts HEMOGLOBIN A1c (test code = 91121) 10.7 % 4.2-5.6 H [employer] GUIDELINES FOR HGB A1C: [...] TESTING PERFORMED AT [facility] [address] [place] [address] IT SALES CONSULTANT: BENY GARCIAS M.D. CLIA NUMBER [id number] [facility] [place]. [id number] HEMOGLOBIN [id number] 00:00:00* Test Item Value Reference Range Interpretation Commroshan grimes HEMOGLOBIN A1c (test code = 26137) 10.7 % Laurent BranchHEMOGLOBIN [id number] 00:00:00* Test Item Value Reference Range Interpretation Commroshan grimes HEMOGLOBIN A1c (test code = 27163) 10.7 % Laurent BranchHEMOGLOBIN [id number] 00:00:00* Test Item Value Reference Range Interpretation Commroshan grimes HEMOGLOBIN A1c (test code = 81283) 10.7 % Laurent Bazzi AustinHEMOGLOBIN [id number] 00:00:00* Test Item Value Reference Range Interpretation Commroshan grimes HEMOGLOBIN A1c (test code = 90015) 10.7 % Laurent Bazzi AustinCT MAXILLOFACIAL/MANDIBLE W [id number] 15:54:28FULL RESULT: Examination: CT MAXILLOFACIAL/MANDIBLE W CONTRAST on 01/31/2024 9:14 AM Clinical Indication: Diabetic with recent onset of right facial swellingand dysphagia Comparison: None. Technique:Postcontrast axial images were obtained from lateral ventriclesthrough the thyroid level. Findings:Visualized aspects of the brain, orbits and paranasal sinuses were withoutworrisome finding. From apple perior to inferior, starting at about the level of the tonsil thereis submucosal edema and fullnessthat suggests smoldering infection. In theinferior tonsillar region [...] if any reactive adenopathy in the right neck.[facility]. METABOLIC PANEL (26755)2024-01-31 15:44:46* Test Item Value Reference Range Interpretation Comme nts NA (test code = 4262895655) 131 mmol/L 135-145 L K (test code = 7074169962) 3.5 mmol/L 3.5-5.0 CL (test code = 9718941999) 101 mmol/L 98-108 CO2 TOTAL (test code = 6184908029) 28 mmol/L 23-31 AGAP (test code = 5539158754) 2 2-16 BUN (test code = 1985843247) 21 mg/dL 7-23 GLUCOSE (test code = 7016534638) 171 mg/dL 70-110 H CREATININE (test code = 2160-0) 0.82 mg/dL 0.50-1.04 TOTAL BILI (test code = 3887849803) 0.2 mg/dL 0.1-1.1 CALCIUM (test code = 2825902544) 9.0 mg/dL 8.6-10.6 T PROTEIN (test code = 4593382886) 6.6 g/dL 6.3-8.2 ALBUMIN (test code = 4212267662) 3.2 g/dL 3.5-5.0 L ALK PHOS (test code = 2684714980) 113 U/L 34-122 ALTv (test code = 1742-6) 19 U/L 5-35 AST(SGOT) (test code = 8547145251) 20 U/L 13-40 eGFR (test code = 37803-3) 91.7 mL/min/1.73m2 CKD-EPI eGFR (2020). Assuming creatinine has been stable day-to-day for at least three months, the eGFR indicates Category G1 (>= 90 mL/min/1.73 m2) Lab Interpretation (test code = 70093-9) Abnormal [facility] WITH [id number] 15:38:28* Test Item Value Reference Range Interpretation [...] g/dL 31.6-35.1 H RDW-SD (test code = 93291-1) 38.5 fL 39.0-49.9 L RDW-CV (test code = 788-0) 12.7 % 12.0-15.5 PLT (test code = 777-3) 361 166-358 H MPV (test code = 44629-7) 9.1 fL 9.5-12.9 L NRBC/100 WBC (test code = 7929425413) 0.0 0.0-10.0 NRBC x10^3 (test code = 9117684967) See_Comment [Automated messa ge] The system which generated this result transmitted reference range: 10*3/?L. The reference range was not used to interpret this result as normal/abnormal. GRAN MAT (NEUT) % (test code = 770-8) 67.3 % IMM GRAN % (test code = 8223575229) 0.90 % LYMPH % (test code = 736-9) 22.0 % MONO % (test code = 5905-5) 8.2 % EOS % (test code = 713-8) 1.0 % BASO % (test code = 706-2) 0.6 % GRAN MAT x10^3(ANC) (test code = 3137918798) 6.42 10*3/uL 1.88-7.09 IMM GRAN x10^3 (test code = 6518288739) 0.09 10*3/uL 0.00-0.06 H LYMPH x10^3 (test code = 731-0) 2.10 10*3/uL 1.32-3.29 MONO x10^3 (test code = 742-7) 0.78 10*3/uL 0.33-0.92 EOS x10^3 (test code = 711-2) 0.10 10*3/uL 0.03-0.39 BASO x10^3 (test code = 704-7) 0.06 10*3/uL 0.01-0.07 Lab Interpretation (test code = 06635-6) [id number] 15:22:00* Test Item Value Reference Range Interpretation Comme nts POCT PREG (test code = 1605) Negative On board controls acceptable with C Line (test code = 3574) Yes Lab Interpretation (test cod e = 66890-8) Normal [facility] [id number] 00:00:00* Test Item Value Reference Range Interpretation Comme nts CHOLESTEROL (test code = 2210) 314 MG/DL TRIGLYCERIDES (test code = 2232) 280 MG/DL HDL CHOLESTEROL (test code = 2220) 56 MG/DL CALC LDL CHOL (test code = 2237) 208 MG/DL RISK RATIO LDL/HDL (test cod e = 2238) 3.71 RATIO Laurent BranchHEMOGLOBIN [id number] 00:00:00* Test Item Value Reference Range Interpretation Comme nts HEMOGLOBIN A1c (test code = 64808) 11.0 % Laurent BranchCOMPREHENSIVE METABOLIC [id number] 00:00:00* Test Item Value Reference Range Interpretation Comme nts GLUCOSE (test code = 2217) 172 MG/DL BUN (test code = 2208) 14 MG/DL CREATININE (test code = 2214) 0.81 MG/DL eGFR (2020 CKD-EPI) (test co de = 93549) 93 ML/MIN/1.73 CALC BUN/CREAT (test code = 2235) 17 RATIO SODIUM (test code = 2231) 138 MEQ/L POTASSIUM (test code = 2228) 4.0 MEQ/L CHLORIDE (test code = 2215) 102 MEQ/L CARBON DIOXIDE (test code = 2206) 25 MEQ/L CALCIUM (test code = 2209) 8.7 MG/DL PROTEIN, TOTAL (test code = 2229) 5.4 G/DL ALBUMIN (test code = 2201) 3.0 G/DL CALC GLOBULIN (test code = 2240) 2.4 G/DL CALC A/G RATIO (test code = 2234) 1.3 RATIO BILIRUBIN, TOTAL (test code = 2207) <0.2 MG/DL ALKALINE PHOSPHATASE (test code = 2204) 99 U/L AST (test code = 2218) 23 U/L ALT (test code = 2219) 22 U/L Laurent BranchLIPID [id number] 00:00:00* Test Item Value Reference Range Interpretation Comme nts CHOLESTEROL (test code = 2210) 314 MG/DL TRIGLYCERIDES (test code = 2232) 280 MG/DL HDL CHOLESTEROL (test code = 2220) 56 MG/DL CALC LDL CHOL (test code = 2237) 208 MG/DL RISK RATIO LDL/HDL (test cod e = 2238) 3.71 RATIO Laurent BranchHEMOGLOBIN [id number] 00:00:00* Test Item Value Reference Range Interpretation Comme nts HEMOGLOBIN A1c (test code = 43714) 11.0 % Laurent BranchCOMPREHENSIVE METABOLIC [id number] 00:00:00* Test Item Value Reference Range Interpretation Comme nts GLUCOSE (test code = 2217) 172 MG/DL BUN (test code = 2208) 14 MG/DL CREATININE (test code = 2214) 0.81 MG/DL eGFR (2020 CKD-EPI) (test co de = 27573) 93 ML/MIN/1.73 CALC BUN/CREAT (test code = 2235) 17 RATIO SODIUM (test code = 2231) 138 MEQ/L POTASSIUM (test code = 2228) 4.0 MEQ/L CHLORIDE (test code = 2215) 102 MEQ/L CARBON DIOXIDE (test code = 2206) 25 MEQ/L CALCIUM (test code = 2209) 8.7 MG/DL PROTEIN, TOTAL (test code = 2229) 5.4 G/DL ALBUMIN (test code = 2201) 3.0 G/DL CALC GLOBULIN (test code = 2240) 2.4 G/DL CALC A/G RATIO (test code = 2234) 1.3 RATIO BILIRUBIN, TOTAL (test code = 2207) <0.2 MG/DL ALKALINE PHOSPHATASE (test code = 2204) 99 U/L AST (test code = 2218) 23 U/L ALT (test code = 2219) 22 U/L Laurent Bazzi AustinLIPID [id number] 00:00:00* Test Item Value Reference Range Interpretation Comme nts CHOLESTEROL (test code = 2210) 314 MG/DL TRIGLYCERIDES (test code = 2232) 280 MG/DL HDL CHOLESTEROL (test code = 2220) 56 MG/DL CALC LDL CHOL (test code = 2237) 208 MG/DL RISK RATIO LDL/HDL (test cod e = 2238) 3.71 RATIO Laurent BranchHEMOGLOBIN [id number] 00:00:00* Test Item Value Reference Range Interpretation Comme nts HEMOGLOBIN A1c (test code = 56015) 11.0 % Laurent BranchCOMPREHENSIVE METABOLIC [id number] 00:00:00* Test Item Value Reference Range Interpretation Comme nts GLUCOSE (test code = 2217) 172 MG/DL BUN (test code = 2208) 14 MG/DL CREATININE (test code = 2214) 0.81 MG/DL eGFR (2020 CKD-EPI) (test co de = 99470) 93 ML/MIN/1.73 CALC BUN/CREAT (test code = 2235) 17 RATIO SODIUM (test code = 2231) 138 MEQ/L POTASSIUM (test code = 2228) 4.0 MEQ/L CHLORIDE (test code = 2215) 102 MEQ/L CARBON DIOXIDE (test code = 2206) 25 MEQ/L CALCIUM (test code = 2209) 8.7 MG/DL PROTEIN, TOTAL (test code = 2229) 5.4 G/DL ALBUMIN (test code = 2201) 3.0 G/DL CALC GLOBULIN (test code = 2240) 2.4 G/DL CALC A/G RATIO (test code = 2234) 1.3 RATIO BILIRUBIN, TOTAL (test code = 2207) <0.2 MG/DL ALKALINE PHOSPHATASE (test code = 2204) 99 U/L AST (test code = 2218) 23 U/L ALT (test code = 2219) 22 U/L Laurent Bazzi AustinLIPID [id number] 00:00:00* Test Item Value Reference Range Interpretation Comme nts CHOLESTEROL (test code = 2210) 314 MG/DL TRIGLYCERIDES (test code = 2232) 280 MG/DL HDL CHOLESTEROL (test code = 2220) 56 MG/DL CALC LDL CHOL (test code = 2237) 208 MG/DL RISK RATIO LDL/HDL (test cod e = 2238) 3.71 RATIO Laurent Bazzi AustinHEMOGLOBIN [id number] 00:00:00* Test Item Value Reference Range Interpretation Comme [facility] HEMOGLOBIN A1c (test code = 71741) 11.0 % Laurent BranchCOMPREHENSIVE METABOLIC [id number] 00:00:00* Test Item Value Reference Range Interpretation Comme nts GLUCOSE (test code = 2217) 172 MG/DL BUN (test code = 2208) 14 MG/DL CREATININE (test code = 2214) 0.81 MG/DL eGFR (2020 CKD-EPI) (test co de = 24396) 93 ML/MIN/1.73 CALC BUN/CREAT (test code = 2235) 17 RATIO SODIUM (test code = 2231) 138 MEQ/L POTASSIUM (test code = 2228) 4.0 MEQ/L CHLORIDE (test code = 2215) 102 MEQ/L CARBON DIOXIDE (test code = 2206) 25 MEQ/L CALCIUM (test code = 2209) 8.7 MG/DL PROTEIN, TOTAL (test code = 2229) 5.4 G/DL ALBUMIN (test code = 2201) 3.0 G/DL CALC GLOBULIN (test code = 2240) 2.4 G/DL CALC A/G RATIO (test code = 2234) 1.3 RATIO BILIRUBIN, TOTAL (test code = 2207) <0.2 MG/DL ALKALINE PHOSPHATASE (test code = 2204) 99 U/L AST (test code = 2218) 23 U/L ALT (test code = 2219) 22 U/L Laurent BranchHEMOGLOBIN [id number] 02:29:32* Test Item Value Reference Range Interpretation Comme [facility] HEMOGLOBIN A1c (test code = 09367) 8.9 % 4.2-5.6 H [employer] GUIDELINES FOR HGB A1C: [...] TESTING PERFORMED AT [facility] [address] [place] [address] IT SALES CONSULTANT: Vivek MCKINNONIA NUMBER [id number] [place]. [id number] HEMOGLOBIN [id number] 00:00:00* Test Item Value Reference Range Interpretation Comme nts HEMOGLOBIN A1c (test code = 73534) 8.9 % Laurent Bazzi AustinHEMOGLOBIN [id number] 00:00:00* Test Item Value Reference Range Interpretation Comme nts HEMOGLOBIN A1c (test code = 86036) 8.9 % Laurent Bazzi AustinHEMOGLOBIN [id number] 00:00:00* Test Item Value Reference Range Interpretation Comme nts HEMOGLOBIN A1c (test code = 17015) 8.9 % Laurent Bazzi AustinHEMOGLOBIN [id number] 00:00:00* Test Item Value Reference Range Interpretation Comme nts HEMOGLOBIN A1c (test code = 09914) 8.9 % Laurent Bazzi AustinHEMOGLOBIN [id number] 00:00:00* Test Item Value Reference Range Interpretation Comme nts HEMOGLOBIN A1c (test code = 07214) 8.9 % Laurent Bazzi AustinHEMOGLOBIN [id number] 01:53:26* Test Item Value Reference Range Interpretation Comme nts HEMOGLOBIN A1c (test code = 38852) 8.7 % 4.2-5.6 H [employer] GUIDELINES FOR HGB A1C: [...] TESTING PERFORMED AT [facility] [address] [place] [address] IT SALES CONSULTANT: Vivek MCKINNONIA NUMBER [id number] [place]. [id number] HEMOGLOBIN [id number] 00:00:00* Test Item Value Reference Range Interpretation Comme nts HEMOGLOBIN A1c (test code = 90962) 8.7 % Laurent Bazzi AustinHEMOGLOBIN [id number] 00:00:00* Test Item Value Reference Range Interpretation Comme nts HEMOGLOBIN A1c (test code = 76909) 8.7 % Laurent BranchHEMOGLOBIN [id number] 00:00:00* Test Item Value Reference Range Interpretation Comme cornelio HEMOGLOBIN A1c (test code = 99335) 8.7 % Laurent BranchHEMOGLOBIN [id number] 00:00:00* Test Item Value Reference Range Interpretation Comme cornelio HEMOGLOBIN A1c (test code = 75516) 8.7 % Laurent Bazzi AustinHEMOGLOBIN [id number] 00:00:00* Test Item Value Reference Range Interpretation Comme cornelio HEMOGLOBIN A1c (test code = 49703) 8.7 % Laurent Bazzi AustinHEMOGLOBIN [id number] 00:00:00* Test Item Value Reference Range Interpretation Comme cornelio HEMOGLOBIN A1c (test code = 00839) 8.7 % Laurent Bazzi AustinALBUMIN/CREATININE RATIO, URINE, [id number] 06:54:45* Test Item Value Reference Range Interpretation Comme nts CREATININE, URINE, CONC. (test code = 2072) 113.4 MG/DL NOT ESTAB ALBUMIN, URINE, RANDOM (test code = 16381) 327.7 MG/DL NOT ESTAB CALC ALBUMIN/CREAT, RND (test code = 90519) 2890 MG/G <30 H Note: Albumin/Cr eatinine ratio reference interval reflects ADA and NKF guidelines. UNLESS OTHERWISE INDICATED, ALL TESTING PERFORMED AT [facility] [address] [place] [address] IT SALES CONSULTANT: BENY GARCIAS M.D. [place] NUMBER [id number] [facility] [place]. [id number] HEMOGLOBIN [id number] 03:32:55* Test Item Value Reference Range Interpretation Comme cornelio HEMOGLOBIN A1c (test code = 29019) 7.3 % 4.2-5.6 H [employer] GUIDELINES FOR HGB A1C: [...] TESTING OR LABORATORY CONSULTATION. ALBUMIN/CREATININE RATIO, RANDOM [id number] 00:00:00* Test Item Value Reference Range Interpretation Comme nts CREATININE, URINE, CONC. (te st code = 2071) 113.4 MG/DL ALBUMIN, URINE, RANDOM (test code = 15273) 327.7 MG/DL CALC ALBUMIN/CREAT, RND (phyllis t code = 05745) 2890 MG/G Laurent Bazzi AustinHEMOGLOBIN [id number] 00:00:00* Test Item Value Reference Range Interpretation Comme nts HEMOGLOBIN A1c (test code = 82542) 7.3 % Laurent F AustinALBUMIN/CREATININE RATIO, RANDOM [id number] 00:00:00* Test Item Value Reference Range Interpretation Comme nts CREATININE, URINE, CONC. (te st code = 2071) 113.4 MG/DL ALBUMIN, URINE, RANDOM (test code = 32914) 327.7 MG/DL CALC ALBUMIN/CREAT, RND (phyllis t code = 54917) 2890 MG/G Laurent Bazzi AustinHEMOGLOBIN [id number] 00:00:00* Test Item Value Reference Range Interpretation Comme nts HEMOGLOBIN A1c (test code = 79804) 7.3 % Laurent Bazzi AustinALBUMIN/CREATININE RATIO, RANDOM [id number] 00:00:00* Test Item Value Reference Range Interpretation Comme nts CREATININE, URINE, CONC. (te st code = 2071) 113.4 MG/DL ALBUMIN, URINE, RANDOM (test code = 13715) 327.7 MG/DL CALC ALBUMIN/CREAT, RND (phyllis t code = 27188) 2890 MG/G Laurent Bazzi AustinHEMOGLOBIN [id number] 00:00:00* Test Item Value Reference Range Interpretation Comme nts HEMOGLOBIN A1c (test code = 95457) 7.3 % Laurent F AustinALBUMIN/CREATININE RATIO, RANDOM [id number] 00:00:00* Test Item Value Reference Range Interpretation Comme nts CREATININE, URINE, CONC. (te st code = 207) 113.4 MG/DL ALBUMIN, URINE, RANDOM (test code = 93447) 327.7 MG/DL CALC ALBUMIN/CREAT, RND (phyllis t code = 77283) 2890 MG/G Laurent Bazzi AustinHEMOGLOBIN [id number] 00:00:00* Test Item Value Reference Range Interpretation Comme nts HEMOGLOBIN A1c (test code = 77794) 7.3 % Laurent Bazzi AustinALBUMIN/CREATININE RATIO, RANDOM [id number] 00:00:00* Test Item Value Reference Range Interpretation Comme nts CREATININE, URINE, CONC. (te st code = 2072) 113.4 MG/DL ALBUMIN, URINE, RANDOM (test code = 39985) 327.7 MG/DL CALC ALBUMIN/CREAT, RND (phyllis t code = 54590) 2890 MG/G Laurent BranchHEMOGLOBIN [id number] 00:00:00* Test Item Value Reference Range Interpretation Comme nts HEMOGLOBIN A1c (test code = 12949) 7.3 % Laurent BranchALBUMIN/CREATININE RATIO, RANDOM [id number] 00:00:00* Test Item Value Reference Range Interpretation Comme nts CREATININE, URINE, CONC. (te st code = 2072) 113.4 MG/DL ALBUMIN, URINE, RANDOM (test code = 48787) 327.7 MG/DL CALC ALBUMIN/CREAT, RND (phyllis t code = 19767) 2890 MG/G Laurent BranchHEMOGLOBIN [id number] 00:00:00* Test Item Value Reference Range Interpretation Comme nts HEMOGLOBIN A1c (test code = 16969) 7.3 % Laurent BranchPROLACTIN [ADDED]2022-10-18 00:00:00* Test [...] (test code = 2821) 2.290 UIU/ML Laurent F AustinPROGESTERONE [ADDED]2022-10-18 00:00:00* Test Item Value Reference Range Interpretation Comme nts PROGESTERONE (test code = 2790) 13.60 NG/ML Laurent F AustinPROLACTIN [ADDED]2022-10-18 00:00:00* Test Item Value Reference Range Interpretation Comme nts PROLACTIN (test code = 2800) 14.7 NG/ML Laurent F AustinTESTOSTERONE [ADDED]2022-10-18 00:00:00* Test Item Value Reference Range Interpretation Comme nts TESTOSTERONE (test code = 2830) 15 NG/DL Laurent F AustinFSH + LH PROFILE [ADDED]2022-10-18 00:00:00* Test Item Value Reference Range Interpretation Comme nts FOLLICLE STIM HORMONE (test code = 2700) 5.8 IU/L LUTEINIZING HORMONE (test co de = 2776) 11.8 IU/L Laurent F AustinESTRADIOL [ADDED]2022-10-18 00:00:00* Test Item Value Reference Range Interpretation Comme nts ESTRADIOL (test code = 2505) 124.0 PG/ML Laurent F AustinTSH, THIRD GENERATION [ADDED]2022-10-18 00:00:00* Test Item Value Reference Range Interpretation Comme nts TSH, THIRD GENERATION (test code = 2821) 2.290 UIU/ML Laurent F AustinPROGESTERONE [ADDED]2022-10-18 00:00:00* Test Item Value Reference Range Interpretation Comme nts PROGESTERONE (test code = 2790) 13.60 NG/ML Laurent F AustinPROLACTIN [ADDED]2022-10-18 00:00:00* Test Item Value Reference Range Interpretation Comme nts PROLACTIN (test code = 2800) 14.7 NG/ML Laurent F AustinTESTOSTERONE [ADDED]2022-10-18 00:00:00* Test Item Value Reference Range Interpretation Comme nts TESTOSTERONE (test code = 2830) 15 NG/DL Laurent F AustinFSH + LH PROFILE [ADDED]2022-10-18 00:00:00* Test Item Value Reference Range Interpretation Comme nts FOLLICLE STIM HORMONE (test code = 2700) 5.8 IU/L LUTEINIZING HORMONE (test co de = 2776) 11.8 IU/L Laurent Bazzi AustinESTRADIOL [ADDED]2022-10-18 00:00:00* Test Item Value Reference Range Interpretation Comme nts ESTRADIOL (test code = 2505) 124.0 PG/ML Laurent KamH, THIRD GENERATION [ADDED]2022-10-18 00:00:00* Test Item Value Reference Range Interpretation Comme nts TSH, THIRD GENERATION (test code = 2821) 2.290 UIU/ML Laurent F AustinPROGESTERONE [ADDED]2022-10-18 00:00:00* Test Item Value Reference Range [...] co de = 2776) 11.8 IU/L Laurent Bazzi AustinESTRADIOL [ADDED]2022-10-18 00:00:00* Test Item Value Reference Range Interpretation Comme nts ESTRADIOL (test code = 2505) 124.0 PG/ML Laurent KamH, THIRD GENERATION [ADDED]2022-10-18 00:00:00* Test Item Value Reference Range Interpretation Comme nts TSH, THIRD GENERATION (test code = 2821) 2.290 UIU/ML Laurent F AustinPROGESTERONE [ADDED]2022-10-18 00:00:00* Test Item Value Reference Range Interpretation Comme nts PROGESTERONE (test code = 2790) 13.60 NG/ML Laurent F AustinPROLACTIN [ADDED]2022-10-18 00:00:00* Test Item Value Reference Range Interpretation Comme nts PROLACTIN (test code = 2800) 14.7 NG/ML Laurent F AustinTESTOSTERONE [ADDED]2022-10-18 00:00:00* Test Item Value Reference Range Interpretation Comme nts TESTOSTERONE (test code = 2830) 15 NG/DL Laurent F AustinFSH + LH PROFILE [ADDED]2022-10-18 00:00:00* Test Item Value Reference Range Interpretation Comme nts FOLLICLE STIM HORMONE (test code = 2700) 5.8 IU/L LUTEINIZING HORMONE (test co de = 2776) 11.8 IU/L Laurent F AustinESTRADIOL [ADDED]2022-10-18 00:00:00* Test Item Value Reference Range Interpretation Comme nts ESTRADIOL (test code = 2505) 124.0 PG/ML Laurent F AustinTSH, THIRD GENERATION [ADDED]2022-10-18 00:00:00* Test Item Value Reference Range Interpretation Comme nts TSH, THIRD GENERATION (test code = 2821) 2.290 UIU/ML Laurent F AustinPROGESTERONE [ADDED]2022-10-18 00:00:00* Test Item Value Reference Range Interpretation Comme nts PROGESTERONE (test code = 2790) 13.60 NG/ML Laurent F AustinPROLACTIN [ADDED]2022-10-18 00:00:00* Test Item Value Reference Range Interpretation Comme nts PROLACTIN (test code = 2800) 14.7 NG/ML Laurent F AustinTESTOSTERONE [ADDED]2022-10-18 00:00:00* Test Item Value Reference Range Interpretation Comme nts TESTOSTERONE (test code = 2830) 15 NG/DL Laurent F AustinFSH + LH PROFILE [ADDED]2022-10-18 00:00:00* Test Item Value Reference Range Interpretation Comme nts FOLLICLE STIM HORMONE (test code = 2700) 5.8 IU/L LUTEINIZING HORMONE (test co de = 2776) 11.8 IU/L Laurent F AustinESTRADIOL [ADDED]2022-10-18 00:00:00* Test Item Value Reference Range Interpretation Comme nts ESTRADIOL (test code = 2505) 124.0 PG/ML Laurent F AustinTSH, THIRD GENERATION [ADDED]2022-10-18 00:00:00* Test Item Value Reference Range Interpretation Comme nts TSH, THIRD GENERATION (test code = 2821) 2.290 UIU/ML Laurent F AustinPROGESTERONE [ADDED]2022-10-18 00:00:00* Test Item Value Reference Range Interpretation Comme nts PROGESTERONE (test code = 2790) 13.60 NG/ML Laurent Bazzi AustinHEMOGLOBIN A1c [ADDED]2022-10-17 00:00:00* Test Item Value Reference Range Interpretation Comme nts HEMOGLOBIN A1c (test code = 97065) 10.5 % Laurent Bazzi AustinHEMOGLOBIN A1c [ADDED]2022-10-17 00:00:00* Test Item Value Reference Range Interpretation Comme nts HEMOGLOBIN A1c (test code = 65779) 10.5 % Laurent Bazzi AustinHEMOGLOBIN A1c [ADDED]2022-10-17 00:00:00* Test Item Value Reference Range Interpretation Comme nts HEMOGLOBIN A1c (test code = 80447) 10.5 % Laurent Bazzi AustinHEMOGLOBIN A1c [ADDED]2022-10-17 00:00:00* Test Item Value Reference Range Interpretation Comme nts HEMOGLOBIN A1c (test code = 33607) 10.5 % Laurent Bazzi AustinHEMOGLOBIN A1c [ADDED]2022-10-17 00:00:00* Test Item Value Reference Range Interpretation Comme nts HEMOGLOBIN A1c (test code = 75149) 10.5 % Laurent Bazzi AustinHEMOGLOBIN A1c [ADDED]2022-10-17 00:00:00* Test Item Value Reference Range Interpretation Comme nts HEMOGLOBIN A1c (test code = 02595) 10.5 % Laurent Bazzi AustinGLYCOSYLATED HEMOGLOBIN (A1C)2022-04-19 04:58:13* Test Item Value Reference Range Interpretation Comme nts HGB A1C (test code = 4548-4) 9.9 % 4.0-5.7 H BRADEN (test code = BRADEN) Reference RangesNormal: <5.7%Prediabetes: 5.7 - 6.4%Diabetes: > 6.5% Lab Interpretation (test code = 20252-4) [facility]D-[id number] 03:41:23* Test Item Value Reference Range Interpretation Comments D-DIMER (test code = 8612264834) See_Comment [Automated message] The system which generated [...] a diagnosis. Lab Interpretation (test code = 84821-7) Normal [facility] IrvingTROPONIN [id number] 02:49:04* Test Item Value Reference Range Interpretation Comments TROPONIN I (test code = 9809183036) 0.012 ng/mL See_Comment [Automated message] The system [...] of biotin. Lab Interpretation (test code = 76923-3) [facility] IrvingCOMP. METABOLIC PANEL (85541)2022-04-19 02:32:42* Test Item Value Reference Range Interpretation Comme nts NA (test code = 5663122573) 130 mmol/L 135-145 L K (test code = 7869697387) 5.1 mmol/L 3.5-5.0 H CL (test code = 2750347270) 101 mmol/L 98-108 CO2 TOTAL (test code = 0106627971) 22 mmol/L 23-31 L AGAP (test code = 3010503056) 2-16 BUN (test code = 9343261293) 17 mg/dL 7-23 GLUCOSE (test code = 3407447824) 382 mg/dL 70-110 H CREATININE (test code = 2000620013) 0.75 mg/dL 0.50-1.04 TOTAL BILI (test code = 2403404609) 0.7 mg/dL 0.1-1.1 CALCIUM (test code = 1595615410) 8.6 mg/dL 8.6-10.6 T PROTEIN (test code = 5646023269) 7.0 g/dL 6.3-8.2 ALBUMIN (test code = 5039337330) 4.0 g/dL 3.5-5.0 ALK PHOS (test code = 1173765185) 157 U/L 34-122 H ALTv (test code = 1742-6) 26 U/L 5-35 AST(SGOT) (test code = 2371075081) 43 U/L 13-40 H eGFR (test code = 4533384591) mL/min/1.73m2 BRADEN (test code = BRADEN) Association [...] imaging tests). Lab Interpretation (test code = 04297-3) [facility]normal [facility] IrvingLIPASE2023-01-30 02:32:22* Test Item Value Reference Range Interpretation Comme nts LIPASE (test code = 3261085442) 193 U/L 0-220 Lab Interpretation (test cod e = 15647-1) Normal [facility] IrvingACTIVATED PARTIAL THRMPLAS [id number] 02:01:22* Test Item Value Reference Range Interpretation Comme nts APTT Patient (test code = 3173-2) See_Comment L [Automated message] The system which generated this result transmitted reference range: 23 - 38 Seconds. The reference range was not used to interpret this result as normal/abnormal. BRADEN (test code = BRADEN) The [facility] patient population mean normal value for aPTT is 30 seconds. Lab Interpretation (test code = 16967-8) Abnormal [facility] IrvingPROTHROMBIN TIME / [id number] 01:59:21* Test Item Value Reference Range Interpretation Comme nts PROTIME PATIENT (test code = 5964-2) See_Comment L [Automated behaviewa [employer]] The system which generated this result transmitted reference range: 12.0 - 14.7 Seconds. The reference range was not used to interpret this result as normal/abnormal. INR (test code = 6301-6) Normal INR <1.1; Warfarin Therapeutic range 2.0 to 3.0 or 2.5 to 3.5, depending upon the indications. Lab Interpretation (test code = 03122-9) Abnormal [facility] IrvingCBC WITH [id number] 01:52:25* Test Item Value Reference Range Interpretation Comme nts WBC (test code = 6690-2) See_Comment [Automated behaviewa ge] The system which generated this result [...] g/dL 31.6-35.1 H RDW-SD (test code = 56125-8) 39.2 fL 39.0-49.9 RDW-CV (test code = 788-0) 13.2 % 12.0-15.5 PLT (test code = 777-3) See_Comment [Automated behaviewa ge] The system which generated this result transmitted reference range: 166 - 358 10*3/?L. The reference range was not used to interpret this result as normal/abnormal. MPV (test code = 85208-3) 10.7 fL 9.5-12.9 NRBC/100 WBC (test code = 3396660093) See_Comment [Automated [employer] ssage] The system which generated this result transmitted reference range: 0.0 - 10.0 /100 WBCs. The reference range was not used to interpret this result as normal/abnormal. NRBC x10^3 (test code = 6826774358) See_Comment [Automated behaviewa ge] The system which generated this result transmitted reference range: 10*3/?L. The reference range was not used to interpret this result as normal/abnormal. GRAN MAT (NEUT) % (test code = 770-8) 59.5 % IMM GRAN % (test code = 0342406179) 0.80 % LYMPH % (test code = 736-9) 31.7 % MONO % (test code = 5905-5) 6.7 % EOS % (test code = 713-8) 0.7 % BASO % (test code = 706-2) 0.6 % GRAN MAT x10^3(ANC) (test code = 6758799378) 5.21 10*3/uL 1.88-7.09 IMM GRAN x10^3 (test code = 9596771413) 0.07 10*3/uL 0.00-0.06 H LYMPH x10^3 (test code = 731-0) 2.78 10*3/uL 1.32-3.29 MONO x10^3 (test code = 742-7) 0.59 10*3/uL 0.33-0.92 EOS x10^3 (test code = 711-2) 0.06 10*3/uL 0.03-0.39 BASO x10^3 (test code = 704-7) 0.05 10*3/uL 0.01-0.07 Lab Interpretation (test code = 79605-6) [facility]normal [facility] IrvingPOCT [id number] 01:26:00* Test Item Value Reference Range Interpretation Comme nts POCT PREG (test code = 1605) Negative On board controls acceptable with C Line (test code = 3574) Present POCT PREG LOT # (test code = 3575) [id number] POCT PREG TEST DATE ( test code = 3576) 06-19-2023 Lab Interpretation (test cod e = 89691-0) [facility] IrvingSCR MAMM BILATERAL PRICE CAD [id number] 10:06:59Name: Gem : 1980 Sex: F - SCR MAMM BILATERAL PRICE CAD DIGITALBILATERAL FIRST EVER DIGITAL SCREENING MAMMOGRAM 3D/2D WITH CAD: 3CLINICAL: Asymptomatic. Digital breast tomosynthesis was performed in addition to routine CC and MLO views. Current mammographic images were evaluated by [employer] Image[employer]er CAD (computer-aided detection) software. No prior exams [...] year. (03/27/2023) Kamari Jarrett M.D. et/penrad:03/29/2022 10:06:59 [employer]: Ivy [employer] MM, [facility] Mammographyletter sent: BIRADS 1-2 Normal Mammogram BI-RADS: 2 Benign HEMOGLOBIN [id number] 07:13:48* Test Item Value Reference Range Interpretation Comme nts HEMOGLOBIN A1c (test code = 53678) 10.4 % 4.2-5.6 H [employer] GUIDELINES FOR HGB A1C: [...] TESTING OR LABORATORY CONSULTATION. ALBUMIN/CREATININE RATIO, URINE, [id number] 04:55:11* Test Item Value Reference Range Interpretation Comme nts CREATININE, URINE, CONC. (test code = 2072) 157.3 MG/DL NOT ESTAB ALBUMIN, URINE, RANDOM (test code = 19869) 256.4 MG/DL NOT ESTAB CALC ALBUMIN/CREAT, RND (test code = 28335) 1630 MG/G <30 H Note: Albumin/Cr eatinine ratio reference interval reflects ADA and NKF guidelines. UNLESS OTHERWISE INDICATED, [facility] [address] [place] [address] IT SALES CONSULTANT: ARNIE KRISHNA M.D. CLIA NUMBER [id number] [place]. [id number] LIPID [id number] 03:42:46* Test Item Value Reference Range Interpretation [...] SPECIMENS. FOR MOREINFORMATION, SEE CLIENT ANNOUNCEMENT AT [email or web address] CalcLDL-C RISK RATIO LDL/HDL (test code = 2237) (NOTE) RATIO <3.22 UNABLE TO MANFRED CULATE COMPREHENSIVE METABOLIC [id number] 03:42:46* Test Item Value Reference Range Interpretation Comme nts GLUCOSE (test code = 2216) 165 MG/DL 70-99 H BUN (test code = 2207) 13 MG/DL 6-20 CREATININE (test code = 221) 0.52 MG/DL 0.60-1.30 L eGFR (2020 CKD-EPI) (test code = 40705) 120 ML/MIN/1.73 >60 CALC BUN/CREAT (test code = 223) 25 RATIO 6-28 SODIUM (test code = 2230) 137 MEQ/L 133-146 POTASSIUM (test code = 8) 4.4 MEQ/L 3.5-5.4 CHLORIDE (test code = 2215) 101 MEQ/L 95-107 CARBON DIOXIDE (test code = 2206) 22 MEQ/L 19-31 CALCIUM (test code = 220) 9.5 MG/DL 8.5-10.5 PROTEIN, TOTAL (test code = 2228) 6.7 G/DL 6.1-8.3 ALBUMIN (test code = 2200) 4.1 G/DL 3.5-5.2 CALC GLOBULIN (test code = 2240) 2.6 G/DL 1.9-3.7 CALC A/G RATIO (test code = 2233) 1.6 RATIO 1.0-2.6 BILIRUBIN, TOTAL (test code = 2207) 0.3 MG/DL See_Comment [Automated me ssage] The system which generated this result transmitted reference range: <=1.2. The reference range was not used to interpret this result as normal/abnormal. ALKALINE PHOSPHATASE (test code = 2204) 117 U/L 40-112 H AST (test code = 2218) 23 U/L 9-40 ALT (test code = 2219) 22 U/L 5-40 COMPREHENSIVE METABOLIC [id number] 00:00:00* Test Item Value Reference Range Interpretation Comme nts GLUCOSE (test code = 2217) 165 MG/DL BUN (test code = 2208) 13 MG/DL CREATININE (test code = 2214) 0.52 MG/DL eGFR (2020 CKD-EPI) (test code = 30056) 120 ML/MIN/1.73 CALC BUN/CREAT (test code = [...] 1.6 RATIO BILIRUBIN, TOTAL (test code = 7) 0.3 MG/DL ALKALINE PHOSPHATASE (test code = 4) 117 U/L AST (test code = 2218) 23 U/L ALT (test code = 2219) 22 U/L HEMOGLOBIN [id number] 00:00:00* Test Item Value Reference Range Interpretation Comme nts HEMOGLOBIN A1c (test code = 40764) 10.4 % LIPID [id number] 00:00:00* Test Item Value Reference Range Interpretation Comme nts CHOLESTEROL (test code = 2210) 277 MG/DL TRIGLYCERIDES (test code = 2232) 584 MG/DL HDL CHOLESTEROL (test code = 2220) 39 MG/DL CALC LDL CHOL (test code = 2237) (NOTE) MG/DL RISK RATIO LDL/HDL (test cod e = 2238) (NOTE) RATIO ALBUMIN/CREATININE RATIO, RANDOM [id number] 00:00:00* Test Item Value Reference Range Interpretation Comme nts CREATININE, URINE, CONC. (te st code = 2072) 157.3 MG/DL ALBUMIN, URINE, RANDOM (test code = 47773) 256.4 MG/DL CALC ALBUMIN/CREAT, RND (phyllis t code = 09175) 1630 MG/G COMPREHENSIVE METABOLIC [id number] 00:00:00* Test Item Value Reference Range Interpretation Comme nts GLUCOSE (test code = 2217) 165 MG/DL BUN (test code = 2208) 13 MG/DL CREATININE (test code = 2214) 0.52 MG/DL eGFR (2020 CKD-EPI) (test code = 25894) 120 ML/MIN/1.73 CALC BUN/CREAT (test code = [...] (test code = 2219) 22 U/L HEMOGLOBIN [id number] 00:00:00* Test Item Value Reference Range Interpretation Comme nts HEMOGLOBIN A1c (test code = 21015) 10.4 % LIPID [id number] 00:00:00* Test Item Value Reference Range Interpretation Comme nts CHOLESTEROL (test code = 2210) 277 MG/DL TRIGLYCERIDES (test code = 2232) 584 MG/DL HDL CHOLESTEROL (test code = 2220) 39 MG/DL CALC LDL CHOL (test code = 2237) (NOTE) MG/DL RISK RATIO LDL/HDL (test cod e = 2238) (NOTE) RATIO ALBUMIN/CREATININE RATIO, RANDOM [id number] 00:00:00* Test Item Value Reference Range Interpretation Comme nts CREATININE, URINE, CONC. (te st code = 2072) 157.3 MG/DL ALBUMIN, URINE, RANDOM (test code = 69265) 256.4 MG/DL CALC ALBUMIN/CREAT, RND (phyllis t code = 05439) 1630 MG/G COMPREHENSIVE METABOLIC [id number] 00:00:00* Test Item Value Reference Range Interpretation Comme nts GLUCOSE (test code = 2217) 165 MG/DL BUN (test code = 2208) 13 MG/DL CREATININE (test code = 2214) 0.52 MG/DL eGFR (2020 CKD-EPI) (test code = 72294) 120 ML/MIN/1.73 CALC BUN/CREAT (test code = [...] code = 2219) 22 U/L Laurent BranchHEMOGLOBIN [id number] 00:00:00* Test Item Value Reference Range Interpretation Comme nts HEMOGLOBIN A1c (test code = 52973) 10.4 % Laurent Bazzi AustinLIPID [id number] 00:00:00* Test Item Value Reference Range Interpretation Comme nts CHOLESTEROL (test code = 2210) 277 MG/DL TRIGLYCERIDES (test code = 2232) 584 MG/DL HDL CHOLESTEROL (test code = 2220) 39 MG/DL CALC LDL CHOL (test code = 2237) (NOTE) MG/DL RISK RATIO LDL/HDL (test cod e = 2238) (NOTE) RATIO Laurent Bazzi AustinALBUMIN/CREATININE RATIO, RANDOM [id number] 00:00:00* Test Item Value Reference Range Interpretation Comme nts CREATININE, URINE, CONC. (te st code = 2072) 157.3 MG/DL ALBUMIN, URINE, RANDOM (test code = 89629) 256.4 MG/DL CALC ALBUMIN/CREAT, RND (phyllis t code = 00258) 1630 MG/G Laurent BranchCOMPREHENSIVE METABOLIC [id number] 00:00:00* Test Item Value Reference Range Interpretation Comme nts GLUCOSE (test code = 2217) 165 MG/DL BUN (test code = 2208) 13 MG/DL CREATININE (test code = 2214) 0.52 MG/DL eGFR (2020 CKD-EPI) (test code = 64539) 120 ML/MIN/1.73 CALC BUN/CREAT (test code = [...] code = 2219) 22 U/L Laurent BranchHEMOGLOBIN [id number] 00:00:00* Test Item Value Reference Range Interpretation Comme nts HEMOGLOBIN A1c (test code = 15392) 10.4 % Laurent BranchLIPID [id number] 00:00:00* Test Item Value Reference Range Interpretation Comme nts CHOLESTEROL (test code = 2210) 277 MG/DL TRIGLYCERIDES (test code = 2232) 584 MG/DL HDL CHOLESTEROL (test code = 2220) 39 MG/DL CALC LDL CHOL (test code = 2237) (NOTE) MG/DL RISK RATIO LDL/HDL (test cod e = 2238) (NOTE) RATIO Laurent Bazzi AustinALBUMIN/CREATININE RATIO, RANDOM [id number] 00:00:00* Test Item Value Reference Range Interpretation Comme nts CREATININE, URINE, CONC. (te st code = 2072) 157.3 MG/DL ALBUMIN, URINE, RANDOM (test code = 84006) 256.4 MG/DL CALC ALBUMIN/CREAT, RND (phyllis t code = 66945) 1630 MG/G Laurent BranchCOMPREHENSIVE METABOLIC [id number] 00:00:00* Test Item Value Reference Range Interpretation Comme nts GLUCOSE (test code = 2217) 165 MG/DL BUN (test code = 2208) 13 MG/DL CREATININE (test code = 2214) 0.52 MG/DL eGFR (2020 CKD-EPI) (test code = 56822) 120 ML/MIN/1.73 CALC BUN/CREAT (test code = [...] code = 2219) 22 U/L Laurent BranchHEMOGLOBIN [id number] 00:00:00* Test Item Value Reference Range Interpretation Comme nts HEMOGLOBIN A1c (test code = 19640) 10.4 % Laurent BranchLIPID [id number] 00:00:00* Test Item Value Reference Range Interpretation Comme nts CHOLESTEROL (test code = 2210) 277 MG/DL TRIGLYCERIDES (test code = 2232) 584 MG/DL HDL CHOLESTEROL (test code = 2220) 39 MG/DL CALC LDL CHOL (test code = 2237) (NOTE) MG/DL RISK RATIO LDL/HDL (test cod e = 2238) (NOTE) RATIO Laurent BranchALBUMIN/CREATININE RATIO, RANDOM [id number] 00:00:00* Test Item Value Reference Range Interpretation Comme nts CREATININE, URINE, CONC. (te st code = 2072) 157.3 MG/DL ALBUMIN, URINE, RANDOM (test code = 70184) 256.4 MG/DL CALC ALBUMIN/CREAT, RND (phyllis t code = 28210) 1630 MG/G Laurent BranchCOMPREHENSIVE METABOLIC [id number] 00:00:00* Test Item Value Reference Range Interpretation Comme nts GLUCOSE (test code = 2217) 165 MG/DL BUN (test code = 2208) 13 MG/DL CREATININE (test code = 2214) 0.52 MG/DL eGFR (2020 CKD-EPI) (test code = 78421) 120 ML/MIN/1.73 CALC BUN/CREAT (test code = [...] code = 2219) 22 U/L Laurent BranchHEMOGLOBIN [id number] 00:00:00* Test Item Value Reference Range Interpretation Comme nts HEMOGLOBIN A1c (test code = 42324) 10.4 % Laurent BranchLIPID [id number] 00:00:00* Test Item Value Reference Range Interpretation Comme nts CHOLESTEROL (test code = 2210) 277 MG/DL TRIGLYCERIDES (test code = 2232) 584 MG/DL HDL CHOLESTEROL (test code = 2220) 39 MG/DL CALC LDL CHOL (test code = 2237) (NOTE) MG/DL RISK RATIO LDL/HDL (test cod e = 2238) (NOTE) RATIO Laurent Bazzi AustinALBUMIN/CREATININE RATIO, RANDOM [id number] 00:00:00* Test Item Value Reference Range Interpretation Comme nts CREATININE, URINE, CONC. (te st code = 2072) 157.3 MG/DL ALBUMIN, URINE, RANDOM (test code = 39444) 256.4 MG/DL CALC ALBUMIN/CREAT, RND (phyllis t code = 73259) 1630 MG/G Laurent BranchCOMPREHENSIVE METABOLIC [id number] 00:00:00* Test Item Value Reference Range Interpretation Comme nts GLUCOSE (test code = 2217) 165 MG/DL BUN (test code = 2208) 13 MG/DL CREATININE (test code = 2214) 0.52 MG/DL eGFR (2020 CKD-EPI) (test code = 25754) 120 ML/MIN/1.73 CALC BUN/CREAT (test code = [...] code = 2219) 22 U/L Laurent BranchHEMOGLOBIN [id number] 00:00:00* Test Item Value Reference Range Interpretation Comme nts HEMOGLOBIN A1c (test code = 28492) 10.4 % Laurent F AustinLIPID [id number] 00:00:00* Test Item Value Reference Range Interpretation Comme nts CHOLESTEROL (test code = 2210) 277 MG/DL TRIGLYCERIDES (test code = 2232) 584 MG/DL HDL CHOLESTEROL (test code = 2220) 39 MG/DL CALC LDL CHOL (test code = 2237) (NOTE) MG/DL RISK RATIO LDL/HDL (test cod e = 2238) (NOTE) RATIO Laurent BranchALBUMIN/CREATININE RATIO, RANDOM [id number] 00:00:00* Test Item Value Reference Range Interpretation Comme nts CREATININE, URINE, CONC. (te st code = 2072) 157.3 MG/DL ALBUMIN, URINE, RANDOM (test code = 94728) 256.4 MG/DL CALC ALBUMIN/CREAT, RND (phyllis t code = 98444) 1630 MG/G Laurent BranchCOMPREHENSIVE METABOLIC [id number] 00:00:00* Test Item Value Reference Range Interpretation Comme nts GLUCOSE (test code = 2217) 165 MG/DL BUN (test code = 2208) 13 MG/DL CREATININE (test code = 2214) 0.52 MG/DL eGFR (2020 CKD-EPI) (test code = 40782) 120 ML/MIN/1.73 CALC BUN/CREAT (test code = [...] code = 2219) 22 U/L Laurent BranchHEMOGLOBIN [id number] 00:00:00* Test Item Value Reference Range Interpretation Comme nts HEMOGLOBIN A1c (test code = 51223) 10.4 % Laurent BranchLIPID [id number] 00:00:00* Test Item Value Reference Range Interpretation Comme nts CHOLESTEROL (test code = 2210) 277 MG/DL TRIGLYCERIDES (test code = 2232) 584 MG/DL HDL CHOLESTEROL (test code = 2220) 39 MG/DL CALC LDL CHOL (test code = 2237) (NOTE) MG/DL RISK RATIO LDL/HDL (test cod e = 2238) (NOTE) RATIO Laurent BranchALBUMIN/CREATININE RATIO, RANDOM [id number] 00:00:00* Test Item Value Reference Range Interpretation Comme nts CREATININE, URINE, CONC. (te st code = 2072) 157.3 MG/DL ALBUMIN, URINE, RANDOM (test code = 02242) 256.4 MG/DL CALC ALBUMIN/CREAT, RND (phyllis t code = 98496) 1630 MG/G Laurent BranchPOCT [id number] 18:43:00* Test Item Value Reference Range Interpretation Comme nts POCT PREG (test code = 1605) Negative On board controls acceptable with C Line (test code = 3574) Yes POCT PREG LOT # (test code = 3575) POCT PREG TEST DATE ( test code = 3576) Lab Interpretation (test cod e = 69880-9) [facility] [id number] 06:00:05* Test Item Value Reference Range Interpretation [...] . . . . . . MIU/ML [id number] FEMALES . . . . . . . . . . . . MIU/ML <=7 UNLESS OTHERWISE INDICATED, ALL TESTING PERFORMED [facility] [employer] [employer] [address] [place] [address] IT SALES CONSULTANT: ARNIE KRISHNA M.D. CLIA NUMBER [id number] [facility] [place]. [id number] HCG, [id number] 00:00:00* Test Item Value Reference Range Interpretation Comme nts HCG, QUANTITATIVE (test code = 2506) <5 MIU/ML HCG, [id number] 00:00:00* Test Item Value Reference Range Interpretation Comme nts HCG, QUANTITATIVE (test code = 2506) <5 MIU/ML HCG, [id number] 00:00:00* Test Item Value Reference Range Interpretation Comme nts HCG, QUANTITATIVE (test code = 2506) <5 MIU/ML HCG, [id number] 00:00:00* Test Item Value Reference Range Interpretation Comme nts HCG, QUANTITATIVE (test code = 2506) <5 MIU/ML HCG, [id number] 00:00:00* Test Item Value Reference Range Interpretation Comme nts HCG, QUANTITATIVE (test code = 2506) <5 MIU/ML Laurent F AustinHCG, [id number] 00:00:00* Test Item Value Reference Range Interpretation Comme nts HCG, QUANTITATIVE (test code = 2506) <5 MIU/ML Laurent F AustinHCG, [id number] 00:00:00* Test Item Value Reference Range Interpretation Comme nts HCG, QUANTITATIVE (test code = 2506) <5 MIU/ML Laurent F AustinHCG, [id number] 00:00:00* Test Item Value Reference Range Interpretation Comme nts HCG, QUANTITATIVE (test code = 2506) <5 MIU/ML Laurent F AustinHCG, [id number] 00:00:00* Test Item Value Reference Range Interpretation Comme [facility] HCG, QUANTITATIVE (test code = 2506) <5 MIU/ML Laurent BranchHCG, [id number] 00:00:00* Test Item Value Reference Range Interpretation Comme [facility] HCG, QUANTITATIVE (test code = 2506) <5 MIU/ML Laurent BranchHCG, [id number] 00:00:00* Test Item Value Reference Range Interpretation Comme [facility] HCG, QUANTITATIVE (test code = 2506) <5 MIU/ML TSH, THIRD [id number] 03:43:01* Test Item Value Reference [facility], [facility] (test code = 2821) 1.260 UIU/ML 0.400-4.100 FSH + LH [id number] 03:43:01* Test Item Value Reference Range [facility]ation [facility] FOLLICLE STIM HORMONE (test code = 2700) [...] LUTEAL PHASE 1.0-11.4 IU/L POSTMENOPAUSAL 7.7-58.5 IU/L [id number] 03:43:01* Test Item Value Reference Range Interpretation Comme [facility] ESTRADIOL (test code = 2505) 203.0 PG/ML [...] ESTRADIOL IN POSTMENOPAUSAL FEMALES, CONSIDER ULTRASENSITIVE ESTRADIOL ([facility] ORDER CODE 5678). METHODOLOGY IS ULYSSES JESSICA ELECTROCHEMILUMINESCENT IMMUNOASSAY WITH A LIMIT OF DETECTION OF 17 PG/ML. [id number] 03:43:01* Test Item Value Reference Range Interpretation Comme nts PROLACTIN (test code = 2800) 32.9 NG/ML 5.0-37.0 NOTE: Methodolog y is Ulysses Jessica Electrochemiluminescence Immunoassay (ECLIA). Values obtained with different assays/manufacturers cannot be used interchangeably. Results should not be used as sole basis to establish the presence or absence of malignancy. [id number] 03:42:28* Test Item Value Reference Range Interpretation Comme [facility] TESTOSTERONE (test code = 2830) 13 NG/DL See_Comment NOTE: TOTAL TESTOSTERONE ASSAY SENSITIVITY IS 12 NG/DL. TO DETERMINE NORMAL VS. SUBNORMAL TESTOSTERONE IN CHILDREN AND WOMEN, CONSIDER TESTING WITH ULTRASENSITIVE TESTOSTERONE. UNLESS OTHERWISE INDICATED, ALL TESTING PERFORMED [facility] [address] [place] [address] IT SALES CONSULTANT: ARNIE KRISHNA M.D. CLIA NUMBER [id number] [facility] [place]. [id number] [Automated message] The system which generated this result transmitted reference range: <=55. The reference range was not used to interpret this result as normal/abnormal. FSH + LH [id number] 00:00:00* Test Item Value Reference Range Interpretation Comme nts FOLLICLE STIM HORMONE (test code = 0660) 5.1 IU/L LUTEINIZING HORMONE (test co de = 2776) 11.6 IU/L [id number] 00:00:00* Test Item Value Reference Range Interpretation Comme nts ESTRADIOL (test code = 4835) 203.0 PG/ML [id number] 00:00:00* Test Item Value Reference Range Interpretation Comme nts PROLACTIN (test code = 2800) 32.9 NG/ML [id number] 00:00:00* Test Item Value Reference Range Interpretation Comme nts TESTOSTERONE (test code = 2830) 13 NG/DL [id number] 00:00:00* Test Item Value Reference Range Interpretation Comme nts TSH, THIRD GENERATION (test code = 2821) 1.260 UIU/ML FSH + LH [id number] 00:00:00* Test Item Value Reference Range Interpretation Comme nts FOLLICLE STIM HORMONE (test code = 2700) 5.1 IU/L LUTEINIZING HORMONE (test co de = 2776) 11.6 IU/L [id number] 00:00:00* Test Item Value Reference Range Interpretation Comme nts ESTRADIOL (test code = 2505) 203.0 PG/ML [id number] 00:00:00* Test Item Value Reference Range Interpretation Comme nts PROLACTIN (test code = 2800) 32.9 NG/ML [id number] 00:00:00* Test Item Value Reference Range Interpretation Comme nts TESTOSTERONE (test code = 2830) 13 NG/DL [id number] 00:00:00* Test Item Value Reference Range Interpretation Comme nts TSH, THIRD GENERATION (test code = 2821) 1.260 UIU/ML FSH + LH [id number] 00:00:00* Test Item Value Reference Range Interpretation Comme nts FOLLICLE STIM HORMONE (test code = 2700) 5.1 IU/L LUTEINIZING HORMONE (test co de = 2776) 11.6 IU/L [id number] 00:00:00* Test Item Value Reference Range Interpretation Comme nts ESTRADIOL (test code = 2505) 203.0 PG/ML [id number] 00:00:00* Test Item Value Reference Range Interpretation Comme nts TSH, THIRD GENERATION (test code = 2821) 1.260 UIU/ML [id number] 00:00:00* Test Item Value Reference Range Interpretation Comme nts PROLACTIN (test code = 2800) 32.9 NG/ML [id number] 00:00:00* Test Item Value Reference Range Interpretation Comme nts TESTOSTERONE (test code = 2830) 13 NG/DL [id number] 00:00:00* Test Item Value Reference Range Interpretation Comme nts TSH, THIRD GENERATION (test code = 2821) 1.260 UIU/ML FSH + LH [id number] 00:00:00* Test Item Value Reference Range Interpretation Comme nts FOLLICLE STIM HORMONE (test code = 2700) 5.1 IU/L LUTEINIZING HORMONE (test co de = 2776) 11.6 IU/L FSH + LH [id number] 00:00:00* Test Item Value Reference Range Interpretation Comme nts FOLLICLE STIM HORMONE (test code = 2700) 5.1 IU/L LUTEINIZING HORMONE (test co de = 2776) 11.6 IU/L [id number] 00:00:00* Test Item Value Reference Range Interpretation Comme nts ESTRADIOL (test code = 2505) 203.0 PG/ML [id number] 00:00:00* Test Item Value Reference Range Interpretation Comme nts PROLACTIN (test code = 2800) 32.9 NG/ML [id number] 00:00:00* Test Item Value Reference Range Interpretation Comme nts TESTOSTERONE (test code = 2830) 13 NG/DL FSH + LH [id number] 00:00:00* Test Item Value Reference Range Interpretation Comme nts FOLLICLE STIM HORMONE (test code = 2700) 5.1 IU/L LUTEINIZING HORMONE (test co de = 2776) 11.6 IU/L Laurent F [id number] 00:00:00* Test Item Value Reference Range Interpretation Comme nts ESTRADIOL (test code = 2505) 203.0 PG/ML Laurent F [id number] 00:00:00* Test Item Value Reference Range Interpretation Comme nts PROLACTIN (test code = 2800) 32.9 NG/ML Laurent F [id number] 00:00:00* Test Item Value Reference Range Interpretation Comme nts TESTOSTERONE (test code = 2830) 13 NG/DL Laurent F [id number] 00:00:00* Test Item Value Reference Range Interpretation Comme nts TSH, THIRD GENERATION (test code = 2821) 1.260 UIU/ML Laurent F AustinFSH + LH [id number] 00:00:00* Test Item Value Reference Range Interpretation Comme nts FOLLICLE STIM HORMONE (test code = 2700) 5.1 IU/L LUTEINIZING HORMONE (test co de = 2776) 11.6 IU/L Laurent Bazzi [id number] 00:00:00* Test Item Value Reference Range Interpretation Comme nts ESTRADIOL (test code = 2505) 203.0 PG/ML Laurent Bazzi [id number] 00:00:00* Test Item Value Reference Range Interpretation Comme nts PROLACTIN (test code = 2800) 32.9 NG/ML Laurent Bazzi [id number] 00:00:00* Test Item Value Reference Range Interpretation Comme nts TESTOSTERONE (test code = 2830) 13 NG/DL Laurent Bazzi [id number] 00:00:00* Test Item Value Reference Range Interpretation Comme nts TSH, THIRD GENERATION (test code = 2821) 1.260 UIU/ML Laurent Bazzi AustinFSH + LH [id number] 00:00:00* Test Item Value Reference Range Interpretation Comme nts FOLLICLE STIM HORMONE (test code = 2700) 5.1 IU/L LUTEINIZING HORMONE (test co de = 2776) 11.6 IU/L Laurent Bazzi [id number] 00:00:00* Test Item Value Reference Range Interpretation Comme nts ESTRADIOL (test code = 2505) 203.0 PG/ML Laurent Bazzi [id number] 00:00:00* Test Item Value Reference Range Interpretation Comme nts PROLACTIN (test code = 2800) 32.9 NG/ML Laurent Bazzi [id number] 00:00:00* Test Item Value Reference Range Interpretation Comme nts TESTOSTERONE (test code = 2830) 13 NG/DL Laurent Bazzi [id number] 00:00:00* Test Item Value Reference Range Interpretation Comme nts TSH, THIRD GENERATION (test code = 2821) 1.260 UIU/ML Laurent Bazzi AustinFSH + LH [id number] 00:00:00* Test Item Value Reference Range Interpretation Comme nts FOLLICLE STIM HORMONE (test code = 2700) 5.1 IU/L LUTEINIZING HORMONE (test co de = 2776) 11.6 IU/L Laurent Bazzi [id number] 00:00:00* Test Item Value Reference Range Interpretation Comme nts ESTRADIOL (test code = 2505) 203.0 PG/ML Laurent Bazzi [id number] 00:00:00* Test Item Value Reference Range Interpretation Comme nts PROLACTIN (test code = 2800) 32.9 NG/ML Laurent Bazzi [id number] 00:00:00* Test Item Value Reference Range Interpretation Comme nts TESTOSTERONE (test code = 2830) 13 NG/DL Laurent Bazzi [id number] 00:00:00* Test Item Value Reference Range Interpretation Comme nts TSH, THIRD GENERATION (test code = 2821) 1.260 UIU/ML Laurent Bazzi AustinFSH + LH [id number] 00:00:00* Test Item Value Reference Range Interpretation Comme nts FOLLICLE STIM HORMONE (test code = 2700) 5.1 IU/L LUTEINIZING HORMONE (test co de = 2776) 11.6 IU/L Laurent Bazzi [id number] 00:00:00* Test Item Value Reference Range Interpretation Comme nts ESTRADIOL (test code = 2505) 203.0 PG/ML Laurent Bazzi [id number] 00:00:00* Test Item Value Reference Range Interpretation Comme nts PROLACTIN (test code = 2800) 32.9 NG/ML Laurent Bazzi [id number] 00:00:00* Test Item Value Reference Range Interpretation Comme nts TESTOSTERONE (test code = 2830) 13 NG/DL Laurent Bazzi [id number] 00:00:00* Test Item Value Reference Range Interpretation Comme nts TSH, THIRD GENERATION (test code = 2821) 1.260 UIU/ML Laurent Bazzi AustinFSH + LH [id number] 00:00:00* Test Item Value Reference Range Interpretation Comme nts FOLLICLE STIM HORMONE (test code = 2700) 5.1 IU/L LUTEINIZING HORMONE (test co de = 2776) 11.6 IU/L Laurent Bazzi [id number] 00:00:00* Test Item Value Reference Range Interpretation Comme nts ESTRADIOL (test code = 2505) 203.0 PG/ML Laurent Bazzi [id number] 00:00:00* Test Item Value Reference Range Interpretation Comme nts PROLACTIN (test code = 2800) 32.9 NG/ML Laurent Branc[id number] 00:00:00* Test Item Value Reference Range Interpretation Comme nts TESTOSTERONE (test code = 2830) 13 NG/DL Laurent [id number] 00:00:00* Test Item Value Reference Range Interpretation Comme nts TSH, THIRD GENERATION (test code = 2821) 1.260 UIU/ML Laurent Bazzi [id number] 00:00:00* Test Item Value Reference Range Interpretation Comme nts ESTRADIOL (test code = 2505) 203.0 PG/ML [id number] 00:00:00* Test Item Value Reference Range Interpretation Comme nts PROLACTIN (test code = 2800) 32.9 NG/ML [id number] 00:00:00* Test Item Value Reference Range Interpretation Comme nts TESTOSTERONE (test code = 2830) 13 NG/DL [id number] 00:00:00* Test Item Value Reference Range Interpretation Comme nts TSH, THIRD GENERATION (test code = 2821) 1.260 UIU/ML SARS-CoV-2 (COVID-19), RT-PCR/[id number] 15:38:42* Test Item Value Reference Range Interpretation Comments SARS-CoV-2 INTERPRETATION (test code = 08300) PRESUMPTIVE POSITIVE SEE NOTE A NOTE: PRESUMPTIVE POSITIVE RESULTS ARE MOST CONSISTENT WITH [id number]-[id number]-[id number] THE LIMIT OF DETECTION OF THE ASSAY. OTHER UNCOMMON POSSIBLECAUSES ARE A MUTATION IN ONE OF THE TARGET REGIONS, INFECTION WITHANOTHER SARBECOVIRUS OR LABORATORY ISSUES. CORRELATE WITH CLINICALHISTORY AND EPIDEMIOLOGIC FINDINGS. SOURCE (test code = 85898) NASOPHARYNGEAL Note: Methodolog y is Ulysses Jessica Real-Time RT-PCR. The expected result or reference range is NEGATIVE (Not Detected). For more information regarding COVID-19 testing to include clinicalinformation , methodology detail, intended use, FDA authorization andrecommended fact sheets for patients or healthcare providers, see [employer] Announcement: SARS-CoV-2 (COVID-19) by NAAT at URL below (note,fact sheets are provided by method given in report:[email or web address] Alternatively, see downloadable PDF fact sheet at:[email or web address] UNLESS OTHERWISE INDICATED, ALL TESTING PERFORMED [facility] [employer] [employer], [facility]. [address] [place] [id number] IT SALES CONSULTANT: ARNIE KRISHNA M.D. CLIA NUMBER [id number] [facility] [place]. [id number] SARS-CoV-2 (COVID-19) by RT-PCR (HIGH RISK)2021-04-09 00:00:00* Test Item Value Reference Range Interpretation Comme nts SARS-CoV-2 INTERPRETATION (test code = 97750) PRESUMPTIVE POSITIVE SOURCE (test code = 58509) NASOPHARYNGEAL SARS-CoV-2 (COVID-19) by RT-PCR (HIGH RISK)2021-04-09 00:00:00* Test Item Value Reference Range Interpretation Comme nts SARS-CoV-2 INTERPRETATION (test code = 15614) PRESUMPTIVE POSITIVE SOURCE (test code = 26799) NASOPHARYNGEAL SARS-CoV-2 (COVID-19) by RT-PCR (HIGH RISK)2021-04-09 00:00:00* Test Item Value Reference Range Interpretation Comme nts SARS-CoV-2 INTERPRETATION (test code = 87113) PRESUMPTIVE POSITIVE SOURCE (test code = 87273) NASOPHARYNGEAL SARS-CoV-2 (COVID-19) by RT-PCR (HIGH RISK)2021-04-09 00:00:00* Test Item Value Reference Range Interpretation Comme nts SARS-CoV-2 INTERPRETATION (test code = 36142) PRESUMPTIVE POSITIVE SOURCE (test code = 41438) NASOPHARYNGEAL SARS-CoV-2 (COVID-19) by RT-PCR (HIGH RISK)2021-04-09 00:00:00* Test Item Value Reference Range Interpretation Comme nts SARS-CoV-2 INTERPRETATION (test code = 06146) PRESUMPTIVE POSITIVE SOURCE (test code = 90542) NASOPHARYNGEAL Laurent F HudhtxPBIB-PrC-2 (COVID-19) by RT-PCR (HIGH RISK)2021-04-09 00:00:00* Test Item Value Reference Range Interpretation Comme nts SARS-CoV-2 INTERPRETATION (test code = 52615) PRESUMPTIVE POSITIVE SOURCE (test code = 09826) NASOPHARYNGEAL Laurent F EguhobRBGS-YxV-1 (COVID-19) by RT-PCR (HIGH RISK)2021-04-09 00:00:00* Test Item Value Reference Range Interpretation Comme nts SARS-CoV-2 INTERPRETATION (test code = 70475) PRESUMPTIVE POSITIVE SOURCE (test code = 92732) NASOPHARYNGEAL Laurent F FbwloaOPKA-KiZ-6 (COVID-19) by RT-PCR (HIGH RISK)2021-04-09 00:00:00* Test Item Value Reference Range Interpretation Comme nts SARS-CoV-2 INTERPRETATION (test code = 98617) PRESUMPTIVE POSITIVE SOURCE (test code = 53307) NASOPHARYNGEAL Laurent F UwbqluXVCU-LvT-0 (COVID-19) by RT-PCR (HIGH RISK)2021-04-09 00:00:00* Test Item Value Reference Range Interpretation Comme nts SARS-CoV-2 INTERPRETATION (test code = 36655) PRESUMPTIVE POSITIVE SOURCE (test code = 91684) NASOPHARYNGEAL Laurent F JssdlnXLXF-UdU-0 (COVID-19) by RT-PCR (HIGH RISK)2021-04-09 00:00:00* Test Item Value Reference Range Interpretation Comme nts SARS-CoV-2 INTERPRETATION (test code = 52146) PRESUMPTIVE POSITIVE SOURCE (test code = 39884) NASOPHARYNGEAL Laurent F FnbbvjODAD-VcD-7 (COVID-19) by RT-PCR (HIGH RISK)2021-04-09 00:00:00* Test Item Value Reference Range Interpretation Comme nts SARS-CoV-2 INTERPRETATION (test code = 93662) PRESUMPTIVE POSITIVE SOURCE (test code = 82482) NASOPHARYNGEAL [id number] 00:00:00* Test Item Value Reference Range Interpretation Comme nts PROLACTIN (test code = 2800) 15.6 NG/ML [id number] 00:00:00* Test Item Value Reference Range Interpretation Comme nts PROLACTIN (test code = 2800) 15.6 NG/ML [id number] 00:00:00* Test Item Value Reference Range Interpretation Comme nts PROLACTIN (test code = 2800) 15.6 NG/ML [id number] 00:00:00* Test Item Value Reference Range Interpretation Comme nts PROLACTIN (test code = 2800) 15.6 NG/ML [id number] 00:00:00* Test Item Value Reference Range Interpretation Comme nts PROLACTIN (test code = 2800) 15.6 NG/ML Laurent F [id number] 00:00:00* Test Item Value Reference Range Interpretation Comme nts PROLACTIN (test code = 2800) 15.6 NG/ML Laurent Bazzi [id number] 00:00:00* Test Item Value Reference Range Interpretation Comme nts PROLACTIN (test code = 2800) 15.6 NG/ML Laurent Bazzi [id number] 00:00:00* Test Item Value Reference Range Interpretation Comme nts PROLACTIN (test code = 2800) 15.6 NG/ML Laurent Bazzi [id number] 00:00:00* Test Item Value Reference Range Interpretation Comme nts PROLACTIN (test code = 2800) 15.6 NG/ML Laurent Bazzi [id number] 00:00:00* Test Item Value Reference Range Interpretation Comme nts PROLACTIN (test code = 2800) 15.6 NG/ML Laurent Bazzi [id number] 00:00:00* Test Item Value Reference Range Interpretation Comme nts PROLACTIN (test code = 2800) 15.6 NG/ML HCG, [id number] 00:00:00* Test Item Value Reference Range Interpretation Comme nts HCG, QUANTITATIVE (test code = 2506) <5 MIU/ML [id number] 00:00:00* Test Item Value Reference Range Interpretation Comme nts TSH, THIRD GENERATION (test code = 2821) 1.750 UIU/ML HCG, [id number] 00:00:00* Test Item Value Reference Range Interpretation Comme nts HCG, QUANTITATIVE (test code = 2506) <5 MIU/ML [id number] 00:00:00* Test Item Value Reference Range Interpretation Comme nts TSH, THIRD GENERATION (test code = 2821) 1.750 UIU/ML [id number] 00:00:00* Test Item Value Reference Range Interpretation Comme nts TSH, THIRD GENERATION (test code = 2821) 1.750 UIU/ML HCG, [id number] 00:00:00* Test Item Value Reference Range Interpretation Comme nts HCG, QUANTITATIVE (test code = 2506) <5 MIU/ML [id number] 00:00:00* Test Item Value Reference Range Interpretation Comme nts TSH, THIRD GENERATION (test code = 2821) 1.750 UIU/ML HCG, [id number] 00:00:00* Test Item Value Reference Range Interpretation Comme nts HCG, QUANTITATIVE (test code = 2506) <5 MIU/ML HCG, [id number] 00:00:00* Test Item Value Reference Range Interpretation Comme nts HCG, QUANTITATIVE (test code = 2506) <5 MIU/ML Laurent F [id number] 00:00:00* Test Item Value Reference Range Interpretation Comme nts TSH, THIRD GENERATION (test code = 2821) 1.750 UIU/ML Laurent F AustinHCG, [id number] 00:00:00* Test Item Value Reference Range Interpretation Comme nts HCG, QUANTITATIVE (test code = 2506) <5 MIU/ML Laurent F [id number] 00:00:00* Test Item Value Reference Range Interpretation Comme nts TSH, THIRD GENERATION (test code = 2821) 1.750 UIU/ML Laurent F AustinHCG, [id number] 00:00:00* Test Item Value Reference Range Interpretation Comme nts HCG, QUANTITATIVE (test code = 2506) <5 MIU/ML Laurent F [id number] 00:00:00* Test Item Value Reference Range Interpretation Comme nts TSH, THIRD GENERATION (test code = 2821) 1.750 UIU/ML Laurent F AustinHCG, [id number] 00:00:00* Test Item Value Reference Range Interpretation Comme nts HCG, QUANTITATIVE (test code = 2506) <5 MIU/ML Laurent F [id number] 00:00:00* Test Item Value Reference Range Interpretation Comme nts TSH, THIRD GENERATION (test code = 2821) 1.750 UIU/ML Laurent F AustinHCG, [id number] 00:00:00* Test Item Value Reference Range Interpretation Comme nts HCG, QUANTITATIVE (test code = 2506) <5 MIU/ML Laurent F [id number] 00:00:00* Test Item Value Reference Range Interpretation Comme nts TSH, THIRD GENERATION (test code = 2821) 1.750 UIU/ML Laurent F AustinHCG, [id number] 00:00:00* Test Item Value Reference Range Interpretation Comme nts HCG, QUANTITATIVE (test code = 2506) <5 MIU/ML Laurent F [id number] 00:00:00* Test Item Value Reference Range Interpretation Comme nts TSH, THIRD GENERATION (test code = 2821) 1.750 UIU/ML Laurent F AustinHCG, [id number] 00:00:00* Test Item Value Reference Range Interpretation Comme nts HCG, QUANTITATIVE (test code = 2506) <5 MIU/ML [id number] 00:00:00* Test Item Value Reference Range Interpretation Comme nts TSH, THIRD GENERATION (test code = 2821) 1.750 UIU/ML [id number] 00:00:00* Test Item Value Reference Range Interpretation Comme nts RPR RESULT (test code = 3501) NON-REACTIVE RPR TITER (test code = 3500) NOT INDIC. TITER HEMOGLOBIN [id number] 00:00:00* Test Item Value Reference Range Interpretation Comme nts HEMOGLOBIN A1c (test code = 84654) 9.6 % GC AND CHLAMYDIA, AMPLIFIED, [id number] 00:00:00* Test Item Value Reference Range Interpretation Comme nts GONORRHEA, NAAT (test code = 25788) NEGATIVE CHLAMYDIA, NAAT (test code = 19728) NEGATIVE HIV AB/AG COMBO RFLX [id number] 00:00:00* Test Item Value Reference Range Interpretation Comme nts HIV 1/2 4TH GEN, RFLX CONF ( test code = 3514) NON-REACTIVE [id number] 00:00:00* Test Item Value Reference Range Interpretation Comme nts RPR RESULT (test code = 3501) NON-REACTIVE RPR TITER (test code = 3500) NOT INDIC. TITER HEMOGLOBIN [id number] 00:00:00* Test Item Value Reference Range Interpretation Comme nts HEMOGLOBIN A1c (test code = 17752) 9.6 % GC AND CHLAMYDIA, AMPLIFIED, [id number] 00:00:00* Test Item Value Reference Range Interpretation Comme nts GONORRHEA, NAAT (test code = 03755) NEGATIVE CHLAMYDIA, NAAT (test code = 07502) NEGATIVE HIV AB/AG COMBO RFLX [id number] 00:00:00* Test Item Value Reference Range Interpretation Comme nts HIV 1/2 4TH GEN, RFLX CONF ( test code = 3514) NON-REACTIVE [id number] 00:00:00* Test Item Value Reference Range Interpretation Comme nts RPR RESULT (test code = 3501) NON-REACTIVE RPR TITER (test code = 3500) NOT INDIC. TITER HEMOGLOBIN [id number] 00:00:00* Test Item Value Reference Range Interpretation Comme nts HEMOGLOBIN A1c (test code = 31275) 9.6 % GC AND CHLAMYDIA, AMPLIFIED, [id number] 00:00:00* Test Item Value Reference Range Interpretation Comme nts GONORRHEA, NAAT (test code = 32399) NEGATIVE CHLAMYDIA, NAAT (test code = 59291) NEGATIVE GC AND CHLAMYDIA, AMPLIFIED, [id number] 00:00:00* Test Item Value Reference Range Interpretation Comme nts GONORRHEA, NAAT (test code = 67369) NEGATIVE CHLAMYDIA, NAAT (test code = 07355) NEGATIVE HIV AB/AG COMBO RFLX [id number] 00:00:00* Test Item Value Reference Range Interpretation Comme nts HIV 1/2 4TH GEN, RFLX CONF ( test code = 3514) NON-REACTIVE [id number] 00:00:00* Test Item Value Reference Range Interpretation Comme nts RPR RESULT (test code = 3501) NON-REACTIVE RPR TITER (test code = 3500) NOT INDIC. TITER HIV AB/AG COMBO RFLX [id number] 00:00:00* Test Item Value Reference Range Interpretation Comme nts HIV 1/2 4TH GEN, RFLX CONF ( test code = 3514) NON-REACTIVE HEMOGLOBIN [id number] 00:00:00* Test Item Value Reference Range Interpretation Comme nts HEMOGLOBIN A1c (test code = 72714) 9.6 % HIV AB/AG COMBO RFLX [id number] 00:00:00* Test Item Value Reference Range Interpretation Comme nts HIV 1/2 4TH GEN, RFLX CONF ( test code = 3514) NON-REACTIVE Laurent F [id number] 00:00:00* Test Item Value Reference Range Interpretation Comme nts RPR RESULT (test code = 3501) NON-REACTIVE RPR TITER (test code = 3500) NOT INDIC. TITER Laurent BranchHEMOGLOBIN [id number] 00:00:00* Test Item Value Reference Range Interpretation Comme nts HEMOGLOBIN A1c (test code = 91105) 9.6 % Laurent Bazzi AustinGC AND CHLAMYDIA, AMPLIFIED, [id number] 00:00:00* Test Item Value Reference Range Interpretation Comme nts GONORRHEA, NAAT (test code = 26438) NEGATIVE CHLAMYDIA, NAAT (test code = 44735) NEGATIVE Laurent Bazzi AustinHIV AB/AG COMBO RFLX [id number] 00:00:00* Test Item Value Reference Range Interpretation Comme nts HIV 1/2 4TH GEN, RFLX CONF ( test code = 3514) NON-REACTIVE Laurent Bazzi [id number] 00:00:00* Test Item Value Reference Range Interpretation Comme nts RPR RESULT (test code = 3501) NON-REACTIVE RPR TITER (test code = 3500) NOT INDIC. TITER Laurent BranchHEMOGLOBIN [id number] 00:00:00* Test Item Value Reference Range Interpretation Comme nts HEMOGLOBIN A1c (test code = 13883) 9.6 % Laurent BranchGC AND CHLAMYDIA, AMPLIFIED, [id number] 00:00:00* Test Item Value Reference Range Interpretation Comme nts GONORRHEA, NAAT (test code = 53664) NEGATIVE CHLAMYDIA, NAAT (test code = 49085) NEGATIVE Laurent BranchHIV AB/AG COMBO RFLX [id number] 00:00:00* Test Item Value Reference Range Interpretation Comme nts HIV 1/2 4TH GEN, RFLX CONF ( test code = 3514) NON-REACTIVE Laurent Bazzi [id number] 00:00:00* Test Item Value Reference Range Interpretation Comme nts RPR RESULT (test code = 3501) NON-REACTIVE RPR TITER (test code = 3500) NOT INDIC. TITER Laurent BranchHEMOGLOBIN [id number] 00:00:00* Test Item Value Reference Range Interpretation Comme nts HEMOGLOBIN A1c (test code = 24731) 9.6 % Laurent Bazzi AustinGC AND CHLAMYDIA, AMPLIFIED, [id number] 00:00:00* Test Item Value Reference Range Interpretation Comme nts GONORRHEA, NAAT (test code = 96690) NEGATIVE CHLAMYDIA, NAAT (test code = 18915) NEGATIVE Laurent Bazzi AustinHIV AB/AG COMBO RFLX [id number] 00:00:00* Test Item Value Reference Range Interpretation Comme nts HIV 1/2 4TH GEN, RFLX CONF ( test code = 3514) NON-REACTIVE Laurent Bazzi [id number] 00:00:00* Test Item Value Reference Range Interpretation Comme nts RPR RESULT (test code = 3501) NON-REACTIVE RPR TITER (test code = 3500) NOT INDIC. TITER Laurent BranchHEMOGLOBIN [id number] 00:00:00* Test Item Value Reference Range Interpretation Comme nts HEMOGLOBIN A1c (test code = 21032) 9.6 % Laurent Bazzi AustinGC AND CHLAMYDIA, AMPLIFIED, [id number] 00:00:00* Test Item Value Reference Range Interpretation Comme nts GONORRHEA, NAAT (test code = 13453) NEGATIVE CHLAMYDIA, NAAT (test code = 50749) NEGATIVE Laurent Bazzi AustinHIV AB/AG COMBO RFLX [id number] 00:00:00* Test Item Value Reference Range Interpretation Comme nts HIV 1/2 4TH GEN, RFLX CONF ( test code = 3514) NON-REACTIVE Laurent Bazzi [id number] 00:00:00* Test Item Value Reference Range Interpretation Comme nts RPR RESULT (test code = 3501) NON-REACTIVE RPR TITER (test code = 3500) NOT INDIC. TITER Laurent Bazzi AustinHEMOGLOBIN [id number] 00:00:00* Test Item Value Reference Range Interpretation Comme nts HEMOGLOBIN A1c (test code = 87144) 9.6 % Laurent Bazzi AustinGC AND CHLAMYDIA, AMPLIFIED, [id number] 00:00:00* Test Item Value Reference Range Interpretation Comme nts GONORRHEA, NAAT (test code = 11821) NEGATIVE CHLAMYDIA, NAAT (test code = 27264) NEGATIVE Laurent Bazzi AustinHIV AB/AG COMBO RFLX [id number] 00:00:00* Test Item Value Reference Range Interpretation Comme nts HIV 1/2 4TH GEN, RFLX CONF ( test code = 3514) NON-REACTIVE Laurent Bazzi [id number] 00:00:00* Test Item Value Reference Range Interpretation Comme nts RPR RESULT (test code = 3501) NON-REACTIVE RPR TITER (test code = 3500) NOT INDIC. TITER Laurent BranchHEMOGLOBIN [id number] 00:00:00* Test Item Value Reference Range Interpretation Comme nts HEMOGLOBIN A1c (test code = 61033) 9.6 % Laurent BranchGC AND CHLAMYDIA, AMPLIFIED, [id number] 00:00:00* Test Item Value Reference Range Interpretation Comme nts GONORRHEA, NAAT (test code = 71701) NEGATIVE CHLAMYDIA, NAAT (test code = 57668) NEGATIVE Laurent [id number] 00:00:00* Test Item Value Reference Range Interpretation Comme nts RPR RESULT (test code = 3501) NON-REACTIVE RPR TITER (test code = 3500) NOT INDIC. TITER HEMOGLOBIN [id number] 00:00:00* Test Item Value Reference Range Interpretation Comme nts HEMOGLOBIN A1c (test code = 17991) 9.6 % GC AND CHLAMYDIA, AMPLIFIED, [id number] 00:00:00* Test Item Value Reference Range Interpretation Comme nts GONORRHEA, NAAT (test code = 22107) NEGATIVE CHLAMYDIA, NAAT (test code = 47586) NEGATIVE HIV AB/AG COMBO RFLX [id number] 00:00:00* Test Item Value Reference Range Interpretation Comme nts HIV 1/2 4TH GEN, RFLX CONF ( test code = 3514) NON-REACTIVE HEMOGLOBIN [id number] 00:00:00* Test Item Value Reference Range Interpretation Comme nts HEMOGLOBIN A1c (test code = 41147) 8.9 % HEMOGLOBIN [id number] 00:00:00* Test Item Value Reference Range Interpretation Comme nts HEMOGLOBIN A1c (test code = 70115) 8.9 % HEMOGLOBIN [id number] 00:00:00* Test Item Value Reference Range Interpretation Comme nts HEMOGLOBIN A1c (test code = 16648) 8.9 % HEMOGLOBIN [id number] 00:00:00* Test Item Value Reference Range Interpretation Comme cornelio HEMOGLOBIN A1c (test code = 51744) 8.9 % HEMOGLOBIN [id number] 00:00:00* Test Item Value Reference Range Interpretation Comme cornelio HEMOGLOBIN A1c (test code = 75898) 8.9 % Laurent Bazzi AustinHEMOGLOBIN [id number] 00:00:00* Test Item Value Reference Range Interpretation Comme cornelio HEMOGLOBIN A1c (test code = 98710) 8.9 % Laurent Bazzi AustinHEMOGLOBIN [id number] 00:00:00* Test Item Value Reference Range Interpretation Comme cornelio HEMOGLOBIN A1c (test code = 58623) 8.9 % Laurent Bazzi AustinHEMOGLOBIN [id number] 00:00:00* Test Item Value Reference Range Interpretation Comme cornelio HEMOGLOBIN A1c (test code = 05427) 8.9 % Laurent Bazzi AustinHEMOGLOBIN [id number] 00:00:00* Test Item Value Reference Range Interpretation Comme cornelio HEMOGLOBIN A1c (test code = 43562) 8.9 % Laurent Bazzi AustinHEMOGLOBIN [id number] 00:00:00* Test Item Value Reference Range Interpretation Comme cornelio HEMOGLOBIN A1c (test code = 79977) 8.9 % Laurent Bazzi AustinHEMOGLOBIN [id number] 00:00:00* Test Item Value Reference Range Interpretation Comme cornelio HEMOGLOBIN A1c (test code = 15046) 8.9 % COMPREHENSIVE METABOLIC [id number] 00:00:00* Test Item Value Reference Range Interpretation Comme nts GLUCOSE (test code = 2217) 245 MG/DL BUN (test code = 2208) 13 MG/DL CREATININE (test code = 2214) 0.66 MG/DL eGFR AMER. (test cod e = 68861) 130 ML/MIN/1.73 eGFR NON- AMER. (test code = 36458) 112 ML/MIN/1.73 CALC BUN/CREAT (test code = [...] (test code = 2219) 23 U/L HEMOGLOBIN [id number] 00:00:00* Test Item Value Reference Range Interpretation Comme nts HEMOGLOBIN A1c (test code = 47044) 9.4 % LIPID [id number] 00:00:00* Test Item Value Reference Range Interpretation Comme nts CHOLESTEROL (test code = 2210) 250 MG/DL TRIGLYCERIDES (test code = 2232) 204 MG/DL HDL CHOLESTEROL (test code = 2220) 47 MG/DL CALC LDL CHOL (test code = 2237) 167 MG/DL RISK RATIO LDL/HDL (test cod e = 2238) 3.55 RATIO COMPREHENSIVE METABOLIC [id number] 00:00:00* Test Item Value Reference Range Interpretation Comme nts GLUCOSE (test code = 2217) 245 MG/DL BUN (test code = 8) 13 MG/DL CREATININE (test code = 2214) 0.66 MG/DL eGFR AMER. (test cod e = 22563) 130 ML/MIN/1.73 eGFR NON- AMER. (test code = 78069) 112 ML/MIN/1.73 CALC BUN/CREAT (test code = [...] (test code = 2219) 23 U/L HEMOGLOBIN [id number] 00:00:00* Test Item Value Reference Range Interpretation Comme nts HEMOGLOBIN A1c (test code = 38474) 9.4 % LIPID [id number] 00:00:00* Test Item Value Reference Range Interpretation Comme nts CHOLESTEROL (test code = 2210) 250 MG/DL TRIGLYCERIDES (test code = 2232) 204 MG/DL HDL CHOLESTEROL (test code = 2220) 47 MG/DL CALC LDL CHOL (test code = 2237) 167 MG/DL RISK RATIO LDL/HDL (test cod e = 2238) 3.55 RATIO COMPREHENSIVE METABOLIC [id number] 00:00:00* Test Item Value Reference Range Interpretation Comme nts GLUCOSE (test code = 2217) 245 MG/DL BUN (test code = 2208) 13 MG/DL CREATININE (test code = 2214) 0.66 MG/DL eGFR AMER. (test cod e = 52184) 130 ML/MIN/1.73 eGFR NON- AMER. (test code = 26738) 112 ML/MIN/1.73 CALC BUN/CREAT (test code = [...] (test code = 2219) 23 U/L HEMOGLOBIN [id number] 00:00:00* Test Item Value Reference Range Interpretation Comme nts HEMOGLOBIN A1c (test code = 68808) 9.4 % HEMOGLOBIN [id number] 00:00:00* Test Item Value Reference Range Interpretation Comme nts HEMOGLOBIN A1c (test code = 13050) 9.4 % LIPID [id number] 00:00:00* Test Item Value Reference Range Interpretation Comme nts CHOLESTEROL (test code = 2210) 250 MG/DL TRIGLYCERIDES (test code = 2232) 204 MG/DL HDL CHOLESTEROL (test code = 2220) 47 MG/DL CALC LDL CHOL (test code = 2237) 167 MG/DL RISK RATIO LDL/HDL (test cod e = 2238) 3.55 RATIO LIPID [id number] 00:00:00* Test Item Value Reference Range Interpretation Comme nts CHOLESTEROL (test code = 2210) 250 MG/DL TRIGLYCERIDES (test code = 2232) 204 MG/DL HDL CHOLESTEROL (test code = 2220) 47 MG/DL CALC LDL CHOL (test code = 2237) 167 MG/DL RISK RATIO LDL/HDL (test cod e = 2238) 3.55 RATIO COMPREHENSIVE METABOLIC [id number] 00:00:00* Test Item Value Reference Range Interpretation Comme nts GLUCOSE (test code = 2217) 245 MG/DL BUN (test code = 2208) 13 MG/DL CREATININE (test code = 2214) 0.66 MG/DL eGFR AMER. (test cod e = 15845) 130 ML/MIN/1.73 eGFR NON- AMER. (test code = 43199) 112 ML/MIN/1.73 CALC BUN/CREAT (test code = [...] (test code = 2219) 23 U/L HEMOGLOBIN [id number] 00:00:00* Test Item Value Reference Range Interpretation Comme nts HEMOGLOBIN A1c (test code = 30558) 9.4 % Laurent Bazzi AustinLIPID [id number] 00:00:00* Test Item Value Reference Range Interpretation Comme nts CHOLESTEROL (test code = 2210) 250 MG/DL TRIGLYCERIDES (test code = 2232) 204 MG/DL HDL CHOLESTEROL (test code = 2220) 47 MG/DL CALC LDL CHOL (test code = 2237) 167 MG/DL RISK RATIO LDL/HDL (test cod e = 2238) 3.55 RATIO Laurent BranchCOMPREHENSIVE METABOLIC [id number] 00:00:00* Test Item Value Reference Range Interpretation Comme nts GLUCOSE (test code = 2217) 245 MG/DL BUN (test code = 2208) 13 MG/DL CREATININE (test code = 2214) 0.66 MG/DL eGFR AMER. (test cod e = 98908) 130 ML/MIN/1.73 eGFR NON- AMER. (test code = 71183) 112 ML/MIN/1.73 CALC BUN/CREAT (test code = [...] code = 2219) 23 U/L Laurent BranchHEMOGLOBIN [id number] 00:00:00* Test Item Value Reference Range Interpretation Comme nts HEMOGLOBIN A1c (test code = 36081) 9.4 % Laurent Bazzi AustinLIPID [id number] 00:00:00* Test Item Value Reference Range Interpretation Comme nts CHOLESTEROL (test code = 2210) 250 MG/DL TRIGLYCERIDES (test code = 2232) 204 MG/DL HDL CHOLESTEROL (test code = 2220) 47 MG/DL CALC LDL CHOL (test code = 2237) 167 MG/DL RISK RATIO LDL/HDL (test cod e = 2238) 3.55 RATIO Laurent BranchCOMPREHENSIVE METABOLIC [id number] 00:00:00* Test Item Value Reference Range Interpretation Comme nts GLUCOSE (test code = 2217) 245 MG/DL BUN (test code = 2208) 13 MG/DL CREATININE (test code = 2214) 0.66 MG/DL eGFR AMER. (test cod e = 89778) 130 ML/MIN/1.73 eGFR NON- AMER. (test code = 99063) 112 ML/MIN/1.73 CALC BUN/CREAT (test code = [...] code = 2219) 23 U/L Laurent BranchHEMOGLOBIN [id number] 00:00:00* Test Item Value Reference Range Interpretation Comme nts HEMOGLOBIN A1c (test code = 63307) 9.4 % Laurent BranchLIPID [id number] 00:00:00* Test Item Value Reference Range Interpretation Comme nts CHOLESTEROL (test code = 2210) 250 MG/DL TRIGLYCERIDES (test code = 2232) 204 MG/DL HDL CHOLESTEROL (test code = 2220) 47 MG/DL CALC LDL CHOL (test code = 2237) 167 MG/DL RISK RATIO LDL/HDL (test cod e = 2238) 3.55 RATIO Laurent BranchCOMPREHENSIVE METABOLIC [id number] 00:00:00* Test Item Value Reference Range Interpretation Comme nts GLUCOSE (test code = 2217) 245 MG/DL BUN (test code = 2208) 13 MG/DL CREATININE (test code = 2214) 0.66 MG/DL eGFR AMER. (test cod e = 88427) 130 ML/MIN/1.73 eGFR NON- AMER. (test code = 78203) 112 ML/MIN/1.73 CALC BUN/CREAT (test code = [...] code = 2219) 23 U/L Laurent BranchHEMOGLOBIN [id number] 00:00:00* Test Item Value Reference Range Interpretation Comme nts HEMOGLOBIN A1c (test code = 73175) 9.4 % Laurent BranchLIPID [id number] 00:00:00* Test Item Value Reference Range Interpretation Comme nts CHOLESTEROL (test code = 2210) 250 MG/DL TRIGLYCERIDES (test code = 2232) 204 MG/DL HDL CHOLESTEROL (test code = 2220) 47 MG/DL CALC LDL CHOL (test code = 2237) 167 MG/DL RISK RATIO LDL/HDL (test cod e = 2238) 3.55 RATIO Laurent Bazzi AustinCOMPREHENSIVE METABOLIC [id number] 00:00:00* Test Item Value Reference Range Interpretation Comme nts GLUCOSE (test code = 2217) 245 MG/DL BUN (test code = 2208) 13 MG/DL CREATININE (test code = 2214) 0.66 MG/DL eGFR AMER. (test cod e = 29914) 130 ML/MIN/1.73 eGFR NON- AMER. (test code = 38987) 112 ML/MIN/1.73 CALC BUN/CREAT (test code = 2235) 20 RATIO SODIUM (test code = 2231) 133 MEQ/L POTASSIUM (test code = 2228) 4.3 MEQ/L CHLORIDE (test code = 2215) 98 MEQ/L CARBON DIOXIDE (test code = 2206) 24 MEQ/L CALCIUM (test code = 2209) 9.8 MG/DL PROTEIN, TOTAL (test code = 222) 7.2 G/DL ALBUMIN (test code = 2201) 4.2 G/DL CALC GLOBULIN (test code = 2240) 3.0 G/DL CALC A/G RATIO (test code = 2234) 1.4 RATIO BILIRUBIN, TOTAL (test code = 2207) 0.4 MG/DL ALKALINE PHOSPHATASE (test code = 2204) 95 U/L AST (test code = 2218) 18 U/L ALT (test code = 2219) 23 U/L Laurent BranchHEMOGLOBIN [id number] 00:00:00* Test Item Value Reference Range Interpretation Comme nts HEMOGLOBIN A1c (test code = 85170) 9.4 % Laurent BranchLIPID [id number] 00:00:00* Test Item Value Reference Range Interpretation Comme nts CHOLESTEROL (test code = 2210) 250 MG/DL TRIGLYCERIDES (test code = 2232) 204 MG/DL HDL CHOLESTEROL (test code = 2220) 47 MG/DL CALC LDL CHOL (test code = 2237) 167 MG/DL RISK RATIO LDL/HDL (test cod e = 2238) 3.55 RATIO Laurent BranchCOMPREHENSIVE METABOLIC [id number] 00:00:00* Test Item Value Reference Range Interpretation Comme nts GLUCOSE (test code = 2217) 245 MG/DL BUN (test code = 2208) 13 MG/DL CREATININE (test code = 2214) 0.66 MG/DL eGFR AMER. (test cod e = 51619) 130 ML/MIN/1.73 eGFR NON- AMER. (test code = 33355) 112 ML/MIN/1.73 CALC BUN/CREAT (test code = [...] code = 2219) 23 U/L Laurent BranchHEMOGLOBIN [id number] 00:00:00* Test Item Value Reference Range Interpretation Comme nts HEMOGLOBIN A1c (test code = 06754) 9.4 % Laurent Bazzi DarienLIPID [id number] 00:00:00* Test Item Value Reference Range Interpretation Comme nts CHOLESTEROL (test code = 2210) 250 MG/DL TRIGLYCERIDES (test code = 2232) 204 MG/DL HDL CHOLESTEROL (test code = 2220) 47 MG/DL CALC LDL CHOL (test code = 2237) 167 MG/DL RISK RATIO LDL/HDL (test cod e = 2238) 3.55 RATIO Laurent BranchCOMPREHENSIVE METABOLIC [id number] 00:00:00* Test Item Value Reference Range Interpretation Comme nts GLUCOSE (test code = 2217) 245 MG/DL BUN (test code = 2208) 13 MG/DL CREATININE (test code = 2214) 0.66 MG/DL eGFR AMER. (test cod e = 12312) 130 ML/MIN/1.73 eGFR NON- AMER. (test code = 15253) 112 ML/MIN/1.73 CALC BUN/CREAT (test code = [...] (test code = 2219) 23 U/L Laurent Bazzi Jose CarlosCOMPREHENSIVE METABOLIC [id number] 00:00:00* Test Item Value Reference Range Interpretation Comme nts GLUCOSE (test code = 2217) 245 MG/DL BUN (test code = 2208) 13 MG/DL CREATININE (test code = 2214) 0.66 MG/DL eGFR AMER. (test cod e = 88833) 130 ML/MIN/1.73 eGFR NON- AMER. (test code = 24906) 112 ML/MIN/1.73 CALC BUN/CREAT (test code = [...] (test code = 2219) 23 U/L HEMOGLOBIN [id number] 00:00:00* Test Item Value Reference Range Interpretation Comme nts HEMOGLOBIN A1c (test code = 35270) 9.4 % LIPID [id number] 00:00:00* Test Item Value Reference Range Interpretation Comme nts CHOLESTEROL (test code = 2210) 250 MG/DL TRIGLYCERIDES (test code = 2232) 204 MG/DL HDL CHOLESTEROL (test code = 2220) 47 MG/DL CALC LDL CHOL (test code = 2237) 167 MG/DL RISK RATIO LDL/HDL (test cod e = 2238) 3.55 RATIO COMPREHENSIVE METABOLIC [id number] 00:00:00* Test Item Value Reference Range Interpretation Comme nts GLUCOSE (test code = 2217) 203 MG/DL BUN (test code = 2208) 10 MG/DL CREATININE (test code = 2214) 0.39 MG/DL eGFR AMER. (test cod e = 73168) 154 ML/MIN/1.73 eGFR NON- AMER. (test code = 10446) 133 ML/MIN/1.73 CALC BUN/CREAT (test code = [...] (test code = 2219) 17 U/L HEMOGLOBIN [id number] 00:00:00* Test Item Value Reference Range Interpretation Comme nts HEMOGLOBIN A1c (test code = 70191) 8.8 % LIPID [id number] 00:00:00* Test Item Value Reference Range Interpretation Comme nts CHOLESTEROL (test code = 2210) 206 MG/DL TRIGLYCERIDES (test code = 2232) 271 MG/DL HDL CHOLESTEROL (test code = 2220) 41 MG/DL CALC LDL CHOL (test code = 2237) 123 MG/DL RISK RATIO LDL/HDL (test cod e = 2238) 3.00 RATIO COMPREHENSIVE METABOLIC [id number] 00:00:00* Test Item Value Reference Range Interpretation Comme nts GLUCOSE (test code = 2217) 203 MG/DL BUN (test code = 2208) 10 MG/DL CREATININE (test code = 2214) 0.39 MG/DL eGFR AMER. (test cod e = 42737) 154 ML/MIN/1.73 eGFR NON- AMER. (test code = 44548) 133 ML/MIN/1.73 CALC BUN/CREAT (test code = [...] (test code = 2219) 17 U/L HEMOGLOBIN [id number] 00:00:00* Test Item Value Reference Range Interpretation Comme nts HEMOGLOBIN A1c (test code = 17522) 8.8 % HEMOGLOBIN [id number] 00:00:00* Test Item Value Reference Range Interpretation Comme nts HEMOGLOBIN A1c (test code = 10840) 8.8 % LIPID [id number] 00:00:00* Test Item Value Reference Range Interpretation Comme nts CHOLESTEROL (test code = 2210) 206 MG/DL TRIGLYCERIDES (test code = 2232) 271 MG/DL HDL CHOLESTEROL (test code = 2220) 41 MG/DL CALC LDL CHOL (test code = 2237) 123 MG/DL RISK RATIO LDL/HDL (test cod e = 2238) 3.00 RATIO COMPREHENSIVE METABOLIC [id number] 00:00:00* Test Item Value Reference Range Interpretation Comme nts GLUCOSE (test code = 2217) 203 MG/DL BUN (test code = 2208) 10 MG/DL CREATININE (test code = 2214) 0.39 MG/DL eGFR AMER. (test cod e = 32266) 154 ML/MIN/1.73 eGFR NON- AMER. (test code = 80160) 133 ML/MIN/1.73 CALC BUN/CREAT (test code = [...] (test code = 2219) 17 U/L HEMOGLOBIN [id number] 00:00:00* Test Item Value Reference Range Interpretation Comme nts HEMOGLOBIN A1c (test code = 42640) 8.8 % LIPID [id number] 00:00:00* Test Item Value Reference Range Interpretation Comme nts CHOLESTEROL (test code = 2210) 206 MG/DL TRIGLYCERIDES (test code = 2232) 271 MG/DL HDL CHOLESTEROL (test code = 2220) 41 MG/DL CALC LDL CHOL (test code = 2237) 123 MG/DL RISK RATIO LDL/HDL (test cod e = 2238) 3.00 RATIO LIPID [id number] 00:00:00* Test Item Value Reference Range Interpretation Comme nts CHOLESTEROL (test code = 2210) 206 MG/DL TRIGLYCERIDES (test code = 2232) 271 MG/DL HDL CHOLESTEROL (test code = 2220) 41 MG/DL CALC LDL CHOL (test code = 2237) 123 MG/DL RISK RATIO LDL/HDL (test cod e = 2238) 3.00 RATIO COMPREHENSIVE METABOLIC [id number] 00:00:00* Test Item Value Reference Range Interpretation Comme nts GLUCOSE (test code = 2217) 203 MG/DL BUN (test code = 2208) 10 MG/DL CREATININE (test code = 2214) 0.39 MG/DL eGFR AMER. (test cod e = 37407) 154 ML/MIN/1.73 eGFR NON- AMER. (test code = 48307) 133 ML/MIN/1.73 CALC BUN/CREAT (test code = [...] code = 2219) 17 U/L COMPREHENSIVE METABOLIC [id number] 00:00:00* Test Item Value Reference Range Interpretation Comme nts GLUCOSE (test code = 2217) 203 MG/DL BUN (test code = 2208) 10 MG/DL CREATININE (test code = 2214) 0.39 MG/DL eGFR AMER. (test cod e = 32512) 154 ML/MIN/1.73 eGFR NON- AMER. (test code = 61324) 133 ML/MIN/1.73 CALC BUN/CREAT (test code = [...] ALT (test code = 2219) 17 U/L LIPID [id number] 00:00:00* Test Item Value Reference Range Interpretation Comme nts CHOLESTEROL (test code = 2210) 206 MG/DL TRIGLYCERIDES (test code = 2232) 271 MG/DL HDL CHOLESTEROL (test code = 2220) 41 MG/DL CALC LDL CHOL (test code = 2237) 123 MG/DL RISK RATIO LDL/HDL (test cod e = 2238) 3.00 RATIO Laurent BranchCOMPREHENSIVE METABOLIC [id number] 00:00:00* Test Item Value Reference Range Interpretation Comme nts GLUCOSE (test code = 2217) 203 MG/DL BUN (test code = 2208) 10 MG/DL CREATININE (test code = 2214) 0.39 MG/DL eGFR AMER. (test cod e = 76671) 154 ML/MIN/1.73 eGFR NON- AMER. (test code = 32902) 133 ML/MIN/1.73 CALC BUN/CREAT (test code = [...] (test code = 2219) 17 U/L Laurent F AustinHEMOGLOBIN [id number] 00:00:00* Test Item Value Reference Range Interpretation Comme cornelio HEMOGLOBIN A1c (test code = 46822) 8.8 % Laurent Bazzi AustinLIPID [id number] 00:00:00* Test Item Value Reference Range Interpretation Comme nts CHOLESTEROL (test code = 2210) 206 MG/DL TRIGLYCERIDES (test code = 2232) 271 MG/DL HDL CHOLESTEROL (test code = 2220) 41 MG/DL CALC LDL CHOL (test code = 2237) 123 MG/DL RISK RATIO LDL/HDL (test cod e = 2238) 3.00 RATIO Laurent BranchCOMPREHENSIVE METABOLIC [id number] 00:00:00* Test Item Value Reference Range Interpretation Comme nts GLUCOSE (test code = 2217) 203 MG/DL BUN (test code = 2208) 10 MG/DL CREATININE (test code = 2214) 0.39 MG/DL eGFR AMER. (test cod e = 49207) 154 ML/MIN/1.73 eGFR NON- AMER. (test code = 54856) 133 ML/MIN/1.73 CALC BUN/CREAT (test code = [...] code = 2219) 17 U/L Laurent BranchHEMOGLOBIN [id number] 00:00:00* Test Item Value Reference Range Interpretation Comme nts HEMOGLOBIN A1c (test code = 18029) 8.8 % Laurent Bazzi AustinLIPID [id number] 00:00:00* Test Item Value Reference Range Interpretation Comme nts CHOLESTEROL (test code = 2210) 206 MG/DL TRIGLYCERIDES (test code = 2232) 271 MG/DL HDL CHOLESTEROL (test code = 2220) 41 MG/DL CALC LDL CHOL (test code = 2237) 123 MG/DL RISK RATIO LDL/HDL (test cod e = 2238) 3.00 RATIO Laurent BranchCOMPREHENSIVE METABOLIC [id number] 00:00:00* Test Item Value Reference Range Interpretation Comme nts GLUCOSE (test code = 2217) 203 MG/DL BUN (test code = 2208) 10 MG/DL CREATININE (test code = 2214) 0.39 MG/DL eGFR AMER. (test cod e = 48970) 154 ML/MIN/1.73 eGFR NON- AMER. (test code = 99517) 133 ML/MIN/1.73 CALC BUN/CREAT (test code = [...] code = 2219) 17 U/L Laurent BranchHEMOGLOBIN [id number] 00:00:00* Test Item Value Reference Range Interpretation Comme nts HEMOGLOBIN A1c (test code = 27427) 8.8 % Laurent BranchLIPID [id number] 00:00:00* Test Item Value Reference Range Interpretation Comme nts CHOLESTEROL (test code = 2210) 206 MG/DL TRIGLYCERIDES (test code = 2232) 271 MG/DL HDL CHOLESTEROL (test code = 2220) 41 MG/DL CALC LDL CHOL (test code = 2237) 123 MG/DL RISK RATIO LDL/HDL (test cod e = 2238) 3.00 RATIO Laurent BranchCOMPREHENSIVE METABOLIC [id number] 00:00:00* Test Item Value Reference Range Interpretation Comme nts GLUCOSE (test code = 2217) 203 MG/DL BUN (test code = 2208) 10 MG/DL CREATININE (test code = 2214) 0.39 MG/DL eGFR AMER. (test cod e = 51852) 154 ML/MIN/1.73 eGFR NON- AMER. (test code = 64464) 133 ML/MIN/1.73 CALC BUN/CREAT (test code = [...] code = 2219) 17 U/L Laurent BranchHEMOGLOBIN [id number] 00:00:00* Test Item Value Reference Range Interpretation Comme nts HEMOGLOBIN A1c (test code = 52289) 8.8 % Laurent BranchLIPID [id number] 00:00:00* Test Item Value Reference Range Interpretation Comme nts CHOLESTEROL (test code = 2210) 206 MG/DL TRIGLYCERIDES (test code = 2232) 271 MG/DL HDL CHOLESTEROL (test code = 2220) 41 MG/DL CALC LDL CHOL (test code = 2237) 123 MG/DL RISK RATIO LDL/HDL (test cod e = 2238) 3.00 RATIO Laurent BranchCOMPREHENSIVE METABOLIC [id number] 00:00:00* Test Item Value Reference Range Interpretation Comme nts GLUCOSE (test code = 2217) 203 MG/DL BUN (test code = 2208) 10 MG/DL CREATININE (test code = 2214) 0.39 MG/DL eGFR AMER. (test cod e = 07294) 154 ML/MIN/1.73 eGFR NON- AMER. (test code = 60452) 133 ML/MIN/1.73 CALC BUN/CREAT (test code = 2235) 26 RATIO SODIUM (test code = 2231) 137 MEQ/L POTASSIUM (test code = 2228) 4.2 MEQ/L CHLORIDE (test code = 2215) 103 MEQ/L CARBON DIOXIDE (test code = 2206) 20 MEQ/L CALCIUM (test code = 2209) 9.1 MG/DL PROTEIN, TOTAL (test code = 222) 6.5 G/DL ALBUMIN (test code = 2201) 4.2 G/DL CALC GLOBULIN (test code = 2240) 2.3 G/DL CALC A/G RATIO (test code = 2234) 1.8 RATIO BILIRUBIN, TOTAL (test code = 220) 0.5 MG/DL ALKALINE PHOSPHATASE (test code = 2204) 83 U/L AST (test code = 2218) 18 U/L ALT (test code = 2219) 17 U/L Laurent BranchHEMOGLOBIN [id number] 00:00:00* Test Item Value Reference Range Interpretation Comme nts HEMOGLOBIN A1c (test code = 08810) 8.8 % Laurent BranchLIPID [id number] 00:00:00* Test Item Value Reference Range Interpretation Comme nts CHOLESTEROL (test code = 2210) 206 MG/DL TRIGLYCERIDES (test code = 2232) 271 MG/DL HDL CHOLESTEROL (test code = 2220) 41 MG/DL CALC LDL CHOL (test code = 2237) 123 MG/DL RISK RATIO LDL/HDL (test cod e = 2238) 3.00 RATIO Laurent Bazzi Jose CarlosCOMPREHENSIVE METABOLIC [id number] 00:00:00* Test Item Value Reference Range Interpretation Comme nts GLUCOSE (test code = 7) 203 MG/DL BUN (test code = 2208) 10 MG/DL CREATININE (test code = 2214) 0.39 MG/DL eGFR AMER. (test cod e = 63819) 154 ML/MIN/1.73 eGFR NON- AMER. (test code = 96029) 133 ML/MIN/1.73 CALC BUN/CREAT (test code = [...] (test code = 2219) 17 U/L Laurent Bazzi AustinHEMOGLOBIN [id number] 00:00:00* Test Item Value Reference Range Interpretation Comme nts HEMOGLOBIN A1c (test code = 50680) 8.8 % Laurent Bazzi AustinHEMOGLOBIN [id number] 00:00:00* Test Item Value Reference Range Interpretation Comme nts HEMOGLOBIN A1c (test code = 07127) 8.8 % LIPID [id number] 00:00:00* Test Item Value Reference Range Interpretation Comme nts CHOLESTEROL (test code = 2210) 206 MG/DL TRIGLYCERIDES (test code = 2232) 271 MG/DL HDL CHOLESTEROL (test code = 2220) 41 MG/DL CALC LDL CHOL (test code = 2237) 123 MG/DL RISK RATIO LDL/HDL (test cod e = 2238) 3.00 RATIO LIPID [id number] 00:00:00* Test Item Value Reference Range Interpretation Comme nts CHOLESTEROL (test code = 2210) 260 MG/DL TRIGLYCERIDES (test code = 2232) 308 MG/DL HDL CHOLESTEROL (test code = 2220) 47 MG/DL CALC LDL CHOL (test code = 2237) 151 MG/DL RISK RATIO LDL/HDL (test cod e = 2238) 3.22 RATIO HEMOGLOBIN [id number] 00:00:00* Test Item Value Reference Range Interpretation Comme nts HEMOGLOBIN A1c (test code = 18385) 8.7 % COMPREHENSIVE METABOLIC [id number] 00:00:00* Test Item Value Reference Range Interpretation Comme nts GLUCOSE (test code = 2217) 234 MG/DL BUN (test code = 2208) 9 MG/DL CREATININE (test code = 2214) 0.43 MG/DL eGFR AMER. (test cod e = 74619) 150 ML/MIN/1.73 eGFR NON- AMER. (test code = 90191) 129 ML/MIN/1.73 CALC BUN/CREAT (test code = [...] (test code = 2219) 16 U/L LIPID [id number] 00:00:00* Test Item Value Reference Range Interpretation Comme nts CHOLESTEROL (test code = 2210) 260 MG/DL TRIGLYCERIDES (test code = 2232) 308 MG/DL HDL CHOLESTEROL (test code = 2220) 47 MG/DL CALC LDL CHOL (test code = 2237) 151 MG/DL RISK RATIO LDL/HDL (test cod e = 2238) 3.22 RATIO HEMOGLOBIN [id number] 00:00:00* Test Item Value Reference Range Interpretation Comme nts HEMOGLOBIN A1c (test code = 64535) 8.7 % COMPREHENSIVE METABOLIC [id number] 00:00:00* Test Item Value Reference Range Interpretation Comme nts GLUCOSE (test code = 2217) 234 MG/DL BUN (test code = 2208) 9 MG/DL CREATININE (test code = 2214) 0.43 MG/DL eGFR AMER. (test cod e = 20283) 150 ML/MIN/1.73 eGFR NON- AMER. (test code = 37398) 129 ML/MIN/1.73 CALC BUN/CREAT (test code = [...] (test code = 2219) 16 U/L LIPID [id number] 00:00:00* Test Item Value Reference Range Interpretation Comme nts CHOLESTEROL (test code = 2210) 260 MG/DL TRIGLYCERIDES (test code = 2232) 308 MG/DL HDL CHOLESTEROL (test code = 2220) 47 MG/DL CALC LDL CHOL (test code = 2237) 151 MG/DL RISK RATIO LDL/HDL (test cod e = 2238) 3.22 RATIO HEMOGLOBIN [id number] 00:00:00* Test Item Value Reference Range Interpretation Comme nts HEMOGLOBIN A1c (test code = 12815) 8.7 % COMPREHENSIVE METABOLIC [id number] 00:00:00* Test Item Value Reference Range Interpretation Comme nts GLUCOSE (test code = 2217) 234 MG/DL BUN (test code = 2208) 9 MG/DL CREATININE (test code = 2214) 0.43 MG/DL eGFR AMER. (test cod e = 66741) 150 ML/MIN/1.73 eGFR NON- AMER. (test code = 33907) 129 ML/MIN/1.73 CALC BUN/CREAT (test code = [...] code = 2219) 16 U/L COMPREHENSIVE METABOLIC [id number] 00:00:00* Test Item Value Reference Range Interpretation Comme nts GLUCOSE (test code = 2217) 234 MG/DL BUN (test code = 2208) 9 MG/DL CREATININE (test code = 2214) 0.43 MG/DL eGFR AMER. (test cod e = 22340) 150 ML/MIN/1.73 eGFR NON- AMER. (test code = 14557) 129 ML/MIN/1.73 CALC BUN/CREAT (test code = [...] (test code = 2219) 16 U/L LIPID [id number] 00:00:00* Test Item Value Reference Range Interpretation Comme nts CHOLESTEROL (test code = 2210) 260 MG/DL TRIGLYCERIDES (test code = 2232) 308 MG/DL HDL CHOLESTEROL (test code = 2220) 47 MG/DL CALC LDL CHOL (test code = 2237) 151 MG/DL RISK RATIO LDL/HDL (test cod e = 2238) 3.22 RATIO LIPID [id number] 00:00:00* Test Item Value Reference Range Interpretation Comme nts CHOLESTEROL (test code = 2210) 260 MG/DL TRIGLYCERIDES (test code = 2232) 308 MG/DL HDL CHOLESTEROL (test code = 2220) 47 MG/DL CALC LDL CHOL (test code = 2237) 151 MG/DL RISK RATIO LDL/HDL (test cod e = 2238) 3.22 RATIO HEMOGLOBIN [id number] 00:00:00* Test Item Value Reference Range Interpretation Comme nts HEMOGLOBIN A1c (test code = 15392) 8.7 % LIPID [id number] 00:00:00* Test Item Value Reference Range Interpretation Comme nts CHOLESTEROL (test code = 2210) 260 MG/DL TRIGLYCERIDES (test code = 2232) 308 MG/DL HDL CHOLESTEROL (test code = 2220) 47 MG/DL CALC LDL CHOL (test code = 2237) 151 MG/DL RISK RATIO LDL/HDL (test cod e = 2238) 3.22 RATIO Laurent BranchHEMOGLOBIN [id number] 00:00:00* Test Item Value Reference Range Interpretation Comme nts HEMOGLOBIN A1c (test code = 85629) 8.7 % Laurent BranchCOMPREHENSIVE METABOLIC [id number] 00:00:00* Test Item Value Reference Range Interpretation Comme nts GLUCOSE (test code = 2217) 234 MG/DL BUN (test code = 2208) 9 MG/DL CREATININE (test code = 2214) 0.43 MG/DL eGFR AMER. (test cod e = 39062) 150 ML/MIN/1.73 eGFR NON- AMER. (test code = 51068) 129 ML/MIN/1.73 CALC BUN/CREAT (test code = [...] code = 2219) 16 U/L Laurent BranchLIPID [id number] 00:00:00* Test Item Value Reference Range Interpretation Comme nts CHOLESTEROL (test code = 2210) 260 MG/DL TRIGLYCERIDES (test code = 2232) 308 MG/DL HDL CHOLESTEROL (test code = 2220) 47 MG/DL CALC LDL CHOL (test code = 2237) 151 MG/DL RISK RATIO LDL/HDL (test cod e = 2238) 3.22 RATIO Laurent BranchHEMOGLOBIN [id number] 00:00:00* Test Item Value Reference Range Interpretation Comme nts HEMOGLOBIN A1c (test code = 54541) 8.7 % Laurent BranchCOMPREHENSIVE METABOLIC [id number] 00:00:00* Test Item Value Reference Range Interpretation Comme nts GLUCOSE (test code = 2217) 234 MG/DL BUN (test code = 2208) 9 MG/DL CREATININE (test code = 2214) 0.43 MG/DL eGFR AMER. (test cod e = 12091) 150 ML/MIN/1.73 eGFR NON- AMER. (test code = 06945) 129 ML/MIN/1.73 CALC BUN/CREAT (test code = [...] code = 2219) 16 U/L Laurent BranchLIPID [id number] 00:00:00* Test Item Value Reference Range Interpretation Comme nts CHOLESTEROL (test code = 2210) 260 MG/DL TRIGLYCERIDES (test code = 2232) 308 MG/DL HDL CHOLESTEROL (test code = 2220) 47 MG/DL CALC LDL CHOL (test code = 2237) 151 MG/DL RISK RATIO LDL/HDL (test cod e = 2238) 3.22 RATIO Laurent BranchHEMOGLOBIN [id number] 00:00:00* Test Item Value Reference Range Interpretation Comme nts HEMOGLOBIN A1c (test code = 89391) 8.7 % Laurent BranchCOMPREHENSIVE METABOLIC [id number] 00:00:00* Test Item Value Reference Range Interpretation Comme nts GLUCOSE (test code = 2217) 234 MG/DL BUN (test code = 2208) 9 MG/DL CREATININE (test code = 2214) 0.43 MG/DL eGFR AMER. (test cod e = 67586) 150 ML/MIN/1.73 eGFR NON- AMER. (test code = 32383) 129 ML/MIN/1.73 CALC BUN/CREAT (test code = [...] code = 2219) 16 U/L Laurent BranchLIPID [id number] 00:00:00* Test Item Value Reference Range Interpretation Comme nts CHOLESTEROL (test code = 2210) 260 MG/DL TRIGLYCERIDES (test code = 2232) 308 MG/DL HDL CHOLESTEROL (test code = 2220) 47 MG/DL CALC LDL CHOL (test code = 2237) 151 MG/DL RISK RATIO LDL/HDL (test cod e = 2238) 3.22 RATIO Luarent BranchHEMOGLOBIN [id number] 00:00:00* Test Item Value Reference Range Interpretation Comme nts HEMOGLOBIN A1c (test code = 90568) 8.7 % Laurent BranchCOMPREHENSIVE METABOLIC [id number] 00:00:00* Test Item Value Reference Range Interpretation Comme nts GLUCOSE (test code = 2217) 234 MG/DL BUN (test code = 2208) 9 MG/DL CREATININE (test code = 2214) 0.43 MG/DL eGFR AMER. (test cod e = 33285) 150 ML/MIN/1.73 eGFR NON- AMER. (test code = 91112) 129 ML/MIN/1.73 CALC BUN/CREAT (test code = [...] code = 2219) 16 U/L Laurent BranchLIPID [id number] 00:00:00* Test Item Value Reference Range Interpretation Comme nts CHOLESTEROL (test code = 2210) 260 MG/DL TRIGLYCERIDES (test code = 2232) 308 MG/DL HDL CHOLESTEROL (test code = 2220) 47 MG/DL CALC LDL CHOL (test code = 2237) 151 MG/DL RISK RATIO LDL/HDL (test cod e = 2238) 3.22 RATIO Laurent BranchHEMOGLOBIN [id number] 00:00:00* Test Item Value Reference Range Interpretation Comme nts HEMOGLOBIN A1c (test code = 28266) 8.7 % Laurent BranchCOMPREHENSIVE METABOLIC [id number] 00:00:00* Test Item Value Reference Range Interpretation Comme nts GLUCOSE (test code = 2217) 234 MG/DL BUN (test code = 2208) 9 MG/DL CREATININE (test code = 2214) 0.43 MG/DL eGFR AMER. (test cod e = 77945) 150 ML/MIN/1.73 eGFR NON- AMER. (test code = 70576) 129 ML/MIN/1.73 CALC BUN/CREAT (test code = [...] = 2219) 16 U/L Laurent Bazzi AustinLIPID [id number] 00:00:00* Test Item Value Reference Range Interpretation Comme nts CHOLESTEROL (test code = 2210) 260 MG/DL TRIGLYCERIDES (test code = 2232) 308 MG/DL HDL CHOLESTEROL (test code = 2220) 47 MG/DL CALC LDL CHOL (test code = 2237) 151 MG/DL RISK RATIO LDL/HDL (test cod e = 2238) 3.22 RATIO Laurent BranchHEMOGLOBIN [id number] 00:00:00* Test Item Value Reference Range Interpretation Comme nts HEMOGLOBIN A1c (test code = 41084) 8.7 % Laurent BranchCOMPREHENSIVE METABOLIC [id number] 00:00:00* Test Item Value Reference Range Interpretation Comme nts GLUCOSE (test code = 2217) 234 MG/DL BUN (test code = 2208) 9 MG/DL CREATININE (test code = 2214) 0.43 MG/DL eGFR AMER. (test cod e = 35984) 150 ML/MIN/1.73 eGFR NON- AMER. (test code = 78787) 129 ML/MIN/1.73 CALC BUN/CREAT (test code = [...] (test code = 2219) 16 U/L Laurent BranchHEMOGLOBIN [id number] 00:00:00* Test Item Value Reference Range Interpretation Comme nts HEMOGLOBIN A1c (test code = 65669) 8.7 % COMPREHENSIVE METABOLIC [id number] 00:00:00* Test Item Value Reference Range Interpretation Comme nts GLUCOSE (test code = 2217) 234 MG/DL BUN (test code = 2208) 9 MG/DL CREATININE (test code = 2214) 0.43 MG/DL eGFR AMER. (test cod e = 95172) 150 ML/MIN/1.73 eGFR NON- AMER. (test code = 39961) 129 ML/MIN/1.73 CALC BUN/CREAT (test code = [...] code = 2219) 16 U/L COMPREHENSIVE METABOLIC [id number] 00:00:00* Test Item Value Reference Range Interpretation Comme nts GLUCOSE (test code = 2217) 115 MG/DL BUN (test code = 2208) 7 MG/DL CREATININE (test code = 2214) 0.37 MG/DL eGFR AMER. (test cod e = 65798) 158 ML/MIN/1.73 eGFR NON- AMER. (test code = 25583) 137 ML/MIN/1.73 CALC BUN/CREAT (test code = [...] (test code = 2219) 17 U/L HEMOGLOBIN [id number] 00:00:00* Test Item Value Reference Range Interpretation Comme nts HEMOGLOBIN A1c (test code = 88906) 7.3 % LIPID [id number] 00:00:00* Test Item Value Reference Range Interpretation Comme nts CHOLESTEROL (test code = 2210) 174 MG/DL TRIGLYCERIDES (test code = 2232) 195 MG/DL HDL CHOLESTEROL (test code = 2220) 41 MG/DL CALC LDL CHOL (test code = 2237) 94 MG/DL RISK RATIO LDL/HDL (test cod e = 2238) 2.29 RATIO COMPREHENSIVE METABOLIC [id number] 00:00:00* Test Item Value Reference Range Interpretation Comme nts GLUCOSE (test code = 2217) 115 MG/DL BUN (test code = 2208) 7 MG/DL CREATININE (test code = 2214) 0.37 MG/DL eGFR AMER. (test cod e = 03561) 158 ML/MIN/1.73 eGFR NON- AMER. (test code = 44178) 137 ML/MIN/1.73 CALC BUN/CREAT (test code = [...] (test code = 2219) 17 U/L HEMOGLOBIN [id number] 00:00:00* Test Item Value Reference Range Interpretation Comme nts HEMOGLOBIN A1c (test code = 80406) 7.3 % LIPID [id number] 00:00:00* Test Item Value Reference Range Interpretation Comme nts CHOLESTEROL (test code = 2210) 174 MG/DL TRIGLYCERIDES (test code = 2232) 195 MG/DL HDL CHOLESTEROL (test code = 2220) 41 MG/DL CALC LDL CHOL (test code = 2237) 94 MG/DL RISK RATIO LDL/HDL (test cod e = 2238) 2.29 RATIO HEMOGLOBIN [id number] 00:00:00* Test Item Value Reference Range Interpretation Comme nts HEMOGLOBIN A1c (test code = 84863) 7.3 % COMPREHENSIVE METABOLIC [id number] 00:00:00* Test Item Value Reference Range Interpretation Comme nts GLUCOSE (test code = 2217) 115 MG/DL BUN (test code = 2208) 7 MG/DL CREATININE (test code = 2214) 0.37 MG/DL eGFR AMER. (test cod e = 60900) 158 ML/MIN/1.73 eGFR NON- AMER. (test code = 62692) 137 ML/MIN/1.73 CALC BUN/CREAT (test code = [...] (test code = 2219) 17 U/L HEMOGLOBIN [id number] 00:00:00* Test Item Value Reference Range Interpretation Comme nts HEMOGLOBIN A1c (test code = 67817) 7.3 % LIPID [id number] 00:00:00* Test Item Value Reference Range Interpretation Comme nts CHOLESTEROL (test code = 2210) 174 MG/DL TRIGLYCERIDES (test code = 2232) 195 MG/DL HDL CHOLESTEROL (test code = 2220) 41 MG/DL CALC LDL CHOL (test code = 2237) 94 MG/DL RISK RATIO LDL/HDL (test cod e = 2238) 2.29 RATIO LIPID [id number] 00:00:00* Test Item Value Reference Range Interpretation Comme nts CHOLESTEROL (test code = 2210) 174 MG/DL TRIGLYCERIDES (test code = 2232) 195 MG/DL HDL CHOLESTEROL (test code = 2220) 41 MG/DL CALC LDL CHOL (test code = 2237) 94 MG/DL RISK RATIO LDL/HDL (test cod e = 2238) 2.29 RATIO COMPREHENSIVE METABOLIC [id number] 00:00:00* Test Item Value Reference Range Interpretation Comme nts GLUCOSE (test code = 2217) 115 MG/DL BUN (test code = 2208) 7 MG/DL CREATININE (test code = 2214) 0.37 MG/DL eGFR AMER. (test cod e = 87484) 158 ML/MIN/1.73 eGFR NON- AMER. (test code = 98148) 137 ML/MIN/1.73 CALC BUN/CREAT (test code = [...] code = 2219) 17 U/L COMPREHENSIVE METABOLIC [id number] 00:00:00* Test Item Value Reference Range Interpretation Comme nts GLUCOSE (test code = 2217) 115 MG/DL BUN (test code = 2208) 7 MG/DL CREATININE (test code = 2214) 0.37 MG/DL eGFR AMER. (test cod e = 17420) 158 ML/MIN/1.73 eGFR NON- AMER. (test code = 85314) 137 ML/MIN/1.73 CALC BUN/CREAT (test code = [...] ALT (test code = 2219) 17 U/L LIPID [id number] 00:00:00* Test Item Value Reference Range Interpretation Comme nts CHOLESTEROL (test code = 2210) 174 MG/DL TRIGLYCERIDES (test code = 2232) 195 MG/DL HDL CHOLESTEROL (test code = 2220) 41 MG/DL CALC LDL CHOL (test code = 2237) 94 MG/DL RISK RATIO LDL/HDL (test cod e = 2238) 2.29 RATIO Laurent F AustinCOMPREHENSIVE METABOLIC [id number] 00:00:00* Test Item Value Reference Range Interpretation Comme nts GLUCOSE (test code = 2217) 115 MG/DL BUN (test code = 2208) 7 MG/DL CREATININE (test code = 2214) 0.37 MG/DL eGFR AMER. (test cod e = 62831) 158 ML/MIN/1.73 eGFR NON- AMER. (test code = 70485) 137 ML/MIN/1.73 CALC BUN/CREAT (test code = [...] code = 2219) 17 U/L Laurent BranchHEMOGLOBIN [id number] 00:00:00* Test Item Value Reference Range Interpretation Comme cornelio HEMOGLOBIN A1c (test code = 68125) 7.3 % Laurent BranchLIPID [id number] 00:00:00* Test Item Value Reference Range Interpretation Comme nts CHOLESTEROL (test code = 2210) 174 MG/DL TRIGLYCERIDES (test code = 2232) 195 MG/DL HDL CHOLESTEROL (test code = 2220) 41 MG/DL CALC LDL CHOL (test code = 2237) 94 MG/DL RISK RATIO LDL/HDL (test cod e = 2238) 2.29 RATIO Laurent BranchCOMPREHENSIVE METABOLIC [id number] 00:00:00* Test Item Value Reference Range Interpretation Comme nts GLUCOSE (test code = 2217) 115 MG/DL BUN (test code = 2208) 7 MG/DL CREATININE (test code = 2214) 0.37 MG/DL eGFR AMER. (test cod e = 63515) 158 ML/MIN/1.73 eGFR NON- AMER. (test code = 06255) 137 ML/MIN/1.73 CALC BUN/CREAT (test code = [...] code = 2219) 17 U/L Laurent BranchHEMOGLOBIN [id number] 00:00:00* Test Item Value Reference Range Interpretation Comme nts HEMOGLOBIN A1c (test code = 14786) 7.3 % Laurent Bazzi AustinLIPID [id number] 00:00:00* Test Item Value Reference Range Interpretation Comme nts CHOLESTEROL (test code = 2210) 174 MG/DL TRIGLYCERIDES (test code = 2232) 195 MG/DL HDL CHOLESTEROL (test code = 2220) 41 MG/DL CALC LDL CHOL (test code = 2237) 94 MG/DL RISK RATIO LDL/HDL (test cod e = 2238) 2.29 RATIO Laurent BranchCOMPREHENSIVE METABOLIC [id number] 00:00:00* Test Item Value Reference Range Interpretation Comme nts GLUCOSE (test code = 2217) 115 MG/DL BUN (test code = 2208) 7 MG/DL CREATININE (test code = 2214) 0.37 MG/DL eGFR AMER. (test cod e = 69898) 158 ML/MIN/1.73 eGFR NON- AMER. (test code = 84433) 137 ML/MIN/1.73 CALC BUN/CREAT (test code = [...] code = 2219) 17 U/L Laurent BranchHEMOGLOBIN [id number] 00:00:00* Test Item Value Reference Range Interpretation Comme nts HEMOGLOBIN A1c (test code = 32080) 7.3 % Laurent Bazzi AustinLIPID [id number] 00:00:00* Test Item Value Reference Range Interpretation Comme nts CHOLESTEROL (test code = 2210) 174 MG/DL TRIGLYCERIDES (test code = 2232) 195 MG/DL HDL CHOLESTEROL (test code = 2220) 41 MG/DL CALC LDL CHOL (test code = 2237) 94 MG/DL RISK RATIO LDL/HDL (test cod e = 2238) 2.29 RATIO Laurent BranchCOMPREHENSIVE METABOLIC [id number] 00:00:00* Test Item Value Reference Range Interpretation Comme nts GLUCOSE (test code = 2217) 115 MG/DL BUN (test code = 2208) 7 MG/DL CREATININE (test code = 2214) 0.37 MG/DL eGFR AMER. (test cod e = 91125) 158 ML/MIN/1.73 eGFR NON- AMER. (test code = 22500) 137 ML/MIN/1.73 CALC BUN/CREAT (test code = [...] code = 2219) 17 U/L Laurent BranchHEMOGLOBIN [id number] 00:00:00* Test Item Value Reference Range Interpretation Comme nts HEMOGLOBIN A1c (test code = 73344) 7.3 % Laurent BranchLIPID [id number] 00:00:00* Test Item Value Reference Range Interpretation Comme nts CHOLESTEROL (test code = 2210) 174 MG/DL TRIGLYCERIDES (test code = 2232) 195 MG/DL HDL CHOLESTEROL (test code = 2220) 41 MG/DL CALC LDL CHOL (test code = 2237) 94 MG/DL RISK RATIO LDL/HDL (test cod e = 2238) 2.29 RATIO Laurent BranchCOMPREHENSIVE METABOLIC [id number] 00:00:00* Test Item Value Reference Range Interpretation Comme nts GLUCOSE (test code = 2217) 115 MG/DL BUN (test code = 2208) 7 MG/DL CREATININE (test code = 2214) 0.37 MG/DL eGFR AMER. (test cod e = 02431) 158 ML/MIN/1.73 eGFR NON- AMER. (test code = 12039) 137 ML/MIN/1.73 CALC BUN/CREAT (test code = [...] code = 2219) 17 U/L Laurent BranchHEMOGLOBIN [id number] 00:00:00* Test Item Value Reference Range Interpretation Comme nts HEMOGLOBIN A1c (test code = 46595) 7.3 % Laurent BranchLIPID [id number] 00:00:00* Test Item Value Reference Range Interpretation Comme nts CHOLESTEROL (test code = 2210) 174 MG/DL TRIGLYCERIDES (test code = 2232) 195 MG/DL HDL CHOLESTEROL (test code = 2220) 41 MG/DL CALC LDL CHOL (test code = 2237) 94 MG/DL RISK RATIO LDL/HDL (test cod e = 2238) 2.29 RATIO Laurent BranchCOMPREHENSIVE METABOLIC [id number] 00:00:00* Test Item Value Reference Range Interpretation Comme nts GLUCOSE (test code = 2217) 115 MG/DL BUN (test code = 2208) 7 MG/DL CREATININE (test code = 2214) 0.37 MG/DL eGFR AMER. (test cod e = 08741) 158 ML/MIN/1.73 eGFR NON- AMER. (test code = 68099) 137 ML/MIN/1.73 CALC BUN/CREAT (test code = [...] (test code = 2219) 17 U/L Laurent Bazzi AustinHEMOGLOBIN [id number] 00:00:00* Test Item Value Reference Range Interpretation Comme [facility] HEMOGLOBIN A1c (test code = 02205) 7.3 % Laurent Bazzi AustinHEMOGLOBIN [id number] 00:00:00* Test Item Value Reference Range Interpretation Comme [facility] HEMOGLOBIN A1c (test code = 94122) 7.3 % LIPID [id number] 00:00:00* Test Item Value Reference Range Interpretation Comme nts CHOLESTEROL (test code = 2210) 174 MG/DL TRIGLYCERIDES (test code = 2232) 195 MG/DL HDL CHOLESTEROL (test code = 2220) 41 MG/DL CALC LDL CHOL (test code = 2237) 94 MG/DL RISK RATIO LDL/HDL (test cod e = 2238) 2.29 RATIO PAP TEST, THINPREP, [id number] 00:00:00* Test Item Value Reference Range Interpretation Comme nts SOURCE: (test code = 8001) Cervical/Endocervical SLIDES: (test code = 8011) 1 LMP: (test code = 8021) 07/14/2018 SPECIMEN ADEQUACY: (test code = 11931) (NOTE) INTERPRETATION: (test code = 93788) NILM/NO EPITH. ABNORMALITY;SEE BELOW OTHER COMMENTS: (test code = 8081) (NOTE) LENS COATING TECHNICIAN: (test code = 8101) CHELA Tinoco(ASCP) [place] QC TECHNOLOGIST: (test code = 8111) NANDINI Pelletier(ASCP)IAC LOCATION: (test code = 18853) (NOTE) CPT: (test code = 8140) (NOTE) PAP TEST, THINPREP, [id number] 00:00:00* Test Item Value Reference Range Interpretation Comme nts SOURCE: (test code = 8001) Cervical/Endocervical SLIDES: (test code = 8011) 1 LMP: (test code = 8021) 07/14/2018 SPECIMEN ADEQUACY: (test code = 19970) (NOTE) INTERPRETATION: (test code = 06598) NILM/NO EPITH. ABNORMALITY;SEE BELOW OTHER COMMENTS: (test code = 8081) (NOTE) LENS COATING TECHNICIAN: (test code = 8101) CHELA Tinoco(ASCP) [place] QC TECHNOLOGIST: (test code = 8111) NANDINI Pelletier(ASCP)IAC LOCATION: (test code = 43402) (NOTE) CPT: (test code = 8140) (NOTE) PAP TEST, THINPREP, [id number] 00:00:00* Test Item Value Reference Range Interpretation Comme nts SOURCE: (test code = 8001) Cervical/Endocervical SLIDES: (test code = 8011) 1 LMP: (test code = 8021) 07/14/2018 SPECIMEN ADEQUACY: (test code = 33604) (NOTE) INTERPRETATION: (test code = 20478) NILM/NO EPITH. ABNORMALITY;SEE BELOW OTHER COMMENTS: (test code = 8081) (NOTE) LENS COATING TECHNICIAN: (test code = 8101) CHELA Tinoco(ASCP) [facility] QC TECHNOLOGIST: (test code = 8111) NANDINI Pelletier(ASCP)IAC LOCATION: (test code = 68676) (NOTE) CPT: (test code = 8140) (NOTE) PAP TEST, THINPREP, [id number] 00:00:00* Test Item Value Reference Range Interpretation Comme nts SOURCE: (test code = 8001) Cervical/Endocervical SLIDES: (test code = 8011) 1 LMP: (test code = 8021) 07/14/2018 SPECIMEN ADEQUACY: (test code = 35446) (NOTE) INTERPRETATION: (test code = 56855) NILM/NO EPITH. ABNORMALITY;SEE BELOW OTHER COMMENTS: (test code = 8081) (NOTE) LENS COATING TECHNICIAN: (test code = 8101) CHELA Tinoco(ASCP) [facility] QC TECHNOLOGIST: (test code = 8111) NANDINI Pelletier(ASCP)IAC LOCATION: (test code = 71685) (NOTE) CPT: (test code = 8140) (NOTE) PAP TEST, THINPREP, [id number] 00:00:00* Test Item Value Reference Range Interpretation Comme nts SOURCE: (test code = 8001) Cervical/Endocervical SLIDES: (test code = 8011) 1 LMP: (test code = 8021) 07/14/2018 SPECIMEN ADEQUACY: (test code = 69820) (NOTE) INTERPRETATION: (test code = 86147) NILM/NO EPITH. ABNORMALITY;SEE BELOW OTHER COMMENTS: (test code = 8081) (NOTE) LENS COATING TECHNICIAN: (test code = 8101) CHELA Tinoco(ASCP) [facility] QC TECHNOLOGIST: (test code = 8111) NANDINI Pelletier(ASCP)IAC LOCATION: (test code = 39849) (NOTE) CPT: (test code = 8140) (NOTE) Laurent Bazzi Jose CarlosPAP TEST, THINPREP, [id number] 00:00:00* Test Item Value Reference Range Interpretation Comme nts SOURCE: (test code = 8001) Cervical/Endocervical SLIDES: (test code = 8011) 1 LMP: (test code = 8021) 07/14/2018 SPECIMEN ADEQUACY: (test code = 33427) (NOTE) INTERPRETATION: (test code = 26767) NILM/NO EPITH. ABNORMALITY;SEE BELOW OTHER COMMENTS: (test code = 8081) (NOTE) LENS COATING TECHNICIAN: (test code = 8101) CHELA Tinoco(ASCP) [facility] QC TECHNOLOGIST: (test code = 8111) NANDINI Pelletier(ASCP)IAC LOCATION: (test code = 89838) (NOTE) CPT: (test code = 8140) (NOTE) Laurent BranchPAP TEST, THINPREP, [id number] 00:00:00* Test Item Value Reference Range Interpretation Comme nts SOURCE: (test code = 8001) Cervical/Endocervical SLIDES: (test code = 8011) 1 LMP: (test code = 8021) 07/14/2018 SPECIMEN ADEQUACY: (test code = 96957) (NOTE) INTERPRETATION: (test code = 27745) NILM/NO EPITH. ABNORMALITY;SEE BELOW OTHER COMMENTS: (test code = 8081) (NOTE) LENS COATING TECHNICIAN: (test code = 8101) CHELA Tinoco(ASCP) [facility] QC TECHNOLOGIST: (test code = 8111) NANDINI Pelletier(ASCP)IAC LOCATION: (test code = 27424) (NOTE) CPT: (test code = 8140) (NOTE) Laurent BranchBUDDYP TEST, THINPREP, [id number] 00:00:00* Test Item Value Reference Range Interpretation Comme nts SOURCE: (test code = 8001) Cervical/Endocervical SLIDES: (test code = 8011) 1 LMP: (test code = 8021) 07/14/2018 SPECIMEN ADEQUACY: (test code = 79772) (NOTE) INTERPRETATION: (test code = 87458) NILM/NO EPITH. ABNORMALITY;SEE BELOW OTHER COMMENTS: (test code = 8081) (NOTE) LENS COATING TECHNICIAN: (test code = 8101) CHELA Tinoco(ASCP) [facility] QC TECHNOLOGIST: (test code = 8111) NANDINI Pelletier(ASCP)IAC LOCATION: (test code = 49069) (NOTE) CPT: (test code = 8140) (NOTE) Laurent BranchPAP TEST, THINPREP, [id number] 00:00:00* Test Item Value Reference Range Interpretation Comme nts SOURCE: (test code = 8001) Cervical/Endocervical SLIDES: (test code = 8011) 1 LMP: (test code = 8021) 07/14/2018 SPECIMEN ADEQUACY: (test code = 54002) (NOTE) INTERPRETATION: (test code = 67253) NILM/NO EPITH. ABNORMALITY;SEE BELOW OTHER COMMENTS: (test code = 8081) (NOTE) LENS COATING TECHNICIAN: (test code = 8101) CHELA Tinoco(ASCP) [place] QC TECHNOLOGIST: (test code = 8111) NANDINI Pelletier(ASCP)IAC LOCATION: (test code = 59547) (NOTE) CPT: (test code = 8140) (NOTE) Laurent BranchPAP TEST, THINPREP, [id number] 00:00:00* Test Item Value Reference Range Interpretation Comme nts SOURCE: (test code = 8001) Cervical/Endocervical SLIDES: (test code = 8011) 1 LMP: (test code = 8021) 07/14/2018 SPECIMEN ADEQUACY: (test code = 97069) (NOTE) INTERPRETATION: (test code = 91369) NILM/NO EPITH. ABNORMALITY;SEE BELOW OTHER COMMENTS: (test code = 8081) (NOTE) LENS COATING TECHNICIAN: (test code = 8101) CHELA Tinoco(ASCP) [place] QC TECHNOLOGIST: (test code = 8111) NANDINI Pelletier(ASCP)IAC LOCATION: (test code = 25003) (NOTE) CPT: (test code = 8140) (NOTE) Laurent Rose Mary BranchBUDDYP TEST, THINPREP, [id number] 00:00:00* Test Item Value Reference Range Interpretation Comme nts SOURCE: (test code = 8001) Cervical/Endocervical SLIDES: (test code = 8011) 1 LMP: (test code = 8021) 07/14/2018 SPECIMEN ADEQUACY: (test code = 49084) (NOTE) INTERPRETATION: (test code = 63344) NILM/NO EPITH. ABNORMALITY;SEE BELOW OTHER COMMENTS: (test code = 8081) (NOTE) LENS COATING TECHNICIAN: (test code = 8101) CHELA Tinoco(ASCP) [place] QC TECHNOLOGIST: (test code = 8111) NANDINI Pelletier(ASCP)IAC LOCATION: (test code = 35264) (NOTE) CPT: (test code = 8140) (NOTE) [id number] 00:00:00* Test Item Value Reference Range Interpretation Comme nts RPR RESULT (test code = 3501) NON-REACTIVE RPR TITER (test code = 3500) NOT INDIC. TITER [id number] 00:00:00* Test Item Value Reference Range Interpretation Comme nts RPR RESULT (test code = 3501) NON-REACTIVE RPR TITER (test code = 3500) NOT INDIC. TITER [id number] 00:00:00* Test Item Value Reference Range Interpretation Comme nts RPR RESULT (test code = 3501) NON-REACTIVE RPR TITER (test code = 3500) NOT INDIC. TITER [id number] 00:00:00* Test Item Value Reference Range Interpretation Comme nts RPR RESULT (test code = 3501) NON-REACTIVE RPR TITER (test code = 3500) NOT INDIC. TITER [id number] 00:00:00* Test Item Value Reference Range Interpretation Comme nts RPR RESULT (test code = 3501) NON-REACTIVE RPR TITER (test code = 3500) NOT INDIC. TITER Laurent F [id number] 00:00:00* Test Item Value Reference Range Interpretation Comme nts RPR RESULT (test code = 3501) NON-REACTIVE RPR TITER (test code = 3500) NOT INDIC. TITER Laurent F [id number] 00:00:00* Test Item Value Reference Range Interpretation Comme nts RPR RESULT (test code = 3501) NON-REACTIVE RPR TITER (test code = 3500) NOT INDIC. TITER Laurent F [id number] 00:00:00* Test Item Value Reference Range Interpretation Comme nts RPR RESULT (test code = 3501) NON-REACTIVE RPR TITER (test code = 3500) NOT INDIC. TITER Laurent F [id number] 00:00:00* Test Item Value Reference Range Interpretation Comme nts RPR RESULT (test code = 3501) NON-REACTIVE RPR TITER (test code = 3500) NOT INDIC. TITER Laurent F [id number] 00:00:00* Test Item Value Reference Range Interpretation Comme nts RPR RESULT (test code = 3501) NON-REACTIVE RPR TITER (test code = 3500) NOT INDIC. TITER Laurent [id number] 00:00:00* Test Item Value Reference Range Interpretation Comme nts RPR RESULT (test code = 3501) NON-REACTIVE RPR TITER (test code = 3500) NOT INDIC. TITER HIV AB/AG COMBO RFLX [id number] 00:00:00* Test Item Value Reference Range Interpretation Comme nts HIV 1/2 4TH GEN, RFLX CONF ( test code = 3514) NON-REACTIVE HPV HIGH RISK WITH GENOTYPE, [id number] 00:00:00* Test Item Value Reference Range Interpretation Comme nts HPV HIGH RISK INTERP (test c ode = 44735) NEGATIVE HPV 16 (test code = 95185) NEGATIVE HPV 18 (test code = 99961) NEGATIVE HPV, HR, OTHER GENOTYPES (te st code = 54591) NEGATIVE ACUTE HEPATITIS [id number] 00:00:00* Test Item Value Reference Range Interpretation Comme nts HEPATITIS A IgM (test code = 31011) NON-REACTIVE HEPATITIS B CORE IgM (test c ode = 4644) NON-REACTIVE HEPATITIS B SURF AG (test co de = 2739) NON-REACTIVE HEPATITIS C ANTIBODY (test c ode = 4675) NON-REACTIVE HCV INDEX (test code = 21497) 0.08 INTERPRETATION HEPATITIS A: (test code = 2552) (NOTE) INTERPRETATION HEPATITIS B: (test code = 01081) (NOTE) INTERPRETATION HEPATITIS C: (test code = 66328) (NOTE) GC AND CHLAMYDIA AMPLIFIED, [id number] 00:00:00* Test Item Value Reference Range Interpretation Comme nts GONORRHEA, TMA (test code = 97780) NEGATIVE CHLAMYDIA, TMA (test code = 77888) NEGATIVE HPV HIGH RISK WITH GENOTYPE, [id number] 00:00:00* Test Item Value Reference Range Interpretation Comme nts HPV HIGH RISK INTERP (test c ode = 67078) NEGATIVE HPV 16 (test code = 92655) NEGATIVE HPV 18 (test code = 37766) NEGATIVE HPV, HR, OTHER GENOTYPES (te st code = 75997) NEGATIVE HIV AB/AG COMBO RFLX [id number] 00:00:00* Test Item Value Reference Range Interpretation Comme nts HIV 1/2 4TH GEN, RFLX CONF ( test code = 3514) NON-REACTIVE ACUTE HEPATITIS [id number] 00:00:00* Test Item Value Reference Range Interpretation Comme nts HEPATITIS A IgM (test code = 01812) NON-REACTIVE HEPATITIS B CORE IgM (test c ode = 4644) NON-REACTIVE HEPATITIS B SURF AG (test co de = 2739) NON-REACTIVE HEPATITIS C ANTIBODY (test c ode = 4675) NON-REACTIVE HCV INDEX (test code = 39477) 0.08 INTERPRETATION HEPATITIS A: (test code = 2552) (NOTE) INTERPRETATION HEPATITIS B: (test code = 16246) (NOTE) INTERPRETATION HEPATITIS C: (test code = 45946) (NOTE) GC AND CHLAMYDIA AMPLIFIED, [id number] 00:00:00* Test Item Value Reference Range Interpretation Comme nts GONORRHEA, TMA (test code = 90069) NEGATIVE CHLAMYDIA, TMA (test code = 35112) NEGATIVE GC AND CHLAMYDIA AMPLIFIED, [id number] 00:00:00* Test Item Value Reference Range Interpretation Comme nts GONORRHEA, TMA (test code = 42677) NEGATIVE CHLAMYDIA, TMA (test code = 90463) NEGATIVE HIV AB/AG COMBO RFLX [id number] 00:00:00* Test Item Value Reference Range Interpretation Comme nts HIV 1/2 4TH GEN, RFLX CONF ( test code = 3514) NON-REACTIVE HPV HIGH RISK WITH GENOTYPE, [id number] 00:00:00* Test Item Value Reference Range Interpretation Comme nts HPV HIGH RISK INTERP (test c ode = 77365) NEGATIVE HPV 16 (test code = 55442) NEGATIVE HPV 18 (test code = 52664) NEGATIVE HPV, HR, OTHER GENOTYPES (te st code = 96739) NEGATIVE ACUTE HEPATITIS [id number] 00:00:00* Test Item Value Reference Range Interpretation Comme nts HEPATITIS A IgM (test code = 55693) NON-REACTIVE HEPATITIS B CORE IgM (test c ode = 4644) NON-REACTIVE HEPATITIS B SURF AG (test co de = 2739) NON-REACTIVE HEPATITIS C ANTIBODY (test c ode = 4675) NON-REACTIVE HCV INDEX (test code = 51682) 0.08 INTERPRETATION HEPATITIS A: (test code = 2552) (NOTE) INTERPRETATION HEPATITIS B: (test code = 96031) (NOTE) INTERPRETATION HEPATITIS C: (test code = 25455) (NOTE) ACUTE HEPATITIS [id number] 00:00:00* Test Item Value Reference Range Interpretation Comme nts HEPATITIS A IgM (test code = 24071) NON-REACTIVE HEPATITIS B CORE IgM (test c ode = 4644) NON-REACTIVE HEPATITIS B SURF AG (test co de = 2739) NON-REACTIVE HEPATITIS C ANTIBODY (test c ode = 4675) NON-REACTIVE HCV INDEX (test code = 60611) 0.08 INTERPRETATION HEPATITIS A: (test code = 2552) (NOTE) INTERPRETATION HEPATITIS B: (test code = 58166) (NOTE) INTERPRETATION HEPATITIS C: (test code = 51899) (NOTE) GC AND CHLAMYDIA AMPLIFIED, [id number] 00:00:00* Test Item Value Reference Range Interpretation Comme nts GONORRHEA, TMA (test code = 27755) NEGATIVE CHLAMYDIA, TMA (test code = 04519) NEGATIVE HIV AB/AG COMBO RFLX [id number] 00:00:00* Test Item Value Reference Range Interpretation Comme nts HIV 1/2 4TH GEN, RFLX CONF ( test code = 3514) NON-REACTIVE HPV HIGH RISK WITH GENOTYPE, [id number] 00:00:00* Test Item Value Reference Range Interpretation Comme nts HPV HIGH RISK INTERP (test c ode = 07020) NEGATIVE HPV 16 (test code = 49648) NEGATIVE HPV 18 (test code = 42400) NEGATIVE HPV, HR, OTHER GENOTYPES (te st code = 80066) NEGATIVE HIV AB/AG COMBO RFLX [id number] 00:00:00* Test Item Value Reference Range Interpretation Comme nts HIV 1/2 4TH GEN, RFLX CONF ( test code = 3514) NON-REACTIVE HPV HIGH RISK WITH GENOTYPE, [id number] 00:00:00* Test Item Value Reference Range Interpretation Comme nts HPV HIGH RISK INTERP (test c ode = 09000) NEGATIVE HPV 16 (test code = 38190) NEGATIVE HPV 18 (test code = 87480) NEGATIVE HPV, HR, OTHER GENOTYPES (te st code = 48407) NEGATIVE ACUTE HEPATITIS [id number] 00:00:00* Test Item Value Reference Range Interpretation Comme nts HEPATITIS A IgM (test code = 88225) NON-REACTIVE HEPATITIS B CORE IgM (test c ode = 4644) NON-REACTIVE HEPATITIS B SURF AG (test co de = 2739) NON-REACTIVE HEPATITIS C ANTIBODY (test c ode = 4675) NON-REACTIVE HCV INDEX (test code = 71022) 0.08 INTERPRETATION HEPATITIS A: (test code = 2552) (NOTE) INTERPRETATION HEPATITIS B: (test code = 68412) (NOTE) INTERPRETATION HEPATITIS C: (test code = 97921) (NOTE) Laurent BranchHPV HIGH RISK WITH GENOTYPE, [id number] 00:00:00* Test Item Value Reference Range Interpretation Comme nts HPV HIGH RISK INTERP (test c ode = 06758) NEGATIVE HPV 16 (test code = 26884) NEGATIVE HPV 18 (test code = 15597) NEGATIVE HPV, HR, OTHER GENOTYPES (te st code = 40253) NEGATIVE Laurent BranchHIV AB/AG COMBO RFLX [id number] 00:00:00* Test Item Value Reference Range Interpretation Comme nts HIV 1/2 4TH GEN, RFLX CONF ( test code = 3514) NON-REACTIVE Laurent BranchACUTE HEPATITIS [id number] 00:00:00* Test Item Value Reference Range Interpretation Comme nts HEPATITIS A IgM (test code = 08276) NON-REACTIVE HEPATITIS B CORE IgM (test c ode = 4644) NON-REACTIVE HEPATITIS B SURF AG (test co de = 2739) NON-REACTIVE HEPATITIS C ANTIBODY (test c ode = 4675) NON-REACTIVE HCV INDEX (test code = 99701) 0.08 INTERPRETATION HEPATITIS A: (test code = 2552) (NOTE) INTERPRETATION HEPATITIS B: (test code = 07710) (NOTE) INTERPRETATION HEPATITIS C: (test code = 65372) (NOTE) Laurent BranchGC AND CHLAMYDIA AMPLIFIED, [id number] 00:00:00* Test Item Value Reference Range Interpretation Comme nts GONORRHEA, TMA (test code = 54100) NEGATIVE CHLAMYDIA, TMA (test code = 38816) NEGATIVE Laurent BranchHIV AB/AG COMBO RFLX [id number] 00:00:00* Test Item Value Reference Range Interpretation Comme nts HIV 1/2 4TH GEN, RFLX CONF ( test code = 3514) NON-REACTIVE Laurent BranchHPV HIGH RISK WITH GENOTYPE, [id number] 00:00:00* Test Item Value Reference Range Interpretation Comme nts HPV HIGH RISK INTERP (test c ode = 90390) NEGATIVE HPV 16 (test code = 30380) NEGATIVE HPV 18 (test code = 14001) NEGATIVE HPV, HR, OTHER GENOTYPES (te st code = 27261) NEGATIVE Laurent BranchACUTE HEPATITIS [id number] 00:00:00* Test Item Value Reference Range Interpretation Comme nts HEPATITIS A IgM (test code = 84391) NON-REACTIVE HEPATITIS B CORE IgM (test c ode = 4644) NON-REACTIVE HEPATITIS B SURF AG (test co de = 2739) NON-REACTIVE HEPATITIS C ANTIBODY (test c ode = 4675) NON-REACTIVE HCV INDEX (test code = 03878) 0.08 INTERPRETATION HEPATITIS A: (test code = 2552) (NOTE) INTERPRETATION HEPATITIS B: (test code = 45927) (NOTE) INTERPRETATION HEPATITIS C: (test code = 02885) (NOTE) Laurent BranchGC AND CHLAMYDIA AMPLIFIED, [id number] 00:00:00* Test Item Value Reference Range Interpretation Comme nts GONORRHEA, TMA (test code = 61299) NEGATIVE CHLAMYDIA, TMA (test code = 16408) NEGATIVE Laurent BranchHIV AB/AG COMBO RFLX [id number] 00:00:00* Test Item Value Reference Range Interpretation Comme nts HIV 1/2 4TH GEN, RFLX CONF ( test code = 3514) NON-REACTIVE Laurent BranchHPV HIGH RISK WITH GENOTYPE, [id number] 00:00:00* Test Item Value Reference Range Interpretation Comme nts HPV HIGH RISK INTERP (test c ode = 10546) NEGATIVE HPV 16 (test code = 29925) NEGATIVE HPV 18 (test code = 73288) NEGATIVE HPV, HR, OTHER GENOTYPES (te st code = 40208) NEGATIVE Laurent BranchACUTE HEPATITIS [id number] 00:00:00* Test Item Value Reference Range Interpretation Comme nts HEPATITIS A IgM (test code = 97580) NON-REACTIVE HEPATITIS B CORE IgM (test c ode = 4644) NON-REACTIVE HEPATITIS B SURF AG (test co de = 2739) NON-REACTIVE HEPATITIS C ANTIBODY (test c ode = 4675) NON-REACTIVE HCV INDEX (test code = 46154) 0.08 INTERPRETATION HEPATITIS A: (test code = 2552) (NOTE) INTERPRETATION HEPATITIS B: (test code = 80301) (NOTE) INTERPRETATION HEPATITIS C: (test code = 52443) (NOTE) Laurent Osborn AND CHLAMYDIA AMPLIFIED, [id number] 00:00:00* Test Item Value Reference Range Interpretation Comme nts GONORRHEA, TMA (test code = 15379) NEGATIVE CHLAMYDIA, TMA (test code = 52443) NEGATIVE Laurent BranchHIV AB/AG COMBO RFLX [id number] 00:00:00* Test Item Value Reference Range Interpretation Comme nts HIV 1/2 4TH GEN, RFLX CONF ( test code = 3514) NON-REACTIVE Laurent BranchHPV HIGH RISK WITH GENOTYPE, [id number] 00:00:00* Test Item Value Reference Range Interpretation Comme nts HPV HIGH RISK INTERP (test c ode = 12383) NEGATIVE HPV 16 (test code = 89061) NEGATIVE HPV 18 (test code = 93453) NEGATIVE HPV, HR, OTHER GENOTYPES (te st code = 47525) NEGATIVE Laurent Crump HEPATITIS [id number] 00:00:00* Test Item Value Reference Range Interpretation Comme nts HEPATITIS A IgM (test code = 19249) NON-REACTIVE HEPATITIS B CORE IgM (test c ode = 4644) NON-REACTIVE HEPATITIS B SURF AG (test co de = 2739) NON-REACTIVE HEPATITIS C ANTIBODY (test c ode = 4675) NON-REACTIVE HCV INDEX (test code = 61781) 0.08 INTERPRETATION HEPATITIS A: (test code = 2552) (NOTE) INTERPRETATION HEPATITIS B: (test code = 77511) (NOTE) INTERPRETATION HEPATITIS C: (test code = 26920) (NOTE) Laurent Osborn AND CHLAMYDIA AMPLIFIED, [id number] 00:00:00* Test Item Value Reference Range Interpretation Comme nts GONORRHEA, TMA (test code = 56401) NEGATIVE CHLAMYDIA, TMA (test code = 04406) NEGATIVE Laurent BranchHIV AB/AG COMBO RFLX [id number] 00:00:00* Test Item Value Reference Range Interpretation Comme nts HIV 1/2 4TH GEN, RFLX CONF ( test code = 3514) NON-REACTIVE Laurent Bazzi AustinHPV HIGH RISK WITH GENOTYPE, [id number] 00:00:00* Test Item Value Reference Range Interpretation Comme nts HPV HIGH RISK INTERP (test c ode = 81455) NEGATIVE HPV 16 (test code = 64623) NEGATIVE HPV 18 (test code = 72732) NEGATIVE HPV, HR, OTHER GENOTYPES (te st code = 96252) NEGATIVE Laurent BranchACUTE HEPATITIS [id number] 00:00:00* Test Item Value Reference Range Interpretation Comme nts HEPATITIS A IgM (test code = 59286) NON-REACTIVE HEPATITIS B CORE IgM (test c ode = 4644) NON-REACTIVE HEPATITIS B SURF AG (test co de = 2739) NON-REACTIVE HEPATITIS C ANTIBODY (test c ode = 4675) NON-REACTIVE HCV INDEX (test code = 75034) 0.08 INTERPRETATION HEPATITIS A: (test code = 2552) (NOTE) INTERPRETATION HEPATITIS B: (test code = 07285) (NOTE) INTERPRETATION HEPATITIS C: (test code = 62054) (NOTE) Laurent Bazzi AustinGC AND CHLAMYDIA AMPLIFIED, [id number] 00:00:00* Test Item Value Reference Range Interpretation Comme nts GONORRHEA, TMA (test code = 45240) NEGATIVE CHLAMYDIA, TMA (test code = 55669) NEGATIVE Laurent BranchHPV HIGH RISK WITH GENOTYPE, [id number] 00:00:00* Test Item Value Reference Range Interpretation Comme nts HPV HIGH RISK INTERP (test c ode = 18724) NEGATIVE HPV 16 (test code = 89914) NEGATIVE HPV 18 (test code = 43165) NEGATIVE HPV, HR, OTHER GENOTYPES (te st code = 67549) NEGATIVE Laurent BranchHIV AB/AG COMBO RFLX [id number] 00:00:00* Test Item Value Reference Range Interpretation Comme nts HIV 1/2 4TH GEN, RFLX CONF ( test code = 3514) NON-REACTIVE Laurent Bazzi AustinGC AND CHLAMYDIA AMPLIFIED, [id number] 00:00:00* Test Item Value Reference Range Interpretation Comme nts GONORRHEA, TMA (test code = 69573) NEGATIVE CHLAMYDIA, TMA (test code = 23563) NEGATIVE Laurent F AustinGC AND CHLAMYDIA AMPLIFIED, [id number] 00:00:00* Test Item Value Reference Range Interpretation Comme nts GONORRHEA, TMA (test code = 08813) NEGATIVE CHLAMYDIA, TMA (test code = 25742) NEGATIVE ACUTE HEPATITIS [id number] 00:00:00* Test Item Value Reference Range Interpretation Comme nts HEPATITIS A IgM (test code = 51475) NON-REACTIVE HEPATITIS B CORE IgM (test c ode = 4644) NON-REACTIVE HEPATITIS B SURF AG (test co de = 2739) NON-REACTIVE HEPATITIS C ANTIBODY (test c ode = 4675) NON-REACTIVE HCV INDEX (test code = 92331) 0.08 INTERPRETATION HEPATITIS A: (test code = 2552) (NOTE) INTERPRETATION HEPATITIS B: (test code = 52121) (NOTE) INTERPRETATION HEPATITIS C: (test code = 96075) (NOTE) LIPID [id number] 00:00:00* Test Item Value Reference Range Interpretation Comme nts CHOLESTEROL (test code = 2210) 217 MG/DL TRIGLYCERIDES (test code = 2232) 511 MG/DL HDL CHOLESTEROL (test code = 2220) 33 MG/DL CALC LDL CHOL (test code = 2237) NOTE MG/DL RISK RATIO LDL/HDL (test cod e = 2238) (NOTE) RATIO HEMOGLOBIN [id number] 00:00:00* Test Item Value Reference Range Interpretation Comme nts HEMOGLOBIN A1c (test code = 52944) 11.2 % MICROALBUMIN/CREATININE, RANDOM AND [id number] 00:00:00* Test Item Value Reference Range Interpretation Comme nts CREATININE, URINE, CONC. (te st code = 2072) 56.6 MG/DL ALBUMIN, URINE, RANDOM (test code = 76955) 10.6 MG/DL CALC ALBUMIN/CREAT, RND (phyllis t code = 39189) 187 MG/G COMPREHENSIVE METABOLIC [id number] 00:00:00* Test Item Value Reference Range Interpretation Comme nts GLUCOSE (test code = 2217) 299 MG/DL BUN (test code = 2208) 5 MG/DL CREATININE (test code = 2214) 0.46 MG/DL eGFR AMER. (test cod e = 74102) 147 ML/MIN/1.73 eGFR NON- AMER. (test code = 34264) 127 ML/MIN/1.73 CALC BUN/CREAT (test code = [...] (test code = 2219) 25 U/L LIPID [id number] 00:00:00* Test Item Value Reference Range Interpretation Comme nts CHOLESTEROL (test code = 2210) 217 MG/DL TRIGLYCERIDES (test code = 2232) 511 MG/DL HDL CHOLESTEROL (test code = 2220) 33 MG/DL CALC LDL CHOL (test code = 2237) NOTE MG/DL RISK RATIO LDL/HDL (test cod e = 2238) (NOTE) RATIO HEMOGLOBIN [id number] 00:00:00* Test Item Value Reference Range Interpretation Comme nts HEMOGLOBIN A1c (test code = 38294) 11.2 % MICROALBUMIN/CREATININE, RANDOM AND [id number] 00:00:00* Test Item Value Reference Range Interpretation Comme nts CREATININE, URINE, CONC. (te st code = 2072) 56.6 MG/DL ALBUMIN, URINE, RANDOM (test code = 70246) 10.6 MG/DL CALC ALBUMIN/CREAT, RND (phyllis t code = 43657) 187 MG/G COMPREHENSIVE METABOLIC [id number] 00:00:00* Test Item Value Reference Range Interpretation Comme nts GLUCOSE (test code = 7) 299 MG/DL BUN (test code = 8) 5 MG/DL CREATININE (test code = 2214) 0.46 MG/DL eGFR AMER. (test cod e = 95366) 147 ML/MIN/1.73 eGFR NON- AMER. (test code = 54816) 127 ML/MIN/1.73 CALC BUN/CREAT (test code = [...] (test code = 2219) 25 U/L LIPID [id number] 00:00:00* Test Item Value Reference Range Interpretation Comme nts CHOLESTEROL (test code = 2210) 217 MG/DL TRIGLYCERIDES (test code = 2232) 511 MG/DL HDL CHOLESTEROL (test code = 2220) 33 MG/DL CALC LDL CHOL (test code = 2237) NOTE MG/DL RISK RATIO LDL/HDL (test cod e = 2238) (NOTE) RATIO HEMOGLOBIN [id number] 00:00:00* Test Item Value Reference Range Interpretation Comme nts HEMOGLOBIN A1c (test code = 40368) 11.2 % MICROALBUMIN/CREATININE, RANDOM AND [id number] 00:00:00* Test Item Value Reference Range Interpretation Comme nts CREATININE, URINE, CONC. (te st code = 2072) 56.6 MG/DL ALBUMIN, URINE, RANDOM (test code = 07506) 10.6 MG/DL CALC ALBUMIN/CREAT, RND (phyllis t code = 66913) 187 MG/G COMPREHENSIVE METABOLIC [id number] 00:00:00* Test Item Value Reference Range Interpretation Comme nts GLUCOSE (test code = 2217) 299 MG/DL BUN (test code = 2208) 5 MG/DL CREATININE (test code = 2214) 0.46 MG/DL eGFR AMER. (test cod e = 36882) 147 ML/MIN/1.73 eGFR NON- AMER. (test code = 40749) 127 ML/MIN/1.73 CALC BUN/CREAT (test code = [...] code = 2219) 25 U/L COMPREHENSIVE METABOLIC [id number] 00:00:00* Test Item Value Reference Range Interpretation Comme nts GLUCOSE (test code = 2217) 299 MG/DL BUN (test code = 2208) 5 MG/DL CREATININE (test code = 2214) 0.46 MG/DL eGFR AMER. (test cod e = 66409) 147 ML/MIN/1.73 eGFR NON- AMER. (test code = 30655) 127 ML/MIN/1.73 CALC BUN/CREAT (test code = [...] (test code = 2219) 25 U/L LIPID [id number] 00:00:00* Test Item Value Reference Range Interpretation Comme nts CHOLESTEROL (test code = 2210) 217 MG/DL TRIGLYCERIDES (test code = 2232) 511 MG/DL HDL CHOLESTEROL (test code = 2220) 33 MG/DL CALC LDL CHOL (test code = 2237) NOTE MG/DL RISK RATIO LDL/HDL (test cod e = 2238) (NOTE) RATIO LIPID [id number] 00:00:00* Test Item Value Reference Range Interpretation Comme nts CHOLESTEROL (test code = 2210) 217 MG/DL TRIGLYCERIDES (test code = 2232) 511 MG/DL HDL CHOLESTEROL (test code = 2220) 33 MG/DL CALC LDL CHOL (test code = 2237) NOTE MG/DL RISK RATIO LDL/HDL (test cod e = 2238) (NOTE) RATIO HEMOGLOBIN [id number] 00:00:00* Test Item Value Reference Range Interpretation Comme nts HEMOGLOBIN A1c (test code = 80120) 11.2 % MICROALBUMIN/CREATININE, RANDOM AND [id number] 00:00:00* Test Item Value Reference Range Interpretation Comme nts CREATININE, URINE, CONC. (te st code = 2072) 56.6 MG/DL ALBUMIN, URINE, RANDOM (test code = 77369) 10.6 MG/DL CALC ALBUMIN/CREAT, RND (phyllis t code = 74564) 187 MG/G LIPID [id number] 00:00:00* Test Item Value Reference Range Interpretation Comme nts CHOLESTEROL (test code = 2210) 217 MG/DL TRIGLYCERIDES (test code = 2232) 511 MG/DL HDL CHOLESTEROL (test code = 2220) 33 MG/DL CALC LDL CHOL (test code = 2237) NOTE MG/DL RISK RATIO LDL/HDL (test cod e = 2238) (NOTE) RATIO Laurent F AustinHEMOGLOBIN [id number] 00:00:00* Test Item Value Reference Range Interpretation Comme nts HEMOGLOBIN A1c (test code = 94204) 11.2 % Laurent F AustinMICROALBUMIN/CREATININE, RANDOM AND [id number] 00:00:00* Test Item Value Reference Range Interpretation Comme nts CREATININE, URINE, CONC. (te st code = 2072) 56.6 MG/DL ALBUMIN, URINE, RANDOM (test code = 48895) 10.6 MG/DL CALC ALBUMIN/CREAT, RND (phyllis t code = 99024) 187 MG/G Laurent BranchCOMPREHENSIVE METABOLIC [id number] 00:00:00* Test Item Value Reference Range Interpretation Comme nts GLUCOSE (test code = 2217) 299 MG/DL BUN (test code = 2208) 5 MG/DL CREATININE (test code = 2214) 0.46 MG/DL eGFR AMER. (test cod e = 93536) 147 ML/MIN/1.73 eGFR NON- AMER. (test code = 74234) 127 ML/MIN/1.73 CALC BUN/CREAT (test code = [...] (test code = 2219) 25 U/L Laurent Bazzi AustinLIPID [id number] 00:00:00* Test Item Value Reference Range Interpretation Comme nts CHOLESTEROL (test code = 2210) 217 MG/DL TRIGLYCERIDES (test code = 2232) 511 MG/DL HDL CHOLESTEROL (test code = 2220) 33 MG/DL CALC LDL CHOL (test code = 2237) NOTE MG/DL RISK RATIO LDL/HDL (test cod e = 2238) (NOTE) RATIO Laurent Bazzi AustinHEMOGLOBIN [id number] 00:00:00* Test Item Value Reference Range Interpretation Comme nts HEMOGLOBIN A1c (test code = 93662) 11.2 % Laurent Bazzi AustinMICROALBUMIN/CREATININE, RANDOM AND [id number] 00:00:00* Test Item Value Reference Range Interpretation Comme nts CREATININE, URINE, CONC. (te st code = 2072) 56.6 MG/DL ALBUMIN, URINE, RANDOM (test code = 56859) 10.6 MG/DL CALC ALBUMIN/CREAT, RND (phyllis t code = 47918) 187 MG/G Laurent BranchCOMPREHENSIVE METABOLIC [id number] 00:00:00* Test Item Value Reference Range Interpretation Comme nts GLUCOSE (test code = 2217) 299 MG/DL BUN (test code = 2208) 5 MG/DL CREATININE (test code = 2214) 0.46 MG/DL eGFR AMER. (test cod e = 51934) 147 ML/MIN/1.73 eGFR NON- AMER. (test code = 10951) 127 ML/MIN/1.73 CALC BUN/CREAT (test code = [...] code = 2219) 25 U/L Laurent BranchLIPID [id number] 00:00:00* Test Item Value Reference Range Interpretation Comme nts CHOLESTEROL (test code = 2210) 217 MG/DL TRIGLYCERIDES (test code = 2232) 511 MG/DL HDL CHOLESTEROL (test code = 2220) 33 MG/DL CALC LDL CHOL (test code = 2237) NOTE MG/DL RISK RATIO LDL/HDL (test cod e = 2238) (NOTE) RATIO Laurent BranchHEMOGLOBIN [id number] 00:00:00* Test Item Value Reference Range Interpretation Comme nts HEMOGLOBIN A1c (test code = 83576) 11.2 % Laurent BranchMICROALBUMIN/CREATININE, RANDOM AND [id number] 00:00:00* Test Item Value Reference Range Interpretation Comme nts CREATININE, URINE, CONC. (te st code = 2072) 56.6 MG/DL ALBUMIN, URINE, RANDOM (test code = 17554) 10.6 MG/DL CALC ALBUMIN/CREAT, RND (phyllis t code = 94014) 187 MG/G Laurent BranchCOMPREHENSIVE METABOLIC [id number] 00:00:00* Test Item Value Reference Range Interpretation Comme nts GLUCOSE (test code = 2217) 299 MG/DL BUN (test code = 2208) 5 MG/DL CREATININE (test code = 2214) 0.46 MG/DL eGFR AMER. (test cod e = 77007) 147 ML/MIN/1.73 eGFR NON- AMER. (test code = 54441) 127 ML/MIN/1.73 CALC BUN/CREAT (test code = [...] code = 2219) 25 U/L Laurent BranchLIPID [id number] 00:00:00* Test Item Value Reference Range Interpretation Comme nts CHOLESTEROL (test code = 2210) 217 MG/DL TRIGLYCERIDES (test code = 2232) 511 MG/DL HDL CHOLESTEROL (test code = 2220) 33 MG/DL CALC LDL CHOL (test code = 2237) NOTE MG/DL RISK RATIO LDL/HDL (test cod e = 2238) (NOTE) RATIO Laurent BranchHEMOGLOBIN [id number] 00:00:00* Test Item Value Reference Range Interpretation Comme nts HEMOGLOBIN A1c (test code = 37591) 11.2 % Laurent BranchMICROALBUMIN/CREATININE, RANDOM AND [id number] 00:00:00* Test Item Value Reference Range Interpretation Comme nts CREATININE, URINE, CONC. (te st code = 2072) 56.6 MG/DL ALBUMIN, URINE, RANDOM (test code = 50603) 10.6 MG/DL CALC ALBUMIN/CREAT, RND (phyllis t code = 35019) 187 MG/G Laurent BranchCOMPREHENSIVE METABOLIC [id number] 00:00:00* Test Item Value Reference Range Interpretation Comme nts GLUCOSE (test code = 2217) 299 MG/DL BUN (test code = 2208) 5 MG/DL CREATININE (test code = 2214) 0.46 MG/DL eGFR AMER. (test cod e = 59115) 147 ML/MIN/1.73 eGFR NON- AMER. (test code = 22924) 127 ML/MIN/1.73 CALC BUN/CREAT (test code = [...] code = 2219) 25 U/L Laurent BranchLIPID [id number] 00:00:00* Test Item Value Reference Range Interpretation Comme nts CHOLESTEROL (test code = 2210) 217 MG/DL TRIGLYCERIDES (test code = 2232) 511 MG/DL HDL CHOLESTEROL (test code = 2220) 33 MG/DL CALC LDL CHOL (test code = 2237) NOTE MG/DL RISK RATIO LDL/HDL (test cod e = 2238) (NOTE) RATIO Laurent BranchHEMOGLOBIN [id number] 00:00:00* Test Item Value Reference Range Interpretation Comme nts HEMOGLOBIN A1c (test code = 73893) 11.2 % Laurent BranchMICROALBUMIN/CREATININE, RANDOM AND [id number] 00:00:00* Test Item Value Reference Range Interpretation Comme nts CREATININE, URINE, CONC. (te st code = 2072) 56.6 MG/DL ALBUMIN, URINE, RANDOM (test code = 92099) 10.6 MG/DL CALC ALBUMIN/CREAT, RND (phyllis t code = 26739) 187 MG/G Laurent BranchCOMPREHENSIVE METABOLIC [id number] 00:00:00* Test Item Value Reference Range Interpretation Comme nts GLUCOSE (test code = 2217) 299 MG/DL BUN (test code = 2208) 5 MG/DL CREATININE (test code = 2214) 0.46 MG/DL eGFR AMER. (test cod e = 02279) 147 ML/MIN/1.73 eGFR NON- AMER. (test code = 45098) 127 ML/MIN/1.73 CALC BUN/CREAT (test code = [...] code = 2219) 25 U/L Laurent BranchLIPID [id number] 00:00:00* Test Item Value Reference Range Interpretation Comme nts CHOLESTEROL (test code = 2210) 217 MG/DL TRIGLYCERIDES (test code = 2232) 511 MG/DL HDL CHOLESTEROL (test code = 2220) 33 MG/DL CALC LDL CHOL (test code = 2237) NOTE MG/DL RISK RATIO LDL/HDL (test cod e = 2238) (NOTE) RATIO Laurent BranchHEMOGLOBIN [id number] 00:00:00* Test Item Value Reference Range Interpretation Comme cornelio HEMOGLOBIN A1c (test code = 21251) 11.2 % Laurent BranchMICROALBUMIN/CREATININE, RANDOM AND [id number] 00:00:00* Test Item Value Reference Range Interpretation Comme nts CREATININE, URINE, CONC. (te st code = 2072) 56.6 MG/DL ALBUMIN, URINE, RANDOM (test code = 86538) 10.6 MG/DL CALC ALBUMIN/CREAT, RND (phyllis t code = 14158) 187 MG/G Laurent BranchCOMPREHENSIVE METABOLIC [id number] 00:00:00* Test Item Value Reference Range Interpretation Comme nts GLUCOSE (test code = 2217) 299 MG/DL BUN (test code = 2208) 5 MG/DL CREATININE (test code = 2214) 0.46 MG/DL eGFR AMER. (test cod e = 09772) 147 ML/MIN/1.73 eGFR NON- AMER. (test code = 07747) 127 ML/MIN/1.73 CALC BUN/CREAT (test code = [...] (test code = 2219) 25 U/L Laurent Bazzi AustinHEMOGLOBIN [id number] 00:00:00* Test Item Value Reference Range Interpretation Comme nts HEMOGLOBIN A1c (test code = 80840) 11.2 % MICROALBUMIN/CREATININE, RANDOM AND [id number] 00:00:00* Test Item Value Reference Range Interpretation Comme nts CREATININE, URINE, CONC. (te st code = 2072) 56.6 MG/DL ALBUMIN, URINE, RANDOM (test code = 37861) 10.6 MG/DL CALC ALBUMIN/CREAT, RND (phyllis t code = 24329) 187 MG/G COMPREHENSIVE METABOLIC [id number] 00:00:00* Test Item Value Reference Range Interpretation Comme nts GLUCOSE (test code = 2217) 299 MG/DL BUN (test code = 2208) 5 MG/DL CREATININE (test code = 2214) 0.46 MG/DL eGFR AMER. (test cod e = 81818) 147 ML/MIN/1.73 eGFR NON- AMER. (test code = 29376) 127 ML/MIN/1.73 CALC BUN/CREAT (test code = [...] ALT (test code = 2219) 25 U/L Notes Date/Time Note Provider Source Laurent Gonzales [facility]2024-12-31 00:00:00 Laurent Gonzales [facility]2024-12-03 00:00:00 Laurent Gonzales [place] [id number] 11:27:14 PT D/C home. GCS15, VS stable, no ataxia noted. Given one prescription and D/C paperwork. Pt ambulatory at time of discharge. Pt educated on facial swelling, dental abscess, med usage, follow up care, s/s worsening condition. Pt verbalized understanding. [place] [id number] 08:50:25 Woke up yesterday with right facial swelling. Painful when swallowing. Took BP meds just [employer]. LUIS Roberson [place] [id number] 08:45:00 [facility] Emergency Department Note Patient Name: Gem Espinoza Date of : 1980 43 year old female Treatment Room: [place] [id number] Primary Care Physician: [facility] Alexroshan Patient Escorted by: Family [5] Mode of [...] 0.0 0.0 - 10.0 /100 WBCs NRBC x103<0.01 10*3/?L GRAN MAT (NEUT) % 67.3 % IMM GRAN % 0.90 % LYMPH % 22.0 % MONO % 8.2 % EOS % 1.0 % BASO % 0.6 % GRAN MAT x103(ANC) 6.42 1.88 - 7.09 10*3/uL IMM GRAN x1030.09 (*) 0.00 - 0.06 10*3/uL LYMPH x1032.10 1.32 - 3.29 10*3/uL MONO x1030.78 0.33 - 0.92 10*3/uL EOS x1030.10 0.03 - 0.39 10*3/uL BASO x1030.06 0.01 - 0.07 10*3/uL COMP. METABOLIC PANEL (97440) - Abnormal NA 131 (*) 135 - [...] CONTRAST CBC WITH DIFF COMP. METABOLIC PANEL (69036) POCT TEST Orders Placed This Encounter Medications iopamidol (ISOVUE 370-500 mL) injection 90 mL ampicillin-sulbactam (UNASYN) 3 g in NaCl 0.9% (NS) 100 mL MINI-BAG amoxicillin-clavulanate 875-125 mg per tablet First Provider Eval: ED Events Date/Time Event User Comments 01/31/24847 Medical Screening Begins VICENTA URBANO DO -- 01/31/24 08 First Provider Evaluation VICENTA URBANO DO -- [...] Dr. Gomez with the ENT service at [facility] who recommends antibiotics and outpatient dental follow-up [...] signed by: Vicenta Urbano DO 01/31/24 1112 [facility] - [id number] 00:00:00 [facility]2024-06-27 00:00:00 [facility]2024-05-13 00:00:00 [facility]
[2024-08-14 13:55] LABS: SARS-CoV-2 Antigen Rapid Res Negative (Negative)
--- NOTE | 2024-08-14 14:28 | EDPHYS ---
Physician Documentation [facility] Name: Gem Espinoza Age: 44 yrs Sex: Female : 1980 Arrival Date: 08/14/2024 Time: 12:43 Bed 16 Private MD: ED Physician Solo Blankenship HPI: 08/14 13:14 This 44 yrs old Female presents to ER via Ambulatory with complaints of Sore ms3 Throat, Cough. 13:14 44-year-old female with past medical history of diabetes and hypertension presents to [facility] the emergency department for throat pain that is bilateral and cough that began today. Patient states she had a peritonsillar abscess in January. Patient states her pain is currently 9/10. She denies any alleviating or inciting factors. Historical: - Allergies: 12:57 No Known Allergies; ll1 - PMHx: 12:57 Diabetes - NIDDM; Hypertension; ll1 - PSHx: 12:57 peritonsillar abscess (Hypertension); ll1 - Immunization history:: Adult Immunizations up to date. - Infectious Disease History:: Denies. - Social history:: Smoking status: Patient denies any tobacco usage or history of. ROS: 13:14 Constitutional: Negative for fever, and chills. Cardiovascular: Negative for chest ms3 pain, and palpitations. Respiratory: Negative for shortness of breath, cough, wheezing, and pleuritic chest pain, Abdomen/GI: Negative for abdominal pain, nausea, vomiting, diarrhea, and constipation, 13:14 ENT: Positive for sore throat, Exam: 13:14 Constitutional: This is a well developed, well nourished patient who is awake, alert, ms3 and in no acute distress. Cardiovascular: Regular rate and rhythm with a normal S1 and S2. No gallops, murmurs, or rubs. Normal PMI, no JVD. No pulse deficits. Respiratory: Lungs have equal breath sounds bilaterally, clear to auscultation and percussion. No rales, rhonchi or wheezes noted. No increased work of breathing, no retractions or nasal flaring. Abdomen/GI: Soft, non-tender, with normal bowel sounds. No distension or tympany. No guarding or rebound. No evidence of tenderness throughout. 13:14 ENT: Posterior pharynx: Airway: normal, no evidence of obstruction, patent, Tonsils: are normal in appearance, Uvula: normal, midline, non-edematous, no erythema, swelling, is not appreciated, erythema, that is mild, exudate, is not appreciated, peritonsillar mass, is not appreciated, pooling of secretions, is not appreciated, Vital Signs: 12:59 BP 176 / 87; Pulse 108; Resp 17; Temp 97.6; Pulse Ox 100% on R/A; Weight 90.72 kg; ll1 Height 5 ft. 2 in. ; Pain 9/10; 16:00 BP 168 / 78; Pulse 92; Resp 16; Pulse Ox 100% ; db 12:59 Body Mass Index 36.58 (90.72 kg, 157.48 cm) ll1 12:59 Pain Scale: Adult ll1 MDM: 13:14 Medical Screening Exam initiated ms3 13:15 Differential diagnosis: Allergic rhinitis, pharyngitis, upper respiratory infection, ms3 viral syndrome. 14:28 Data reviewed: vital signs, nurses notes, lab test result(s), and as a result, I will ms3 discharge patient. I considered the following discharge prescriptions or medication management in the emergency department See Rx. Counseling: I had a detailed discussion with the patient and/or guardian regarding the historical points, exam findings, and any diagnostic results supporting the discharge/admit diagnosis, lab results, the need for outpatient follow up, to return to the emergency department if symptoms worsen or persist or if there are any questions or concerns that arise at home. Special discussion: I discussed with the patient/guardian in detail that at this point there is no indication for admission to the hospital. It is understood, however, that if the symptoms persist or worsen the patient needs to return immediately for re-evaluation. ED course: Discussed negative COVID and strep results with patient. Patient to follow-up with primary care physician 2 to 3 days. Patient understands agrees with plan. All questions were answered. Return precautions discussed include worsening symptoms, or any other concerns. On reevaluation patient is alert, no apparent distress, nontoxic-appearing, speaking full sentences. 08/14 12:59 Order name: SARS RAPID; Complete Time: 14:24 ms3 08/14 12:59 Order name: Group A Streptococcus Rapid; Complete Time: 13:38 ms3 08/14 13:31 Order name: Throat Culture EDMS Administered Medications: No medications were administered Disposition Summary: 08/14/24 14:28 Discharge Ordered Notes: Location: Home ms3 Condition: Stable ms3 Diagnosis - Pain in throat ms3 Followup: ms3 - With: Kate Robison MD - When: 2 - 3 days - Reason: Recheck today's complaints Discharge Instructions: - Discharge Summary Sheet ms3 - Sore Throat, Hans-ta-Mkgg ms3 Forms: - Medication Reconciliation Form ms3 - Antibiotic Education ms3 - Prescription Opioid Use ms3 - Patient Portal Instructions ms3 - Leadership Thank You Letter ms3 Prescriptions: - Flonase Allergy Relief 50 mcg/actuation Nasal spray, suspension - spray 2 spray INTRANASAL route daily administer into each nostril; 11 ms3 milliliter; Refills: 0, Product Selection Permitted - Claritin 10 mg Oral Tablet - take 1 tablet ORAL route once daily As needed; 30 tablet; Refills: 0, Product ms3 Selection Permitted Signatures: Dispatcher [employer] EDZandra Perez RN RN Edelmira Quevedo RN RN [facility] Solo Blankenship DO DO ms3 Corrections: (The following items were deleted from the chart) 12:59 12:59 SARS-COV-2 Antigen Rapid+I.LAB.BRZ ordered. EDMS EDMS 12:59 12:59 Group A Streptococcus Rapid Sc+I.LAB.BRZ ordered. EDMS EDMS
--- NOTE | 2024-08-14 14:28 | ER ---
Nurse's Notes [facility] Name: Gem Espinoza Age: 44 yrs Sex: Female : 1980 Arrival Date: 08/14/2024 Time: 12:43 Bed 16 Private MD: Diagnosis: Pain in throat Presentation: 08/14 12:59 Chief complaint: Patient states: Sore throat and cough started today. Coronavirus ll1 screen: Client denies travel out of the [place] in the last 14 days. cough unrelated to allergies, fatigue, sore throat, Client presents with at least one sign or symptom that may indicate coronavirus-19. Standard/surgical mask placed on the client. Ebola Screen: Patient denies travel to an Ebola-affected area in the 21 days before illness onset. Initial Sepsis Screen: Does the patient meet any 2 criteria? No. Patient's initial sepsis screen is negative. Does the patient have a suspected source of infection? No. Patient's initial sepsis screen is negative. Risk Assessment: Do you want to hurt yourself or someone else? Patient reports no desire to harm self or others. Onset of symptoms was August 14, 2024. 12:59 Method Of Arrival: Ambulatory ll1 12:59 Acuity: ELIZABETH 2 ll1 Triage Assessment: 13:00 General: Appears distressed, uncomfortable, Behavior is calm, cooperative, appropriate ll1 for age, Reports feeling ill for fatigue for. Pain: Complains of pain in throat Quality of pain is described as aching. EENT: Reports pain when swallowing. Neuro: Reports weakness. Respiratory: Reports cough that is. Historical: - Allergies: 12:57 No Known Allergies; ll1 - PMHx: 12:57 Diabetes - NIDDM; Hypertension; ll1 - PSHx: 12:57 peritonsillar abscess (Hypertension); ll1 - Immunization history:: Adult Immunizations up to date. - Infectious Disease History:: Denies. - Social history:: Smoking status: Patient denies any tobacco usage or history of. Screenin:01 [facility] ED Fall Risk Assessment (Adult) History of falling in the last 3 months, ph including since admission No falls in past 3 months (0 pts) Confusion or Disorientation No (0 pts) Intoxicated or Sedated No (0 pts) Impaired Gait No (0 pts) Mobility Assist Device Used No (0 pt) Altered Elimination No (0 pt) Score/Fall Risk Level 0 - 2 = Low Risk Oriented to surroundings, Maintained a safe environment, Hourly rounding (assess needs \T\ fall precautionary measures) done. Abuse screen: Denies threats or abuse. Denies injuries from another. Nutritional screening: No deficits noted. Tuberculosis screening: No symptoms or risk factors identified. Assessment: 13:38 General: Appears in no apparent distress. Behavior is calm, cooperative. Pain: ph Complains of pain in THROAT. Neuro: Level of Consciousness is awake, alert, obeys commands, Oriented to person, place, time, situation. Cardiovascular: Capillary refill < 3 seconds in bilateral fingers Patient's skin is warm and dry. Respiratory: Reports cough that is Airway is patent Respiratory effort is even, unlabored, Respiratory pattern is regular, symmetrical, Breath sounds are clear bilaterally. EENT: Throat is reddened Reports pain when swallowing. Derm: Skin is pink, warm \T\ dry. 15:00 Reassessment: Patient appears in no apparent distress at this time. Patient and/or db family updated on plan of care and expected duration. Pain level reassessed. Patient is alert, oriented x 3, equal unlabored respirations, skin warm/dry/pink. 16:24 Reassessment: Patient appears in no apparent distress at this time. Patient and/or db family updated on plan of care and expected duration. Pain level reassessed. Patient is alert, oriented x 3, equal unlabored respirations, skin warm/dry/pink. Patient states symptoms have improved. Vital Signs: 12:59 BP 176 / 87; Pulse 108; Resp 17; Temp 97.6; Pulse Ox 100% on R/A; Weight 90.72 kg; ll1 Height 5 ft. 2 in. ; Pain 9/10; 16:00 BP 168 / 78; Pulse 92; Resp 16; Pulse Ox 100% ; db 12:59 Body Mass Index 36.58 (90.72 kg, 157.48 cm) ll1 12:59 Pain Scale: Adult ll1 ED Course: 12:45 Patient arrived in ED. mr 12:56 Anu Wylie, RN is Primary Nurse. db 12:57 Arm band placed on Patient placed in an exam room, on a stretcher. ll1 12:59 Solo Blankenship DO is Attending Physician. ms3 13:00 Triage completed. ll1 13:01 Zandra Moreno, RN is Primary Nurse. ph 13:02 Patient has correct armband on for positive identification. Bed in low position. Call ph light in reach. Side rails up X 1. Pulse ox on. NIBP on. Door closed. Noise minimized. 13:15 COVID swab sent to lab. Strep swab sent to lab. ph 14:28 Kate Robison MD is Referral Physician. ms3 16:25 Provided Education on: discharge and followup. db 16:25 No provider procedures requiring assistance completed. Patient did not have IV access db during this emergency room visit. Administered Medications: No medications were administered Medication: 13:01 VIS not applicable for this client. ph Outcome: 14:28 Discharge ordered by . ms3 16:25 Discharged to home ambulatory, db 16:25 Condition: stable 16:25 Discharge instructions given to patient, Instructed on discharge instructions, follow up and referral plans. Prescriptions given X 2, 16:25 Patient left the ED. db Signatures: Lilli Ragland, Yoel Reg mr Zandra Moreno, RN RN Edelmira Quevedo RN RN 1 Solo Blankenship DO DO ms3 Anu Wylie, RN RN db
[2024-08-14 16:32] VITALS: TEMP 97.6; O2SAT 100
[2024-08-14 16:33] VITALS: BP 168/78
== END 2024-08-14 16:25 | disposition home or self-care (01) ==
LOC: ER 12:43
DX: R07.0 Pain in throat (principal)
CPT/HCPCS: 36415; 87070; 87426; 99283